=== PATIENT | male | born 1935 | race Caucasian/White ===

== ENCOUNTER → 2017-04-07 13:58 | Outpatient (CLI) | payer MEDICARE, SELFPAY ==
[2017-04-07 15:44] LABS: Hematocrit 39.3 % (40-54); Hemoglobin 12.2 g/dl (13.0-16.5); Mean Corpuscular Hgb 30.2 pg (27.0-32.0); Mean Corpuscular Volume 97.3 fL (80-94); Mean Platelet Vol. 8.9 fl (6.2-12.0); Platelet Count 163 K/mm3 (150-450); RBC Distribution Width CV 14.5 % (11.6-14.6); RBC Distribution Width SD 51.8 fl (35.1-43.9); Red Blood Count 4.04 M/mm3 (4.6-6.2); White Blood Count 6.4 K/mm3 (4.4-11.0)
[2017-04-07 15:47] LABS: Scan Indicated on CBC? Y/N NO
[2017-04-07 16:07] LABS: Albumin, Serum 3.1 g/dL (3.2-5.0); BUN 20 mg/dL (7-18); BUN/Creat Ratio 11.9 RATIO (10-20); Calcium,Total 8.5 mg/dL (8.5-10.1); Chloride 103 mmol/L (98-107); Creatinine, Serum 1.68 mg/dL (0.70-1.30); EST Glomerular Filtration Rate 42 mL/min (>60); Est Glom Filt Rate - Afr Amer 51 mL/min (>60); Glucose 76 mg/dL (70-110); Phosphorus 3.9 mg/dL (2.5-4.9); Potassium 4.7 mmol/L (3.5-5.1); Sodium Level 141 mmol/L (136-145); Thyroid Stim Hormone (TSH) 4.46 uIU/mL (0.358-3.74)
[2017-04-08 10:05] LABS: Vitamin D,25 Hydroxy 31.4 ng/mL (19.95-100.01)
== END ==
PROVIDERS: Family Provider Family Medicine Geriatric Medicine; PCP Family Medicine Geriatric Medicine; Visit Provider Internal Medicine Nephrology
DX: N17.9 Acute kidney failure, unspecified (principal); D64.9 Anemia, unspecified; E55.9 Vitamin D deficiency, unspecified
CPT/HCPCS: 36415; 80069; 82306; 84443; 85027

== ENCOUNTER → 2017-04-30 13:57 | Outpatient (CLI) | payer MEDICARE, SELFPAY ==
[2017-04-30 17:06] LABS: Absolute Neutrophil Count 3.8 X10^3/uL (2.0-7.7); Basophil# 0.02 X10^3/uL; Basophil% 0.3 % (0-1); Eosinophil# 0.34 X10^3/uL; Eosinophils% 5.2 % (0-5); Hematocrit 36.5 % (40-54); Hemoglobin 11.8 g/dl (13.0-16.5); Mean Corp Hgb Conc 32.3 g/gl (32-36); Mean Corpuscular Hgb 31.1 pg (27.0-32.0); Mean Corpuscular Volume 96.3 fL (80-94); Mean Platelet Vol. 8.8 fl (6.2-12.0); Monocyte# 0.68 X10^3/uL; Monocyte% 10.4 % (0-10); Neutrophil # 3.78 X10^3/uL (2.7-7.7); Neutrophil % 57.9 % (47-70); Platelet Count 153 K/mm3 (150-450); RBC Distribution Width CV 13.7 % (11.6-14.6); RBC Distribution Width SD 46.3 fl (35.1-43.9); Red Blood Count 3.79 M/mm3 (4.6-6.2); White Blood Count 6.5 K/mm3 (4.4-11.0)
[2017-04-30 17:10] LABS: POSITIVE COUNT NO; POSITIVE DIFFERENTIAL NO; POSITIVE MORPHOLOGY NO
[2017-04-30 17:16] LABS: ALB/GLOB Ratio 0.8 RATIO (0.9-2.4); AST(SGOT) 20 U/L (15-37); Alanine Aminotransfer ALT/SGPT 22 U/L (16-61); Albumin, Serum 3.1 g/dL (3.2-5.0); Alkaline Phosphatase 100 U/L (45-117); Anion Gap 7 (5-15); BUN 20 mg/dL (7-18); BUN/Creat Ratio 11.9 RATIO (10-20); Calcium,Total 8.2 mg/dL (8.5-10.1); Chloride 103 mmol/L (98-107); Creatinine, Serum 1.68 mg/dL (0.70-1.30); EST Glomerular Filtration Rate 42 mL/min (>60); Est Glom Filt Rate - Afr Amer 51 mL/min (>60); Glucose 67 mg/dL (74-106); Protein, Total 7.1 g/dL (6.4-8.2); Sodium Level 140 mmol/L (136-145); Thyroid Stim Hormone (TSH) 3.62 uIU/mL (0.358-3.74)
[2017-05-01 10:32] LABS: Vitamin D,25 Hydroxy 43.4 ng/mL (19.95-100.01)
== END ==
PROVIDERS: Family Provider Family Medicine Geriatric Medicine; PCP Family Medicine Geriatric Medicine; Visit Provider Family Medicine Geriatric Medicine
DX: E03.9 Hypothyroidism, unspecified (principal); N17.9 Acute kidney failure, unspecified; E55.9 Vitamin D deficiency, unspecified
CPT/HCPCS: 36415; 80053; 82306; 84443; 85025

== ENCOUNTER → 2017-05-11 13:04 | Outpatient (CLI) | payer MEDICARE, SELFPAY ==
[2017-05-11 15:05] LABS: Hematocrit 38.7 % (40-54); Hemoglobin 12.4 g/dl (13.0-16.5); Mean Corpuscular Hgb 30.7 pg (27.0-32.0); Mean Corpuscular Volume 95.8 fL (80-94); Mean Platelet Vol. 8.4 fl (6.2-12.0); Platelet Count 169 K/mm3 (150-450); RBC Distribution Width CV 13.7 % (11.6-14.6); RBC Distribution Width SD 46.5 fl (35.1-43.9); Red Blood Count 4.04 M/mm3 (4.6-6.2); White Blood Count 5.8 K/mm3 (4.4-11.0)
[2017-05-11 15:10] LABS: Scan Indicated on CBC? Y/N NO
[2017-05-11 15:37] LABS: Albumin, Serum 3.1 g/dL (3.2-5.0); BUN 17 mg/dL (7-18); BUN/Creat Ratio 10.6 RATIO (10-20); Calcium,Total 8.5 mg/dL (8.5-10.1); Chloride 103 mmol/L (98-107); EST Glomerular Filtration Rate 44 mL/min (>60); Est Glom Filt Rate - Afr Amer 53 mL/min (>60); Glucose 65 mg/dL (74-106); Phosphorus 3.6 mg/dL (2.5-4.9); Potassium 4.1 mmol/L (3.5-5.1); Sodium Level 141 mmol/L (136-145); Vitamin D,25 Hydroxy 35.4 ng/mL (29.95-100.01)
== END ==
PROVIDERS: Family Provider Family Medicine Geriatric Medicine; PCP Family Medicine Geriatric Medicine; Visit Provider Internal Medicine Nephrology
DX: N17.9 Acute kidney failure, unspecified (principal); E55.9 Vitamin D deficiency, unspecified; D64.9 Anemia, unspecified
CPT/HCPCS: 36415; 80069; 82306; 85027

== ENCOUNTER 2017-09-18 13:52 | Inpatient (IN) | payer MEDICARE, SELFPAY ==
[2017-09-18] VITALS (8 sets, daily range): BP systolic 108–152; BP diastolic 41–83; PULSE 52–68; RESP 16–20; TEMP 36.9–38.4; O2SAT 91–94; BMI 32.3; BMI 32.4; BMI 31.5
--- NOTE | 2017-09-18 14:06 | EKG12_ITS ---
Test Reason : WEAKNESS Blood Pressure : / mmHG Vent. Rate : 065 BPM Atrial Rate : 065 BPM P-R Int : 216 ms QRS Dur : 130 ms QT Int : 510 ms P-R-T Axes : -09 -84 -10 degrees QTc Int : 530 ms Sinus rhythm with 1st degree A-V block Left axis deviation Non-specific intra-ventricular conduction block T wave abnormality, consider lateral ischemia Abnormal ECG Confirmed by HAI GARICA, JOSE LUIS ([id number]), health editor BRUNO CARBAJAL ([id number]) on 09/22/2017 1:50:38 PM Referred By: VIRIDIANA Confirmed By:JOSE LUIS VALLES MD
--- NOTE | 2017-09-18 14:15 | ED.VISSUMM ---
- ER Visit Summary Date of Service: 09/18/17 Chief Complaint: Fever, chills and generalized weakness History of Present Illness: The patient is a 81 M lives alone. He is but his ex- is his primary caregiver. He is accompanied by his son in the ER. Patient does have dementia son is getting most of the history. States that his dad results on the front porch today. Said he felt chilled. And had trouble getting up because he was so weak. They deny any recent nausea, vomiting, diarrhea. No dysuria. No cough or new shortness of breath. No chest pain or headache. No recent falls. Physical Examination: Older male no acute distress. Vital signs are stable he does have a fever of 101.2 orally. Pulse ox is 91% on room air not hypoxic and borderline. No distress. H EENT exam unremarkable atraumatic. Moist mucous membranes. Neck nontender no meningismus. No lymphadenopathy. Lungs clear to auscultation bilaterally. Heart regular rhythm no murmur. Abdomen soft and nontender. Normal bowel sounds no peritoneal signs. Nondistended. Moving all 4 extremities. Neurovascularly intact. Calves nontender without cords. Back exam nontender. Neurologically is awake. He is alert. He answers questions. He follows commands. He is not an excellent informant due to his dementia. But he is moving all 4 extremities and following commands. Test Results: Chest x-ray shows chronic changes no acute process read both by myself and the radiologist. EKG sinus rhythm rate is 65 with an interventricular conduction delay but no acute signs of ischemia. White count 8 H&H of 10 and 33 previously his hemoglobin was 12. Platelet count of 80,000 his platelets most recently 160,000 but he has been in the 90,000 range before. No bands. Electrolytes are unremarkable he does have an elevated creatinine of 1.75 consistent with a history of renal insufficiency. Lactate is normal 1.4. UA is pending nurses tried Whittaker catheter is been unsuccessful he has blood cultures ?2 pending. Emergency Department Course and Treatment: Older male with generalized weakness and fever. Most likely will need to be admitted. Will undergo an infectious evaluation. Treatment Plan: Patient treated with a liter normal saline. P.o. Tylenol. We do not have a source at this time. I am going to start him on IV Zosyn for wide spectrum antibiotic coverage. Disposition: Admission Impression: Acute fever and chills of uncertain source Generalized weakness This note was generated with [employer] dictation software. It may contain incorrect words, spelling, and punctuation that were not noted in review of the chart prior to signing ED Disposition - Plan for ED Patient: Chief Complaint: Weakness Referrals: Laith Lai Chi, MD [Primary Care Provider] -
[2017-09-18 14:36] LABS: Absolute Lymphocyte Count 0.38 X10^3/ul (0.83-4.51); Basophil# 0.01 X10^3/uL; Basophil% 0.1 % (0-1); Differential Indicated SCAN CRITERIA MET; Eosinophil# 0.01 X10^3/uL; Eosinophils% 0.1 % (0-5); Hematocrit 33.3 % (40-54); Hemoglobin 10.3 g/dl (13.0-16.5); Lymphocyte # 0.38 X10^3/ul (4.0); Lymphocyte % 4.6 % (19-41); Mean Corp Hgb Conc 30.9 g/gl (32-36); Mean Corpuscular Volume 87.2 fL (80-94); Mean Platelet Vol. 8.3 fl (6.2-12.0); Monocyte# 0.85 X10^3/uL; Monocyte% 10.3 % (0-10); Neutrophil # 7.02 X10^3/uL (2.7-7.7); Neutrophil % 84.8 % (47-70); POSITIVE COUNT NO; POSITIVE DIFFERENTIAL YES; POSITIVE MORPHOLOGY NO; Platelet Count 80 K/mm3 (150-450); RBC Distribution Width CV 15.7 % (11.6-14.6); RBC Distribution Width SD 50.4 fl (35.1-43.9); Red Blood Count 3.82 M/mm3 (4.6-6.2); White Blood Count 8.3 K/mm3 (4.4-11.0)
[2017-09-18 14:43] LABS: Anion Gap 8 (5-15); BUN 18 mg/dL (7-18); BUN/Creat Ratio 10.3 RATIO (10-20); Calcium,Total 8.1 mg/dL (8.5-10.1); Chloride 104 mmol/L (98-107); Creatinine, Serum 1.75 mg/dL (0.70-1.30); EST Glomerular Filtration Rate 40 mL/min (>60); Est Glom Filt Rate - Afr Amer 48 mL/min (>60); Estimated Creatinine Clearance 31.49 ml/min; Glucose 77 mg/dL (74-106); Sodium Level 140 mmol/L (136-145)
[2017-09-18] MEDS: 0.9% Normal Saline 1,000 ML 1000 ML IV (14:47)
[2017-09-18] MEDS: Acetaminophen 500 MG Tablet 1000 MG PO (14:47)
[2017-09-18 14:52] LABS: Lactic Acid 1.4 mmol/L (0.4-2.0)
--- NOTE | 2017-09-18 15:00 | RAD_ITS ---
STUDY: X-RAY CHEST REASON FOR EXAM: Male, 81 years old. Weakness. TECHNIQUE: AP and lateral views of the chest. COMPARISON: Comparison is made with prior study dated May 08, 2016. FINDINGS: EKG electrodes are seen. There is blunting of the right costophrenic angle with increased markings at the right lung base suggestive of atelectasis and/or early infiltrate. There is no demonstrated pleural abnormality. Normal size heart. Normal mediastinum and lucero. Normal visualized pulmonary arteries. There is atherosclerotic tortuosity of the aortic arch and descending thoracic aorta. There are diffuse degenerative changes of the visualized thoracic spine. Normal visualized ribs, clavicles, and shoulders. There is no demonstrated abnormality of the visualized soft tissue structures of the upper abdomen. RAD/Chest PA and Lateral IMPRESSION: Small right pleural effusion with underlying infiltration and/or atelectasis. Electronically Signed: Marcos Lewis MD at 15:12 EDT Tel [phone], Service support ,
--- NOTE | 2017-09-18 16:41 | HP.PCM_ITS ---
Problem List (1) Fever and chills Status: Acute (2) Hypertension Status: Chronic (3) Paroxysmal atrial fibrillation Status: Chronic (4) Stage III chronic kidney disease Status: Chronic (5) Obesity (BMI 30-39.9) Status: Chronic (6) CKD (chronic kidney disease) Status: Acute (7) Thrombocytopenia Status: Acute (8) Cystitis Status: Acute History of Present Illness Date of Admission: 09/18/17 The patient is a 81 year old M with a significant history of Alzheimer disease, hypertension, A. fib, heart failure ,CKD who presented with fever, and chills ? 1 day. Associated with his symptoms is a weakness of about 3 days duration. History taking is limited because of a baseline dementia. Past Medical History Past Medical History (Chronic Problems): Chronic Problems (Last Reviewed 06/11/17 @ 14:28 by Janel Ratliff) Old myocardial infarction (Chronic) Right bundle branch block (Chronic) Hypertension (Chronic) Paroxysmal SVT (supraventricular tachycardia) (Chronic) Nonsustained ventricular tachycardia (Chronic) Paroxysmal atrial fibrillation (Chronic) Stage III chronic kidney disease (Chronic) Obesity (BMI 30-39.9) (Chronic) Medical History: Medical History (Last Reviewed 06/11/17 @ 14:28 by Janel Ratliff) Old myocardial infarction (Chronic) I25.2 Right bundle branch block (Chronic) I45.10 Hypertension (Chronic) I10 Paroxysmal SVT (supraventricular tachycardia) (Chronic) I47.1 Nonsustained ventricular tachycardia (Chronic) I47.2 Paroxysmal atrial fibrillation (Chronic) I48.0 Stage III chronic kidney disease (Chronic) Obesity (BMI 30-39.9) (Chronic) E66.9 Alzheimer disease G30.9, F02.80 COPD (chronic obstructive pulmonary disease) J44.9 GERD (gastroesophageal reflux disease) K21.9 Obstructive sleep apnea G47.33 Pancreatitis K85.90 Allergies morphine Adverse Reaction (Severe, Verified 09/18/17 14:33) hostility,disoriented hostility, disoriented Home Medications: Ambulatory Orders Medication Instructions Recorded RX: Donepezil HCl 10 mg PO QHS 03/07/15 RX: Ergocalciferol [Vitamin D] 50,000 unit PO QMONTH 03/07/15 Escitalopram Oxalate [Lexapro] 10 mg PO DAILY 12/24/15 furosemide 20 mg tablet 20 mg PO .QOD tab 06/11/17 levothyroxine 75 mcg capsule 75 mcg PO QDAY cap 06/11/17 Apixaban [Eliquis] 2.5 mg PO BID 09/18/17 Cyanocobalamin (Vitamin B-12) 500 mcg PO DAILY 09/18/17 [Vitamin B-12] RX: Amiodarone HCl [Cordarone] 200 mg PO DAILY 09/18/17 Surgical History: Surgical History (Last Reviewed 09/18/17 @ 17:29 by Azeem Villagomez MD) H/O bilateral hip replacements Z96.643 Hx of cholecystectomy Z90.49 excision of subglottic mass tricep surgery Surgical History: cholecystectomy, total hip arthroplasty - right 05/16/14 Dr Powell, Left 5 years ago, - - Right bicep repair 1994 Psychiatric History: No pertinent psych hx Lives: Alone, - - Patient lives alone but ex- stop by to take care of him. Smoking Status: Former smoker Tobacco Use: Non-smoker Alcohol: None Drugs: None - *Family History Maternal Family History: Family History (Last Reviewed 09/18/17 @ 17:30 by Azeem Villagomez MD) Sister CAD (coronary artery disease) History Items: No pertinent history Paternal Family History: Family History (Last Reviewed 09/18/17 @ 17:30 by Azeem Villagomez MD) Sister CAD (coronary artery disease) History Items: No pertinent history Offspring Family History: Family History (Last Reviewed 09/18/17 @ 17:30 by Azeem Villagomez MD) Sister CAD (coronary artery disease) History Items: No pertinent history Review of Systems Unable to obtain accurate/complete ROS d/t: Secondary to dementia VTE Information - Inpt Only VTE Present on Admission: No VTE Mechan Device Prophylaxis: SCD's VTE Pharm Prophylaxis ordered?: No Reason prophylaxis not ordered:: Medical Contraindication Patient Problems: Active and Suspected Problems (Last Reviewed 06/11/17 @ 14:28 by Janel Ratliff) CKD (chronic kidney disease) (Acute) Thrombocytopenia (Acute) Cystitis (Acute) - Physical Exam General: Alert, - - Oriented to place. Also he knows that he is at the hospital. He is not oriented to time. HEENT: Atraumatic, PERRLA, EOMI, Normocephalic Oral: Dry Mucosa Neck: Supple, No JVD, Negative Carotid Bruits Lungs: Clear to auscultation, Normal air movement Cardiovascular: Regular rate Abdomen: Bowel Sounds Present Extremities: No edema, Capillary Refill Less than 3 Seconds Skin: - - Dryness with desquamation Musculoskeletal: No Tenderness to Palpation of Joints or Extremities Lymphatic: No Cervical, Supraclavicular, or Inguinal Adenopathy Neurological: Neuro grossly intact Psych/Mental Status: Normal Affect, Appropriate Vital Signs Temp Pulse Resp BP Pulse Ox 101.2 F H 65 20 H 127/56 H 94 09/18/17 13:56 09/18/17 16:06 09/18/17 16:06 09/18/17 16:06 09/18/17 16:06 Oxygen Delivery Method Room Air Weight: 96.6 kg Body Mass Index (BMI) 32.3 Finger Stick Blood Glucose 85 Laboratory Tests Past 24 Hrs 09/18/17 09/18/17 09/18/17 14:15 14:15 14:15 WBC 8.3 RBC 3.82 L Hgb 10.3 L Hct 33.3 L MCV 87.2 MCH 27.0 MCHC 30.9 L RDW 15.7 H RDW Differential 50.4 H Plt Count 80 L MPV 8.3 Immature Gran % (Auto) 0.100 Neut % (Auto) 84.8 H Lymph % (Auto) 4.6 L Beltrami % (Auto) 10.3 H Eos % (Auto) 0.1 Baso % (Auto) 0.1 Absolute Neuts (auto) 7.0 Absolute Lymphs (auto) 0.38 L Total Counted Not Reportable Sodium 140 Potassium 4.0 Chloride 104 Carbon Dioxide 28.0 Anion Gap 8 BUN 18 Creatinine 1.75 H Estim Creat Clear Calc 31.49 Est GFR (MDRD) Af Amer 48 L Est GFR (MDRD) Non-Af 40 L BUN/Creatinine Ratio 10.3 Glucose 77 Lactic Acid 1.4 Calcium 8.1 L Assessment/Plan All Active Problems (Last Reviewed 06/11/17 @ 14:28 by Janel Ratliff) Fever and chills (Acute) CKD (chronic kidney disease) (Acute) Thrombocytopenia (Acute) Cystitis (Acute) Generalized weakness (Ruled-out) The patient is a 81 year old M with a significant history of Alzheimer disease, hypertension, A. fib, heart failure ,CKD who presented with fever, and chills at ?1 day. Associated with his symptoms is a weakness of about 3 days duration. Acute cystitis Patient presented with fever, chills and weakness. Urinalysis is abnormal. At the ED of patient temperature was 101.2 Chest x-ray unremarkable Urinalysis is pending. Blood cultures pending Weakness This could be secondary to infection (cystitis) or debility Workup pending as above PT and OT to work with patient. DARREL on CKD Gentle hydration. Patient looks very dry likely DARREL is pre-renal Avoid nephrotoxic's Thrombocytopenia With a previous history of thrombocytopenia and acute thrombocytopenia. Differential diagnosis includes ITP, TTP, infection, reactive thrombocytopenia and others PT /PTT ordered. We will hold home apixaban at this time. CMP in a.m. Chronic Afib Continue home amiodarone Apixaban on hold at this time. DVT prophylaxis Home apixaban held secondary to thrombocytopenia SCD. Code Visit Inpatient E&M: 13390 Init Hosp L2
[2017-09-18 17:01] LABS: Bacteria 0 SEEN /hpf (None Seen); Mucous, Urine 0 SEEN /hpf (<or=2+); Squamous Epithelial Cells - UA 0 SEEN /hpf (0-5)
[2017-09-18 17:16] LABS: Color, Urine Yellow (Yellow); Glucose, Dipstick Normal (Normal); Ketone-Dipstick Negative (Negative); Leukocyte Esterase-Dipstick 25 /ul (Negative); Nitrite-Dipstick Negative (Negative); Occult Blood-Urine 150 /ul (Negative); Protein-Dipstick 100 mg/dl (Negative); Specific Gravity, Urine 1.015 (1.002-1.030); Urine Bilirubin Dipstick Negative (Negative); Urine Clarity Clear (Clear); Urine Urobilinogen 1 mg/dl (Normal)
[2017-09-18 17:22] LABS: Red Blood Cells-Urine 10-25 SEEN /hpf (0-5); White Blood Cells 0-5 SEEN /hpf (0-5)
[2017-09-18 18:12] LABS: International Normalized Ratio 1.3; Prothrombin Time (Protime)PT. 16.1 SECONDS (11.7-14.9)
[2017-09-18 18:13] LABS: Partial Thromboplast Time 33.6 Seconds (24.1-36.2)
[2017-09-18] MEDS: 0.9% Normal Saline 1,000 ML 100 ML IV (18:19)
[2017-09-18] MEDS: Ceftriaxone 1 GM/50 ML BAG IV (20:00)
[2017-09-18] MEDS: Donepezil HCl 10 MG Tablet PO (22:13)
[2017-09-19] VITALS (11 sets, daily range): BP systolic 129–148; BP diastolic 63–75; PULSE 57–65; RESP 16–20; TEMP 37.3–37.8; O2SAT 90–97
[2017-09-19] MEDS: Levothyroxine 75 MCG Tablet PO (06:19)
[2017-09-19 07:17] LABS: ALB/GLOB Ratio 0.7 RATIO (0.9-2.4); AST(SGOT) 32 U/L (15-37); Alanine Aminotransfer ALT/SGPT 19 U/L (16-61); Albumin, Serum 2.5 g/dL (3.2-5.0); Alkaline Phosphatase 77 U/L (45-117); Anion Gap 8 (5-15); BUN 18 mg/dL (7-18); BUN/Creat Ratio 11.6 RATIO (10-20); Calcium,Total 7.8 mg/dL (8.5-10.1); Chloride 107 mmol/L (98-107); Creatinine, Serum 1.55 mg/dL (0.70-1.30); EST Glomerular Filtration Rate 46 mL/min (>60); Est Glom Filt Rate - Afr Amer 55 mL/min (>60); Estimated Creatinine Clearance 35.55 ml/min; Globulin 3.5 g/dL (2.2-4.2); Glucose 85 mg/dL (74-106); Potassium 4.1 mmol/L (3.5-5.1); Sodium Level 141 mmol/L (136-145)
--- NOTE | 2017-09-19 07:23 | RAD_ITS ---
STUDY: X-RAY CHEST REASON FOR EXAM: Male, 81 years old. Shortness of breath breath TECHNIQUE: PA and lateral views of the chest. COMPARISON: September 18, 2017 chest x-ray FINDINGS: Lungs are underexpanded, interstitial markings are mildly prominent the chest is relatively stable compared to prior study. There is a blunted appearance of the right costophrenic angle. There is mild cardiac enlargement. Normal mediastinum and lucero. Normal visualized pulmonary arteries. There is atherosclerotic tortuosity of the aortic arch and descending thoracic aorta. There are diffuse degenerative changes of the visualized thoracic spine. Normal visualized ribs, clavicles, and shoulders. There is no demonstrated abnormality of the visualized soft tissue structures of the upper abdomen. RAD/Chest PA and Lateral IMPRESSION: Stable chest no evidence of acute focal infiltrate. Blunted appearance of the right costophrenic angle which may represent a small focal infiltrate and/or effusion. Electronically Signed: Nilam Carr MD at 9:59 EDT Tel , Service support ,
[2017-09-19] MEDS: Cyanocobalamin 500 MCG Tablet PO (10:32)
[2017-09-19] MEDS: Escitalopram Oxalate 10 MG Tablet PO (10:32)
[2017-09-19] MEDS: Ceftriaxone 1 GM/50 ML BAG IV (10:35)
[2017-09-19] MEDS: Amiodarone 200 MG Tablet PO (12:32)
--- NOTE | 2017-09-19 12:38 | CASEMGMT ---
See assessment. SW spoke w/pt initially, he states he lives home and exwife helps him at home. Pt not fully alert and oriented, difficulty answering questions at times. Pt did say he wants to go home. Pt's son and exwife along w/grandson were in room later in the afternoon. SW spoke w/exwife Tabitha and son Debbie Young. They both agree pt needs SNF, though Tabitha helps pt he does live alone. TCU is first choice. Pt has been to [facility] and [facility] in the past. STEFANIE gave son list of SNF's that take [employer], asked him to review list and let SW on Thursday know other choices in the event TCU does not have a bed. Pt also does not like shared rooms as per Tabitha. STEFANIE gave son STEFANIE's number on Thursday to call with additional choices. STEFANIE called TCU, message left w/pt's name and asked Candace in TCU to call SW on PCU on Thursday regarding bed availability. SW to follow up on Thursday.
--- NOTE | 2017-09-19 12:39 | CASEMGMT ---
See assessment for details. SW spoke w/pt initially, he states he lives home and exwife helps him at home. Pt not fully alert and oriented, difficulty answering questions at times. Pt did say he wants to go home. Pt's son and exwife along w/grandson were in room later in the afternoon. SW spoke w/exwife Tabitha and son Debbie Young. They both agree pt needs SNF, though Tabitha helps pt he does live alone. TCU is first choice. Pt has been to [facility] and [facility] in the past. SW gave son list of SNF's that take [employer], asked him to review list and let SW on Thursday know other choices in the event TCU does not have a bed. Pt also does not like shared rooms as per Tabitha. STEFANIE gave son STEFANIE's number on Thursday to call with additional choices. STEFANIE called TCU, message left w/pt's name and asked Candace in TCU to call SW on PCU on Thursday regarding bed availability. SW to follow up on Thursday. REFUGIO Clarke, CULTURE MEDIA LABORATORY ASSISTANT
--- NOTE | 2017-09-19 13:51 | PCM.PROGNOTE ---
Patient Problems: Active and Suspected Problems (Last Reviewed 06/11/17 @ 14:28 by Janel Ratliff) CKD (chronic kidney disease) (Acute) Thrombocytopenia (Acute) Cystitis (Acute) Subjective: Patient seen and examined today, he does not appear to be in any distress, one blood culture returned gram-positive rods on the resolved today. Maximum temperature today is 99.7. Patient only complains of penile pain, this may be secondary to the fact he had a Whittaker catheter inserted for his urinalysis. Patient remains confused. Patient's repeat chest x-ray today was negative for acute pathology - Physical Exam General: Alert, Cooperative, No apparent distress, Well developed HEENT: Atraumatic, PERRLA, Normocephalic Oral: Moist Mucosa Neck: Supple, No Nuchal Rigidity, Trachea Midline, Thyroid Normal Size and Texture Lungs: Clear to auscultation, Normal air movement, No rhonchi, No wheeze, No rales Cardiovascular: Regular rate, Regular Rhythm, Normal S1, Normal S2, No murmurs, PMI Normal Abdomen: Bowel Sounds Present, Soft, Non Tender, Non-Distended, No hernias noted Extremities: No clubbing, No cyanosis, No edema Neurological: Cranial nerves II-XII grossly intact, Neuro grossly intact, Sensory exam intact to light touch and pain, Coordination normal Psych/Mental Status: Flat Affect, - - Patient is alert but confused, he is in no distress Vital Signs Temp Pulse Resp BP Pulse Ox 99.7 F H 57 L 20 H 129/66 H 93 09/19/17 10:21 09/19/17 10:21 09/19/17 10:21 09/19/17 10:21 09/19/17 10:21 Oxygen Delivery Method Room Air Weight: 94.1 kg Body Mass Index (BMI) 31.5 Intake and Output for Last 24 Hours 09/17/17 09/18/17 09/19/17 23:59 23:59 23:59 Intake Total 1705 / 1705 Output Total 450 / 450 Balance 1255 / 1255 Laboratory Tests Past 24 Hrs 09/19/17 05:40 Sodium 141 Potassium 4.1 Chloride 107 Carbon Dioxide 26.0 Anion Gap 8 BUN 18 Creatinine 1.55 H Estim Creat Clear Calc 35.55 Est GFR (MDRD) Af Amer 55 L Est GFR (MDRD) Non-Af 46 L BUN/Creatinine Ratio 11.6 Glucose 85 Calcium 7.8 L Total Bilirubin 1.20 H AST 32 ALT 19 Alkaline Phosphatase 77 Total Protein 6.0 L Albumin 2.5 L Globulin 3.5 Albumin/Globulin Ratio 0.7 L Medical Necessity - Tobacco Use Smoking Status: Former smoker Tobacco Use: Non-smoker Assessment/Plan All Active Problems (Last Reviewed 06/11/17 @ 14:28 by Janel Ratliff) Fever and chills (Acute) CKD (chronic kidney disease) (Acute) Thrombocytopenia (Acute) Cystitis (Acute) Generalized weakness (Ruled-out) #1 acute cystitis-await urine culture results, continue Rocephin IV #2 generalized debility-secondary to #1 and Alzheimer's dementia as well as advanced age-PT and OT will continue to see the patient, patient lives by himself and is assisted by his ex-, per my understanding, she does not live at his house however. Patient will have to be placed in a [facility] facility more than likely #3 Alzheimer's dementia #4 chronic kidney disease stage III #5 hypertension #6 paroxysmal atrial fibrillation-currently in sinus rhythm Code Visit Inpatient E&M: 63061 Subs Hosp L2
[2017-09-19] MEDS: Donepezil HCl 10 MG Tablet PO (22:01)
[2017-09-20] VITALS (12 sets, daily range): BP systolic 111–149; BP diastolic 53–70; PULSE 53–64; RESP 16–18; TEMP 36.7–37.8; O2SAT 94–95
[2017-09-20] MEDS: Acetaminophen 325 MG Tablet 650 MG PO (00:23)
[2017-09-20] MEDS: Levothyroxine 75 MCG Tablet PO (05:07)
[2017-09-20 09:07] LABS: Absolute Lymphocyte Count 0.92 X10^3/ul (0.83-4.51); Absolute Neutrophil Count 4.4 X10^3/uL (2.0-7.7); Basophil# 0.01 X10^3/uL; Basophil% 0.2 % (0-1); Eosinophil# 0.14 X10^3/uL; Eosinophils% 2.3 % (0-5); Hematocrit 34.2 % (40-54); Hemoglobin 10.7 g/dl (13.0-16.5); Lymphocyte # 0.92 X10^3/ul (4.0); Lymphocyte % 15.2 % (19-41); Mean Corp Hgb Conc 31.3 g/gl (32-36); Mean Corpuscular Hgb 27.5 pg (27.0-32.0); Mean Corpuscular Volume 87.9 fL (80-94); Mean Platelet Vol. 8.6 fl (6.2-12.0); Monocyte# 0.61 X10^3/uL; Monocyte% 10.1 % (0-10); Neutrophil # 4.37 X10^3/uL (2.7-7.7); Neutrophil % 72.2 % (47-70); Platelet Count 79 K/mm3 (150-450); RBC Distribution Width CV 16.3 % (11.6-14.6); RBC Distribution Width SD 52.2 fl (35.1-43.9); Red Blood Count 3.89 M/mm3 (4.6-6.2); White Blood Count 6.1 K/mm3 (4.4-11.0)
[2017-09-20 09:09] LABS: POSITIVE COUNT NO; POSITIVE DIFFERENTIAL NO; POSITIVE MORPHOLOGY NO
[2017-09-20] MEDS: Amiodarone 200 MG Tablet PO (09:35)
[2017-09-20] MEDS: Ceftriaxone 1 GM/50 ML BAG IV (09:35)
[2017-09-20] MEDS: Escitalopram Oxalate 10 MG Tablet PO (09:36)
[2017-09-20] MEDS: Cyanocobalamin 500 MCG Tablet PO (09:36)
--- NOTE | 2017-09-20 11:24 | PCM.PROGNOTE ---
Patient Problems: Active and Suspected Problems (Last Reviewed 06/11/17 @ 14:28 by Janel Ratliff) CKD (chronic kidney disease) (Acute) Thrombocytopenia (Acute) Cystitis (Acute) Subjective: Patient seen and examined today, he still remains confused, he does not appear in any distress, blood cultures are now read out as gram-negative jeannette, identification is pending. Patient has been afebrile, he remains on Rocephin for now - Physical Exam General: Alert, Oriented x3, Cooperative, No apparent distress, Well developed, Well nourished HEENT: Atraumatic, PERRLA, EOMI, Normocephalic Oral: Moist Mucosa Neck: Supple, No JVD, No Nuchal Rigidity, Trachea Midline, Thyroid Normal Size and Texture Lungs: Clear to auscultation, Normal air movement Cardiovascular: Regular rate, Regular Rhythm, Normal S1, Normal S2, No murmurs, No Ectopic Activity, PMI Normal, No rub noted, No Gallop Abdomen: Bowel Sounds Present, Soft, Non Tender, Non-Distended, No hernias noted Extremities: No clubbing, No cyanosis, No edema, Capillary Refill Less than 3 Seconds Skin: No rashes, No breakdown Musculoskeletal: No Tenderness to Palpation of Joints or Extremities Neurological: Cranial nerves II-XII grossly intact, Neuro grossly intact, Sensory exam intact to light touch and pain, Coordination normal Psych/Mental Status: Flat Affect, - - Patient is confused Vital Signs Temp Pulse Resp BP Pulse Ox 98.3 F 58 L 16 111/60 94 09/20/17 09:32 09/20/17 11:02 09/20/17 09:32 09/20/17 09:32 09/20/17 09:32 Oxygen Delivery Method Room Air Weight: 94.1 kg Body Mass Index (BMI) 31.5 Intake and Output for Last 24 Hours 09/18/17 09/19/17 09/20/17 23:59 23:59 23:59 Intake Total 1974 / 1974 50 / 50 Output Total 550 / 550 Balance 1425 / 1425 50 / 50 Laboratory Tests Past 24 Hrs 09/20/17 08:50 WBC 6.1 RBC 3.89 L Hgb 10.7 L Hct 34.2 L MCV 87.9 MCH 27.5 MCHC 31.3 L RDW 16.3 H RDW Differential 52.2 H Plt Count 79 L MPV 8.6 Immature Gran % (Auto) 0.000 Neut % (Auto) 72.2 H Lymph % (Auto) 15.2 L Vance % (Auto) 10.1 H Eos % (Auto) 2.3 Baso % (Auto) 0.2 Absolute Neuts (auto) 4.4 Absolute Lymphs (auto) 0.92 Total Counted Not Reportable Medical Necessity - Tobacco Use Smoking Status: Former smoker Tobacco Use: Non-smoker Assessment/Plan All Active Problems (Last Reviewed 06/11/17 @ 14:28 by Janel Ratliff) Fever and chills (Acute) CKD (chronic kidney disease) (Acute) Thrombocytopenia (Acute) Cystitis (Acute) Generalized weakness (Ruled-out) #1 [id number] 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 coli, day #3 IV Rocephin, await final identification #2 acute cystitis-most probably secondary to E. coli, continue Rocephin IV #3 generalized debility-secondary to #1 and Alzheimer's dementia as well as advanced age-PT and OT will continue to see the patient, patient lives by himself and is assisted by his ex-, per my understanding, she does not live at his house however. Patient will have to be placed in a residential facility more than likely #4 Alzheimer's dementia #5 chronic kidney disease stage III #6 hypertension #7 paroxysmal atrial fibrillation-currently in sinus rhythm #8 thrombocytopenia-etiology unclear at this time, it appears in reviewing the patient's medical record, he has had periods of thrombocytopenia in the past. Due to the patient's significant dementia, I am not going to work up the thrombocytopenia up at this time, his level of thrombocytopenia is not significant at this time Code Visit Inpatient E&M: 38890 Subs Hosp L2
--- NOTE | 2017-09-20 11:33 | PN_ITS ---
Patient Problems: Active and Suspected Problems (Last Reviewed 06/11/17 @ 14:28 by Janel Ratliff) CKD (chronic kidney disease) (Acute) Thrombocytopenia (Acute) Cystitis (Acute) Subjective: Patient seen and examined today, he still remains confused, he does not appear in any distress, blood cultures are now read out as gram-negative jeannette, identification is pending. Patient has been afebrile, he remains on Rocephin for now - Physical Exam General: Alert, Oriented x3, Cooperative, No apparent distress, Well developed, Well nourished HEENT: Atraumatic, PERRLA, EOMI, Normocephalic Oral: Moist Mucosa Neck: Supple, No JVD, No Nuchal Rigidity, Trachea Midline, Thyroid Normal Size and Texture Lungs: Clear to auscultation, Normal air movement Cardiovascular: Regular rate, Regular Rhythm, Normal S1, Normal S2, No murmurs, No Ectopic Activity, PMI Normal, No rub noted, No Gallop Abdomen: Bowel Sounds Present, Soft, Non Tender, Non-Distended, No hernias noted Extremities: No clubbing, No cyanosis, No edema, Capillary Refill Less than 3 Seconds Skin: No rashes, No breakdown Musculoskeletal: No Tenderness to Palpation of Joints or Extremities Neurological: Cranial nerves II-XII grossly intact, Neuro grossly intact, Sensory exam intact to light touch and pain, Coordination normal Psych/Mental Status: Flat Affect, - - Patient is confused Vital Signs Temp Pulse Resp BP Pulse Ox 98.3 F 58 L 16 111/60 94 09/20/17 09:32 09/20/17 11:02 09/20/17 09:32 09/20/17 09:32 09/20/17 09:32 Oxygen Delivery Method Room Air Weight: 94.1 kg Body Mass Index (BMI) 31.5 Intake and Output for Last 24 Hours 09/18/17 09/19/17 09/20/17 23:59 23:59 23:59 Intake Total 1974 / 1974 50 / 50 Output Total 550 / 550 Balance 1425 / 1425 50 / 50 Laboratory Tests Past 24 Hrs 09/20/17 08:50 WBC 6.1 RBC 3.89 L Hgb 10.7 L Hct 34.2 L MCV 87.9 MCH 27.5 MCHC 31.3 L RDW 16.3 H RDW Differential 52.2 H Plt Count 79 L MPV 8.6 Immature Gran % (Auto) 0.000 Neut % (Auto) 72.2 H Lymph % (Auto) 15.2 L Vance % (Auto) 10.1 H Eos % (Auto) 2.3 Baso % (Auto) 0.2 Absolute Neuts (auto) 4.4 Absolute Lymphs (auto) 0.92 Total Counted Not Reportable Medical Necessity - Tobacco Use Smoking Status: Former smoker Tobacco Use: Non-smoker Assessment/Plan All Active Problems (Last Reviewed 06/11/17 @ 14:28 by Janel Ratliff) Fever and chills (Acute) CKD (chronic kidney disease) (Acute) Thrombocytopenia (Acute) Cystitis (Acute) Generalized weakness (Ruled-out) #1 [id number] 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 coli, day #3 IV Rocephin, await final identification #2 acute cystitis-most probably secondary to E. coli, continue Rocephin IV #3 generalized debility-secondary to #1 and Alzheimer's dementia as well as advanced age-PT and OT will continue to see the patient, patient lives by himself and is assisted by his ex-, per my understanding, she does not live at his house however. Patient will have to be placed in a half-way facility more than likely #4 Alzheimer's dementia #5 chronic kidney disease stage III #6 hypertension #7 paroxysmal atrial fibrillation-currently in sinus rhythm #8 thrombocytopenia-etiology unclear at this time, it appears in reviewing the patient's medical record, he has had periods of thrombocytopenia in the past. Due to the patient's significant dementia, I am not going to work up the thrombocytopenia up at this time, his level of thrombocytopenia is not significant at this time Code Visit Inpatient E&M: 14878 Subs Hosp L2
[2017-09-20] MEDS: Donepezil HCl 10 MG Tablet PO (21:25)
--- NOTE | 2017-09-20 21:32 | NURSING ---
Patient stool sent down to lab, suspect for occult stool. Lab called back and stated there was in fact, visible blood.
[2017-09-21] VITALS (8 sets, daily range): BP systolic 131–150; BP diastolic 63–73; PULSE 46–55; RESP 16; TEMP 36.8–37; O2SAT 93–96
[2017-09-21] MEDS: Levothyroxine 75 MCG Tablet PO (05:06)
[2017-09-21] MEDS: Cyanocobalamin 500 MCG Tablet PO (08:54)
[2017-09-21] MEDS: Escitalopram Oxalate 10 MG Tablet PO (08:54)
[2017-09-21] MEDS: Ceftriaxone 1 GM/50 ML BAG IV (08:54)
[2017-09-21] MEDS: Amiodarone 200 MG Tablet PO (08:54)
--- NOTE | 2017-09-21 10:11 | CASEMGMT ---
SW called patient's son and left him a voice mail letting him know that [facility] will not have a bed and SW will need a second choice. Francesca KING MSW
--- NOTE | 2017-09-21 11:33 | CASEMGMT ---
Addendum entered by Raisa Salinas 09/21/17 14:10: SW let pt, exwife Tabitha and son Debbie Garcia know that [facility] does not have a bed, waiting to hear from [facility]. Tabitha and Debbie Young. may leave, asked to be called should we hear back from [facility]. SW did leave a message for [facility] inquiring if they have reviewed referral. SW will continue to follow. REFUGIO Clarke, GEOLOGICAL SAMPLE TESTER Original Note: Addendum entered by Raisa Salinas 09/21/17 12:45: SW spoke w/Steff from [facility], they have no beds. STEFANIE called [facility], message left, referral faxed. SW also faxed information to [facility] for precert. REFUGIO Clarke, GEOLOGICAL SAMPLE TESTER Original Note: Pt's son an exwife are here, they did get STEFANIE Ma's voicemail regarding choices. They would like [facility] or [facility] for pt, however pt would prefer a private room, this is most important. SW explained will start looking into it and will also go to [facility] for precert. STEFANIE called [facility], message left, faxed referral. SW will await a call back from [facility]. REFUGIO Clarke, GEOLOGICAL SAMPLE TESTER
[2017-09-21 11:40] LABS: Bedside Glucose 129 mg/dL (70-110)
[2017-09-21 12:06] LABS: Absolute Lymphocyte Count 0.89 X10^3/ul (0.83-4.51); Absolute Neutrophil Count 4.3 X10^3/uL (2.0-7.7); Basophil# 0.01 X10^3/uL; Basophil% 0.2 % (0-1); Eosinophils% 3.3 % (0-5); Hematocrit 34.5 % (40-54); Hemoglobin 11.1 g/dl (13.0-16.5); Lymphocyte # 0.89 X10^3/ul (4.0); Lymphocyte % 14.5 % (19-41); Mean Corp Hgb Conc 32.2 g/gl (32-36); Mean Corpuscular Hgb 28.7 pg (27.0-32.0); Mean Corpuscular Volume 89.1 fL (80-94); Mean Platelet Vol. 8.5 fl (6.2-12.0); Monocyte% 11.4 % (0-10); Neutrophil # 4.34 X10^3/uL (2.7-7.7); Neutrophil % 70.4 % (47-70); Platelet Count 99 K/mm3 (150-450); RBC Distribution Width CV 16.3 % (11.6-14.6); RBC Distribution Width SD 52.4 fl (35.1-43.9); Red Blood Count 3.87 M/mm3 (4.6-6.2); White Blood Count 6.2 K/mm3 (4.4-11.0)
[2017-09-21 12:14] LABS: POSITIVE COUNT NO; POSITIVE DIFFERENTIAL NO; POSITIVE MORPHOLOGY NO
[2017-09-21 12:23] LABS: Anion Gap 9 (5-15); BUN 21 mg/dL (7-18); BUN/Creat Ratio 13.2 RATIO (10-20); Calcium,Total 8.1 mg/dL (8.5-10.1); Chloride 105 mmol/L (98-107); Creatinine, Serum 1.59 mg/dL (0.70-1.30); EST Glomerular Filtration Rate 44 mL/min (>60); Est Glom Filt Rate - Afr Amer 54 mL/min (>60); Estimated Creatinine Clearance 34.65 ml/min; Glucose 114 mg/dL (74-106); Potassium 4.1 mmol/L (3.5-5.1); Sodium Level 141 mmol/L (136-145)
[2017-09-21 12:30] LABS: PTHIN 26.8 pg/mL (18.4-80.1)
[2017-09-21] MEDS: Cefdinir 300 MG Capsule PO (13:00)
[2017-09-21] MEDS: 0.9% NaCl Peripheral Flush Adult/Peds IV (13:19)
--- NOTE | 2017-09-21 14:21 | TREXTCAR_ITS ---
- Diet 09/18/17 17:14 Diet: Cardiac/Low Cholesterol , Low Sodium Food consistency:: Regular Liquid Consistency:: Regular/Thin Supplementation: Ensure Enlive TID with meals. - Routine Orders/Code Status Enema Type: Fleetz Enema Frequency: Daily PRN Suppository Type: Dulcolax 10mg Suppository Frequency: Daily PRN Keep PO Greater than or Equal to (%): 92 Routine Lab Work: - - CBC, BMP within 1 week. Code Status: Full Code - Suggestions for Active Care Change Position every (hours): 2 Hours to sit in a chair: 6 Times a day to sit in chair: 3 - Therapies Weight Bearing: Full weight bearing Physical Therapy: Eval and Treat Occupational Therapy: Eval and Treat - Problem/Diagnosis (1) Acute UTI Status: Acute Comment: UCx not obtained, UA not severe appearing, given bacteremia, Klebsiella Oxytoca and Morganella Morganii sp morgani (final pending , thus suspect to speciate to the same) suspected secondary to UTI, complicated Current Visit: Yes (2) Bacteremia Status: Acute Comment: Bld Cx w/ preliminary Klebsiella Oxytoca and Morganella Morganii sp morgani. Current Visit: Yes (3) Thrombocytopenia Status: Chronic Current Visit: Yes (4) Right bundle branch block Status: Chronic Current Visit: No (5) Hypertension Status: Chronic Current Visit: No (6) Paroxysmal SVT (supraventricular tachycardia) Status: Chronic Current Visit: No (7) Paroxysmal atrial fibrillation Status: Chronic Current Visit: No (8) Stage III chronic kidney disease Status: Chronic Current Visit: No (9) Obesity (BMI 30-39.9) Status: Chronic Current Visit: No - Allergies/Procedures Done in Hospital Allergies/Adverse Reactions: Allergies morphine Adverse Reaction (Severe, Verified 09/18/17 14:33) hostility,disoriented hostility, disoriented Procedures: EKG - Type of Care/Length of Stay Estimated LOS: Convalescent Care Less Than 30 days Type of Care Needed: Skilled Rehab Potential: Good Prognosis: Good - Additional Orders/Day of Discharge Additional Orders: (1) Fall precautions, HOB parameters. (2) OOB to chair with all meals TID and with PT/OT. (3) IS 10x/hr 7a-7p. (4) Continue omnicef for UTI w/ associated bacteremia 300 mg BID with completion date 09/28/17. H&P will serve as current which was dated: 09/18/17 Day of Discharge: 09/21/17 - Dietary and Speech Recommendations Dietitian Recommendations/Changes: Rec change diet to Cardiac/Low Cholesterol, Low Sodium. Rec Ensure Enlive TID with meals. - Follow Up Care Primary Care Physician: Laith Lai Chi, MD [Primary Care Provider] - Please follow up with your Primary Care Physician in: Follow-up 1-2 days prior to SNF discharge.
--- NOTE | 2017-09-21 14:28 | PCM.PN.HOSP ---
Patient Problems: Active and Suspected Problems (Last Reviewed 06/11/17 @ 14:28 by Janel Ratliff) CKD (chronic kidney disease) (Acute) Cystitis (Acute) Acute UTI (Acute) UCx not obtained, UA not severe appearing, given bacteremia, Klebsiella Oxytoca and Morganella Morganii sp morgani (final pending, thus suspect to speciate to the same) suspected secondary to UTI, complicated Bacteremia (Acute) Bld Cx w/ preliminary Klebsiella Oxytoca and Morganella Morganii sp morgani. Subjective: Patient with no acute events overnight per self and per nursing report. Patient is much more alert, baseline mental status currently per self and per family, feeling less weak. He is had no further fevers or chills. Discussed transition to oral antibiotic therapy today to which she is amenable. Physical and occupational therapy evaluations with recommendation at this time for [facility] facility to which the patient and family are amenable. Patient denies fevers, chills, nausea, emesis, abdominal pain, chest pain or dyspnea. Objective: Physical Examination: General: awake, alert, oriented x 3 and cooperative, seated upright in bedside chair, in no apparent distress. Skin: normal color, turgor, no icterus, cyanosis. HEENT: AT/NC, EOMI, PERRLA, MMM. Lungs: CTA bilaterally, moderate effort, mild decrease BL bases, no rales, ronchi or wheezing. Heart: Regular rate and rhythm; no gallop, rub audible. Abdomen: soft, NTTP, ND, normal BS. Extremities: no cyanosis, clubbing, or edema. Neurological: patient awake, alert, oriented x 3; cognitive function intact; pupils equally reactive to light and accomodation; cranial nerves II-XII grossly normal, moving all 4 extremities, no focal deficits, strength improving, remains moderately globally decreased. Psychiatric: affect appears normal, no acute evidence of depressive or anxiety feelings. Vitals/I&O's: Vital Signs Temp Pulse Resp BP Pulse Ox 98.5 F 50 L 16 150/70 H 96 09/21/17 09:14 09/21/17 10:54 09/21/17 09:14 09/21/17 09:14 09/21/17 09:14 Oxygen Delivery Method Room Air Weight: 207 lb 7.28 oz Body Mass Index (BMI) 31.5 Intake and Output for Last 24 Hours 09/19/17 09/20/17 09/21/17 23:59 23:59 23:59 Intake Total 1974 / 1974 1319 / 1319 120 / 120 Output Total 550 / 550 100 / 100 Balance 1425 / 1425 1219 / 1219 120 / 120 Laboratory Results 09/21/17 11:09: POC Glucose 129 H 09/21/17 11:50: PTH Intact 26.8 09/21/17 11:50: WBC 6.2, RBC 3.87 L, Hgb 11.1 L, Hct 34.5 L, MCV 89.1, MCH 28.7, MCHC 32.2, RDW 16.3 H, RDW Differential 52.4 H, Plt Count 99 L, MPV 8.5, Immature Gran % (Auto) 0.200, Neut % (Auto) 70.4 H, Lymph % (Auto) 14.5 L, [place] % (Auto) 11.4 H, Eos % (Auto) 3.3, Baso % (Auto) 0.2, Absolute Neuts (auto) 4.3, Absolute Lymphs (auto) 0.89, Total Counted Not Reportable 09/21/17 11:50: Sodium 141, Potassium 4.1, Chloride 105, Carbon Dioxide 27.0, Anion Gap 9, BUN 21 H, Creatinine 1.59 H, Estim Creat Clear Calc 34.65, Est GFR (MDRD) Af Amer 54 L, Est GFR (MDRD) Non-Af 44 L, BUN/Creatinine Ratio 13.2, Glucose 114 H, Calcium 8.1 L Current Medications Acetaminophen (Tylenol) 650 mg PO Q6H PRN PRN PRN Reason: FEVER Last Admin: 09/20/17 00:23 Dose: 650 mg Amiodarone HCl (Cordarone) 200 mg PO DAILY [facility] Last Admin: 09/21/17 08:54 Dose: 200 mg Cefdinir (Omnicef [Equiv]) 300 mg PO Q12 [facility] Stop: 09/28/17 12:01 Last Admin: 09/21/17 13:00 Dose: 300 mg Cyanocobalamin (Vitamin B12) 500 mcg PO DAILY [facility] Last Admin: 09/21/17 08:54 Dose: 500 mcg Donepezil HCl (Aricept) 10 mg PO QHS [facility] Last Admin: 09/20/17 21:25 Dose: 10 mg Ergocalciferol (Vitamin D) 50,000 unit PO QMONTH [facility] Last Admin: 09/20/17 09:35 Dose: 50,000 unit Escitalopram Oxalate (Lexapro) 10 mg PO DAILY [facility] Last Admin: 09/21/17 08:54 Dose: 10 mg Levothyroxine Sodium (Synthroid) 75 mcg PO DAILY@0600 [facility] Last Admin: 09/21/17 05:06 Dose: 75 mcg Magnesium Hydroxide (Milk Of Magnesia) 30 ml PO DAILY PRN PRN Reason: Constipation Multi-Ingredient Cream (Eucerin) 1 applic TOPICAL BID ABAD PRN Reason: Protocol Last Admin: 09/21/17 08:54 Dose: 1 applic Nutritional Formula (Lactose Free) (Ensure Enlive) 120 ml PO 4X/DAY [facility] Last Admin: 09/21/17 13:24 Dose: 120 ml Sodium Chloride () 5 - 30 ml IV UD PRN PRN Reason: SALINE FLUSH Last Admin: 09/21/17 13:19 Dose: 10 ml Medical Necessity - Tobacco Use Smoking Status: Former smoker Tobacco Use: Non-smoker Assessment/Plan All Active Problems (Last Reviewed 06/11/17 @ 14:28 by Janel Ratliff) Fever and chills (Acute) CKD (chronic kidney disease) (Acute) Cystitis (Acute) Acute UTI (Acute) Bacteremia (Acute) Generalized weakness (Ruled-out) The patient is an 81 y/o M w/ PMHx: CKD stage III (baseline Cr 1.4-1.7), HTN, HLD, PAF on Eliquis therapy, Hypothyrodism, History prior Thrombocytopenia, Alzheimer's Disease, ? Heart Failure Unclear Type who presents to the [facility] ED on 09/18/17 with history of fever, chills x 24 hours. (1) Acute Urinary Tract Infection (unclear Organism UA obtained, UCx not obtained) but suspected secondary to Klebsiella Oxytoca and Morganella Morganii sp morgani with resulting Klebsiella Oxytoca and Morganella Morganii sp morgani Bacteremia: Admit ED evaluation w/ evidence fever, no marked WBC elevation with shift, UA not marked appearing but felt source but no UCx was obtained prior to Abx regimen w/ Bld Cx x 2 w/ Klebsiella Oxytoca and Morganella Morganii sp morgani susceptible to rocephin-->omnicef transition with planned 10 day course. (2) Acute on Chronic Thrombocytopenia: Admission Plts 80, repeat 79-->99 Plts, Eliquis held secondary, past admissions w/ noted thrombocytopenia, but lowest upper 90s, will continue to hold eliquis, defer chemoprophylaxis. If continues upon repeat CBC outpatient will encourage consideration Hematology referral. (3) Chronic Kidney Disease Stage III: Admission BUN/Cr 18/1.75-->7/1618 BUN/Cr 21/1.59, baseline renal function 1.4-1.7, appears stable, repeat BMP in AM. (4) PAF: Holding as noted eliquis secondary to thrombocytopenia, continue amiodarone regimen. (5) Hypertension: Continue home regimen including lasix with hold parameters, PRN hydralazine. (6) Hypothyroidism: Continue home synthroid regimen. (7) Anxiety and Depression: Continue home Lexapro regimen. (8) Alzheimer's Dementia: Unclear onset timeline, appears baseline status now per family, orientation appropriate, continue home aricept. (9) ? Heart Failure, Unclear type: Noted in prior history, unclear type if actually present, holding eliquis given #2, maintain on lasix with hold parameters, not on BB (amiodarone with PAF), not on ACEI likely secondary to renal disease, not on statin. (10) DVT Prophylaxis: SCDs, defer chemoprophylaxis given thrombocytopenia. (11) CODE status: Discussed CODE status at length including difference between FULL code, DNR-CCA and DNR-CC status. Following discussions about the differences, confirmation of LW and HCPOA (Son and his ), will maintain FULL CODE status with his LW parameters to follow in the event of cardiac or respiratory failure if prolonged needs. Advanced Care Planning Face to Face Time: 20 minutes. Code Visit Inpatient E&M: 53786 Subs Hosp L2 Procedures: 61762 Advncd Care Plan 30 Min
--- NOTE | 2017-09-21 14:40 | PN_ITS ---
Patient Problems: Active and Suspected Problems (Last Reviewed 06/11/17 @ 14:28 by Janel Ratliff) CKD (chronic kidney disease) (Acute) Cystitis (Acute) Acute UTI (Acute) UCx not obtained, UA not severe appearing, given bacteremia, Klebsiella Oxytoca and Morganella Morganii sp morgani (final pending, thus suspect to speciate to the same) suspected secondary to UTI, complicated Bacteremia (Acute) Bld Cx w/ preliminary Klebsiella Oxytoca and Morganella Morganii sp morgani. Subjective: Patient with no acute events overnight per self and per nursing report. Patient is much more alert, baseline mental status currently per self and per family, feeling less weak. He is had no further fevers or chills. Discussed transition to oral antibiotic therapy today to which she is amenable. Physical and occupational therapy evaluations with recommendation at this time for care home facility to which the patient and family are amenable. Patient denies fevers, chills, nausea, emesis, abdominal pain, chest pain or dyspnea. Objective: Physical Examination: General: awake, alert, oriented x 3 and cooperative, seated upright in bedside chair, in no apparent distress. Skin: normal color, turgor, no icterus, cyanosis. HEENT: AT/NC, EOMI, PERRLA, MMM. Lungs: CTA bilaterally, moderate effort, mild decrease BL bases, no rales, ronchi or wheezing. Heart: Regular rate and rhythm; no gallop, rub audible. Abdomen: soft, NTTP, ND, normal BS. Extremities: no cyanosis, clubbing, or edema. Neurological: patient awake, alert, oriented x 3; cognitive function intact; pupils equally reactive to light and accomodation; cranial nerves II-XII grossly normal, moving all 4 extremities, no focal deficits, strength improving , remains moderately globally decreased. Psychiatric: affect appears normal, no acute evidence of depressive or anxiety feelings. Vitals/I&O's: Vital Signs Temp Pulse Resp BP Pulse Ox 98.5 F 50 L 16 150/70 H 96 09/21/17 09:14 09/21/17 10:54 09/21/17 09:14 09/21/17 09:14 09/21/17 09:14 Oxygen Delivery Method Room Air Weight: 207 lb 7.28 oz Body Mass Index (BMI) 31.5 Intake and Output for Last 24 Hours 09/19/17 09/20/17 09/21/17 23:59 23:59 23:59 Intake Total 1974 / 1974 1319 / 1319 120 / 120 Output Total 550 / 550 100 / 100 Balance 1425 / 1425 1219 / 1219 120 / 120 Laboratory Results 09/21/17 11:09: POC Glucose 129 H 09/21/17 11:50: PTH Intact 26.8 09/21/17 11:50: WBC 6.2, RBC 3.87 L, Hgb 11.1 L, Hct 34.5 L, MCV 89.1, MCH 28.7 , MCHC 32.2, RDW 16.3 H, RDW Differential 52.4 H, Plt Count 99 L, MPV 8.5, Immature Gran % (Auto) 0.200, Neut % (Auto) 70.4 H, Lymph % (Auto) 14.5 L, [place] % (Auto) 11.4 H, Eos % (Auto) 3.3, Baso % (Auto) 0.2, Absolute Neuts (auto) 4.3 , Absolute Lymphs (auto) 0.89, Total Counted Not Reportable 09/21/17 11:50: Sodium 141, Potassium 4.1, Chloride 105, Carbon Dioxide 27.0, Anion Gap 9, BUN 21 H, Creatinine 1.59 H, Estim Creat Clear Calc 34.65, Est GFR (MDRD) Af Amer 54 L, Est GFR (MDRD) Non-Af 44 L, BUN/Creatinine Ratio 13.2, Glucose 114 H, Calcium 8.1 L Current Medications Acetaminophen (Tylenol) 650 mg PO Q6H PRN PRN PRN Reason: FEVER Last Admin: 09/20/17 00:23 Dose: 650 mg Amiodarone HCl (Cordarone) 200 mg PO DAILY [facility] Last Admin: 09/21/17 08:54 Dose: 200 mg Cefdinir (Omnicef [Equiv]) 300 mg PO Q12 [facility] Stop: 09/28/17 12:01 Last Admin: 09/21/17 13:00 Dose: 300 mg Cyanocobalamin (Vitamin B12) 500 mcg PO DAILY [facility] Last Admin: 09/21/17 08:54 Dose: 500 mcg Donepezil HCl (Aricept) 10 mg PO QHS [facility] Last Admin: 09/20/17 21:25 Dose: 10 mg Ergocalciferol (Vitamin D) 50,000 unit PO QMONTH [facility] Last Admin: 09/20/17 09:35 Dose: 50,000 unit Escitalopram Oxalate (Lexapro) 10 mg PO DAILY [facility] Last Admin: 09/21/17 08:54 Dose: 10 mg Levothyroxine Sodium (Synthroid) 75 mcg PO DAILY@0600 [facility] Last Admin: 09/21/17 05:06 Dose: 75 mcg Magnesium Hydroxide (Milk Of Magnesia) 30 ml PO DAILY PRN PRN Reason: Constipation Multi-Ingredient Cream (Eucerin) 1 applic TOPICAL BID ABAD PRN Reason: Protocol Last Admin: 09/21/17 08:54 Dose: 1 applic Nutritional Formula (Lactose Free) (Ensure Enlive) 120 ml PO 4X/DAY [facility] Last Admin: 09/21/17 13:24 Dose: 120 ml Sodium Chloride () 5 - 30 ml IV UD PRN PRN Reason: SALINE FLUSH Last Admin: 09/21/17 13:19 Dose: 10 ml Medical Necessity - Tobacco Use Smoking Status: Former smoker Tobacco Use: Non-smoker Assessment/Plan All Active Problems (Last Reviewed 06/11/17 @ 14:28 by Janel Ratliff) Fever and chills (Acute) CKD (chronic kidney disease) (Acute) Cystitis (Acute) Acute UTI (Acute) Bacteremia (Acute) Generalized weakness (Ruled-out) The patient is an 81 y/o M w/ PMHx: CKD stage III (baseline Cr 1.4-1.7), HTN, HLD, PAF on Eliquis therapy, Hypothyrodism, History prior Thrombocytopenia, Alzheimer's Disease, ? Heart Failure Unclear Type who presents to the [facility] ED on 09/18/17 with history of fever, chills x 24 hours. (1) Acute Urinary Tract Infection (unclear Organism UA obtained, UCx not obtained) but suspected secondary to Klebsiella Oxytoca and Morganella Morganii sp morgani with resulting Klebsiella Oxytoca and Morganella Morganii sp morgani Bacteremia: Admit ED evaluation w/ evidence fever, no marked WBC elevation with shift, UA not marked appearing but felt source but no UCx was obtained prior to Abx regimen w/ Bld Cx x 2 w/ Klebsiella Oxytoca and Morganella Morganii sp morgani susceptible to rocephin-->omnicef transition with planned 10 day course. (2) Acute on Chronic Thrombocytopenia: Admission Plts 80, repeat 79-->99 Plts, Eliquis held secondary, past admissions w/ noted thrombocytopenia, but lowest upper 90s, will continue to hold eliquis, defer chemoprophylaxis. If continues upon repeat CBC outpatient will encourage consideration Hematology referral. (3) Chronic Kidney Disease Stage III: Admission BUN/Cr 18/1.75-->7/1618 BUN/Cr 21/1.59, baseline renal function 1.4-1.7, appears stable, repeat BMP in AM. (4) PAF: Holding as noted eliquis secondary to thrombocytopenia, continue amiodarone regimen. (5) Hypertension: Continue home regimen including lasix with hold parameters, PRN hydralazine. (6) Hypothyroidism: Continue home synthroid regimen. (7) Anxiety and Depression: Continue home Lexapro regimen. (8) Alzheimer's Dementia: Unclear onset timeline, appears baseline status now per family, orientation appropriate, continue home aricept. (9) ? Heart Failure, Unclear type: Noted in prior history, unclear type if actually present, holding eliquis given #2, maintain on lasix with hold parameters, not on BB (amiodarone with PAF), not on ACEI likely secondary to renal disease, not on statin. (10) DVT Prophylaxis: SCDs, defer chemoprophylaxis given thrombocytopenia. (11) CODE status: Discussed CODE status at length including difference between FULL code, DNR-CCA and DNR-CC status. Following discussions about the differences, confirmation of LW and HCPOA (Son and his ), will maintain FULL CODE status with his LW parameters to follow in the event of cardiac or respiratory failure if prolonged needs. Advanced Care Planning Face to Face Time : 20 minutes. Code Visit Inpatient E&M: 06967 Subs Hosp L2 Procedures: 49368 Advncd Care Plan 30 Min
--- NOTE | 2017-09-21 14:41 | PCM.DC.SUM ---
Discharge Date and Diagnosis - Problem List Patient Problems: Active and Suspected Problems (Last Reviewed 06/11/17 @ 14:28 by Janel Ratliff) CKD (chronic kidney disease) (Acute) Cystitis (Acute) Acute UTI (Acute) UCx not obtained, UA not severe appearing, given bacteremia, Klebsiella Oxytoca and Morganella Morganii sp morgani (final pending, thus suspect to speciate to the same) suspected secondary to UTI, complicated Bacteremia (Acute) Bld Cx w/ preliminary Klebsiella Oxytoca and Morganella Morganii sp morgani. Date of Admission: 09/18/17 Date of Discharge: 09/21/17 - Primary Discharge Diagnosis Active and Suspected Problems (Last Reviewed 06/11/17 @ 14:28 by Janel Ratliff) (1) Acute Urinary Tract Infection (unclear Organism UA obtained, UCx not obtained) but suspected secondary to Klebsiella Oxytoca and Morganella Morganii sp morgani with resulting Klebsiella Oxytoca and Morganella Morganii sp morgani Bacteremia (2) Acute on Chronic Thrombocytopenia, Unclear Etiology (3) Acute Encephalopathy secondary to #1 (4) Chronic Kidney Disease Stage III (Baseline renal function 1.4-1.7) (5) PAF (6) Hypertension (7) Hypothyroidism (8) Anxiety and Depression (9) Alzheimer's Dementia (10) ? Heart Failure, Unclear type - Secondary Discharge Diagnosis Chronic Problems (Last Reviewed 06/11/17 @ 14:28 by Janel Ratliff) Thrombocytopenia (Chronic) Old myocardial infarction (Chronic) Right bundle branch block (Chronic) Hypertension (Chronic) Paroxysmal SVT (supraventricular tachycardia) (Chronic) Nonsustained ventricular tachycardia (Chronic) Paroxysmal atrial fibrillation (Chronic) Stage III chronic kidney disease (Chronic) Obesity (BMI 30-39.9) (Chronic) Hospital Course and Treatment Operations: None Procedures: EKG Summary of Care Provided: The patient is an 81 y/o M w/ PMHx: CKD stage III (baseline Cr 1.4-1.7), HTN, HLD, PAF on Eliquis therapy, Hypothyrodism, History prior Thrombocytopenia, Alzheimer's Disease, ? Heart Failure Unclear Type who presented to the [facility] ED on 09/18/17 with history of fever, chills x 24 hours. Admit ED evaluation w/ evidence fever, no marked WBC elevation with shift, UA not marked appearing but felt source but no UCx was obtained prior to Abx regimen w/ Bld Cx x 2 w/ Klebsiella Oxytoca and Morganella Morganii sp morgani susceptible to rocephin-->omnicef transition with planned 10 day course. Admission Plts 80, repeat 79-->99 Plts, Eliquis held secondary, past admissions w/ noted thrombocytopenia, but lowest upper 90s, continued to hold eliquis, deferred chemoprophylaxis. Noted on SNF transition that if continues upon repeat CBC outpatient will encourage consideration Hematology referral. Admission BUN/Cr 18/1.75-->09/21/17 BUN/Cr 21/1.59, baseline renal function 1.4-1.7, appeared stable. In regard to PAF, held eliquis as noted, continued amiodarone. Maintained on home aricept. Patient clinically improved with evaluations per PT/OT with SNF recommendation thus discharged to SNF in improved, stable condition with recommended follow-up with PCP. DAY OF DISCHARGE PROGRESS NOTE: Subjective: Patient without acute event overnight per self and nursing report. Patient currently at baseline mental status per family, more interactive, mildly irritable which is more his baseline patient denies fever, chills, nausea, emesis, abdominal pain, chest pain or dyspnea. Patient agreeable to discharge to SNF for further therapy needs prior to home transition. Patient will be discharged with follow-up with primary care physician within 1-2 days of SNF discharge planning. Objective: T 98.5, heart rate 51, BP 150/70, respiratory rate 16, 96% on room air. Physical Examination: General: awake, alert, oriented x 3 and cooperative, seated upright in bedside chair, in no apparent distress. Skin: normal color, turgor, no icterus, cyanosis. HEENT: AT/NC, EOMI, PERRLA, MMM. Lungs: CTA bilaterally, moderate effort, mild decrease BL bases, no rales, ronchi or wheezing. Heart: Regular rate and rhythm; no gallop, rub audible. Abdomen: soft, NTTP, ND, normal BS. Extremities: no cyanosis, clubbing, or edema. Neurological: patient awake, alert, oriented x 3; cognitive function intact; pupils equally reactive to light and accomodation; cranial nerves II-XII grossly normal, moving all 4 extremities, no focal deficits, strength improving, remains moderately globally decreased. Psychiatric: affect appears normal, no acute evidence of depressive or anxiety feelings. Assessment and Plan: Please see hospital summary above. SEE HOSPITAL PROGRESS NOTE FULL NOTE CODE status: Discussed CODE status at length including difference between FULL code, DNR-CCA and DNR-CC status. Following discussions about the differences, confirmation of LW and HCPOA (Son and his ), will maintain FULL CODE status with his LW parameters to follow in the event of cardiac or respiratory failure if prolonged needs. Advanced Care Planning Face to Face Time: 20 minutes. Home Medications: Medications to take at Discharge Donepezil HCl 10 mg PO QHS 03/07/15 Ergocalciferol [Vitamin D] 50,000 unit PO QMONTH 03/07/15 Escitalopram Oxalate [Lexapro] 10 mg PO DAILY 12/24/15 levothyroxine 75 mcg capsule 75 mcg PO QDAY cap 06/11/17 Amiodarone HCl [Cordarone] 200 mg PO DAILY 09/18/17 Cyanocobalamin (Vitamin B-12) [Vitamin B-12] 500 mcg PO DAILY 09/18/17 Acetaminophen [Tylenol Tablet] 650 mg PO Q6H PRN PRN tablet 09/21/17 Cefdinir [Omnicef [equiv]] 300 mg PO Q12 capsule 09/21/17 Ensure Enlive 120 ml PO 4X/DAY liquid 09/21/17 Furosemide [Lasix] 20 mg PO .QOD #0 tab 09/21/17 Mineral Oil/Petrolatum,White [Eucerin] 1 applic TOPICAL BID jar 09/21/17 Primary Care Physician: Laith Lai Chi, MD [Primary Care Provider] - Please follow up with your Primary Care Physician in: Follow-up 1-2 days prior to SNF discharge. Disposition: [facility] facility Minutes spent on discharge:: 35 Patient Condition:: Fair Medical Necessity - Tobacco Use Smoking Status: Former smoker Tobacco Use: Non-smoker Meaningful Use Info Meaningful Use Diagnoses (Choose all that apply): None applicable Code Visit Inpatient E&M: 92868 Disch Hosp Procedures: 51366 Advncd Care Plan 30 Min
--- NOTE | 2017-09-21 14:46 | DS.PCM_ITS ---
Discharge Date and Diagnosis - Problem List Patient Problems: Active and Suspected Problems (Last Reviewed 06/11/17 @ 14:28 by Janel Ratliff) CKD (chronic kidney disease) (Acute) Cystitis (Acute) Acute UTI (Acute) UCx not obtained, UA not severe appearing, given bacteremia, Klebsiella Oxytoca and Morganella Morganii sp morgani (final pending, thus suspect to speciate to the same) suspected secondary to UTI, complicated Bacteremia (Acute) Bld Cx w/ preliminary Klebsiella Oxytoca and Morganella Morganii sp morgani. Date of Admission: 09/18/17 Date of Discharge: 09/21/17 - Primary Discharge Diagnosis Active and Suspected Problems (Last Reviewed 06/11/17 @ 14:28 by Janel Ratliff) (1) Acute Urinary Tract Infection (unclear Organism UA obtained, UCx not obtained) but suspected secondary to Klebsiella Oxytoca and Morganella Morganii sp morgani with resulting Klebsiella Oxytoca and Morganella Morganii sp morgani Bacteremia (2) Acute on Chronic Thrombocytopenia, Unclear Etiology (3) Acute Encephalopathy secondary to #1 (4) Chronic Kidney Disease Stage III (Baseline renal function 1.4-1.7) (5) PAF (6) Hypertension (7) Hypothyroidism (8) Anxiety and Depression (9) Alzheimer's Dementia (10) ? Heart Failure, Unclear type - Secondary Discharge Diagnosis Chronic Problems (Last Reviewed 06/11/17 @ 14:28 by Janel Ratliff) Thrombocytopenia (Chronic) Old myocardial infarction (Chronic) Right bundle branch block (Chronic) Hypertension (Chronic) Paroxysmal SVT (supraventricular tachycardia) (Chronic) Nonsustained ventricular tachycardia (Chronic) Paroxysmal atrial fibrillation (Chronic) Stage III chronic kidney disease (Chronic) Obesity (BMI 30-39.9) (Chronic) Hospital Course and Treatment Operations: None Procedures: EKG Summary of Care Provided: The patient is an 81 y/o M w/ PMHx: CKD stage III (baseline Cr 1.4-1.7), HTN, HLD, PAF on Eliquis therapy, Hypothyrodism, History prior Thrombocytopenia, Alzheimer's Disease, ? Heart Failure Unclear Type who presented to the [facility] ED on 09/18/17 with history of fever, chills x 24 hours. Admit ED evaluation w/ evidence fever, no marked WBC elevation with shift, UA not marked appearing but felt source but no UCx was obtained prior to Abx regimen w/ Bld Cx x 2 w/ Klebsiella Oxytoca and Morganella Morganii sp morgani susceptible to rocephin--> omnicef transition with planned 10 day course. Admission Plts 80, repeat 79--> 99 Plts, Eliquis held secondary, past admissions w/ noted thrombocytopenia, but lowest upper 90s, continued to hold eliquis, deferred chemoprophylaxis. Noted on SNF transition that if continues upon repeat CBC outpatient will encourage consideration Hematology referral. Admission BUN/Cr 18/1.75-->09/21/17 BUN/Cr 21/ 1.59, baseline renal function 1.4-1.7, appeared stable. In regard to PAF, held eliquis as noted, continued amiodarone. Maintained on home aricept. Patient clinically improved with evaluations per PT/OT with SNF recommendation thus discharged to SNF in improved, stable condition with recommended follow-up with PCP. DAY OF DISCHARGE PROGRESS NOTE: Subjective: Patient without acute event overnight per self and nursing report. Patient currently at baseline mental status per family, more interactive, mildly irritable which is more his baseline patient denies fever, chills, nausea , emesis, abdominal pain, chest pain or dyspnea. Patient agreeable to discharge to SNF for further therapy needs prior to home transition. Patient will be discharged with follow-up with primary care physician within 1-2 days of SNF discharge planning. Objective: T 98.5, heart rate 51, BP 150/70, respiratory rate 16, 96% on room air. Physical Examination: General: awake, alert, oriented x 3 and cooperative, seated upright in bedside chair, in no apparent distress. Skin: normal color, turgor, no icterus, cyanosis. HEENT: AT/NC, EOMI, PERRLA, MMM. Lungs: CTA bilaterally, moderate effort, mild decrease BL bases, no rales, ronchi or wheezing. Heart: Regular rate and rhythm; no gallop, rub audible. Abdomen: soft, NTTP, ND, normal BS. Extremities: no cyanosis, clubbing, or edema. Neurological: patient awake, alert, oriented x 3; cognitive function intact; pupils equally reactive to light and accomodation; cranial nerves II-XII grossly normal, moving all 4 extremities, no focal deficits, strength improving , remains moderately globally decreased. Psychiatric: affect appears normal, no acute evidence of depressive or anxiety feelings. Assessment and Plan: Please see hospital summary above. SEE HOSPITAL PROGRESS NOTE FULL NOTE CODE status: Discussed CODE status at length including difference between FULL code, DNR-CCA and DNR-CC status. Following discussions about the differences, confirmation of LW and HCPOA (Son and his ), will maintain FULL CODE status with his LW parameters to follow in the event of cardiac or respiratory failure if prolonged needs. Advanced Care Planning Face to Face Time: 20 minutes. Home Medications: Medications to take at Discharge Donepezil HCl 10 mg PO QHS 03/07/15 Ergocalciferol [Vitamin D] 50,000 unit PO QMONTH 03/07/15 Escitalopram Oxalate [Lexapro] 10 mg PO DAILY 12/24/15 levothyroxine 75 mcg capsule 75 mcg PO QDAY cap 06/11/17 Amiodarone HCl [Cordarone] 200 mg PO DAILY 09/18/17 Cyanocobalamin (Vitamin B-12) [Vitamin B-12] 500 mcg PO DAILY 09/18/17 Acetaminophen [Tylenol Tablet] 650 mg PO Q6H PRN PRN tablet 09/21/17 Cefdinir [Omnicef [equiv]] 300 mg PO Q12 capsule 09/21/17 Ensure Enlive 120 ml PO 4X/DAY liquid 09/21/17 Furosemide [Lasix] 20 mg PO .QOD #0 tab 09/21/17 Mineral Oil/Petrolatum,White [Eucerin] 1 applic TOPICAL BID jar 09/21/17 Primary Care Physician: Laith Lai Chi, MD [Primary Care Provider] - Please follow up with your Primary Care Physician in: Follow-up 1-2 days prior to SNF discharge. Disposition: Nursing Home facility Minutes spent on discharge:: 35 Patient Condition:: Fair Medical Necessity - Tobacco Use Smoking Status: Former smoker Tobacco Use: Non-smoker Meaningful Use Info Meaningful Use Diagnoses (Choose all that apply): None applicable Code Visit Inpatient E&M: 04544 Disch Hosp Procedures: 09984 Advncd Care Plan 30 Min
--- NOTE | 2017-09-21 15:29 | CASEMGMT ---
Patient is ready for d/c. Orders were faxed. Convalescent was completed on HENS. SW called [facility] and arranged for patient to get picked up at 5p via cot. STEFANIE notified RN, SWCC, patient, and his family. All in agreement with plan. Plan: [facility] level [facility]
--- NOTE | 2017-09-21 15:33 | CASEMGMT ---
Precert was attained from [employer] for pt to go to [facility] today. 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
--- NOTE | 2017-09-21 17:31 | NURSING ---
Nursing report called to Carole at [facility].
== END 2017-09-21 17:28 | disposition skilled nursing facility (03) | DRG 689 ==
LOC: ED 14:44 → PCU 17:33
PROVIDERS: Internal Medicine; Admitting Provider Hospitalist; Emergency Provider Emergency Medicine; Family Provider Family Medicine Geriatric Medicine; PCP Family Medicine Geriatric Medicine; Visit Provider Family Medicine
DX: N30.00 Acute cystitis without hematuria (principal); G93.40 Encephalopathy, unspecified; R78.81 Bacteremia; I13.0 Hypertensive heart and chronic kidney disease with heart failure and stage 1 through stage 4 chronic kidney disease, or unspecified chronic kidney disease; E03.9 Hypothyroidism, unspecified; G30.9 Alzheimer's disease, unspecified; F02.80 Dementia in other diseases classified elsewhere, unspecified severity, without behavioral disturbance, psychotic disturbance, mood disturbance, and anxiety; I25.2 Old myocardial infarction; N18.3 Chronic kidney disease, stage 3 (moderate); D69.6 Thrombocytopenia, unspecified; B96.1 Klebsiella pneumoniae [K. pneumoniae] as the cause of diseases classified elsewhere; B96.89 Other specified bacterial agents as the cause of diseases classified elsewhere; F41.9 Anxiety disorder, unspecified; F32.9 Major depressive disorder, single episode, unspecified; I50.9 Heart failure, unspecified; I45.10 Unspecified right bundle-branch block; I48.0 Paroxysmal atrial fibrillation
CPT/HCPCS: 36415; 71046; 80048; 80053; 81001; 82962; 83605; 83970; 85025; 85610; 85730; 87040; 87077; 87186; 93005; 97110; 97116; 97162; 97166; 97530; 97535; 97802; 99285; 99406; J7030; A4216

== ENCOUNTER → 2017-10-20 14:49 | Outpatient (CLI) | payer MEDICARE, SELFPAY ==
[2017-10-20 17:14] LABS: Absolute Lymphocyte Count 1.62 X10^3/ul (0.83-4.51); Absolute Neutrophil Count 4.6 X10^3/uL (2.0-7.7); Basophil# 0.03 X10^3/uL; Basophil% 0.4 % (0-1); Eosinophil# 0.27 X10^3/uL; Eosinophils% 3.7 % (0-5); Hematocrit 36.1 % (40-54); Hemoglobin 11.2 g/dl (13.0-16.5); Lymphocyte # 1.62 X10^3/ul (4.0); Lymphocyte % 22.2 % (19-41); Mean Corpuscular Hgb 27.9 pg (27.0-32.0); Mean Corpuscular Volume 89.8 fL (80-94); Monocyte# 0.75 X10^3/uL; Monocyte% 10.3 % (0-10); Neutrophil # 4.63 X10^3/uL (2.7-7.7); Neutrophil % 63.4 % (47-70); Platelet Count 154 K/mm3 (150-450); RBC Distribution Width CV 16.3 % (11.6-14.6); RBC Distribution Width SD 53.1 fl (35.1-43.9); Red Blood Count 4.02 M/mm3 (4.6-6.2); White Blood Count 7.3 K/mm3 (4.4-11.0)
[2017-10-20 17:16] LABS: POSITIVE COUNT NO; POSITIVE DIFFERENTIAL NO; POSITIVE MORPHOLOGY NO
== END ==
PROVIDERS: Family Provider Family Medicine Geriatric Medicine; PCP Family Medicine Geriatric Medicine; Visit Provider Family Medicine Geriatric Medicine
DX: D69.6 Thrombocytopenia, unspecified (principal)
CPT/HCPCS: 36415; 85025

== ENCOUNTER → 2017-11-06 09:31 | Outpatient (CLI) | payer MEDICARE, SELFPAY ==
[2017-11-06 12:30] LABS: Basophil# 0.03 X10^3/uL; Basophil% 0.6 % (0-1); Eosinophil# 0.19 X10^3/uL; Eosinophils% 3.9 % (0-5); Hemoglobin 11.7 g/dl (13.0-16.5); Lymphocyte % 22.5 % (19-41); Mean Corp Hgb Conc 31.6 g/gl (32-36); Mean Corpuscular Hgb 28.3 pg (27.0-32.0); Mean Corpuscular Volume 89.6 fL (80-94); Mean Platelet Vol. 8.5 fl (6.2-12.0); Monocyte# 0.53 X10^3/uL; Monocyte% 10.9 % (0-10); Neutrophil # 3.02 X10^3/uL (2.7-7.7); Neutrophil % 61.9 % (47-70); Platelet Count 142 K/mm3 (150-450); RBC Distribution Width CV 16.1 % (11.6-14.6); RBC Distribution Width SD 52.6 fl (35.1-43.9); Red Blood Count 4.13 M/mm3 (4.6-6.2); White Blood Count 4.9 K/mm3 (4.4-11.0)
[2017-11-06 12:33] LABS: POSITIVE COUNT NO; POSITIVE DIFFERENTIAL NO; POSITIVE MORPHOLOGY NO
[2017-11-06 13:27] LABS: ALB/GLOB Ratio 0.7 RATIO (0.9-2.4); AST(SGOT) 33 U/L (15-37); Alanine Aminotransfer ALT/SGPT 22 U/L (16-61); Alkaline Phosphatase 109 U/L (45-117); Anion Gap 10 (5-15); BUN 17 mg/dL (7-18); Calcium,Total 8.2 mg/dL (8.5-10.1); Chloride 105 mmol/L (98-107); Creatinine, Serum 1.88 mg/dL (0.70-1.30); EST Glomerular Filtration Rate 37 mL/min (>60); Est Glom Filt Rate - Afr Amer 44 mL/min (>60); Globulin 4.3 g/dL (2.2-4.2); Glucose 80 mg/dL (74-106); Potassium 4.1 mmol/L (3.5-5.1); Protein, Total 7.3 g/dL (6.4-8.2); Sodium Level 142 mmol/L (136-145); Thyroid Stim Hormone (TSH) 3.09 uIU/mL (0.358-3.74)
== END ==
PROVIDERS: Family Provider Family Medicine Geriatric Medicine; PCP Family Medicine Geriatric Medicine; Visit Provider Family Medicine Geriatric Medicine
DX: I10 Essential (primary) hypertension (principal); E55.9 Vitamin D deficiency, unspecified
CPT/HCPCS: 36415; 80053; 82306; 84443; 85025

== ENCOUNTER → 2018-03-16 12:57 | Outpatient (CLI) | payer MEDICARE, SELFPAY ==
[2017-10-22 14:10] VITALS: BMI 33.7
[2018-03-16 13:31] LABS: Hematocrit 35.8 % (40-54); Hemoglobin 11.2 g/dl (13.0-16.5); Mean Corp Hgb Conc 31.3 g/gl (32-36); Mean Corpuscular Hgb 28.8 pg (27.0-32.0); Mean Platelet Vol. 8.6 fl (6.2-12.0); Platelet Count 139 K/mm3 (150-450); RBC Distribution Width CV 15.8 % (11.6-14.6); RBC Distribution Width SD 51.9 fl (35.1-43.9); Red Blood Count 3.89 M/mm3 (4.6-6.2); White Blood Count 6.4 K/mm3 (4.4-11.0)
[2018-03-16 13:34] LABS: Scan Indicated on CBC? Y/N NO
[2018-03-16 14:03] LABS: Albumin, Serum 2.9 g/dL (3.2-5.0); BUN 18 mg/dL (7-18); Calcium,Total 8.4 mg/dL (8.5-10.1); Chloride 106 mmol/L (98-107); Creatinine, Serum 1.63 mg/dL (0.70-1.30); EST Glomerular Filtration Rate 43 mL/min (>60); Est Glom Filt Rate - Afr Amer 52 mL/min (>60); Glucose 72 mg/dL (74-106); Phosphorus 3.1 mg/dL (2.5-4.9); Potassium 4.3 mmol/L (3.5-5.1); Sodium Level 139 mmol/L (136-145)
[2018-03-16 14:11] LABS: PTHIN 45.2 pg/mL (18.4-80.1)
== END ==
PROVIDERS: Family Provider Family Medicine Geriatric Medicine; PCP Family Medicine Geriatric Medicine; Referring Provider Internal Medicine Nephrology; Visit Provider Internal Medicine Nephrology
DX: N18.3 Chronic kidney disease, stage 3 (moderate) (principal); D64.9 Anemia, unspecified
CPT/HCPCS: 36415; 80069; 83970; 85027

== ENCOUNTER → 2018-05-07 10:54 | Outpatient (CLI) | payer MEDICARE, SELFPAY ==
[2018-05-07 12:46] LABS: Absolute Lymphocyte Count 1.74 X10^3/ul (0.83-4.51); Absolute Neutrophil Count 2.3 X10^3/uL (2.0-7.7); Basophil# 0.03 X10^3/uL; Basophil% 0.6 % (0-1); Eosinophil# 0.29 X10^3/uL; Eosinophils% 5.9 % (0-5); Hematocrit 35.1 % (40-54); Hemoglobin 10.9 g/dl (13.0-16.5); Lymphocyte # 1.74 X10^3/ul (4.0); Lymphocyte % 35.3 % (19-41); Mean Corp Hgb Conc 31.1 g/gl (32-36); Mean Corpuscular Hgb 28.6 pg (27.0-32.0); Mean Corpuscular Volume 92.1 fL (80-94); Monocyte# 0.58 X10^3/uL; Monocyte% 11.8 % (0-10); Neutrophil # 2.29 X10^3/uL (2.7-7.7); Neutrophil % 46.4 % (47-70); Platelet Count 130 K/mm3 (150-450); RBC Distribution Width CV 15.3 % (11.6-14.6); RBC Distribution Width SD 50.2 fl (35.1-43.9); Red Blood Count 3.81 M/mm3 (4.6-6.2); White Blood Count 4.9 K/mm3 (4.4-11.0)
[2018-05-07 12:48] LABS: POSITIVE COUNT NO; POSITIVE DIFFERENTIAL NO; POSITIVE MORPHOLOGY NO
[2018-05-07 13:07] LABS: Vitamin D,25 Hydroxy 36.4 ng/mL (29.95-100.01)
[2018-05-07 13:17] LABS: ALB/GLOB Ratio 0.8 RATIO (0.9-2.4); AST(SGOT) 20 U/L (15-37); Alanine Aminotransfer ALT/SGPT 18 U/L (16-61); Albumin, Serum 3.1 g/dL (3.2-5.0); Alkaline Phosphatase 93 U/L (45-117); Anion Gap 7 (5-15); BUN 24 mg/dL (7-18); Calcium,Total 8.2 mg/dL (8.5-10.1); Chloride 107 mmol/L (98-107); Creatinine, Serum 1.84 mg/dL (0.70-1.30); EST Glomerular Filtration Rate 38 mL/min (>60); Est Glom Filt Rate - Afr Amer 45 mL/min (>60); Globulin 4.1 g/dL (2.2-4.2); Glucose 79 mg/dL (74-106); Potassium 4.2 mmol/L (3.5-5.1); Protein, Total 7.2 g/dL (6.4-8.2); Sodium Level 139 mmol/L (136-145); Thyroid Stim Hormone (TSH) 8.68 uIU/mL (0.358-3.74)
== END ==
PROVIDERS: Family Provider Family Medicine Geriatric Medicine; PCP Family Medicine Geriatric Medicine; Visit Provider Family Medicine Geriatric Medicine
DX: I10 Essential (primary) hypertension (principal); M10.9 Gout, unspecified; E55.9 Vitamin D deficiency, unspecified
CPT/HCPCS: 36415; 80053; 82306; 84443; 85025

== ENCOUNTER 2018-07-22 06:57 | Day surgery (SDC) | payer MEDICARE, SELFPAY ==
[2018-07-01 14:31] VITALS: BMI 34.3
--- NOTE | 2018-07-02 07:49 | HP_ITS ---
Intake Vital Signs 07/01/18 Body Mass Index (BMI) 34.3 07/01/18 Height 5 ft 6 in 07/01/18 Weight: 218 lb 07/01/18 Body Mass Index (BMI) 35.2 07/01/18 Blood Pressure 144/86 H 07/01/18 Blood Pressure Location Rt brachial 07/01/18 Blood Pressure Position Sitting 07/01/18 Respiratory Rate 20 H 07/01/18 Pulse Rate 54 L 07/01/18 Pulse Source Monitor 07/01/18 Temperature 98.4 F 07/01/18 Temperature Source Oral 07/01/18 Pulse Ox 95 07/01/18 Oxygen Delivery Method room air Intake Visit Reasons: anemia, EGD/cscope Chief Complaint: Anemia Whizzer Required: No Is patient in pain?: No Allergies morphine Adverse Reaction (Severe, Verified 07/01/18 14:30) hostility,disoriented Medications Donepezil HCl 10 mg PO QHS 03/07/15 [History Confirmed 07/01/18] Ergocalciferol [Vitamin D] 50,000 unit PO QMONTH 03/07/15 [History Confirmed 07/01/18] Cyanocobalamin (Vitamin B-12) [Vitamin B-12] 500 mcg PO DAILY 09/18/17 [History Confirmed 07/01/18] amiodarone 200 mg tablet 200 mg PO DAILY #90 tab 10/22/17 [Rx Confirmed 07/01/18] apixaban 2.5 mg tablet 2.5 mg PO BID #60 tab 01/20/18 [Rx Confirmed 07/01/18] citalopram 10 mg tablet 10 mg PO DAILY 04/02/18 [History Confirmed 07/01/18] furosemide 20 mg tablet 20 mg PO DAILY #0 tab 04/02/18 [Rx Confirmed 07/01/18] isosorbide mononitrate ER 30 mg tablet,extended release 24 hr 30 mg PO DAILY #30 tab 06/10/18 [Rx Confirmed 07/01/18] levothyroxine 88 mcg capsule 88 mcg PO DAILY 06/28/18 [History Confirmed 07/01/18] [facility] Medical History Fever and chills (Acute) CKD (chronic kidney disease) (Acute) Thrombocytopenia (Chronic) Cystitis (Acute) Acute UTI (Acute) Bacteremia (Acute) Old myocardial infarction (Chronic) Right bundle branch block (Chronic) Hypertension (Chronic) Paroxysmal SVT (supraventricular tachycardia) (Chronic) Nonsustained ventricular tachycardia (Chronic) Paroxysmal atrial fibrillation (Chronic) Stage III chronic kidney disease (Chronic) Obesity (BMI 30-39.9) (Chronic) Anemia (Acute) Alzheimer disease (Chronic) COPD (chronic obstructive pulmonary disease) (Chronic) GERD (gastroesophageal reflux disease) (Chronic) Obstructive sleep apnea (Chronic) Pancreatitis (Chronic) Surgical History H/O bilateral hip replacements (Chronic) Hx of cholecystectomy (Chronic) excision of subglottic mass (Chronic) tricep surgery (Chronic) Family History Sister CAD (coronary artery disease) Sister Cancer Brother Cancer leukemia Social History Smoking Status: Former smoker quit date: 03/09/00 pack-years: 80 alcohol intake: never caffeine: Yes Type: coffee Number of servings: 2 HPI HPI HPI: SUZI VANG, is a 82 M who presents to the office today for HPI HPI Surgical H&P: Yes HPI: SUZI VANG, is a 82 M who presents to the office today for evaluation for anemia. Patient had recent hemoglobin check which came back is 10.9. He is currently on Eliquis. Patient states that he has not noticed any black tarry stools has not been noticing losing any blood whatsoever. He has become slightly weak. His weight has been stable. He is not complaining of any abdominal pains. He is not complaining of any early satiety ROS General General: Yes fatigue; no weight change, appetite, colon cancer, breast cancer or weakness HEENT HEENT: No difficulty swallowing, eye injury, eye surgery, swollen glands or hoarseness Endo Endocrine: Yes thyroid disease; no diabetes mellitus, thyroid cancer, Hair loss, heat intolerance or cold intolerance Skin Skin: No rash or changing moles Breast Breast: No left breast lump, right breast lump, nipple discharge, breast pain, abnormal mammogram, abnormal US or breast enlargement Musc Musculoskeletal: Yes arthritis; no back problems, rheumatoid arthritis, gout or joint pain Cardio Cardiovascular: Yes heart disease, atrial fibrillation and high blood pressure; no murmur, pacemaker, heart attack, heart stent, palpitations, shortness of breat with exertion or chest pain Psych Psychiatric: Yes depression; no anxiety or hearing voices Resp Respiratory: No shortness of breath, Yes sleep apnea, No cough, Yes COPD, No asthma, No emphysema, No wheezing Gastro Gastrointestinal: No abdominal pain, No nausea or vomiting, No diarrhea, No constipation, No blood in stool, No acid reflux, Yes hemorrhoids, No ulcers, No gallbladder problem, No black,tarry stools Guerrero Hematologic: Yes blood thinners, No blood disorders, No bleeding, Yes anemia, No blood clots Neuro Neurologic: No system reviewed and no additional complaints, except as docu, No as per HPI, No abnormal walking, No abnormal hearing, No abnormal movements, No abnormal speech, No behavioral changes, No burning sensations, No confusion, No seizure-like activity, No unsteadiness, No dizziness, No localized weakness, No frequent falls, No headache(s), No lack of coordination, No loss of vision, No memory loss, No numbness, No other visual disturbances, No radiating pain, No restless legs, No sensory deficit, No fainting, No tingling, No tremor(s), No weakness, No other Exam Const General: no acute distress, well developed, well hydrated Orientation: oriented to person, oriented to place, oriented to time [facility] Head: normocephalic, atraumatic Ears: external ears normal Mouth: moist mucous membranes Eyes Sclera: sclerae normal Pupils: normal by confrontation Neck Neck: no lymphadenopathy noted Neck mass: No Thyroid: thyroid normal, symmetrical Chest Chest palpation & inspection: normal inspection of the chest Breast Palpation: No nipple discharge Resp Effort & Inspection: normal respiratory effort Auscultation: clear to auscultation bilaterally Percussion: percussion normal Cardio Rate: regular rate Rhythm: regular rhythm Heart Sounds: no murmurs GI Inspection: obesity Palpation: soft, no hepatosplenomegaly, no masses, nontender Rectal Exam: other Other: Rectal exam deferred. Extrem General: normal to inspection, no clubbing, cyanosis or edema Assessment & Plan Problems 1. Anemia, unspecified type D64.9 Plan I have discussed the above with the patient. I have offered the patient colonoscopy as well as an EGD for evaluation. I have explained the risks/benefits of the procedure and described the procedure. I have discussed the risks with the patient, including but not limited to: infection, bleeding, perforation of the GI tract requiring emergency surgery, inability to complete the procedure, injury to any internal organs, complications of anesthesia, etc. - the patient understands and agrees to proceed. I have answered all the patient's questions to the patient's satisfaction and the patient has no further questions. The patient has been given instructions for the colon cleansing preparation. Coding Level of Care Code Off vis,new,level 3 Diagnoses Anemia, unspecified type D64.9 ??Anemia type: unspecified type I have re-examined the patient. There are no clinical changes since date of exam.
[2018-07-22] VITALS (7 sets, daily range): BP systolic 103–127; BP diastolic 45–77; PULSE 68–101; RESP 16–18; TEMP 36.5–37.4; O2SAT 92–99; BMI 34.0
--- NOTE | 2018-07-22 08:00 | IMM_PTH ---
PATIENT: SUZI VANG Sr. LOC: EN U#:[id number] AGE/SX: 82/M ROOM: RE07/22/[address]: Dr. Chevy Gutiérrez MD : 1935 BED: DIS: 07/22/2018 SPEC #: [id number] RECD: 07/23/18 07:33 STATUS: CISCO REQ #: [id number] BRIANNA: 07/22/18 08:[address]: Chevy Gutiérrez DEPT: IMMUNOHISTOCHEMISTRY RECD BY: Deepali Mcmillan ENTERED: 07/23/18 07:34 SP TYPE: IMMUNO OTHR DR: Dr. Laith Lai MD Tissues: A - Stomach, NOS Procedures: H Pylori (initial) PHYSICIAN & INSTITUTION [place] [id number] SPECIMEN INFORMATION: Tissue Source: A - Gastric antrum biopsy Clinical Info: Anemia Specimen Number: [id number] CPT code: 80300 METHODOLOGY: Deparaffinized sections of prefer/formalin-fixed tissue or PAP/DQ stained slides are incubated with monoclonal/polyclonal antibodies/oligonucleotide probes. Localization is made via biotin free immunoperoxidase method. Appropriate controls are performed and reacted as expected. Results on target cell population are indicated in the following table: RESULTS: ANTIBODY / CLONE RESULT Block A H Pylori (polyclonal) negative These tests were developed and their performance characteristics determined by [facility]. They may not have been cleared or approved by the U.S. Food and Drug Administration. The FDA has determined that such clearance or approval is not necessary. INTERPRETATION: A. Gastric antrum, biopsy: Immunohistochemical stain with appropriate control is negative for Helicobacter organisms. CE:radha 07/23/18
--- NOTE | 2018-07-22 08:00 | EGD_PTH ---
PATIENT: SUZI VANG Sr. LOC: EN U#:[id number] AGE/SX: 82/M ROOM: RE07/22/[address]: Dr. Chevy Gutiérrez MD : 1935 BED: DIS: 07/22/2018 SPEC #: [id number] RECD: 07/22/18 10:16 STATUS: CISCO MOE #: [id number] BRIANNA: 07/22/18 08:[address]: Chevy Gutiérrez DEPT: SURGICAL PATHOLOGY RECD BY: Avinash Kim ENTERED: 07/22/18 10:54 SP TYPE: EGD BIOPSY OT DR: Dr. Laith Lai MD Tissues: A - Gastric mucous membrane B - Right colon Procedures: Surgery Specimen Level IV HEADER OPERATION: Colonoscopy, EGD ([facility]) PRE-OP DIAGNOSIS: Anemia TISSUE SUBMITTED: A - Biopsy gastric antrum, H. pylori and path, B - Biopsy right colon MICROSCOPIC DIAGNOSIS A. Gastric antrum, biopsy: Mild chronic gastritis. See comment. B. Right colon, biopsy: Colonic mucosa with increased chronic inflammation and mild plasmocytosis of the lamina propria. No active cryptitis, granuloma or dysplasia found. CE:radha 07/23/18 COMMENT A. The results of immunohistochemistry for Helicobacter pylori will be reported separately ([id number]). Microscopic sections show mild chronic gastritis with increased plasma cells. An area of crushed gastric mucosa is not further evaluable. Focal active inflammation cannot be entirely excluded. Case has been reviewed in consultation with Dr. Light who concurs with the above diagnosis. IDC:AM MICROSCOPIC DESCRIPTION Slides are reviewed. GROSS DESCRIPTION A - Received in fixative is one container labeled with the patient's name and designated gastric antrum biopsy. The specimen consists of one irregular fragment of light archer soft tissue that measures 0.5 x 0.3 x 0.1 cm. The specimen is totally submitted in one cassette. B - Received in fixative is one container labeled with the patient's name and designated right colon. The specimen consists of two irregular fragments of light archer soft tissue that in aggregate measure 0.6 x 0.2 x 0.1 cm. The specimen is totally submitted in one cassette. / AM:radha 07/22/18 TC:3 CPT: 37986 x2
--- NOTE | 2018-07-22 08:42 | OP.ENDO_ITS ---
07/22/2018 Laith Lai MD [address] [place] [address] Re : Upper GI endoscopy procedure for Debbie Hinojosa Dear Dr. Lai This procedure was performed on July. My impressions and recommendations are as follows: Impressions : - Normal esophagus. - Gastritis. Biopsied. - Normal examined duodenum. No specimens collected. Recommendations : - Discharge patient to home. - Resume previous diet. - Continue present medications. - Await pathology results. - Repeat upper endoscopy (date not yet determined). - Return to my office in 1 week. My findings are described in the full procedure note, which is enclosed. If I can be of further assistance, please feel free to contact me at Doctor phone number(s): , Fax: [phone], Work: . Sincerely, MD Chevy Cotto MD 07/22/2018 8:41:31 AM This report has been signed electronically.
--- NOTE | 2018-07-22 08:48 | OP.ENDO_ITS ---
07/22/2018 Laith Lai MD [address] [place] [address] Re : Colonoscopy procedure for Debbie Hinojosa Dear Dr. Lai This procedure was performed on July. My impressions and recommendations are as follows: Impressions : - Hemorrhagic and inflamed mucosa in the cecum. Biopsied. - Diverticulosis in the sigmoid colon. No specimens collected. - Non-bleeding internal hemorrhoids. - The examination was otherwise normal. Recommendations : - Discharge patient to home. - Resume previous diet. - Continue present medications. - Await pathology results. - Repeat colonoscopy (date not yet determined) for surveillance based on pathology results. - Return to my office in 1 week. My findings are described in the full procedure note, which is enclosed. If I can be of further assistance, please feel free to contact me at Doctor phone number(s): , Fax: [phone], Work: . Sincerely, MD Chevy Cotto MD 07/22/2018 8:48:29 AM This report has been signed electronically.
== END 2018-07-22 10:31 | disposition home or self-care (01) ==
LOC: EN 06:57 → AC 06:58
PROVIDERS: Family Provider Family Medicine Geriatric Medicine; PCP Family Medicine Geriatric Medicine; Referring Provider Family Medicine Geriatric Medicine; Visit Provider Surgery
PROC: 0DJD8ZZ Inspection of Lower Intestinal Tract, Via Natural or Artificial Opening Endoscopic (ICD-10-PCS; CPT 45378; principal; 2018-07-22 07:55)
DX: K29.50 Unspecified chronic gastritis without bleeding (principal); D72.822 Plasmacytosis; K52.9 Noninfective gastroenteritis and colitis, unspecified; K64.8 Other hemorrhoids; D50.0 Iron deficiency anemia secondary to blood loss (chronic); K57.30 Diverticulosis of large intestine without perforation or abscess without bleeding; I25.2 Old myocardial infarction; I12.9 Hypertensive chronic kidney disease with stage 1 through stage 4 chronic kidney disease, or unspecified chronic kidney disease; N18.3 Chronic kidney disease, stage 3 (moderate); J44.9 Chronic obstructive pulmonary disease, unspecified; K21.9 Gastro-esophageal reflux disease without esophagitis; G47.33 Obstructive sleep apnea (adult) (pediatric); I48.0 Paroxysmal atrial fibrillation; Z87.891 Personal history of nicotine dependence; Z79.01 Long term (current) use of anticoagulants
CPT/HCPCS: 43239; 45380; 88305; 88342; J7120; J1610; J2405

== ENCOUNTER → 2018-07-26 11:53 | Outpatient (CLI) | payer MEDICARE, SELFPAY ==
[2018-07-22 07:39] VITALS: BMI 34.0
[2018-07-26 12:54] LABS: Hematocrit 34.9 % (40-54); Hemoglobin 11.1 g/dl (13.0-16.5); Mean Corp Hgb Conc 31.8 g/gl (32-36); Mean Corpuscular Volume 88.1 fL (80-94); Mean Platelet Vol. 8.7 fl (6.2-12.0); Platelet Count 122 K/mm3 (150-450); RBC Distribution Width CV 15.9 % (11.6-14.6); RBC Distribution Width SD 49.7 fl (35.1-43.9); Red Blood Count 3.96 M/mm3 (4.6-6.2); White Blood Count 4.8 K/mm3 (4.4-11.0)
[2018-07-26 12:58] LABS: Scan Indicated on CBC? Y/N NO
[2018-07-26 13:18] LABS: Albumin, Serum 3.1 g/dL (3.2-5.0); BUN 22 mg/dL (7-18); BUN/Creat Ratio 11.2 RATIO (10-20); Calcium,Total 8.4 mg/dL (8.5-10.1); Chloride 108 mmol/L (98-107); Creatinine, Serum 1.97 mg/dL (0.70-1.30); EST Glomerular Filtration Rate 35 mL/min (>60); Est Glom Filt Rate - Afr Amer 42 mL/min (>60); Glucose 81 mg/dL (74-106); Phosphorus 3.1 mg/dL (2.5-4.9); Potassium 4.3 mmol/L (3.5-5.1); Sodium Level 142 mmol/L (136-145)
== END ==
PROVIDERS: Family Provider Family Medicine Geriatric Medicine; PCP Family Medicine Geriatric Medicine; Referring Provider Internal Medicine Nephrology; Visit Provider Internal Medicine Nephrology
DX: N18.3 Chronic kidney disease, stage 3 (moderate) (principal); D64.9 Anemia, unspecified
CPT/HCPCS: 36415; 80069; 85027

== ENCOUNTER → 2018-08-16 13:24 | Outpatient (CLI) | payer MEDICARE, SELFPAY ==
[2018-07-22 07:39] VITALS: BMI 34.0
[2018-08-16 14:36] LABS: Ferritin 17 ng/mL (26-388); Iron 84 ug/dL (65-175); Iron Binding Capacity,Total 380 ug/dL (250-450); Thyroid Stim Hormone (TSH) 4.34 uIU/mL (0.358-3.74)
== END ==
PROVIDERS: Family Provider Family Medicine Geriatric Medicine; PCP Family Medicine Geriatric Medicine; Visit Provider Family Medicine Geriatric Medicine
DX: D64.9 Anemia, unspecified (principal)
CPT/HCPCS: 36415; 82728; 83540; 83550; 84443

== ENCOUNTER → 2018-10-12 10:08 | Outpatient (CLI) | payer MEDICARE, SELFPAY ==
[2018-07-22 07:39] VITALS: BMI 34.0
[2018-10-12 13:09] LABS: AST(SGOT) 18 U/L (15-37); Alanine Aminotransfer ALT/SGPT 15 U/L (16-61); Albumin, Serum 2.9 g/dL (3.2-5.0); Alkaline Phosphatase 106 U/L (45-117); Bilirubin, Direct 0.18 mg/dL (0.00-0.30); Cholesterol 111 mg/dL (200); Globulin 4.1 g/dL (2.2-4.2); High Density Lipoprotein 33 mg/dL; Thyroid Stim Hormone (TSH) 8.36 uIU/mL (0.358-3.74); Triglycerides 65 mg/dL; Very Low Density Lipoprotein 13 mg/dL (5-40)
== END ==
PROVIDERS: Family Provider Family Medicine Geriatric Medicine; PCP Family Medicine Geriatric Medicine; Visit Provider Family Medicine Geriatric Medicine
DX: E03.9 Hypothyroidism, unspecified (principal); I10 Essential (primary) hypertension; E66.9 Obesity, unspecified
CPT/HCPCS: 36415; 80061; 80076; 84443

== ENCOUNTER → 2018-11-10 10:58 | Outpatient (CLI) | payer MEDICARE, SELFPAY ==
[2018-10-21 11:31] VITALS: BMI 34.7
[2018-11-10 12:36] LABS: Absolute Lymphocyte Count 1.31 X10^3/uL (0.83-4.51); Absolute Neutrophil Count 2.9 X10^3/uL (2.0-7.7); Basophil# 0.04 X10^3/uL; Basophil% 0.8 % (0-1); Eosinophil# 0.39 X10^3/uL; Eosinophils% 7.5 % (0-5); Hematocrit 38.4 % (40-54); Hemoglobin 12.2 g/dL (13.0-16.5); Lymphocyte # 1.31 X10^3/ul (4.0); Mean Corp Hgb Conc 31.8 g/dL (32-36); Mean Corpuscular Hgb 31.9 pg (27.0-32.0); Mean Corpuscular Volume 100.3 fL (80-94); Mean Platelet Vol. 8.7 fl (6.2-12.0); Monocyte# 0.56 X10^3/uL; Monocyte% 10.7 % (0-10); NRBC Flagged by Analyzer 0 % (0-5); Neutrophil # 2.92 X10^3/uL (2.7-7.7); Neutrophil % 55.8 % (47-70); Platelet Count 116 K/mm3 (150-450); RBC Distribution Width CV 17.1 % (11.6-14.6); Red Blood Count 3.83 M/mm3 (4.6-6.2); White Blood Count 5.2 K/mm3 (4.4-11.0)
[2018-11-10 12:58] LABS: Vitamin D,25 Hydroxy 36.9 ng/mL (29.95-100.01)
[2018-11-10 13:35] LABS: ALB/GLOB Ratio 0.6 RATIO (0.9-2.4); AST(SGOT) 19 U/L (15-37); Alanine Aminotransfer ALT/SGPT 15 U/L (16-61); Albumin, Serum 2.8 g/dL (3.2-5.0); Alkaline Phosphatase 107 U/L (45-117); Anion Gap 5 (5-15); BUN 25 mg/dL (7-18); BUN/Creat Ratio 12.6 RATIO (10-20); Calcium,Total 8.4 mg/dL (8.5-10.1); Chloride 107 mmol/L (98-107); Creatinine, Serum 1.98 mg/dL (0.70-1.30); EST Glomerular Filtration Rate 34 mL/min (>60); Est Glom Filt Rate - Afr Amer 42 mL/min (>60); Globulin 4.4 g/dL (2.2-4.2); Glucose 95 mg/dL (74-106); Potassium 4.3 mmol/L (3.5-5.1); Protein, Total 7.2 g/dL (6.4-8.2); Sodium Level 141 mmol/L (136-145); Thyroid Stim Hormone (TSH) 6.28 uIU/mL (0.358-3.74)
== END ==
PROVIDERS: Family Provider Family Medicine Geriatric Medicine; PCP Family Medicine Geriatric Medicine; Visit Provider Family Medicine Geriatric Medicine
DX: I10 Essential (primary) hypertension (principal); E55.9 Vitamin D deficiency, unspecified
CPT/HCPCS: 36415; 80053; 82306; 84443; 85025

== ENCOUNTER → 2018-11-23 11:06 | Outpatient (CLI) | payer MEDICARE, SELFPAY ==
[2018-07-01 14:31] VITALS: BMI 34.3
[2018-10-21 11:31] VITALS: BMI 34.7
[2018-11-23 12:31] LABS: Hematocrit 38.6 % (40-54); Hemoglobin 12.4 g/dL (13.0-16.5); Mean Corp Hgb Conc 32.1 g/dL (32-36); Mean Corpuscular Hgb 32.5 pg (27.0-32.0); Mean Platelet Vol. 8.9 fl (6.2-12.0); Platelet Count 109 K/mm3 (150-450); RBC Distribution Width CV 15.7 % (11.6-14.6); RBC Distribution Width SD 58.4 fl (35.1-43.9); Red Blood Count 3.82 M/mm3 (4.6-6.2); White Blood Count 4.5 K/mm3 (4.4-11.0)
[2018-11-23 12:44] LABS: Albumin, Serum 2.8 g/dL (3.2-5.0); BUN 25 mg/dL (7-18); BUN/Creat Ratio 12.9 RATIO (10-20); Calcium,Total 8.4 mg/dL (8.5-10.1); Chloride 107 mmol/L (98-107); Creatinine, Serum 1.94 mg/dL (0.70-1.30); EST Glomerular Filtration Rate 35 mL/min (>60); Est Glom Filt Rate - Afr Amer 43 mL/min (>60); Glucose 90 mg/dL (74-106); Phosphorus 3.5 mg/dL (2.5-4.9); Potassium 4.5 mmol/L (3.5-5.1); Sodium Level 142 mmol/L (136-145)
[2018-11-23 13:15] LABS: PTHIN 52.7 pg/mL (18.4-80.1)
== END ==
PROVIDERS: Family Provider Family Medicine Geriatric Medicine; PCP Family Medicine Geriatric Medicine; Visit Provider Internal Medicine Nephrology
DX: N17.9 Acute kidney failure, unspecified (principal); N18.3 Chronic kidney disease, stage 3 (moderate); D64.9 Anemia, unspecified
CPT/HCPCS: 36415; 80069; 83970; 85027

== ENCOUNTER 2018-11-24 17:50 | Observation (INO) | payer MEDICARE, SELFPAY ==
[2018-10-21 11:31] VITALS: BMI 34.7
[2018-11-24 17:50] VITALS: BP 166/84; PULSE 63; RESP 16; TEMP 36.1; O2SAT 96; BMI 34.7
--- NOTE | 2018-11-24 18:13 | CT_ITS ---
STUDY: CT CERVICAL SPINE WITHOUT CONTRAST REASON FOR EXAM: Male, 82 years old. Fall, left-sided pain. RADIATION DOSAGE (If Supplied By Facility): CTDIvol = ( 25.61 ) mGy, DLP = ( 522.93 ) mGycm TECHNIQUE: High resolution transaxial imaging was performed without contrast material. Sagittal and coronal images were reconstructed. Individualized dose optimization techniques were used for this CT. COMPARISON: None FINDINGS: Normal craniovertebral junction. There are degenerative changes of the anterior atlantoaxial articulation, including calcification of the cruciate ligament. Normal odontoid process. Normal cervical lordosis. No acute fracture of the cervical vertebral bodies and posterior osseous elements. Incidental note of moderate anterior wedging deformity of the T2 vertebra, including a focal, well corticated invagination of its inferior endplate, as well as focal depression of the superior T1 vertebral endplate. Not fully included in the [id number] is some amorphous ossific density extending inferiorly from the tip of the T1 spinous process, suggesting that these fractures are chronic. C2-3: Anterior C2 endplate spurring. Degenerative narrowing of the left uncovertebral joint extends to left posterior lateral osteophyte formation. Normal disc height and morphology. Severe narrowing of the left facet joint with moderately hypertrophic posterior particular spurring and mild anterior periarticular spurring. Mild osseous encroachment on the left lateral recess of the central canal and moderate osseous narrowing of the left intervertebral neuroforamen. C3-4: Near circumferential endplate spurring/osteophytes. Moderate disc height narrowing with anterior and posterior marginal calcifications and 3.5 mm central posterior disc protrusion. There is disc and spur impingement on the central canal and intervertebral neuroforamina, greater on the left C4-5: Posterior endplate spurring. There is narrowing of the uncovertebral joints. Mild disc height narrowing with calcification along the margins of wide based anterior and posterior disc bulges. Hypertrophic degenerative arthrosis of the bilateral facet joints with moderately severe joint space narrowing. Periarticular spurring is more prominent posteriorly. Mild impingement on the anterior central canal. Mild to moderate osseous narrowing of the intervertebral neuroforamina. C5-6: Posterior endplate spurring and left anterolateral endplate osteophyte. There is narrowing of the uncovertebral joints. Mild disc height narrowing with calcification along the anterior and posterior disc margins. There is a right posterior disc protrusion. Hypertrophic degenerative arthrosis of the bilateral facet joints with moderately severe joint space narrowing. Mild impingement on the right anterior central canal. Mild to moderate osseous narrowing of the intervertebral neuroforamina, greater on the right. C6-7: Mild anterior endplate spurring. Normal disc height with faint anterior and posterior marginal disc calcifications. Moderate narrowing and early periarticular spurring of the right facet articulation. There is some posterior narrowing and early spurring of the left facet joint is well minor disc encroachment on the central canal and intervertebral neuroforamina. C7-T1: Early degenerative anterior and posterior endplate lipping. Normal disc height and morphology. Moderate narrowing and early periarticular spurring of the bilateral facet joints. Normal central canal and intervertebral neuroforamina. Normal visualized prevertebral soft tissue structures. There are mild atherosclerotic calcifications of the bilateral carotid arteries. CT/Spine Cervical without Contras IMPRESSION: 1. No acute fracture of the cervical spine. There are chronic appearing fracture deformities of the T1 and T2 vertebrae, as noted. 2. Multilevel degenerative changes, as described above. Electronically Signed: Elijah Hatch MD at 19:33 EDT , Service support ,
--- NOTE | 2018-11-24 18:13 | CT_ITS ---
STUDY: CT BRAIN WITHOUT CONTRAST REASON FOR EXAM: Male, 82 years old. Fall. History of hypertension, Alzheimer's, atrial fibrillation. RADIATION DOSAGE (If Supplied By Facility): CTDIvol = ( 44.99 ) mGy, DLP = ( 812.98 ) mGycm TECHNIQUE: Transaxial CT imaging of the brain was performed without administration of intravenous contrast material. Individualized dose optimization techniques were used for this CT. COMPARISON: Noncontrast CT brain August 12, 2014. FINDINGS: Normal soft tissue structures. Normal calvarium. There are atherosclerotic calcifications of the cavernous segments of the bilateral internal carotid arteries. There is mild cerebral atrophy with widening of the extra-axial spaces and ventricular dilatation. Normal white matter tracts of the cerebral hemispheres. Normal basal ganglia and thalami. Normal brainstem. There is borderline cerebellar atrophy. There is no intracranial hemorrhage. There are no findings of an acute ischemic infarction. There is minimal mucoperiosteal thickening in the inferior frontal sinuses. There are accumulations of cerumen in the deep bilateral external auditory canals. CT/Brain/Head without Contrast IMPRESSION: Chronic involutional changes of the brain. No acute intracranial pathology. Electronically Signed: Elijah Hatch MD at 19:38 EDT , Service support ,
--- NOTE | 2018-11-24 18:14 | CT_ITS ---
STUDY: CT CHEST WITHOUT CONTRAST REASON FOR EXAM: Male, 82 years old. Pain RADIATION DOSAGE (If Supplied By Facility): DLP = ( 748.26 ) mGycm TECHNIQUE: Transaxial imaging was performed without the administration of intravenous contrast material. Coronal and sagittal reformatted images were created. Individualized dose optimization techniques were used for this CT. COMPARISON: None FINDINGS: Bibasilar atelectasis is present. There is no consolidation. There are no pulmonary nodules or masses. There is no pneumothorax. The heart and pericardium are within normal limits. Coronary artery calcifications are present. There is no thoracic lymphadenopathy. There is no evidence of thoracic aortic aneurysm. Images through the upper abdomen demonstrate no significant abnormality. There is a nondisplaced fracture of the left anterolateral seventh rib and nondisplaced fracture of the left anterolateral sixth rib. CT/Chest without Contrast IMPRESSION: Nondisplaced fracture of the left anterolateral seventh rib and nondisplaced fracture of the left anterolateral sixth rib. Bibasilar atelectasis. No consolidation. Coronary artery calcifications. Electronically Signed: Kannan Marcus, at 19:27 EDT Tel , Service support ,
[2018-11-24] MEDS: Ondansetron 4 MG/2 ML Vial IV (18:46)
[2018-11-24] MEDS: fentaNYL 100 MCG/2 ML Ampul 50 MCG IV (18:46)
[2018-11-24 18:48] LABS: Absolute Lymphocyte Count 1.08 X10^3/uL (0.83-4.51); Absolute Neutrophil Count 4.1 X10^3/uL (2.0-7.7); Basophil# 0.04 X10^3/uL; Basophil% 0.6 % (0-1); Eosinophils% 6.4 % (0-5); Hematocrit 38.5 % (40-54); Hemoglobin 12.4 g/dL (13.0-16.5); Lymphocyte # 1.08 X10^3/ul (4.0); Lymphocyte % 17.3 % (19-41); Mean Corp Hgb Conc 32.2 g/dL (32-36); Mean Corpuscular Hgb 32.5 pg (27.0-32.0); Mean Platelet Vol. 8.3 fl (6.2-12.0); Monocyte# 0.54 X10^3/uL; Monocyte% 8.7 % (0-10); NRBC Flagged by Analyzer 0 % (0-5); Neutrophil # 4.12 X10^3/uL (2.7-7.7); Neutrophil % 66.2 % (47-70); Platelet Count 99 K/mm3 (150-450); RBC Distribution Width CV 15.7 % (11.6-14.6); RBC Distribution Width SD 58.9 fl (35.1-43.9); Red Blood Count 3.81 M/mm3 (4.6-6.2); White Blood Count 6.2 K/mm3 (4.4-11.0)
[2018-11-24 19:01] LABS: Anion Gap 3 (5-15); BUN 24 mg/dL (7-18); BUN/Creat Ratio 12.3 RATIO (10-20); Calcium,Total 8.4 mg/dL (8.5-10.1); Chloride 104 mmol/L (98-107); Creatinine, Serum 1.95 mg/dL (0.70-1.30); EST Glomerular Filtration Rate 35 mL/min (>60); Est Glom Filt Rate - Afr Amer 42 mL/min (>60); Glucose 91 mg/dL (74-106); Potassium 4.5 mmol/L (3.5-5.1); Sodium Level 137 mmol/L (136-145)
[2018-11-24 19:57] VITALS: BMI 34.7
[2018-11-24] MEDS: HYDROCODONE/APAP 7.5-325/15ML 15 ML UDC 10 ML PO (20:28)
--- NOTE | 2018-11-24 21:36 | ED.RN ---
PT REFUSED TO AMBULATE STATES THE PAIN IS TO GREAT, PT CRIES OUT WHEN HE MOVES HIS LEFT ARM, OR IS MOVED TO USE THE URINAL. DR. MCCLAIN MADE AWARE, NO FURTHER ORDERS AT THIS TIME.
[2018-11-24 21:50] VITALS: BP 158/76; PULSE 65; RESP 19; O2SAT 92
--- NOTE | 2018-11-24 21:54 | HP.PCM_ITS ---
Problem List (1) Multiple rib fractures Status: Acute (2) Fall Status: Acute History of Present Illness Date of Admission: 11/24/18 Chief Complaint: fall The patient is a 82 year old M with a significant history of Alzheimer's disease; and atrial fibrillation who presented to the emergency department with a fall. Patient has a poor balance and uses a walker. He lost his balance and fell landing on his left side. He sustained an injury to his left elbow and he has excruciating pain on his left flank. His pain increases with movements. His pain is sharp. Chest CT at the emergency department showed multiple rib fractures. 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) tricep surgery (Chronic) CKD (chronic kidney disease) (Chronic) Thrombocytopenia (Chronic) Old myocardial infarction (Chronic) Right bundle branch block (Chronic) Hypertension (Chronic) Paroxysmal SVT (supraventricular tachycardia) (Chronic) Nonsustained ventricular tachycardia (Chronic) Paroxysmal atrial fibrillation (Chronic) Stage III chronic kidney disease (Chronic) Obesity (BMI 30-39.9) (Chronic) Medical History: Medical History (Last Reviewed 11/24/18 @ 22:31 by Azeem Villagomez MD) Anemia (Acute) D64.9 COPD (chronic obstructive pulmonary disease) (Chronic) J44.9 GERD (gastroesophageal reflux disease) (Chronic) K21.9 Obstructive sleep apnea (Chronic) G47.33 Pancreatitis (Chronic) K85.90 Alzheimer disease (Chronic) G30.9, F02.80 CKD (chronic kidney disease) (Chronic) N18.9 Thrombocytopenia (Chronic) D69.6 Cystitis (Resolved) N30.90 Bacteremia (Resolved) R78.81 Bld Cx w/ preliminary Klebsiella Oxytoca and Morganella Morganii sp morgani. Old myocardial infarction (Chronic) I25.2 Right bundle branch block (Chronic) I45.10 Hypertension (Chronic) I10 Paroxysmal SVT (supraventricular tachycardia) (Chronic) I47.1 Nonsustained ventricular tachycardia (Chronic) I47.2 Paroxysmal atrial fibrillation (Chronic) I48.0 Stage III chronic kidney disease (Chronic) Obesity (BMI 30-39.9) (Chronic) E66.9 Acute UTI (Resolved) N39.0 UCx not obtained, UA not severe appearing, given bacteremia, Klebsiella Oxytoca and Morganella Morganii sp morgani (final pending, thus suspect to speciate to the same) suspected secondary to UTI, complicated Fever and chills (Resolved) R50.9 Allergies morphine Adverse Reaction (Severe, Verified 10/21/18 11:31) hostility,disoriented hostility, disoriented Home Medications: Ambulatory Orders Medication Instructions Recorded Donepezil HCl 10 mg PO QHS 03/07/15 Ergocalciferol [Vitamin D] 50,000 unit PO QMONTH 03/07/15 apixaban 2.5 mg tablet 2.5 mg PO BID #60 tab 01/20/18 furosemide 20 mg tablet 20 mg PO DAILY #0 tab 04/02/18 isosorbide mononitrate ER 30 mg 30 mg PO DAILY #30 tab 06/10/18 tablet,extended release 24 hr Amiodarone HCl 200 mg PO QODAY 11/24/18 Cyanocobalamin (Vitamin B-12) 1,000 mcg PO DAILY 11/24/18 [Vitamin B-12] Escitalopram Oxalate 10 mg PO DAILY 11/24/18 Iron Polysaccharide Complex 150 mg PO DAILY 11/24/18 [Ferrex 150] Levothyroxine [Synthroid] 112 mcg PO DAILY 11/24/18 Surgical History: Surgical History (Last Reviewed 11/24/18 @ 22:30 by Azeem Villagomez MD) History of esophagogastroduodenoscopy (EGD) (Resolved) Z98.890 07/22/18 Hx of colonoscopy (Resolved) Z98.890 07/22/18 Hx of cholecystectomy (Chronic) Z90.49 H/O bilateral hip replacements (Chronic) Z96.643 excision of subglottic mass (Chronic) tricep surgery (Chronic) Surgical History: cholecystectomy, total hip arthroplasty - right 05/16/14 Dr Powell, Left 5 years ago, - - Right bicep repair 1994 Psychiatric History: No pertinent psych hx Lives: Alone Smoking Status: Former smoker Tobacco Use: Cigarettes, Cigars, Chew - *Family History Maternal Family History: Family History (Last Reviewed 11/24/18 @ 22:31 by Azeem Villagomez MD) Sister CAD (coronary artery disease) Sister Cancer Brother Cancer History Items: No pertinent history Paternal Family History: Family History (Last Reviewed 11/24/18 @ 22:31 by Azeem Villagomez MD) Sister CAD (coronary artery disease) Sister Cancer Brother Cancer History Items: No pertinent history Offspring Family History: Family History (Last Reviewed 11/24/18 @ 22:31 by Azeem Villagomez MD) Sister CAD (coronary artery disease) Sister Cancer Brother Cancer History Items: No pertinent history Review of Systems Constitutional: Denies: Chills, Fever, Weight Change HEENT: Denies: Head Aches, Sinus Congestion, Sinus Drainage Cardiovascular: Denies: Chest Pain, Palpitations Respiratory: Denies: Cough, Shortness of breath at rest, Sputum production Gastrointestinal: Denies: Abdominal Pain, Nausea, Vomiting Genitourinary: Denies: Dysuria Musculoskeletal: Reports: Back Pain - Left side. Denies: Joint Pain, Joint Tenderness Skin: Denies: Rash, Wounds Neurological: Denies: Numbness, Tingling, Focal weakness Psychiatric: Denies: Anxiety, Depression, Homicidal Ideations, Suicidal Ideations Hematologic/ Lymphatic: Denies: Easy Bruising, Easy Bleeding VTE Information - Inpt Only VTE Present on Admission: No VTE Mechan Device Prophylaxis: SCD's VTE Pharm Prophylaxis ordered?: No Patient Problems: Active and Suspected Problems (Last Reviewed 11/24/18 @ 22:30 by Azeem Villagomez MD) Multiple rib fractures (Acute) Fall (Acute) - Physical Exam General: Alert, Oriented x3, Cooperative HEENT: Atraumatic, PERRLA, EOMI, Normocephalic Neck: Supple, No JVD, Negative Carotid Bruits Lungs: Clear to auscultation, Normal air movement, No rhonchi, No wheeze, No rales Cardiovascular: No murmurs, Irregular Rate Abdomen: Bowel Sounds Present, Soft, Non Tender Extremities: No edema, Capillary Refill Less than 3 Seconds Skin: Skin Tear - Left elbow, - - To bilateral legs with scaly rash Musculoskeletal: No Muscle Wasting, Tenderness - Left back Neurological: Cranial nerves II-XII grossly intact Psych/Mental Status: Normal Affect, Appropriate Vital Signs Temp Pulse Resp BP Pulse Ox 97 F L 63 16 166/84 H 96 11/24/18 17:50 11/24/18 17:50 11/24/18 17:50 11/24/18 17:50 11/24/18 17:50 Oxygen Delivery Method Room Air Weight: 97.522 kg Body Mass Index (BMI) 34.7 Finger Stick Blood Glucose 85 Laboratory Tests Past 24 Hrs 11/24/18 11/24/18 18:40 18:40 WBC 6.2 RBC 3.81 L Hgb 12.4 L Hct 38.5 L MCV 101.0 H MCH 32.5 H MCHC 32.2 RDW Std Deviation 58.9 H RDW Coeff of Germaine 15.7 H Plt Count 99 L MPV 8.3 Immature Gran % (Auto) 0.800 Neut % (Auto) 66.2 Lymph % (Auto) 17.3 L [place] % (Auto) 8.7 Eos % (Auto) 6.4 H Baso % (Auto) 0.6 Absolute Neuts (auto) 4.1 Absolute Lymphs (auto) 1.08 Nucleated RBC % 0 Sodium 137 Potassium 4.5 Chloride 104 Carbon Dioxide 30.0 Anion Gap 3 L BUN 24 H Creatinine 1.95 H Estim Creat Clear Calc 25.90 Est GFR (MDRD) Af Amer 42 L Est GFR (MDRD) Non-Af 35 L BUN/Creatinine Ratio 12.3 Glucose 91 Calcium 8.4 L Assessment/Plan All Active Problems (Last Reviewed 11/24/18 @ 22:30 by Azeem Villagomez MD) Multiple rib fractures (Acute) Fall (Acute) History of esophagogastroduodenoscopy (EGD) (Resolved) Hx of colonoscopy (Resolved) Anemia (Acute) Cystitis (Resolved) Bacteremia (Resolved) Acute UTI (Resolved) Fever and chills (Resolved) Generalized weakness (Ruled-out) The patient is a 82 year old M with a significant history of Alzheimer's disease; and atrial fibrillation who presented to the emergency department with a fall sustaining laceration of left elbow and with radiographic evidence of multiple rib fractures. Fall with multiple rib fracture and laceration of left elbow Cervical CT at the emergency department did not show any acute pathology Chest CT showed nondisplaced fracture of the left anterior seventh rib and nondisplaced fracture of the left anterior sixth rib. Supportive treatment with pain medication and incentive spirometer. At the emergency department patient received fentanyl IV and [place]. Reported patient get delirious with morphine. Will put patient on scheduled Tylenol; oxycodone for moderate pain and IV fentanyl for severe pain. PRN antiemetics and PRN bowel protocol ordered PT and OT to work with patient. Continue Steri-Strips and gauze wrapping to left elbow. Hold Eliquis. Check H&H in a.m. Atrial fibrillation Patient in controlled A. fib on presentation Amiodarone continued Eliquis held secondary to fall with fracture and laceration DVT prophylaxis SCD ordered. Code Visit OBSV E&M: [id number] Initial observation care L2
--- NOTE | 2018-11-24 22:10 | ED.VISSUMM ---
- ER Visit Summary Date of Service: 11/24/18 Chief Complaint: Fall and left-sided chest pain History of Present Illness: The patient is a [address] Lai and Dr. Pinto. He is on Eliquis for atrial fibrillation. Reports that today approximately 4 PM he was using his walker and lost his balance and fell. He did hit his head. No loss of consciousness. He denies a headache. He reports that he has severe pain on the left side of his back in the ribs. Reports is 10 out of 10 severity. Is increased with breathing. He does complain of being short of breath. Patient denies any neck, shoulder, wrist, hip, or back pain. Tetanus is up-to-date. Physical Examination: Vitals: Stable. Afebrile. Neck: Mild diffuse tenderness palpation of the entire C-spine. No point tenderness. Full ROM without difficulty. General: A&O x 2. NAD. Cardiovascular exam: Irregularly irregular rhythm with a 2 out of 6 systolic murmur, no rub or gallop. Respiratory exam: Severe tenderness palpation over the lower ribs on the left. No crepitus. Clear to auscultation bilaterally. No wheezes or stridor. Abdominal exam: Soft, nontender, nondistended, normal bowel sounds. No pain in RUQ or LUQ specifically. No peritoneal signs. Extremity: Atraumatic. No pain with range of motion. 3+ pitting edema of his lower extremities bilaterally. Is a 2 cm skin tear over the back of his left elbow. No active bleeding. Test Results: CBC shows an H&H 12.4 and 38.5, platelets of 99, lymphocytes of 17, eosinophils of 6. Chem-7 shows a BUN of 29, creatinine 1.95, calcium of 8.4. Baseline creatinine is 1.63-1.98 in 2019. Clinical Impression(s) from Imaging Studies Brain CT 11/24/18 18:13 IMPRESSION: Chronic involutional changes of the brain. No acute intracranial pathology. Electronically Signed: Elijah Hatch MD at 19:38 EDT , Service support , Cervical Spine CT 11/24/18 18:13 IMPRESSION: 1. No acute fracture of the cervical spine. There are chronic appearing fracture deformities of the T1 and T2 vertebrae, as noted. 2. Multilevel degenerative changes, as described above. Electronically Signed: Elijah Hatch MD at 19:33 EDT , Service support , Chest CT 11/24/18 18:14 IMPRESSION: Nondisplaced fracture of the left anterolateral seventh rib and nondisplaced fracture of the left anterolateral sixth rib. Bibasilar atelectasis. No consolidation. Coronary artery calcifications. Electronically Signed: Kannan Marcus, at 19:27 EDT Tel , Service support , Emergency Department Course and Treatment: Patient was initially given a dose of fentanyl IV. He continued to experience pain. He is given Lortab p.o. He was unable to even stand up out of the bed to attempt to walk. He does live by himself. However, the woman that is in the room with him reports that she is 6 miles away and checks on him every day. Treatment Plan: Patient is unable to get up and walk. He lives by himself and has dementia. He is also on Eliquis. I do not think that he is capable of going home. He was discussed with Dr. Villagomez. He will be admitted to the hospital for further evaluation and treatment. Disposition: Admitted in improved condition. Impression: 1. Fall. 2. Left sixth and seventh rib fractures. 3. Coagulopathy on Eliquis. 4. Chronic renal insufficiency. 5. Inability to ambulate. This note was generated with [employer] software. It may contain incorrect words, spelling, and punctuation that were not noted in review of the chart prior to signing ED Disposition - Plan for ED Patient: Referrals: Laith Lai Chi, MD [Primary Care Provider] -
[2018-11-24 22:48] VITALS: BP 166/84; PULSE 87; RESP 15; O2SAT 93
[2018-11-24 22:51] VITALS: BMI 30.4
[2018-11-24 22:52] VITALS: BP 153/71; PULSE 62; RESP 18; TEMP 36.9; O2SAT 95
[2018-11-24] MEDS: Donepezil HCl 10 MG Tablet PO (23:30)
[2018-11-24] MEDS: MELATONIN 3 MG TABLET PO (23:30)
[2018-11-24] MEDS: oxyCODONE 5 MG Tablet PO (23:30)
[2018-11-25] VITALS (9 sets, daily range): BP systolic 107–121; BP diastolic 51–58; PULSE 48–97; RESP 18; TEMP 36.8–37.4; O2SAT 89–99
[2018-11-25] MEDS: fentaNYL 100 MCG/2 ML Ampul 50 MCG IV (01:23)
[2018-11-25] MEDS: 0.9% NaCl Peripheral Flush Adult/Peds IV (01:23)
[2018-11-25] MEDS: Levothyroxine 112 MCG Tablet PO (05:20)
[2018-11-25] MEDS: Acetaminophen 325 MG Tablet 650 MG PO ×3 (05:20→20:48)
[2018-11-25 06:35] LABS: Hematocrit 34.8 % (40-54); Hemoglobin 11.2 g/dL (13.0-16.5)
--- NOTE | 2018-11-25 08:02 | PCM.PN.HOSP ---
Patient Problems: Active and Suspected Problems (Last Reviewed 11/24/18 @ 22:31 by Azeem Villagomez MD) Multiple rib fractures (Acute) Fall (Acute) Subjective: States that he slipped which is why he fell but states that he had other falls recently as well is fault. Does have pain in his chest when he breathes but otherwise feels well. States that the pain medication is alleviating his pain. Vitals/I&O's: Vital Signs Temp Pulse Resp BP Pulse Ox 36.8 C 97 18 109/58 L 96 11/25/18 05:18 11/25/18 07:36 11/25/18 05:18 11/25/18 05:18 11/25/18 05:18 Oxygen Flow Rate (L/min) 2 Oxygen Delivery Method Nasal Cannula Weight: 96.2 kg Body Mass Index (BMI) 30.4 Finger Stick Blood Glucose 85 Intake and Output for Last 24 Hours 11/23/18 11/24/18 11/25/18 23:59 23:59 23:59 Intake Total 200 / 200 450 / 450 Output Total 100 / 100 Balance 200 / 200 350 / 350 General: Alert, No apparent distress HEENT: Atraumatic, Normocephalic Oral: Moist Mucosa, No Gingival or Mucosal Lesions/ Ulcerations Neck: No Nodes, Thyroid Normal Size and Texture Lungs: Clear to auscultation, Normal air movement, No rhonchi, No wheeze Cardiovascular: Regular rate, Regular Rhythm, Normal S1, Normal S2 Abdomen: Bowel Sounds Present, Soft, Non Tender, Non-Distended, No Hepato-splenomegaly Extremities: No edema, No Calf Tenderness Skin: - - Skin tear over left elbow Musculoskeletal: - - Slight tenderness to palpation over the left elbow but no effusion. Psych/Mental Status: Normal Affect, Appropriate Laboratory Results 11/24/18 18:40: WBC 6.2, RBC 3.81 L, Hgb 12.4 L, Hct 38.5 L, MCV 101.0 H, MCH 32.5 H, MCHC 32.2, RDW Std Deviation 58.9 H, RDW Coeff of Germaine 15.7 H, Plt Count 99 L, MPV 8.3, Immature Gran % (Auto) 0.800, Neut % (Auto) 66.2, Lymph % (Auto) 17.3 L, Bent % (Auto) 8.7, Eos % (Auto) 6.4 H, Baso % (Auto) 0.6, Absolute Neuts (auto) 4.1, Absolute Lymphs (auto) 1.08, Nucleated RBC % 0 11/24/18 18:40: Sodium 137, Potassium 4.5, Chloride 104, Carbon Dioxide 30.0, Anion Gap 3 L, BUN 24 H, Creatinine 1.95 H, Estim Creat Clear Calc 25.90, Est GFR (MDRD) Af Amer 42 L, Est GFR (MDRD) Non-Af 35 L, BUN/Creatinine Ratio 12.3, Glucose 91, Calcium 8.4 L 11/25/18 06:15: Hgb 11.2 L, Hct 34.8 L Current Medications Acetaminophen (Tylenol) 650 mg PO Q8 [facility] Last Admin: 11/25/18 05:20 Dose: 650 mg Documented by: Amiodarone HCl (Cordarone) 200 mg PO QODAY [facility] Cyanocobalamin (Vitamin B12) 1,000 mcg PO DAILY [facility] Dextrose (D50w Syringe) 0 gm IV X1 PRN; Protocol PRN Reason: Hypoglycemia Donepezil HCl (Aricept) 10 mg PO QHS [facility] Last Admin: 11/24/18 23:30 Dose: 10 mg Documented by: Escitalopram Oxalate (Lexapro) 10 mg PO DAILY [facility] Fentanyl Citrate (Sublimaze (100mcg Ampule)) 50 mcg IV Q2H PRN PRN PRN Reason: SEVERE PAIN (6-10/10) Last Admin: 11/25/18 01:23 Dose: 50 mcg Documented by: Furosemide (Lasix) 20 mg PO DAILY [facility] Glucagon () 1 mg IM .X1 PRN PRN Reason: Hypoglycemia Sodium Chloride () 250 mls @ 15 mls/hr IV .[id number] PRN PRN Reason: SALINE FLUSH Isosorbide Mononitrate (Imdur) 30 mg PO DAILY [facility] Levothyroxine Sodium (Synthroid) 112 mcg PO DAILY@0600 [facility] Last Admin: 11/25/18 05:20 Dose: 112 mcg Documented by: Melatonin (Melatonin) 3 mg PO QHS PRN PRN PRN Reason: INSOMNIA Last Admin: 11/24/18 23:30 Dose: 3 mg Documented by: Ondansetron HCl (Zofran) 4 mg IV Q8H PRN PRN PRN Reason: NAUSEA/VOMITING Oxycodone HCl (Oxyir) 5 mg PO Q4H PRN PRN PRN Reason: MODERATE PAIN (4-5/10) Last Admin: 11/24/18 23:30 Dose: 5 mg Documented by: Polysaccharide Iron Complex (Ferrex 150) 150 mg PO DAILY [facility] Senna/Docusate Sodium (Senokot-S, Ruth-Colace) 2 tablet PO BID PRN PRN PRN Reason: Constipation Sodium Chloride () 10 - 40 ml IV UD PRN PRN Reason: SALINE FLUSH Last Admin: 11/25/18 01:23 Dose: 10 ml Documented by: Medical Necessity - Tobacco Use Smoking Status: Former smoker Tobacco Use: Cigarettes, Cigars, Chew Assessment/Plan All Active Problems (Last Reviewed 11/24/18 @ 22:31 by Azeem Villagomez MD) Multiple rib fractures (Acute) Fall (Acute) History of esophagogastroduodenoscopy (EGD) (Resolved) Hx of colonoscopy (Resolved) Anemia (Acute) Cystitis (Resolved) Bacteremia (Resolved) Acute UTI (Resolved) Fever and chills (Resolved) Generalized weakness (Ruled-out) 1. Fall Patient states that this is more of a mechanical mechanism as he stated that he slipped on a slick floor, but, he has had other falls recently. We will have physical and occupational therapy evaluate the patient and determine if the patient may benefit from skilled services upon discharge 2. Left sixth and seventh rib fractures Acute Status post mechanical fall Supportive management 3. Left elbow skin tear Supportive management 4. Atrial fibrillation, chronic Rate controlled Continue with amiodarone Given his falls, patient is high risk for further anticoagulation at this time, therefore, apixaban has been held and patient will be initiated on aspirin. The risks of anticoagulation outweigh the benefits at this time 5. VTE prophylaxis: SCDs Code Visit OBSV E&M: 50801 Subsequent observation care L2
[2018-11-25] MEDS: oxyCODONE 5 MG Tablet PO ×2 (09:11→19:39)
[2018-11-25] MEDS: Furosemide 20 MG Tablet PO (09:13)
[2018-11-25] MEDS: Cyanocobalamin 500 MCG Tablet 1000 MCG PO (09:13)
[2018-11-25] MEDS: Isosorbide Mononitrate 30 MG Tablet PO (09:13)
[2018-11-25] MEDS: Escitalopram Oxalate 10 MG Tablet PO (09:13)
[2018-11-25] MEDS: Iron Polysaccharide Complex 150 MG CAPSULE PO (09:13)
--- NOTE | 2018-11-25 12:35 | CASEMGMT ---
LW/POA in summary tab of brynn, pt's POA is Aly Hinojosa Jr and alternate is daughter Naheed Silva. REFUGIO Clarke
--- NOTE | 2018-11-25 12:37 | CASEMGMT ---
Addendum entered by Raisa Salinas 11/25/18 14:19: Deon is concerned about pt going over tomorrow, as she will be out of town as will be their son. She asked for staff to see if daughter can be here when pt is being transported. SW can follow up w/daughter tomorrow, also asked exwife to reach out to daughter. SW will continue to follow. REFUGIO Clarke Addendum entered by Raisa Salinas 11/25/18 13:40: SW received messages from both [facility] and [facility], both have rooms. [facility] does have rooms available with a pond view. SW spoke w/pt and exwife, they are agreeable to referral to [facility] for a room with a pond view. Kamilla at [facility] had said their parts administrator will not be able to review the referral until tomorrow. PT/OT is still pending and a precert is needed, SW will follow up tomorrow w/[facility] and [employer] insurance. SW did fax initial referral to [facility]. SW did also call son as he is POA, message left. REFUGIO Clarke Original Note: SW spoke w/pt and pt's deon Lu in room in regard to prior level of care and discharge plan. PCP: Dr. Lai Pharmacy: [facility] Insurance/Prescription Benefit: [employer] [facility]POA: [facility], son Debbie Young is POA and daughter Naheed is alternate Living arrangements: Pt lives alone Transportation: Family takes pt to appts DME/SNF: Pt has a walker, walk in tub, grab bars. Pt has been to [facility], [facility], [facility]. ADL's: Tabitha explains that she helps set up meds every day, gets pt his supper, helps with laundry, cleaning, personal ADL's. Pt gets his own breakfast, and she calls pt every morning to make sure he is up and okay. She states she helps him with anything that needs her assist. Plan: Plan is for [facility] for rehab. STEFANIE gave them a list of nursing homes that take pt's insurance. They wanted TCU, TCU has no beds. They are agreeable to either [facility] or [facility]. STEFANIE explained will call and see who has beds, and let her know. STEFANIE called both SW and W to see about bed availability, messages left at both facilities. STEFANIE will continue to follow. REFUGIO Clarke
--- NOTE | 2018-11-25 15:13 | CHAPLAIN ---
Type of Pastoral Visit _x__ Initial Visit ___ Follow-up Visit ___ On-call Visit ___ General Patient Visit ___ Spiritual Assessment ___ Family Conference ___ Bereavement ___ Rapid Response ___ Code Blue ___ Other (describe below) Pastoral Care Referral From _x__ Patient ___ Family ___ Nurse ___ Physician ___ Supervisor [employer] ___ Business Performance Advisor ___ Other (describe below) Sacrament/Intervention ___ Active listening ___ Anointing ___ Alevism ___ Bereavement ___ Communion ___ Esperanza exploration ___ ___ Life review _x__ Prayer ___ Reconciliation ___ Sacrament of Sick _x__ Supportive presence ___ Wedding ___ Other (describe below) Pastoral Comments
[2018-11-25] MEDS: Donepezil HCl 10 MG Tablet PO (20:48)
--- NOTE | 2018-11-25 21:00 | NURSING ---
Patient requesting to sleep in chair tonight. Refusing any type of repositioning at this time.
[2018-11-26 02:00] VITALS: O2SAT 90
[2018-11-26 02:10] VITALS: BP 102/41; PULSE 50; RESP 18; TEMP 36.9; O2SAT 96
[2018-11-26] MEDS: Levothyroxine 112 MCG Tablet PO (05:13)
[2018-11-26] MEDS: 0.9% NaCl Peripheral Flush Adult/Peds IV (05:13)
[2018-11-26] MEDS: Acetaminophen 325 MG Tablet 650 MG PO (05:13)
[2018-11-26 08:44] VITALS: BP 110/83; PULSE 56; RESP 18; TEMP 36.6; O2SAT 98
[2018-11-26] MEDS: Isosorbide Mononitrate 30 MG Tablet PO (08:50)
[2018-11-26] MEDS: Iron Polysaccharide Complex 150 MG CAPSULE PO (08:50)
[2018-11-26] MEDS: Aspirin 81 MG TAB.CHEW PO (08:50)
[2018-11-26] MEDS: Amiodarone 200 MG Tablet PO (08:50)
[2018-11-26] MEDS: Escitalopram Oxalate 10 MG Tablet PO (08:50)
[2018-11-26] MEDS: Furosemide 20 MG Tablet PO (08:50)
[2018-11-26] MEDS: Cyanocobalamin 500 MCG Tablet 1000 MCG PO (08:50)
--- NOTE | 2018-11-26 09:39 | PCM.TXEXTCAR ---
- Diet 11/24/18 22:50 Diet: Regular Diet Food consistency:: Regular Liquid Consistency:: Regular/Thin Is pt able to select menu?: No - Routine Orders/Code Status Code Status: Full Code - Wound(s) Left elbow Wound Type: Skin Tear Dressing Change: Dry Sterile Dressing - Therapies Weight Bearing: Full weight bearing Physical Therapy: Eval and Treat Occupational Therapy: Eval and Treat - Allergies/Procedures Done in Hospital Allergies/Adverse Reactions: Allergies morphine Adverse Reaction (Severe, Verified 10/21/18 11:31) hostility,disoriented hostility, disoriented Procedures: None - Type of Care/Length of Stay Estimated LOS: Convalescent Care Less Than 30 days Type of Care Needed: Skilled Rehab Potential: Fair Prognosis: Good - Additional Orders/Day of Discharge Day of Discharge: 11/26/18 - Follow Up Care Primary Care Physician: Laith Lai Chi, MD [Primary Care Provider] - Within 2 Weeks Please Follow Up With: Chevy Pinto MD When: 02/18/19
--- NOTE | 2018-11-26 09:41 | DS.PCM_ITS ---
Discharge Date and Diagnosis - Problem List Patient Problems: Active and Suspected Problems (Last Reviewed 11/24/18 @ 22:31 by Azeem Villagomez MD) Multiple rib fractures (Acute) Fall (Acute) Date of Admission: 11/24/18 Date of Discharge: 11/26/18 - Primary Discharge Diagnosis Active and Suspected Problems (Last Reviewed 11/24/18 @ 22:31 by Azeem Villagomez MD) Multiple rib fractures (Acute) Fall (Acute) 1. Fall * Patient states that this is more of a mechanical mechanism as he stated that he slipped on a slick floor, but, he has had other falls recently. * We will have physical and occupational therapy evaluate the patient and determine if the patient may benefit from skilled services upon discharge 2. Left sixth and seventh rib fractures * Acute * Status post mechanical fall * Supportive management 3. Left elbow skin tear * Supportive management 4. Atrial fibrillation, chronic * Rate controlled * Continue with amiodarone * Given his falls, patient is high risk for further anticoagulation at this time, therefore, apixaban has been held and patient will be initiated on aspirin. 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 No acute intracranial pathology. Electronically Signed: Elijah Hatch MD at 19:38 EDT , Service support , Cervical Spine CT 11/24/18 18:13 IMPRESSION: 1. No acute fracture of the cervical spine. There are chronic appearing fracture deformities of the T1 and T2 vertebrae, as noted. 2. Multilevel degenerative changes, as described above. Electronically Signed: Elijah Hatch MD at 19:33 EDT , Service support , Chest CT 11/24/18 18:14 IMPRESSION: Nondisplaced fracture of the left anterolateral seventh rib and nondisplaced fracture of the left anterolateral sixth rib. Bibasilar atelectasis. No consolidation. Coronary artery calcifications. Electronically Signed: Kannan Marcus, at 19:27 EDT Tel , Service support , Operations: None Procedures: None Summary of Care Provided: The patient is a 82 year old M presents with a fall. Patient was found to have rib fractures as well as a skin tear in his left elbow. Patient was brought in observation status and evaluated. Patient states that he slipped but also states that he has had numerous falls as of late. Patient was eval by physical therapy and deemed a candidate for shelter facility. Discussed with case management plan is for the patient to be discharged to to [facility] in stable condition today. [] Patient Problems: Active and Suspected Problems (Last Reviewed 11/24/18 @ 22:31 by Azeem Villagomez MD) Multiple rib fractures (Acute) Fall (Acute) - Physical Exam General: Alert, No apparent distress HEENT: Atraumatic, Normocephalic Oral: Moist Mucosa, No Gingival or Mucosal Lesions/ Ulcerations Neck: No Nodes, Thyroid Normal Size and Texture Lungs: Clear to auscultation, Normal air movement, No rhonchi, No wheeze, No rales Cardiovascular: Regular rate, Regular Rhythm, Normal S1, Normal S2, No murmurs Abdomen: Bowel Sounds Present, Soft, Non Tender, Non-Distended, No Hepato- splenomegaly Extremities: No edema, No Calf Tenderness Vital Signs Temp Pulse Resp BP Pulse Ox 36.6 C 56 L 18 110/83 H 98 11/26/18 08:44 11/26/18 08:44 11/26/18 08:44 11/26/18 08:44 11/26/18 08:44 Oxygen Flow Rate (L/min) 2 Oxygen Delivery Method Room Air Weight: 96.2 kg Body Mass Index (BMI) 30.4 Finger Stick Blood Glucose 85 Intake and Output for Last 24 Hours 11/24/18 11/25/18 11/26/18 23:59 23:59 23:59 Intake Total 200 / 200 1610 / 1610 50 / 50 Output Total 925 / 925 650 / 650 Balance 200 / 200 685 / 685 -600 / -600 Discharge Diet: Low fat/ Low Cholesterol Home Medications: Medications to take at Discharge Donepezil HCl 10 mg PO QHS 03/07/15 Ergocalciferol [Vitamin D] 50,000 unit PO QMONTH 03/07/15 furosemide 20 mg tablet 20 mg PO DAILY #0 tab 04/02/18 isosorbide mononitrate ER 30 mg tablet,extended release 24 hr 30 mg PO DAILY #30 tab 06/10/18 Amiodarone HCl 200 mg PO QODAY 11/24/18 Cyanocobalamin (Vitamin B-12) [Vitamin B-12] 1,000 mcg PO DAILY 11/24/18 Escitalopram Oxalate 10 mg PO DAILY 11/24/18 Iron Polysaccharide Complex [Ferrex 150] 150 mg PO DAILY 11/24/18 Levothyroxine [Synthroid] 112 mcg PO DAILY 11/24/18 Acetaminophen [Tylenol Tablet] 650 mg PO Q8 tablet 11/26/18 Aspirin [Aspirin, Baby] 81 mg PO DAILY@0800 tab.chew 11/26/18 Melatonin 3 mg PO QHS PRN PRN tablet 11/26/18 Oxycodone [Oxyir] 5 mg PO Q6H PRN 3 Days #12 tab 11/26/18 Following Prescrptions Were Given to Patient: Oxycodone [Oxyir] 5 mg PO Q6H PRN 3 Days #12 tab PRN Reason: Moderate Pain (4-5/10) Prescription Printed Primary Care Physician: Laith Lai Chi, MD [Primary Care Provider] - Within 2 Weeks Please Follow Up With: Chevy Pinto MD When: 02/18/19 Disposition: Alf facility Minutes spent on discharge:: 28 Patient Condition:: Good Medical Necessity - Tobacco Use Smoking Status: Former smoker Tobacco Use: Cigarettes, Cigars, Chew Meaningful Use Info Meaningful Use Diagnoses (Choose all that apply): None applicable Code Visit OBSV E&M: 74581 Observation care discharge
--- NOTE | 2018-11-26 10:15 | CASEMGMT ---
STEFANIE faxed PT/OT evaluations to [facility], Kamilla called and they can take pt. STEFANIE faxed clinical information to [employer], called and spoke w/Paula. Pt is authorized to go to [facility]. SW completed PAS/RR, faxed this along w/results and all discharge instructions to [facility]. Pt's granddaughter Nadeen had left her number to call as she wants to be here when pt is discharged. SW called Nadeen([phone]), she does want to be here, is available any time. She explained pt's son (who is pt's POA and Nadeen's Dad) is out of town w/pt's ex-, and SW is to call pt's daughter Naheed Silva(who is alternate POA) to confirm everything. STEFANIE called Naheed, let her know pt is approved to go to [facility] today, [facility] can take pt and insurance approved. SW let her know that Nadeen had also called in and wanted to be here when pt is transported. Naheed in agreement with all of this, no preference for transport company or time. SW explained will call [facility] and set up 1pm transport. Naheed in agreement, will be here in about an hour. SW called [facility], set up 1pm ambulance. SW let RN here know, Kamilla at [facility] know, and called granddaughter Nadeen know as well time of pickup. SW also let pt know time of pickup and that his granddaughter and daughter are both coming here. Pt states understanding. No futher needs anticipated. REFUGIO Clrake
--- NOTE | 2018-11-26 10:40 | NURSING ---
call placed to cc and report given to rn carlyom will be taking over care for this patient
== END 2018-11-26 12:57 | disposition skilled nursing facility (03) ==
LOC: ED 18:19 → MS2 22:26
PROVIDERS: Admitting Provider Hospitalist; Emergency Provider Emergency Medicine; Family Provider Family Medicine Geriatric Medicine; PCP Family Medicine Geriatric Medicine; Referring Provider Hospitalist
DX: S22.42XA Multiple fractures of ribs, left side, initial encounter for closed fracture (principal); S51.012A Laceration without foreign body of left elbow, initial encounter; G30.9 Alzheimer's disease, unspecified; F02.80 Dementia in other diseases classified elsewhere, unspecified severity, without behavioral disturbance, psychotic disturbance, mood disturbance, and anxiety; I25.10 Atherosclerotic heart disease of native coronary artery without angina pectoris; I12.9 Hypertensive chronic kidney disease with stage 1 through stage 4 chronic kidney disease, or unspecified chronic kidney disease; D68.9 Coagulation defect, unspecified; J44.9 Chronic obstructive pulmonary disease, unspecified; K21.9 Gastro-esophageal reflux disease without esophagitis; G47.33 Obstructive sleep apnea (adult) (pediatric); N18.3 Chronic kidney disease, stage 3 (moderate); I25.2 Old myocardial infarction; I48.0 Paroxysmal atrial fibrillation; E66.9 Obesity, unspecified; W01.0XXA Fall on same level from slipping, tripping and stumbling without subsequent striking against object, initial encounter; Z91.81 History of falling; Y93.9 Activity, unspecified; Y92.9 Unspecified place or not applicable; Z79.899 Other long term (current) drug therapy; Z79.01 Long term (current) use of anticoagulants; Z68.30 Body mass index [BMI] 30.0-30.9, adult; Z71.3 Dietary counseling and surveillance; Z87.891 Personal history of nicotine dependence
CPT/HCPCS: 36415; 70450; 71250; 72125; 80048; 85014; 85018; 85025; 96374; 96375; 96376; 97162; 97166; 99218; 99285; 99406; J7030; A4216; G0378; J2405

== ENCOUNTER → 2018-12-02 14:54 | Outpatient (CLI) | payer MEDICARE, SELFPAY ==
[2018-07-22 07:39] VITALS: BMI 34.0
[2018-11-24 22:51] VITALS: BMI 30.4
[2018-12-02 16:20] LABS: Albumin, Serum 2.7 g/dL (3.2-5.0); BUN 35 mg/dL (7-18); BUN/Creat Ratio 16.4 RATIO (10-20); Calcium,Total 8.5 mg/dL (8.5-10.1); Chloride 107 mmol/L (98-107); Creatinine, Serum 2.13 mg/dL (0.70-1.30); EST Glomerular Filtration Rate 32 mL/min (>60); Est Glom Filt Rate - Afr Amer 38 mL/min (>60); Glucose 79 mg/dL (74-106); Phosphorus 3.1 mg/dL (2.5-4.9); Sodium Level 140 mmol/L (136-145); Thyroid Stim Hormone (TSH) 5.53 uIU/mL (0.358-3.74)
== END ==
PROVIDERS: Family Provider Family Medicine Geriatric Medicine; PCP Family Medicine Geriatric Medicine; Visit Provider Internal Medicine Nephrology
DX: E03.9 Hypothyroidism, unspecified (principal); N17.9 Acute kidney failure, unspecified
CPT/HCPCS: 36415; 80069; 84443

== ENCOUNTER → 2019-01-06 12:00 | Outpatient (CLI) | payer MEDICARE, SELFPAY ==
[2019-01-06 11:35] VITALS: BMI 30.4
[2019-01-06 12:53] LABS: Albumin, Serum 2.8 g/dL (3.2-5.0); BUN 26 mg/dL (7-18); BUN/Creat Ratio 14.3 RATIO (10-20); Calcium,Total 8.5 mg/dL (8.5-10.1); Chloride 105 mmol/L (98-107); Creatinine, Serum 1.82 mg/dL (0.70-1.30); EST Glomerular Filtration Rate 38 mL/min (>60); Est Glom Filt Rate - Afr Amer 46 mL/min (>60); Glucose 81 mg/dL (74-106); Phosphorus 3.6 mg/dL (2.5-4.9); Potassium 4.3 mmol/L (3.5-5.1); Sodium Level 137 mmol/L (136-145)
== END ==
PROVIDERS: Family Provider Family Medicine Geriatric Medicine; PCP Family Medicine Geriatric Medicine; Visit Provider Internal Medicine Nephrology
DX: N17.9 Acute kidney failure, unspecified (principal)
CPT/HCPCS: 36415; 80069

== ENCOUNTER → 2019-02-02 12:15 | Outpatient (CLI) | payer MEDICARE, SELFPAY ==
[2019-01-06 11:35] VITALS: BMI 30.4
[2019-02-02 13:32] LABS: Albumin, Serum 2.7 g/dL (3.2-5.0); BUN 28 mg/dL (7-18); BUN/Creat Ratio 14.6 RATIO (10-20); Calcium,Total 8.3 mg/dL (8.5-10.1); Chloride 105 mmol/L (98-107); Creatinine, Serum 1.92 mg/dL (0.70-1.30); EST Glomerular Filtration Rate 36 mL/min (>60); Est Glom Filt Rate - Afr Amer 43 mL/min (>60); Glucose 81 mg/dL (74-106); Phosphorus 3.1 mg/dL (2.5-4.9); Potassium 4.5 mmol/L (3.5-5.1); Sodium Level 140 mmol/L (136-145)
== END ==
PROVIDERS: Family Provider Family Medicine Geriatric Medicine; PCP Family Medicine Geriatric Medicine; Referring Provider Internal Medicine Nephrology; Visit Provider Internal Medicine Nephrology
DX: N17.9 Acute kidney failure, unspecified (principal)
CPT/HCPCS: 36415; 80069

== ENCOUNTER → 2019-03-17 08:56 | Outpatient (CLI) | payer MEDICARE, SELFPAY ==
[2019-02-18 11:38] VITALS: BMI 34.2
--- NOTE | 2019-03-17 08:58 | ECHOCS_ITS ---
Reason For Study: AFIB Procedure This was a 2D Doppler, Color Flow transthoracic echocardiogram. The exam was of poor technical quality due to suboptimal acoustic windows. Contrast injection was performed. Exam performed in department. Left Ventricle Normal size and thickness. The estimated ejection fraction is 65 %. Stage 2 diastolic dysfunction. Septal motion consistent with IVCD. No regional wall motion abnormalities noted. Right Ventricle Moderately dilated right ventricle. Normal systolic function. Atria Normal left atrium. Normal right atrium. Normal atrial septum. Mitral Valve The mitral valve is structurally normal. No prolapse or stenosis seen. Mild (1+) mitral valve insufficiency. Tricuspid Valve Normal tricuspid valve. Trivial tricuspid valve insufficiency. Right ventricular systolic pressure estimated to be 32 mmHg. Aortic Valve Trisinus/trileaflet aortic valve. Moderate diffuse aortic valve calcification. Moderate restriction of the aortic valve. Mild to moderate aortic stenosis. Peak aortic valve gradient 17 mmHg. Mean aortic valve gradient 10 mmHg. Calculated aortic valve area (continuity equation) is 1.1 cm2. Trivial aortic valve insufficiency. Pulmonic Valve Normal pulmonic valve. Great Vessels Normal aortic root. Normal arch. Normal inferior vena cava. Medication 22 gauge I.V. with prn adaptor inserted into right arm. Diluted definity 3.0ml given slow IV push to enhance endocardial definition. MMode/2D Measurements & Calculations LVIDd: 5.0 cm IVSd: 1.00 cm LVOT diam: 2.2 cm LVIDs: 3.6 cm LVPWd: 1.0 cm LVOT area: 3.8 cm2 RVDd: 3.9 cm FS: 28.3 % Ao root diam: 3.3 cm LAV(MOD-bp): 64.6 ml LVAd ap4: 45.3 cm2 LAV(MOD-bp) Indexed: 34.4 ml/m2 EDV(MOD-sp4): 173.8 ml LAV(MOD-sp2): 91.1 ml EDV(sp4-el): 180.4 ml LAV(MOD-sp4): 44.3 ml LVAs ap4: 29.6 cm2 ESV(MOD-sp4): 91.4 ml ESV(sp4-el): 93.6 ml EF(MOD-sp4): 47.4 % EF(sp4-el): 48.1 % SV(MOD-sp4): 82.4 ml SV(sp4-el): 86.8 ml LA A4 area: 19.6 cm2 LA dimension(2D): 3.8 cm RA A4 area: 18.9 cm2 Time Measurements MV dec time: 0.33 sec Doppler Measurements & Calculations Lat A' edmundo: 43.4 cm/sec Med Peak E' Edmundo: 30.2 cm/sec Ao V2 max: 206.8 cm/sec Lat Peak E' Edmundo: 7.2 cm/sec Ao max P.1 mmHg Ao V2 mean: 148.3 cm/sec Ao mean P.6 mmHg Ao V2 VTI: 50.6 cm JIM(V,D): 1.1 cm2 LV V1 max: 58.6 cm/sec PA V2 max: 70.1 cm/sec TR max edmundo: 256.0 cm/sec LV V1 max P.4 mmHg TR max P.2 mmHg Interpretation Summary The estimated ejection fraction is 65 %. Stage 2 diastolic dysfunction. Moderately dilated right ventricle. Mild (1+) mitral valve insufficiency. Trivial tricuspid valve insufficiency. Right ventricular systolic pressure estimated to be 32 mmHg. Mild to moderate aortic stenosis. Trivial aortic valve insufficiency. Compared to echo report dated 09/05/2016 his LV function is remained about the same, RVSP went from 27 to 32 mmHg, patient appears to have at least mild aortic stenosis by today's exam. The study was technically difficult. Contrast injection was performed. Ordering Physician: Chevy Pinto Referring Physician: LILLIAM RAMIREZ CHI Performed By: Linh Howard, JESSICA, RVT
== END ==
PROVIDERS: Family Provider Family Medicine Geriatric Medicine; PCP Family Medicine Geriatric Medicine; Referring Provider Internal Medicine Cardiovascular Disease; Visit Provider Internal Medicine Cardiovascular Disease
DX: Z98.890 Other specified postprocedural states (principal)
CPT/HCPCS: 93306; Q9957; A4216; C8929

== ENCOUNTER 2019-04-13 15:51 | Observation (INO) | payer MEDICARE, SELFPAY ==
[2019-02-18 11:38] VITALS: BMI 34.2
[2019-04-13 15:53] VITALS: BP 177/78; BP 177/80; PULSE 54; RESP 14; RESP 16; TEMP 36.1; TEMP 36.6; O2SAT 95; BMI 32.6
--- NOTE | 2019-04-13 16:03 | RAD_ITS ---
STUDY: X-RAY - LUMBAR SPINE REASON FOR EXAM: Male, 83 years old. FALL, PAIN TECHNIQUE: 3 view(s) of the lumbar spine were obtained. COMPARISON: None FINDINGS: Normal lumbar lordosis. There is no substantial scoliosis. There is a normal alignment of the vertebrae. No evidence for acute fracture or subluxation.. There is mild multilevel chronic wedge deformities. Disc space heights are well-maintained although there is multilevel endplate spurring. RAD/Lumbar Spine 2 or 3 Views IMPRESSION: Degenerative changes. No evidence for acute fracture or subluxation Electronically Signed: Kannan Estrada MD at 17:31 EST , Service support ,
--- NOTE | 2019-04-13 16:03 | RAD_ITS ---
STUDY: X-RAY - PELVIS AND RIGHT HIP REASON FOR EXAM: Male, 83 years old. FALL, PAIN TECHNIQUE: 3 views of the pelvis and hip. COMPARISON: None. FINDINGS: There is a non-specific bowel gas pattern. Normal visualized soft tissue structures. Normal bilateral iliac wings, sacroiliac joints and visualized sacrum. Normal bilateral superior and inferior pubic rami. Normal pubic symphysis. Normal bilateral ischial tuberosities. Bilateral hip prostheses are noted in anatomic alignment and position. No acute fracture or dislocation of the hips or pelvis RAD/HIP, UNI W/ Pelvis 2-3 Views IMPRESSION: No acute hip or pelvic fractures. Electronically Signed: Kannan Estrada MD at 17:30 EST , Service support ,
--- NOTE | 2019-04-13 16:09 | ED.DCSUM_ITS ---
- ER Visit Summary Date of Service: 04/13/19 Chief Complaint: [Fall] History of Present Illness: The patient is a 83 M [emergency department after sustaining a fall 5 days ago. Patient lives alone at home and his ex- checks on him daily. Patient apparently lost his balance and fell 5 days ago sustaining a small laceration to the dorsum of his left hand. Patient was helped up by the neighbor and then was able to continue walking. Over the last several days has been complaining more of pain in his right leg and low back. Patient having a hard time caring for himself at this time and walking. There have been no new falls. Patient denies any illness. He does have history of coronary artery disease, COPD, hypertension, GERD, Alzheimer's dementia, A. fib, chronic kidney disease, and history of pancreatitis. Patient has had prior cholecystectomy. Patient denies any head or neck pain. He denies chest pain or abdominal pain.] Physical Examination: HEENT-PERRLA, EOMI. Cranial nerves II through XII grossly intact. TMs clear. Mucous membranes moist. No adenopathy. No external evidence of trauma to his head. He has no C-spine tenderness on palpation. He has normal range of motion is painless. Cardiovascular-regular rate and rhythm without murmur or ectopy Lungs-clear to auscultation, chest wall stable without crepitus or subcu emphysema Abdomen-normoactive bowel sounds, soft, nontender, no rebound or rigidity, no peritoneal signs. Back exam-patient has diffuse tenderness over the lumbar spine. Patient does have superficial skin abrasion noted just to the right of midline over the lumbar paraspinal musculature. No rib tenderness on palpation. Patient has negative straight leg raises. Deep tendon reflexes are plus 2 out of 4 bilaterally at the patella and Achilles. Extremities-intact ?4, normal range of motion, normal pulses, atraumatic. Right hip-patient does have tenderness palpation over the right hip. No shortening or rotational deformity noted. He is neurovascular intact distally.] Test Results: [CBC with differential obtained was unremarkable. Chemistries unremarkable. Urinalysis was normal. X-rays of the lumbar spine and right hip and pelvis show degenerative changes but no fractures. Patient had bilateral total hip replacements.] Emergency Department Course and Treatment: [Patient had an IV line established and was started on normal saline.] Treatment Plan: [Admit] Disposition: [Admit] Impression: [Mechanical fall with inability to ambulate Contusion back Contusion right hip] This note was generated with [employer] dictation software. It may contain incorrect words, spelling, and punctuation that were not noted in review of the chart prior to signing ED Disposition - Plan for ED Patient: Referrals: Laith Lai Chi, MD [Primary Care Provider] -
[2019-04-13] MEDS: 0.9% Normal Saline 1,000 ML 150 ML IV ×2 (16:33→22:14)
[2019-04-13 16:52] LABS: Hematocrit 38.7 % (40-54); Hemoglobin 12.5 g/dL (13.0-16.5); Mean Corp Hgb Conc 32.3 g/dL (32-36); Mean Corpuscular Hgb 33.7 pg (27.0-32.0); Mean Corpuscular Volume 104.3 fL (80-94); Mean Platelet Vol. 8.3 fl (6.2-12.0); Platelet Count 106 K/mm3 (150-450); RBC Distribution Width CV 13.6 % (11.6-14.6); RBC Distribution Width SD 52.5 fl (35.1-43.9); Red Blood Count 3.71 M/mm3 (4.6-6.2); White Blood Count 5.5 K/mm3 (4.4-11.0)
[2019-04-13 17:05] LABS: Anion Gap 3 (5-15); BUN 29 mg/dL (7-18); BUN/Creat Ratio 17.2 RATIO (10-20); Calcium,Total 8.8 mg/dL (8.5-10.1); Chloride 107 mmol/L (98-107); Creatinine, Serum 1.69 mg/dL (0.70-1.30); EST Glomerular Filtration Rate 41 mL/min (>60); Est Glom Filt Rate - Afr Amer 50 mL/min (>60); Estimated Creatinine Clearance 31.48 ml/min; Glucose 84 mg/dL (74-106); Potassium 4.4 mmol/L (3.5-5.1); Sodium Level 140 mmol/L (136-145)
[2019-04-13 17:39] LABS: Bacteria 0 SEEN /hpf (None Seen); Mucous, Urine 0 SEEN /hpf (<or=2+); Red Blood Cells-Urine 0 SEEN /hpf (0-5)
[2019-04-13 17:41] LABS: Color, Urine Yellow (Yellow); Glucose, Dipstick Normal (Normal); Ketone-Dipstick Negative (Negative); Leukocyte Esterase-Dipstick 25 /ul (Negative); Nitrite-Dipstick Negative (Negative); Occult Blood-Urine Negative /ul (Negative); Protein-Dipstick 30 mg/dl (Negative); Urine Bilirubin Dipstick Negative (Negative); Urine Clarity Clear (Clear); Urine Urobilinogen 8 mg/dl (Normal)
[2019-04-13 17:55] VITALS: BP 161/72; PULSE 62; RESP 14; O2SAT 97
--- NOTE | 2019-04-13 18:04 | NURSING ---
MED SURG FALLS, DEBILITY PAINTSIL
--- NOTE | 2019-04-13 18:07 | HP.PCM_ITS ---
Problem List (1) Fall Status: Acute Qualifiers: Encounter type: initial encounter Qualified Code(s): W19.XXXA - Unspecified fall, initial encounter (2) COPD (chronic obstructive pulmonary disease) Status: Chronic Qualifiers: COPD type: unspecified COPD Qualified Code(s): J44.9 - Chronic obstructive pulmonary disease, unspecified (3) GERD (gastroesophageal reflux disease) Status: Chronic Qualifiers: Esophagitis presence: esophagitis presence not specified Qualified Code(s): K21.9 - Gastro-esophageal reflux disease without esophagitis (4) Obstructive sleep apnea Status: Chronic (5) Alzheimer disease Status: Chronic Qualifiers: Alzheimer's disease onset: late-onset Dementia behavioral disturbance: without behavioral disturbance Qualified Code(s): G30.1 - Alzheimer's disease with late onset; F02.80 - Dementia in other diseases classified elsewhere without behavioral disturbance (6) CKD (chronic kidney disease) Status: Chronic (7) Hypertension Status: Chronic Qualifiers: (8) Paroxysmal SVT (supraventricular tachycardia) Status: Chronic (9) Obesity (BMI 30-39.9) Status: Chronic History of Present Illness Date of Admission: 04/13/19 Chief Complaint: Fall - 5 days ago, inability to walk - 1 day The patient is a 83 year old M with past medical history of Alzheimer's dementia, paroxysmal atrial fibrillation/SVT, hypertension who lives alone but has his ex- checking on him daily comes in after a fall 5 days ago. Patient was trying to turn and he turned too sharply and fell down. He denies hitting his head. His was present. She has been giving him Tylenol for pain. His pain was very severe today and he was brought to the emergency department. He rates his pain more than 8 out of 10. Denied any dizziness or chest pain or palpitation or feeling ill prior to his fall. In the ED showed temperature of 90 7.8F, heart rate 54, blood pressure 177/78, SPO2 was 95% on room air. BC count is 5.5, hemoglobin is 12.5, platelet count is 106. His sodium was 140, potassium 4.4, chloride 107, bicarbonate 30, BUN 29, creatinine 1.69, which is his baseline, UA was unremarkable. X-ray of the hip and pelvis shows no acute fractures. 3 of the lumbar spine show degenerative changes. No acute fracture seen. 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) tricep surgery (Chronic) CKD (chronic kidney disease) (Chronic) Thrombocytopenia (Chronic) Old myocardial infarction (Chronic) Right bundle branch block (Chronic) Hypertension (Chronic) Paroxysmal SVT (supraventricular tachycardia) (Chronic) Nonsustained ventricular tachycardia (Chronic) Paroxysmal atrial fibrillation (Chronic) Stage III chronic kidney disease (Chronic) Obesity (BMI 30-39.9) (Chronic) Medical History: Medical History (Last Reviewed 02/18/19 @ 11:38 by Nelia Perez) Anemia (Acute) D64.9 COPD (chronic obstructive pulmonary disease) (Chronic) J44.9 GERD (gastroesophageal reflux disease) (Chronic) K21.9 Obstructive sleep apnea (Chronic) G47.33 Pancreatitis (Chronic) K85.90 Alzheimer disease (Chronic) G30.9, F02.80 CKD (chronic kidney disease) (Chronic) N18.9 Thrombocytopenia (Chronic) D69.6 Cystitis (Resolved) N30.90 Bacteremia (Resolved) R78.81 Bld Cx w/ preliminary Klebsiella Oxytoca and Morganella Morganii sp morgani. Old myocardial infarction (Chronic) I25.2 Right bundle branch block (Chronic) I45.10 Hypertension (Chronic) I10 Paroxysmal SVT (supraventricular tachycardia) (Chronic) I47.1 Nonsustained ventricular tachycardia (Chronic) I47.2 Paroxysmal atrial fibrillation (Chronic) I48.0 Stage III chronic kidney disease (Chronic) Obesity (BMI 30-39.9) (Chronic) E66.9 Acute UTI (Resolved) N39.0 UCx not obtained, UA not severe appearing, given bacteremia, Klebsiella Oxytoca and Morganella Morganii sp morgani (final pending, thus suspect to speciate to the same) suspected secondary to UTI, complicated Fever and chills (Resolved) R50.9 Allergies morphine Adverse Reaction (Severe, Verified 02/18/19 11:50) hostility,disoriented hostility, disoriented Home Medications: Ambulatory Orders Medication Instructions Recorded Donepezil HCl 10 mg PO QHS 03/07/15 Escitalopram Oxalate 10 mg PO DAILY 11/24/18 Iron Polysaccharide Complex 150 mg PO DAILY 11/24/18 [Ferrex 150] Levothyroxine [Synthroid] 112 mcg PO DAILY 11/24/18 amiodarone 200 mg tablet 200 mg PO QODAY #90 tab 02/18/19 furosemide 20 mg tablet 20 mg PO QODAY tab 02/18/19 Acetaminophen [Tylenol Tablet] 650 mg PO Q8H PRN PRN 04/13/19 Aspirin [Aspirin, Baby] 81 mg PO DAILY@0800 04/13/19 Isosorbide Mononitrate [Isosorbide 30 mg PO DAILY 04/13/19 Mononitrate ER] Melatonin 5 mg PO QHS 04/13/19 Surgical History: Surgical History (Last Reviewed 02/18/19 @ 11:38 by Nelia Perez) History of esophagogastroduodenoscopy (EGD) (Resolved) Z98.890 07/22/18 Hx of colonoscopy (Resolved) Z98.890 07/22/18 Hx of cholecystectomy (Chronic) Z90.49 H/O bilateral hip replacements (Chronic) Z96.643 excision of subglottic mass (Chronic) tricep surgery (Chronic) Surgical History: cholecystectomy, total hip arthroplasty - right 05/16/14 Dr Powell, Left 5 years ago, - - Right bicep repair 1994 Psychiatric History: No pertinent psych hx Lives: Alone Smoking Status: Former smoker Tobacco Use: Chew Alcohol: None Drugs: None - *Family History Maternal Family History: Family History (Last Reviewed 02/18/19 @ 11:38 by Nelia Perez) Sister CAD (coronary artery disease) Sister Cancer Brother Cancer History Items: No pertinent history Paternal Family History: Family History (Last Reviewed 02/18/19 @ 11:38 by Nelia Perez) Sister CAD (coronary artery disease) Sister Cancer Brother Cancer History Items: No pertinent history Offspring Family History: Family History (Last Reviewed 02/18/19 @ 11:38 by Nelia Perez) Sister CAD (coronary artery disease) Sister Cancer Brother Cancer History Items: No pertinent history Sibling Family History: Family History (Last Reviewed 02/18/19 @ 11:38 by Nelia Perez) Sister CAD (coronary artery disease) Sister Cancer Brother Cancer History Items: Cancer, Heart Disease Review of Systems Constitutional: Reports: Weakness, Fatigue. Denies: Anorexia, Chills, Fever, Malaise, Weight Change Eyes: Denies: Blurred vision, Cataracts, Conjunctivae Inflammation, Double vision HEENT: Denies: Difficulty Hearing, Difficulty Swallowing, Head Aches, Hearing Changes, Sinus Congestion, Sinus Drainage, Sore Throat Cardiovascular: Denies: Chest Pain, Claudication, Light Headedness, Palpitations Respiratory: Denies: Cough, Hemoptysis, Shortness of breath at rest, Shortness of breath upon exertion, Sputum production Gastrointestinal: Denies: Abdominal Pain, Nausea, Vomiting Genitourinary: Denies: Dysuria, Frequency, Incontinence Musculoskeletal: Reports: Joint Pain, Joint Tenderness - right hip. Denies: Joint stiffness, Joint swelling Skin: Denies: Pruritis, Rash, Wounds Neurological: Denies: Difficulty swallowing, Focal weakness, Numbness, Tingling Psychiatric: Denies: Anxiety, Depression, Homicidal Ideations, Suicidal Ideations Hematologic/ Lymphatic: Denies: Easy Bruising, Easy Bleeding VTE Information - Inpt Only VTE Present on Admission: No VTE Pharm Prophylaxis ordered?: Yes - Physical Exam Vitals/I&O's: Vital Signs Temp Pulse Resp BP Pulse Ox 97.8 F 62 14 161/72 H 97 04/13/19 15:53 04/13/19 17:55 04/13/19 17:55 04/13/19 17:55 04/13/19 17:55 Oxygen Delivery Method Room Air Weight: 97.4 kg Body Mass Index (BMI) 32.6 Finger Stick Blood Glucose 85 Intake and Output for Last 24 Hours 04/11/19 04/12/19 04/13/19 23:59 23:59 23:59 Intake Total 95 / 95 Balance 95 / 95 General: Alert, Oriented x3, Cooperative, No apparent distress, - - appears unkempt HEENT: Atraumatic, PERRLA, EOMI, Normocephalic Oral: Moist Mucosa Neck: Supple Lungs: Clear to auscultation, Normal air movement Cardiovascular: Regular rate, Regular Rhythm, Normal S1, Normal S2, No murmurs Abdomen: Bowel Sounds Present, Soft, Non Tender, Non-Distended, No Hepato- splenomegaly, - - Scar in RUQ Extremities: Edema - Bilateral pedal edema +3 Skin: Rash Present - from exczema with areas of excoriations and petechiae Musculoskeletal: No Tenderness to Palpation of Joints or Extremities Lymphatic: No Cervical, Supraclavicular, or Inguinal Adenopathy Neurological: Cranial nerves II-XII grossly intact, Neuro grossly intact Psych/Mental Status: Normal Affect, Appropriate Laboratory Results 04/13/19 16:40: WBC 5.5, RBC 3.71 L, Hgb 12.5 L, Hct 38.7 L, MCV 104.3 H, MCH 33.7 H, MCHC 32.3, RDW Std Deviation 52.5 H, RDW Coeff of Germaine 13.6, Plt Count 106 L, MPV 8.3 04/13/19 16:40: Sodium 140, Potassium 4.4, Chloride 107, Carbon Dioxide 30.0, Anion Gap 3 L, BUN 29 H, Creatinine 1.69 H, Estim Creat Clear Calc 31.48, Est GFR (MDRD) Af Amer 50 L, Est GFR (MDRD) Non-Af 41 L, BUN/Creatinine Ratio 17.2, Glucose 84, Calcium 8.8 04/13/19 17:25: Urine Color Yellow, Urine Clarity Clear, Urine pH 7.0, Ur Specific [place] 1.010, Urine Protein 30 H, Urine Glucose (UA) Normal, Urine Ketones Negative, Urine Occult Blood Negative, Urine Nitrite Negative, Urine Bilirubin Negative, Urine Urobilinogen 8 H, Ur Leukocyte Esterase 25 H, Urine RBC Pending, Urine WBC Pending, Ur Squamous Epith Cells Pending, Urine Bacteria Pending, Urine Mucus Pending Current Medications Sodium Chloride () 1,000 mls @ 150 mls/hr IV .Q6H40M [facility] Last Infusion: 04/13/19 17:11 Dose: 150 mls/hr Documented by: Assessment/Plan All Active Problems (Last Reviewed 02/18/19 @ 11:38 by Nelia Perez) Multiple rib fractures (Acute) Fall (Acute) History of esophagogastroduodenoscopy (EGD) (Resolved) Hx of colonoscopy (Resolved) Anemia (Acute) Cystitis (Resolved) Bacteremia (Resolved) Acute UTI (Resolved) Fever and chills (Resolved) Generalized weakness (Ruled-out) 83 year old M with past medical history of Alzheimer's dementia, paroxysmal atrial fibrillation/SVT, hypertension who lives alone but has his ex- checking on him daily comes in after a fall 5 days ago. 1. Acute hip pain, traumatic, x-rays of the hip and pelvis showed no acute fractures Will admit for pain control, PT and OT to evaluate and treat, Repeat CT scan of the right hip to evaluate for occult fracture 2. Paroxysmal atrial fibrillation/SVT, rate controlled, continue on amiodarone, aspirin 3. Hypothyroidism, on levothyroxine 4. Dementia/depression, continue on Aricept, escitalopram 5. DVT PPx- Heparin SC 6. Code status - DNR-CCA Discussed in detail with the patient explaining the various types of CODE STATUS-full code, DNR CCA, DNR CC. I also asked him to consider appointing a healthcare power of deputy attorney general. Patient says he does not wish to be kept on artificial support; he chose DNR CCA. His ex- and son were present. Time spent discussing CODE STATUS 18 minutes Code Visit OBSV E&M: 76843 Initial observation care L3
[2019-04-13 18:11] LABS: Squamous Epithelial Cells - UA 0-5 SEEN /hpf (0-5); White Blood Cells 0-5 SEEN /hpf (0-5)
[2019-04-13 18:52] VITALS: BP 165/75; PULSE 61; RESP 14; O2SAT 97
[2019-04-13 19:32] VITALS: BMI 34.0; BMI 34.1
--- NOTE | 2019-04-13 19:44 | CT_ITS ---
CT of the right hip INDICATION: Posttraumatic pain Comparison right hip x-ray April 13, 2019 TECHNIQUE: CT of the right hip was performed in the axial projection followed by sagittal and coronal reconstructions. Radiographic technique was optimized to limit patient radiation dose. DLP was 796.11 FINDINGS: Right hip prosthesis is demonstrated which appears to be in anatomic alignment and position. There is less than optimal visualization of the proximal bony structures due to artifact however there is no definitive evidence for acute fracture. The joint spaces maintained. There is no definitive evidence for acute pelvic fracture CT/Extremity Lower without Contra IMPRESSION: Unremarkable right hip status post prosthesis placement If there is persistent pain MRI would be helpful for further evaluation Electronically Signed: Kannan Estrada MD at 21:23 EST , Service support ,
[2019-04-13 19:45] VITALS: BP 176/75; PULSE 62; RESP 20; TEMP 36.4; O2SAT 95
[2019-04-13] MEDS: Acetaminophen 500 MG Tablet 1000 MG PO (21:01)
[2019-04-13] MEDS: MELATONIN 10 MG TABLET 5 MG PO (21:02)
[2019-04-13] MEDS: Donepezil HCl 10 MG Tablet PO (21:02)
[2019-04-13] MEDS: Heparin Injection (Vial) 5,000 UNIT/ML VIAL 5000 UNIT SC (21:02)
[2019-04-13 21:33] VITALS: BP 173/79; PULSE 62; RESP 20; TEMP 36.8; O2SAT 93
[2019-04-14 03:35] VITALS: BP 167/73; PULSE 63; RESP 20; TEMP 36.4; O2SAT 93
[2019-04-14] MEDS: 0.9% Normal Saline 1,000 ML 150 ML IV (03:53)
[2019-04-14] MEDS: Acetaminophen 500 MG Tablet 1000 MG PO ×3 (05:59→21:38)
[2019-04-14] MEDS: Levothyroxine 112 MCG Tablet PO (05:59)
[2019-04-14] MEDS: Heparin Injection (Vial) 5,000 UNIT/ML VIAL 5000 UNIT SC ×3 (06:00→21:37)
[2019-04-14 06:19] LABS: Absolute Lymphocyte Count 1.18 X10^3/uL (0.83-4.51); Absolute Neutrophil Count 2.5 X10^3/uL (2.0-7.7); Basophil# 0.04 X10^3/uL; Basophil% 0.8 % (0-1); Eosinophils% 15.6 % (0-5); Hematocrit 38.2 % (40-54); Hemoglobin 12.4 g/dL (13.0-16.5); Lymphocyte # 1.18 X10^3/ul (4.0); Mean Corp Hgb Conc 32.5 g/dL (32-36); Mean Corpuscular Hgb 33.8 pg (27.0-32.0); Mean Corpuscular Volume 104.1 fL (80-94); Mean Platelet Vol. 8.6 fl (6.2-12.0); Monocyte# 0.58 X10^3/uL; Monocyte% 11.3 % (0-10); NRBC Flagged by Analyzer 0 % (0-5); Neutrophil # 2.51 X10^3/uL (2.7-7.7); Neutrophil % 48.9 % (47-70); Platelet Count 108 K/mm3 (150-450); RBC Distribution Width CV 13.6 % (11.6-14.6); RBC Distribution Width SD 52.3 fl (35.1-43.9); Red Blood Count 3.67 M/mm3 (4.6-6.2); White Blood Count 5.1 K/mm3 (4.4-11.0)
[2019-04-14 06:47] LABS: ALB/GLOB Ratio 0.6 RATIO (0.9-2.4); AST(SGOT) 18 U/L (15-37); Alanine Aminotransfer ALT/SGPT 16 U/L (16-61); Albumin, Serum 2.6 g/dL (3.2-5.0); Alkaline Phosphatase 109 U/L (45-117); Anion Gap 4 (5-15); BUN 27 mg/dL (7-18); BUN/Creat Ratio 18.6 RATIO (10-20); Calcium,Total 8.2 mg/dL (8.5-10.1); Chloride 110 mmol/L (98-107); Creatinine, Serum 1.45 mg/dL (0.70-1.30); EST Glomerular Filtration Rate 49 mL/min (>60); Est Glom Filt Rate - Afr Amer 60 mL/min (>60); Estimated Creatinine Clearance 34.22 ml/min; Globulin 4.2 g/dL (2.2-4.2); Glucose 85 mg/dL (74-106); Potassium 4.6 mmol/L (3.5-5.1); Protein, Total 6.8 g/dL (6.4-8.2); Sodium Level 141 mmol/L (136-145)
[2019-04-14 08:35] VITALS: BP 140/57; PULSE 53; RESP 18; TEMP 36.9; O2SAT 98
[2019-04-14] MEDS: Furosemide 20 MG Tablet PO (08:44)
[2019-04-14] MEDS: Iron Polysaccharide Complex 150 MG CAPSULE PO (08:44)
[2019-04-14] MEDS: Aspirin 81 MG TAB.CHEW PO (08:44)
[2019-04-14] MEDS: Isosorbide Mononitrate 30 MG Tablet PO (08:45)
[2019-04-14] MEDS: Escitalopram Oxalate 10 MG Tablet PO (08:45)
--- NOTE | 2019-04-14 08:48 | PN_ITS ---
Reason for Visit: Follow-up on falls, generalized weakness Subjective: Patient was seen and examined. He feels much better. CT scan of the hip was negative for acute fractures. His pain is controlled on scheduled Tylenol. ROS is negative Objective: Physical exam: General: Alert, Oriented x3, Cooperative, No apparent distress, - - appears unkempt HEENT: Atraumatic, PERRLA, EOMI, Normocephalic Oral: Moist Mucosa Neck: Supple Lungs: Clear to auscultation, Normal air movement Cardiovascular: Regular rate, Regular Rhythm, Normal S1, Normal S2, No murmurs Abdomen: Bowel Sounds Present, Soft, Non Tender, Non-Distended, No Hepato- splenomegaly, - - Scar in RUQ Extremities: Edema - Bilateral pedal edema +3 Skin: Rash Present - from exczema with areas of excoriations and petechiae Musculoskeletal: No Tenderness to Palpation of Joints or Extremities Lymphatic: No Cervical, Supraclavicular, or Inguinal Adenopathy Neurological: Cranial nerves II-XII grossly intact, Neuro grossly intact Psych/Mental Status: Normal Affect, Appropriate Vitals/I&O's: Vital Signs Temp Pulse Resp BP Pulse Ox 98.5 F 53 L 18 140/57 H 98 04/14/19 08:35 04/14/19 08:35 04/14/19 08:35 04/14/19 08:35 04/14/19 08:35 Oxygen Delivery Method Room Air Weight: 95.8 kg Body Mass Index (BMI) 34.0 Finger Stick Blood Glucose 85 Intake and Output for Last 24 Hours 04/12/19 04/13/19 04/14/19 23:59 23:59 23:59 Intake Total 565 / 765 1897.5 / 1897.5 Output Total 1125 / 1125 Balance 565 / 290 772.5 / 772.5 Laboratory Results 04/13/19 16:40: WBC 5.5, RBC 3.71 L, Hgb 12.5 L, Hct 38.7 L, MCV 104.3 H, MCH 33.7 H, MCHC 32.3, RDW Std Deviation 52.5 H, RDW Coeff of Germaine 13.6, Plt Count 106 L, MPV 8.3 04/13/19 16:40: Sodium 140, Potassium 4.4, Chloride 107, Carbon Dioxide 30.0, Anion Gap 3 L, BUN 29 H, Creatinine 1.69 H, Estim Creat Clear Calc 31.48, Est GFR (MDRD) Af Amer 50 L, Est GFR (MDRD) Non-Af 41 L, BUN/Creatinine Ratio 17.2, Glucose 84, Calcium 8.8 04/13/19 17:25: Urine Color Yellow, Urine Clarity Clear, Urine pH 7.0, Ur Specific [place] 1.010, Urine Protein 30 H, Urine Glucose (UA) Normal, Urine Ketones Negative, Urine Occult Blood Negative, Urine Nitrite Negative, Urine Bilirubin Negative, Urine Urobilinogen 8 H, Ur Leukocyte Esterase 25 H, Urine RBC 0 SEEN, Urine WBC 0-5 SEEN, Ur Squamous Epith Cells 0-5 SEEN, Urine Bacteria 0 SEEN, Urine Mucus 0 SEEN 04/14/19 05:48: WBC 5.1, RBC 3.67 L, Hgb 12.4 L, Hct 38.2 L, MCV 104.1 H, MCH 33.8 H, MCHC 32.5, RDW Std Deviation 52.3 H, RDW Coeff of Germaine 13.6, Plt Count 108 L, MPV 8.6, Immature Gran % (Auto) 0.400, Neut % (Auto) 48.9, Lymph % (Auto) 23.0, [place] % (Auto) 11.3 H, Eos % (Auto) 15.6 H, Baso % (Auto) 0.8, Absolute Neuts (auto) 2.5, Absolute Lymphs (auto) 1.18, Nucleated RBC % 0 04/14/19 05:48: Sodium 141, Potassium 4.6, Chloride 110 H, Carbon Dioxide 27.0, Anion Gap 4 L, BUN 27 H, Creatinine 1.45 H, Estim Creat Clear Calc 34.22, Est GFR (MDRD) Af Amer 60, Est GFR (MDRD) Non-Af 49 L, BUN/Creatinine Ratio 18.6, Glucose 85, Calcium 8.2 L, Total Bilirubin 1.00, AST 18, ALT 16, Alkaline Phosphatase 109, Total Protein 6.8, Albumin 2.6 L, Globulin 4.2, Albumin/Globulin Ratio 0.6 L Current Medications Acetaminophen (Tylenol) 1,000 mg PO TID ABAD Last Admin: 04/14/19 05:59 Dose: 1,000 mg Documented by: Amiodarone HCl (Cordarone) 200 mg PO QODAY [facility] Aspirin (Aspirin, Baby) 81 mg PO DAILY@0800 [facility] Last Admin: 04/14/19 08:44 Dose: 81 mg Documented by: Donepezil HCl (Aricept) 10 mg PO QHS [facility] Last Admin: 04/13/19 21:02 Dose: 10 mg Documented by: Escitalopram Oxalate (Lexapro) 10 mg PO DAILY [facility] Last Admin: 04/14/19 08:45 Dose: 10 mg Documented by: Furosemide (Lasix) 20 mg PO QODAY [facility] Last Admin: 04/14/19 08:44 Dose: 20 mg Documented by: Heparin Sodium (Porcine) (Heparin Na) 5,000 unit SC Q8 [facility] Last Admin: 04/14/19 06:00 Dose: 5,000 unit Documented by: Isosorbide Mononitrate (Imdur) 30 mg PO DAILY [facility] Last Admin: 04/14/19 08:45 Dose: 30 mg Documented by: Lactic Acid (Lac-Hydrin, Amlactin) 1 applic TOPICAL TID [facility]; Protocol Levothyroxine Sodium (Synthroid) 112 mcg PO DAILY@0600 [facility] Last Admin: 04/14/19 05:59 Dose: 112 mcg Documented by: Melatonin (Melatonin) 5 mg PO QHS [facility] Last Admin: 04/13/19 21:02 Dose: 5 mg Documented by: Ondansetron HCl (Zofran) 4 mg IV Q8H PRN PRN PRN Reason: NAUSEA/VOMITING Oxycodone HCl (Oxyir) 5 mg PO Q4H PRN PRN PRN Reason: Pain Score 4-10/10 Polysaccharide Iron Complex (Ferrex 150) 150 mg PO DAILY [facility] Last Admin: 04/14/19 08:44 Dose: 150 mg Documented by: STROKE Vital Signs/Narrative: Vital Signs Temp Pulse Resp BP Pulse Ox 04/14/19 08:35 98.5 F 53 L 18 140/57 H 98 Medical Necessity - Tobacco Use Smoking Status: Current every day smoker Tobacco Use: Chew Assessment/Plan All Active Problems (Last Reviewed 02/18/19 @ 11:38 by Nelia Perez) Multiple rib fractures (Acute) Fall (Acute) History of esophagogastroduodenoscopy (EGD) (Resolved) Hx of colonoscopy (Resolved) Anemia (Acute) Cystitis (Resolved) Bacteremia (Resolved) Acute UTI (Resolved) Fever and chills (Resolved) Generalized weakness (Ruled-out) 83 year old M with past medical history of Alzheimer's dementia, paroxysmal atrial fibrillation/SVT, hypertension who lives alone but has his ex- checking on him daily comes in after a fall 5 days ago. 1. Acute hip pain, traumatic, x-rays of the hip and pelvis and CT scan of right hip showed no acute fractures Continue on scheduled Tylenol, PRN oxycodone, Will await PT and OT evaluation for discharge planning 2. Paroxysmal atrial fibrillation/SVT, rate controlled, continue on amiodarone, aspirin 3. Hypothyroidism, on levothyroxine 4. Dementia/depression, continue on Aricept, escitalopram 5. DVT PPx- Heparin SC 6. Code status - DNR-CCA 7. Disposition: Depending on PT/OT evaluations Code Visit Inpatient E&M: 80191 Subs Hosp L2
--- NOTE | 2019-04-14 12:04 | CASEMGMT ---
LW/POA forms in [facility], SW printed and placed on paper chart to be scanned into summary tab. Son Debbie Hinojosa Jr is listed as medical POA. REFUGIO Clarke
--- NOTE | 2019-04-14 12:38 | CASEMGMT ---
RN CM Assessment Note Presentation: Debility, Fall with acute hip pain, no fractures. Intro role of CM and purpose of RN CM assessment to patient and his son. Pt is awake, alert, able to participate. Son is DPOA. Demographics, PCP and Pharmacy verified. Pt states he still has significant pain on standing and ambulation. Discussed returning home, and pt and son both feel pt would benefit from skilled rehab prior to returning home. Son states they would prefer to stay @ [facility] PCP: Dr. Lai Preferred Pharmacy: [facility] Insurance: [employer] Pres[employer] Benefit: yes LNOK: Son Debbie Hinojosa Jr. Living Arrangements: private one story home. Pt was ambulatory prior to fall, now having difficulty. Ex and granddaughter assist and pt has private pay cleaning person. Transportation: family drives DME: wheeled walker, comfort height commode, toilet side rails, grab bars tub/shower HHC: in past, son/pt not sure which agency. SNF: [facility], [facility], [facility] SW Referral: probable SNF on dc. STEFANIE Patel updated. Patient DC goals: SNF DC PLAN: referral for SNF. Antony DALEY RN ACM
--- NOTE | 2019-04-14 13:06 | CASEMGMT ---
Addendum entered by Shira Johns 04/14/19 13:23: Pt's ex- Tabitha requesting to speak to this worker. SW in to speak with Tabitha. SW introduced self and role at [facility]. Tabitha confirms that she would like pt to go to TCU at discharge. STEFANIE asked Tabitha for second choice in the event TCU doesn't have any beds and she states [facility] would be the second choice. STEFANIE updated Tabitha that this worker had called TCU and is waiting for call back regarding beds. STEFANIE updated Tabitha that pt will also need pre-cert and that likely won't be until tomorrow. Tabitha states understanding. Original Note: Social Work Note SW received referral for SNF placement and preference for TCU. SW placed a call to referral line and provided referral. SW waiting for call back. Plan: SNF pending acceptance and pre-cert Shira Johns STABILIZER OPERATOR, PROPOSAL DEVELOPMENT MANAGER
--- NOTE | 2019-04-14 13:15 | CASEMGMT ---
RN CM Note: son and exwife would like to speak with SW re: ANALISA. Jorge updated that family was in room and would like to speak with her. Antony MEDLEYN RN ACM
--- NOTE | 2019-04-14 13:16 | CASEMGMT ---
Intro role of CM to patient and son. NGUYEN form explained re: Observation status for treatment of debility, fall. Explained hospitalization will be paid per insurance policy for Outpatient billing and condition will continue to be evaluated for Inpt necessity. Also let pt know that [facility] sends paper in the billing packet with their phone number if questions arise. Discussed Pharmacy section of NGUYEN form and self administered medication guideline. Pt verbalizes understanding and does not have further questions. Form signed and placed in chart, copy to pt. MARIMAR JARRETT BSN CM
[2019-04-14] MEDS: oxyCODONE 5 MG Tablet PO ×2 (14:59→21:36)
[2019-04-14] MEDS: Ammonium Lactate 225 gm Bottle 1 APPLIC TOPICAL ×2 (15:00→21:37)
[2019-04-14 15:12] VITALS: BP 150/73; PULSE 55; RESP 18; TEMP 36.8; O2SAT 98
--- NOTE | 2019-04-14 16:24 | CASEMGMT ---
Social Work Note SW received call from Candace in TCU stating she will have a bed for pt tomorrow in TCU. SW placed a call to Sara at [facility] and left message regarding referral. STEFANIE faxed referral to [facility]. SW received call from Sara at [facility] stating pt is approved for SNF and can discharge to TCU tomorrow. STEFANIE placed a call to Candace in TCU and left her a message updating her that pt has been approved for SNF. Plan: TCU tomorrow Shira Johns MEETING FACILITATOR, BOBTAILER
[2019-04-14] MEDS: MELATONIN 10 MG TABLET 5 MG PO (21:38)
[2019-04-14] MEDS: Donepezil HCl 10 MG Tablet PO (21:39)
[2019-04-14 21:56] VITALS: BP 176/81; PULSE 59; RESP 18; TEMP 36.7; O2SAT 97
[2019-04-14 23:36] VITALS: BP 177/76
[2019-04-15 00:48] VITALS: PULSE 62
[2019-04-15] MEDS: hydrALAZINE 20 MG/ML Vial 5 MG IV (00:48)
[2019-04-15] MEDS: Lidocaine 5% Patch 1 PATCH TOPICAL (00:49)
[2019-04-15] MEDS: Heparin Injection (Vial) 5,000 UNIT/ML VIAL 5000 UNIT SC ×2 (06:39→13:33)
[2019-04-15] MEDS: Levothyroxine 112 MCG Tablet PO (06:40)
[2019-04-15] MEDS: Acetaminophen 500 MG Tablet 1000 MG PO ×2 (06:40→13:34)
[2019-04-15] MEDS: Ammonium Lactate 225 gm Bottle 1 APPLIC TOPICAL ×2 (06:40→13:34)
[2019-04-15 06:43] VITALS: BP 148/71; PULSE 54; RESP 18; TEMP 36.4; O2SAT 94
[2019-04-15] MEDS: Isosorbide Mononitrate 30 MG Tablet PO (08:32)
[2019-04-15] MEDS: Aspirin 81 MG TAB.CHEW PO (08:32)
[2019-04-15] MEDS: Escitalopram Oxalate 10 MG Tablet PO (08:32)
[2019-04-15] MEDS: Amiodarone 200 MG Tablet PO (08:32)
[2019-04-15] MEDS: Iron Polysaccharide Complex 150 MG CAPSULE PO (08:33)
[2019-04-15 08:44] VITALS: PULSE 60
[2019-04-15 09:25] LABS: ALB/GLOB Ratio 0.6 RATIO (0.9-2.4); AST(SGOT) 24 U/L (15-37); Alanine Aminotransfer ALT/SGPT 18 U/L (16-61); Albumin, Serum 2.9 g/dL (3.2-5.0); Alkaline Phosphatase 127 U/L (45-117); Anion Gap 4 (5-15); BUN 26 mg/dL (7-18); BUN/Creat Ratio 16.4 RATIO (10-20); Calcium,Total 8.5 mg/dL (8.5-10.1); Chloride 110 mmol/L (98-107); Creatinine, Serum 1.59 mg/dL (0.70-1.30); EST Glomerular Filtration Rate 44 mL/min (>60); Est Glom Filt Rate - Afr Amer 54 mL/min (>60); Estimated Creatinine Clearance 31.21 ml/min; Globulin 4.6 g/dL (2.2-4.2); Glucose 95 mg/dL (74-106); Protein, Total 7.5 g/dL (6.4-8.2); Sodium Level 140 mmol/L (136-145)
--- NOTE | 2019-04-15 10:23 | CASEMGMT ---
Social Work Note Physician states pt is medically ready for discharge today. STEFANIE placed a call to Candace in TCU and updated her. Candace confirms she is able to accept pt today. STEFANIE placed a call to pt's son Debbie who is HCPOA and updated him on approval for TCU and discharge today. Debbie states understanding. Plan: TCU today Shira Johns PLASTIC EYE TECHNICIAN, SHEET METAL WORKER APPRENTICE
--- NOTE | 2019-04-15 12:21 | PCM.TXEXTCAR ---
- Diet 04/13/19 19:45 Diet: Low salt, low fat Diet Food consistency:: Regular Liquid Consistency:: Regular/Thin - Routine Orders/Code Status Keep PO Greater than or Equal to (%): 94 Routine Lab Work: CBC - within 3 days, BMP - within 3 days - Wound(s) L forearm Wound Type: Abrasion lt lateral hand Wound Type: Abrasion - Therapies Weight Bearing: Weight bearing as tolerated Physical Therapy: Eval and Treat Occupational Therapy: Eval and Treat - Problem/Diagnosis (1) Fall Status: Acute Current Visit: No (2) COPD (chronic obstructive pulmonary disease) Status: Chronic Current Visit: No (3) GERD (gastroesophageal reflux disease) Status: Chronic Current Visit: No (4) Obstructive sleep apnea Status: Chronic Current Visit: No (5) Alzheimer disease Status: Chronic Current Visit: No (6) CKD (chronic kidney disease) Status: Chronic Current Visit: No (7) Hypertension Status: Chronic Current Visit: No (8) Paroxysmal SVT (supraventricular tachycardia) Status: Chronic Current Visit: No (9) Obesity (BMI 30-39.9) Status: Chronic Current Visit: No - Allergies/Procedures Done in Hospital Allergies/Adverse Reactions: Allergies morphine Adverse Reaction (Severe, Verified 02/18/19 11:50) hostility,disoriented hostility, disoriented Procedures: None - Type of Care/Length of Stay Estimated LOS: Convalescent Care Less Than 30 days Type of Care Needed: Skilled Rehab Potential: Good Prognosis: Good - Additional Orders/Day of Discharge Day of Discharge: 04/15/19 - Dietary and Speech Recommendations Dietitian Recommendations/Changes: May benefit from Cardiac/low chol diet d/t PMH. Continue regular diet at this time. - Follow Up Care Primary Care Physician: Laith Lai Chi, MD [Primary Care Provider] -
--- NOTE | 2019-04-15 12:24 | PCM.DC.SUM ---
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 Electronically Signed: Kannan Estrada MD at 17:30 EST , Service support , Lumbar Spine X-Ray 04/13/19 16:03 IMPRESSION: Degenerative changes. No evidence for acute fracture or subluxation Electronically Signed: Kannan Estrada MD at 17:31 EST , Service support , Lower Extremity CT 04/13/19 19:44 IMPRESSION: Unremarkable right hip status post prosthesis placement If there is persistent pain MRI would be helpful for further evaluation Electronically Signed: Kannan Estrada MD at 21:23 EST , Service support , None Operations: None Procedures: None Summary of Care Provided: 83 year old M with past medical history of Alzheimer's dementia, paroxysmal atrial fibrillation/SVT, hypertension who lives alone but has his ex- checking on him daily comes in after a fall 5 days ago. His management was as follows: 1. Acute hip pain, traumatic, x-rays of the hip and pelvis and CT scan of right hip showed no acute fractures Continue on scheduled Tylenol, PRN oxycodone. Patient was seen by PT and OT and skilled for discharge to subacute rehab. 2. Paroxysmal atrial fibrillation/SVT, rate controlled, on amiodarone, aspirin 3. Hypothyroidism, on levothyroxine 4. Dementia/depression, on Aricept, escitalopram Patient Problems: Active and Suspected Problems (Last Reviewed 02/18/19 @ 11:38 by Nelia Perez) Debility (Acute) Subjective: On the day of discharge, patient was seen and examined. He felt well. Denied any pain. Objective: Physical exam: General: Alert, Oriented x3, Cooperative, No apparent distress, - - appears unkempt HEENT: Atraumatic, PERRLA, EOMI, Normocephalic Oral: Moist Mucosa Neck: Supple Lungs: Clear to auscultation, Normal air movement Cardiovascular: Regular rate, Regular Rhythm, Normal S1, Normal S2, No murmurs Abdomen: Bowel Sounds Present, Soft, Non Tender, Non-Distended, No Hepato-splenomegaly, - - Scar in RUQ Extremities: Edema - Bilateral pedal edema +3 Skin: Rash Present - from exczema with areas of excoriations and petechiae Musculoskeletal: No Tenderness to Palpation of Joints or Extremities Lymphatic: No Cervical, Supraclavicular, or Inguinal Adenopathy Neurological: Cranial nerves II-XII grossly intact, Neuro grossly intact Psych/Mental Status: Normal Affect, Appropriate - Physical Exam Vitals/I&O's: Vital Signs Temp Pulse Resp BP Pulse Ox 97.6 F L 60 18 148/71 H 94 04/15/19 06:43 04/15/19 08:44 04/15/19 06:43 04/15/19 06:43 04/15/19 06:43 Oxygen Delivery Method Room Air Weight: 95.8 kg Body Mass Index (BMI) 34.0 Finger Stick Blood Glucose 85 Intake and Output for Last 24 Hours 04/13/19 04/14/19 04/15/19 23:59 23:59 23:59 Intake Total 565 / 765 3797.5 / 3797.5 Output Total 1325 / 1325 850 / 850 Balance 565 / 290 2472.5 / 2472.5 -850 / -850 Laboratory Results 04/15/19 08:22: Sodium 140, Potassium 4.0, Chloride 110 H, Carbon Dioxide 26.0, Anion Gap 4 L, BUN 26 H, Creatinine 1.59 H, Estim Creat Clear Calc 31.21, Est GFR (MDRD) Af Amer 54 L, Est GFR (MDRD) Non-Af 44 L, BUN/Creatinine Ratio 16.4, Glucose 95, Calcium 8.5, Total Bilirubin 0.80, AST 24, ALT 18, Alkaline Phosphatase 127 H, Total Protein 7.5, Albumin 2.9 L, Globulin 4.6 H, Albumin/Globulin Ratio 0.6 L Current Medications Acetaminophen (Tylenol) 1,000 mg PO TID [facility] Last Admin: 04/15/19 06:40 Dose: 1,000 mg Documented by: Amiodarone HCl (Cordarone) 200 mg PO QODAY [facility] Last Admin: 04/15/19 08:32 Dose: 200 mg Documented by: Aspirin (Aspirin, Baby) 81 mg PO DAILY@0800 [facility] Last Admin: 04/15/19 08:32 Dose: 81 mg Documented by: Donepezil HCl (Aricept) 10 mg PO QHS [facility] Last Admin: 04/14/19 21:39 Dose: 10 mg Documented by: Escitalopram Oxalate (Lexapro) 10 mg PO DAILY [facility] Last Admin: 04/15/19 08:32 Dose: 10 mg Documented by: Furosemide (Lasix) 20 mg PO QODAY [facility] Last Admin: 04/14/19 08:44 Dose: 20 mg Documented by: Heparin Sodium (Porcine) (Heparin Na) 5,000 unit SC Q8 [facility] Last Admin: 04/15/19 06:39 Dose: 5,000 unit Documented by: Hydralazine HCl (Apresoline Iv) 5 mg IV Q4H PRN PRN PRN Reason: SBP > 160 Last Admin: 04/15/19 00:48 Dose: 5 mg Documented by: Sodium Chloride () 250 mls @ 15 mls/hr IV .[id number] PRN PRN Reason: Saline Flush Isosorbide Mononitrate (Imdur) 30 mg PO DAILY [facility] Last Admin: 04/15/19 08:32 Dose: 30 mg Documented by: Lactic Acid (Lac-Hydrin, Amlactin) 1 applic TOPICAL TID [facility]; Protocol Last Admin: 04/15/19 06:40 Dose: 1 applic Documented by: Levothyroxine Sodium (Synthroid) 112 mcg PO DAILY@0600 [facility] Last Admin: 04/15/19 06:40 Dose: 112 mcg Documented by: Lidocaine (Lidoderm Patch) 1 patch TOPICAL DAILY@2199 [facility]; Protocol Last Admin: 04/15/19 00:49 Dose: 1 patch Documented by: Melatonin (Melatonin) 5 mg PO QHS [facility] Last Admin: 04/14/19 21:38 Dose: 5 mg Documented by: Ondansetron HCl (Zofran) 4 mg IV Q8H PRN PRN PRN Reason: NAUSEA/VOMITING Oxycodone HCl (Oxyir) 5 mg PO Q4H PRN PRN PRN Reason: Pain Score 4-10/10 Last Admin: 04/14/19 21:36 Dose: 5 mg Documented by: Polysaccharide Iron Complex (Ferrex 150) 150 mg PO DAILY [facility] Last Admin: 04/15/19 08:33 Dose: 150 mg Documented by: Sodium Chloride () 10 - 40 ml IV UD PRN PRN Reason: SALINE FLUSH Discharge Diet: Low fat/ Low Cholesterol, 2000 mg Sodium Diet Discharge Activity: Return to Normal Activity Home Medications: Medications to take at Discharge Donepezil HCl 10 mg PO QHS 03/07/15 Escitalopram Oxalate 10 mg PO DAILY 11/24/18 Iron Polysaccharide Complex [Ferrex 150] 150 mg PO DAILY 11/24/18 Levothyroxine [Synthroid] 112 mcg PO DAILY 11/24/18 amiodarone 200 mg tablet 200 mg PO QODAY #90 tab 02/18/19 furosemide 20 mg tablet 20 mg PO QODAY tab 02/18/19 Aspirin [Aspirin, Baby] 81 mg PO DAILY@0800 04/13/19 Isosorbide Mononitrate [Isosorbide Mononitrate ER] 30 mg PO DAILY 04/13/19 Melatonin 5 mg PO QHS 04/13/19 Acetaminophen [Tylenol] 1,000 mg PO TID PRN tab 04/15/19 Lidocaine [Lidoderm Patch] 1 patch TOPICAL DAILY@219904/15/19 Oxycodone [Oxyir] 5 mg PO Q4H PRN PRN #20 tab 04/15/19 Primary Care Physician: Laith Lai Chi, MD [Primary Care Provider] - Disposition: Half-Way facility Minutes spent on discharge:: 35 Patient Condition:: Stable Medical Necessity - Tobacco Use Smoking Status: Current every day smoker Tobacco Use: Chew Meaningful Use Info Meaningful Use Diagnoses (Choose all that apply): None applicable Code Visit OBSV E&M: 20196 Observation care discharge
[2019-04-15 13:31] VITALS: BP 139/72; PULSE 57; RESP 18; TEMP 36.4; O2SAT 95
--- NOTE | 2019-04-15 14:02 | NURSING ---
Report called to Alpa JARRETT in TCU.
== END 2019-04-15 14:00 | disposition skilled nursing facility (03) ==
LOC: ED 16:08 → MS3 18:24
PROVIDERS: Admitting Provider Internal Medicine; Emergency Provider Emergency Medicine; PCP Family Medicine Geriatric Medicine; Visit Provider Internal Medicine
DX: M25.551 Pain in right hip (principal); G30.9 Alzheimer's disease, unspecified; F02.80 Dementia in other diseases classified elsewhere, unspecified severity, without behavioral disturbance, psychotic disturbance, mood disturbance, and anxiety; I25.10 Atherosclerotic heart disease of native coronary artery without angina pectoris; J44.9 Chronic obstructive pulmonary disease, unspecified; K21.9 Gastro-esophageal reflux disease without esophagitis; I12.9 Hypertensive chronic kidney disease with stage 1 through stage 4 chronic kidney disease, or unspecified chronic kidney disease; I48.0 Paroxysmal atrial fibrillation; G47.33 Obstructive sleep apnea (adult) (pediatric); E66.9 Obesity, unspecified; I48.20 Chronic atrial fibrillation, unspecified; I25.2 Old myocardial infarction; N18.3 Chronic kidney disease, stage 3 (moderate); Z68.34 Body mass index [BMI] 34.0-34.9, adult; Z71.3 Dietary counseling and surveillance; Z87.891 Personal history of nicotine dependence; F32.9 Major depressive disorder, single episode, unspecified; E03.9 Hypothyroidism, unspecified; I47.1 Supraventricular tachycardia; M54.9 Dorsalgia, unspecified; Z91.81 History of falling
CPT/HCPCS: 36415; 72100; 73502; 73700; 80048; 80053; 81001; 85025; 85027; 97162; 97167; 97530; 97802; 99251; 99285; J7030; G0463

== ENCOUNTER 2019-04-15 14:29 | Inpatient (IN) | payer MEDICARE, SELFPAY ==
[2019-04-13 19:32] VITALS: BMI 34.0
[2019-04-15 14:52] VITALS: BP 110/65; PULSE 56; RESP 16; TEMP 36.7; O2SAT 98; BMI 30.4
--- NOTE | 2019-04-15 14:56 | HP.PCM_ITS ---
Problem List (1) Debility Status: Acute (2) Hypothyroidism Status: Chronic (3) Insomnia Status: Chronic (4) Coronary artery disease Status: Chronic (5) Atrial fibrillation Status: Chronic (6) Depression Status: Chronic (7) Iron deficiency anemia Status: Chronic (8) Fall Status: Acute Qualifiers: (9) COPD (chronic obstructive pulmonary disease) Status: Chronic Qualifiers: (10) GERD (gastroesophageal reflux disease) Status: Chronic Qualifiers: (11) Obstructive sleep apnea Status: Chronic (12) Alzheimer disease Status: Chronic Qualifiers: (13) CKD (chronic kidney disease) Status: Chronic (14) Hypertension Status: Chronic Qualifiers: History of Present Illness Date of Admission: 04/15/19 Chief Complaint: Here for rehabilitation, strengthening, prior to discharge home alone. The patient is a 83 year old Male with below past medical history presented to [facility] Emergency Department 04/13/2019 with fall. 03/17/2019 Echo EF 65%, stage 2 diastolic dysfunction, right ventricular systolic pressure 32mm HG. 04/13/2019 X-ray pelvis, right hip negative. 04/13/2019 X-ray lumbar spine, mild multilevel chronic wedge deformities. Fell 5 days prior, Lives alone, ex- checks on him daily. Dorsal left hand laceration. Increasing low back pain, Increasing right leg pain. CBC with differential okay, BMP okay, UA negative. IV normal saline given. 04/13/2019 Admit to Hospital. PT/OT. 04/13/2019 CT right hip, right hip prosthesis okay. 04/14/2019 Tylenol, PRN oxycodone for pain control. 04/15/2019 Admit to TCU with debility, here for rehabilitation, strengthening, prior to discharge home alone. 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) tricep surgery (Chronic) CKD (chronic kidney disease) (Chronic) Thrombocytopenia (Chronic) Old myocardial infarction (Chronic) Right bundle branch block (Chronic) Hypertension (Chronic) Paroxysmal SVT (supraventricular tachycardia) (Chronic) Nonsustained ventricular tachycardia (Chronic) Paroxysmal atrial fibrillation (Chronic) Stage III chronic kidney disease (Chronic) Obesity (BMI 30-39.9) (Chronic) Medical History: Medical History (Last Reviewed 02/18/19 @ 11:38 by Nelia Perez) Anemia (Acute) D64.9 COPD (chronic obstructive pulmonary disease) (Chronic) J44.9 GERD (gastroesophageal reflux disease) (Chronic) K21.9 Obstructive sleep apnea (Chronic) G47.33 Pancreatitis (Chronic) K85.90 Alzheimer disease (Chronic) G30.9, F02.80 CKD (chronic kidney disease) (Chronic) N18.9 Thrombocytopenia (Chronic) D69.6 Cystitis (Resolved) N30.90 Bacteremia (Resolved) R78.81 Bld Cx w/ preliminary Klebsiella Oxytoca and Morganella Morganii sp morgani. Old myocardial infarction (Chronic) I25.2 Right bundle branch block (Chronic) I45.10 Hypertension (Chronic) I10 Paroxysmal SVT (supraventricular tachycardia) (Chronic) I47.1 Nonsustained ventricular tachycardia (Chronic) I47.2 Paroxysmal atrial fibrillation (Chronic) I48.0 Stage III chronic kidney disease (Chronic) Obesity (BMI 30-39.9) (Chronic) E66.9 Acute UTI (Resolved) N39.0 UCx not obtained, UA not severe appearing, given bacteremia, Klebsiella Oxytoca and Morganella Morganii sp morgani (final pending, thus suspect to speciate to the same) suspected secondary to UTI, complicated Fever and chills (Resolved) R50.9 Allergies morphine Adverse Reaction (Severe, Verified 02/18/19 11:50) hostility,disoriented hostility, disoriented Home Medications: Ambulatory Orders Medication Instructions Recorded Donepezil HCl 10 mg PO QHS 03/07/15 Escitalopram Oxalate 10 mg PO DAILY 11/24/18 Iron Polysaccharide Complex 150 mg PO DAILY 11/24/18 [Ferrex 150] Levothyroxine [Synthroid] 112 mcg PO DAILY 11/24/18 amiodarone 200 mg tablet 200 mg PO QODAY #90 tab 02/18/19 furosemide 20 mg tablet 20 mg PO QODAY tab 02/18/19 Aspirin [Aspirin, Baby] 81 mg PO DAILY@0800 04/13/19 Isosorbide Mononitrate [Isosorbide 30 mg PO DAILY 04/13/19 Mononitrate ER] Melatonin 5 mg PO QHS 04/13/19 Acetaminophen [Tylenol] 1,000 mg PO TID PRN tab 04/15/19 Lidocaine [Lidoderm Patch] 1 patch TOPICAL DAILY@2200 04/15/19 Oxycodone [Oxyir] 5 mg PO Q4H PRN PRN #20 tab 04/15/19 Surgical History: Surgical History (Last Reviewed 02/18/19 @ 11:38 by Nelia Perez) History of esophagogastroduodenoscopy (EGD) (Resolved) Z98.890 07/22/18 Hx of colonoscopy (Resolved) Z98.890 07/22/18 Hx of cholecystectomy (Chronic) Z90.49 H/O bilateral hip replacements (Chronic) Z96.643 excision of subglottic mass (Chronic) tricep surgery (Chronic) Surgical History: cholecystectomy, total hip arthroplasty - right 05/16/14 Dr Powell, Left 5 years ago, - - Right bicep repair 1994, excision subglottic mass. Psychiatric History: Depression Lives: Alone - Ex- checks on him daily. Smoking Status: Current every day smoker Tobacco Use: Chew Alcohol: None Drugs: None - *Family History Sibling Family History: Family History (Last Reviewed 02/18/19 @ 11:38 by Nelia Perez) Sister CAD (coronary artery disease) Sister Cancer Brother Cancer History Items: Cancer, Heart Disease Maternal Family History: Family History (Last Reviewed 02/18/19 @ 11:38 by Nelia Preez) Sister CAD (coronary artery disease) Sister Cancer Brother Cancer History Items: No pertinent history Paternal Family History: Family History (Last Reviewed 02/18/19 @ 11:38 by Nelia Perez) Sister CAD (coronary artery disease) Sister Cancer Brother Cancer History Items: No pertinent history Offspring Family History: Family History (Last Reviewed 02/18/19 @ 11:38 by Nelia Perez) Sister CAD (coronary artery disease) Sister Cancer Brother Cancer History Items: No pertinent history Review of Systems Constitutional: Denies: Chills, Fever, Weight Change HEENT: Denies: Head Aches, Sinus Congestion, Sinus Drainage Cardiovascular: Denies: Chest Pain, Palpitations Respiratory: Denies: Cough, Shortness of breath at rest, Sputum production Gastrointestinal: Denies: Abdominal Pain, Nausea, Vomiting Genitourinary: Denies: Dysuria Musculoskeletal: Denies: Joint Pain, Joint Tenderness Skin: Denies: Rash, Wounds Neurological: Denies: Numbness, Tingling, Focal weakness Psychiatric: Denies: Anxiety, Depression, Homicidal Ideations, Suicidal Ideations Hematologic/ Lymphatic: Denies: Easy Bruising, Easy Bleeding VTE Information - Inpt Only VTE Present on Admission: No VTE Mechan Device Prophylaxis: Knee High YASEMIN Hose VTE Pharm Prophylaxis ordered?: Yes Patient Problems: Active and Suspected Problems (Last Reviewed 02/18/19 @ 11:38 by Nelia Perez) Debility (Acute) - Physical Exam Vitals/I&O's: Body Mass Index (BMI) 34.0 Finger Stick Blood Glucose 85 General: Alert, Oriented x3, Cooperative HEENT: Atraumatic, PERRLA, EOMI, Normocephalic Neck: Supple, No JVD, Negative Carotid Bruits Lungs: Clear to auscultation, Normal air movement Cardiovascular: Regular rate, No murmurs Abdomen: Bowel Sounds Present, Soft, Non Tender Extremities: No edema, Capillary Refill Less than 3 Seconds Skin: No rashes, No breakdown Musculoskeletal: No Tenderness to Palpation of Joints or Extremities Neurological: Cranial nerves II-XII grossly intact Psych/Mental Status: Normal Affect, Appropriate Assessment/Plan All Active Problems (Last Reviewed 02/18/19 @ 11:38 by Nelia Perez) Multiple rib fractures (Acute) Fall (Acute) Debility (Acute) History of esophagogastroduodenoscopy (EGD) (Resolved) Hx of colonoscopy (Resolved) Anemia (Acute) Cystitis (Resolved) Bacteremia (Resolved) Acute UTI (Resolved) Fever and chills (Resolved) Generalized weakness (Ruled-out) 83 year old male with below past medical history hospitalized after debilitating fall, right hip pain, fracture ruled out, admitted to TCU with debility, here for rehabilitation, strengthening, prior to discharge home alone. * Debility - PT/OT. * Pain - Tylenol 1000MG TID scheduled, Oxycodone 5MG Q4H PRN pain (4-10) * Bowel - Miralax 17GM daily, Senna/colace 2 tablets BID, Dulcolax 10MG daily PRN. * Adult immunization - Administer Prevnar 13, Pneumovax 23, Fluzone as appropriate. * DVT prophylaxis - Lovenox 40MG SC daily. * Atrial Fibrillation - Amiodarone 200MG every other day, Aspirin 81MG daily. * Alzheimer Disease - Donepezil 10MG daily. * Edema - Lasix 20MG every other day. * Iron deficiency anemia - Ferrex 150MG daily. * Coronary Artery Disease - Isosorbide MN 30MG daily, Aspirin 81MG daily. * Hypothyroidism - Levothyroxine 112MCG daily. * Back pain - Lidoderm patch 1 patch TD daily. * Insomnia - Melatonin 5MG QHS.
[2019-04-15] MEDS: Senna/Docusate Sodium 1 Tablet 2 TABLET PO (17:23)
[2019-04-15] MEDS: Nystatin Powder 15gm Bottle 1 APPLIC TOPICAL (20:52)
[2019-04-15] MEDS: Menthol/Lanolin/Calamine/Znox 113 GM Tube 1 APPLIC TOPICAL (20:52)
[2019-04-15] MEDS: MELATONIN 10 MG TABLET 5 MG PO (20:53)
[2019-04-15] MEDS: Donepezil HCl 10 MG Tablet PO (20:53)
[2019-04-15] MEDS: Acetaminophen 500 MG Tablet 1000 MG PO (20:53)
[2019-04-15] MEDS: Lidocaine 5% Patch 1 PATCH TOPICAL (20:55)
[2019-04-16] MEDS: Menthol/Lanolin/Calamine/Znox 113 GM Tube 1 APPLIC TOPICAL ×2 (05:03→20:52)
[2019-04-16] MEDS: Acetaminophen 500 MG Tablet 1000 MG PO ×3 (05:04→20:49)
[2019-04-16] MEDS: Enoxaparin 40 MG/0.4 ML Syringe SC (05:04)
[2019-04-16] MEDS: Nystatin Powder 15gm Bottle 1 APPLIC TOPICAL ×2 (05:04→20:53)
[2019-04-16] MEDS: Levothyroxine 112 MCG Tablet PO (05:05)
[2019-04-16] MEDS: Senna/Docusate Sodium 1 Tablet 2 TABLET PO (05:05)
[2019-04-16] MEDS: Polyethylene Glycol 3350 17 GM PACKET PO (05:05)
[2019-04-16] MEDS: Iron Polysaccharide Complex 150 MG CAPSULE PO (05:05)
[2019-04-16] MEDS: Isosorbide Mononitrate 30 MG Tablet PO (05:05)
[2019-04-16] MEDS: Escitalopram Oxalate 10 MG Tablet PO (05:05)
[2019-04-16] MEDS: Furosemide 20 MG Tablet PO (05:05)
[2019-04-16 07:11] LABS: Absolute Lymphocyte Count 1.42 X10^3/uL (0.83-4.51); Absolute Neutrophil Count 2.7 X10^3/uL (2.0-7.7); Basophil# 0.04 X10^3/uL; Basophil% 0.7 % (0-1); Eosinophil# 1.02 X10^3/uL; Eosinophils% 17.4 % (0-5); Hemoglobin 12.1 g/dL (13.0-16.5); Lymphocyte # 1.42 X10^3/ul (4.0); Lymphocyte % 24.3 % (19-41); Mean Corp Hgb Conc 32.7 g/dL (32-36); Mean Corpuscular Hgb 33.7 pg (27.0-32.0); Mean Corpuscular Volume 103.1 fL (80-94); Mean Platelet Vol. 8.3 fl (6.2-12.0); Monocyte# 0.63 X10^3/uL; Monocyte% 10.8 % (0-10); NRBC Flagged by Analyzer 0 % (0-5); Neutrophil # 2.72 X10^3/uL (2.7-7.7); Neutrophil % 46.5 % (47-70); Platelet Count 121 K/mm3 (150-450); RBC Distribution Width SD 53.4 fl (35.1-43.9); Red Blood Count 3.59 M/mm3 (4.6-6.2); White Blood Count 5.9 K/mm3 (4.4-11.0)
[2019-04-16 08:02] LABS: Anion Gap 5 (5-15); BUN 30 mg/dL (7-18); BUN/Creat Ratio 19.9 RATIO (10-20); Calcium,Total 8.4 mg/dL (8.5-10.1); Chloride 109 mmol/L (98-107); Creatinine, Serum 1.51 mg/dL (0.70-1.30); EST Glomerular Filtration Rate 47 mL/min (>60); Est Glom Filt Rate - Afr Amer 57 mL/min (>60); Glucose 82 mg/dL (74-106); Potassium 4.2 mmol/L (3.5-5.1); Sodium Level 141 mmol/L (136-145)
[2019-04-16] MEDS: Aspirin 81 MG TAB.CHEW PO (08:51)
[2019-04-16] MEDS: Tuberculin,Purif.prot.deriv. 50 TU/ML Vial 5 ML ID (10:49)
[2019-04-16] MEDS: oxyCODONE 5 MG Tablet PO (10:49)
[2019-04-16 14:35] VITALS: BP 132/64; PULSE 51; RESP 18; TEMP 36.4; O2SAT 94
[2019-04-16] MEDS: MELATONIN 10 MG TABLET 5 MG PO (20:49)
[2019-04-16] MEDS: Donepezil HCl 10 MG Tablet PO (20:50)
[2019-04-16] MEDS: Lidocaine 5% Patch 1 PATCH TOPICAL (20:50)
[2019-04-17] MEDS: Iron Polysaccharide Complex 150 MG CAPSULE PO (05:41)
[2019-04-17] MEDS: Levothyroxine 112 MCG Tablet PO (05:41)
[2019-04-17] MEDS: Acetaminophen 500 MG Tablet 1000 MG PO ×3 (05:42→21:15)
[2019-04-17] MEDS: Escitalopram Oxalate 10 MG Tablet PO (05:42)
[2019-04-17] MEDS: Isosorbide Mononitrate 30 MG Tablet PO (05:42)
[2019-04-17] MEDS: Nystatin Powder 15gm Bottle 1 APPLIC TOPICAL ×2 (05:43→21:21)
[2019-04-17] MEDS: Enoxaparin 40 MG/0.4 ML Syringe SC (05:44)
[2019-04-17] MEDS: Menthol/Lanolin/Calamine/Znox 113 GM Tube 1 APPLIC TOPICAL ×2 (05:45→21:21)
[2019-04-17] MEDS: Aspirin 81 MG TAB.CHEW PO (08:45)
[2019-04-17] MEDS: Amiodarone 200 MG Tablet PO (08:49)
[2019-04-17] MEDS: oxyCODONE 5 MG Tablet PO (11:30)
[2019-04-17 14:36] VITALS: BP 159/71; PULSE 53; RESP 16; TEMP 36.2; O2SAT 96
[2019-04-17] MEDS: Senna/Docusate Sodium 1 Tablet 2 TABLET PO (16:29)
[2019-04-17] MEDS: Donepezil HCl 10 MG Tablet PO (21:15)
[2019-04-17] MEDS: MELATONIN 10 MG TABLET 5 MG PO (21:16)
[2019-04-17] MEDS: Lidocaine 5% Patch 1 PATCH TOPICAL (21:17)
[2019-04-18] MEDS: Menthol/Lanolin/Calamine/Znox 113 GM Tube 1 APPLIC TOPICAL ×2 (05:51→22:33)
[2019-04-18] MEDS: Isosorbide Mononitrate 30 MG Tablet PO (05:52)
[2019-04-18] MEDS: Enoxaparin 40 MG/0.4 ML Syringe SC (05:52)
[2019-04-18] MEDS: Levothyroxine 112 MCG Tablet PO (05:52)
[2019-04-18] MEDS: Acetaminophen 500 MG Tablet 1000 MG PO ×3 (05:52→22:37)
[2019-04-18] MEDS: Escitalopram Oxalate 10 MG Tablet PO (05:53)
[2019-04-18] MEDS: Iron Polysaccharide Complex 150 MG CAPSULE PO (05:56)
[2019-04-18] MEDS: Nystatin Powder 15gm Bottle 1 APPLIC TOPICAL ×2 (05:57→22:33)
[2019-04-18] MEDS: Aspirin 81 MG TAB.CHEW PO (08:43)
--- NOTE | 2019-04-18 09:39 | PHA.CONS_ITS ---
<Kajal Freedman M - Last Filed: 04/18/19 09:39> Progress Note - Pharmacy Subjective: TCU ADMISSION Objective: Allergies morphine Adverse Reaction (Severe, Verified 02/18/19 11:50) hostility,disoriented hostility, disoriented Current Medications Generic Name Dose Route Start Last Admin Trade Name Freq PRN Reason Stop Dose Admin Acetaminophen 1,000 mg 04/15/19 22:00 04/18/19 05:52 Tylenol PO 1,000 mg TID ABAD Administration Amiodarone HCl 200 mg 04/17/19 08:00 04/17/19 08:49 Cordarone PO 200 mg QODAY@0800 ABAD Administration Aspirin 81 mg 04/16/19 08:00 04/18/19 08:43 Aspirin, Baby PO 81 mg DAILY@0800 ABAD Administration Bisacodyl 10 mg 04/15/19 15:21 Dulcolax PO DAILY PRN Constipation Calamine/Phenol 1 applic 04/15/19 22:00 04/18/19 05:51 Calmoseptine Ointment TOPICAL 1 applicatio 599,2199 ABAD Administration Protocol Donepezil HCl 10 mg 04/15/19 22:00 04/17/19 21:15 Aricept PO 10 mg QHS ABAD Administration Emollient Ointment 1 applic 04/15/19 16:07 04/17/19 11:36 Eucerin Intensive Repair TOPICAL 1 applicatio 00,0 PRN Administration dry skin Protocol Enoxaparin Sodium 40 mg 04/16/19 06:00 04/18/19 05:52 Lovenox SC 40 mg DAILY@0600 ABAD Administration Escitalopram Oxalate 10 mg 04/16/19 06:00 04/18/19 05:53 Lexapro PO 10 mg DAILY ABAD Administration Isosorbide Mononitrate 30 mg 04/16/19 06:00 04/18/19 05:52 Imdur PO 30 mg DAILY ABAD Administration Levothyroxine Sodium 112 mcg 04/16/19 06:00 04/18/19 05:52 Synthroid PO 112 mcg DAILY ABAD Administration Lidocaine 1 patch 04/15/19 22:00 04/17/19 21:17 Lidoderm Patch TOPICAL 1 patch DAILY@0 ABAD Administration Protocol Melatonin 5 mg 04/15/19 22:00 04/17/19 21:16 Melatonin PO 5 mg QHS ABAD Administration Nystatin 1 applic 04/15/19 22:00 04/18/19 05:57 Mycostatin Powder TOPICAL 1 applicatio 0600,2200 [facility] Administration Protocol Oxycodone HCl 5 mg 04/15/19 14:55 04/17/19 11:30 Oxyir PO 5 mg Q4H PRN PRN Administration Pain Score 4-10/10 Polyethylene Glycol 17 gm 04/16/19 06:00 04/18/19 05:52 Miralax PO Not Given DAILY [facility] Polysaccharide Iron Complex 150 mg 04/16/19 06:00 04/18/19 05:56 Ferrex 150 PO 150 mg DAILY [facility] Administration Senna/Docusate Sodium 2 tablet 04/15/19 18:00 04/18/19 05:52 Senokot-S, Ruth-Colace PO Not Given BID [facility] Tuberculin PPD 5 tu 04/23/19 10:00 Tubersol, Aplisol, Ppd ID 04/23/19 10:01 X1 ONE Problem List (Last Reviewed 02/18/19 @ 11:38 by Nelia Perez) Debility (Acute) Hypothyroidism (Chronic) Insomnia (Chronic) Coronary artery disease (Chronic) Atrial fibrillation (Chronic) Depression (Chronic) Iron deficiency anemia (Chronic) Vital Signs Temp Pulse Resp BP Pulse Ox 97.1 F L 53 L 16 159/71 H 96 04/17/19 14:36 04/17/19 14:36 04/17/19 14:36 04/17/19 14:36 04/17/19 14:36 Oxygen Delivery Method Room Air Weight: 96.218 kg Body Mass Index (BMI) 30.4 Finger Stick Blood Glucose 85 Sodium 141 mmol/L (136-145) 04/16/19 06:49 Potassium 4.2 mmol/L (3.5-5.1) 04/16/19 06:49 Chloride 109 mmol/L (98-107) H 04/16/19 06:49 Carbon Dioxide 27.0 mmol/L (21.0-32.0) 04/16/19 06:49 Anion Gap 5 (5-15) 04/16/19 06:49 BUN 30 mg/dL (7-18) H 04/16/19 06:49 Creatinine 1.51 mg/dL (0.70-1.30) H 04/16/19 06:49 Est GFR (MDRD) Af Amer 57 mL/min (>60) L 04/16/19 06:49 Est GFR (MDRD) Non-Af 47 mL/min (>60) L 04/16/19 06:49 BUN/Creatinine Ratio 19.9 RATIO (10-20) 04/16/19 06:49 Glucose 82 mg/dL (74-106) 04/16/19 06:49 Assessment/Plan: 1. Pain: Tylenol 1000mg PO TID, Lidocaine patch daily (back pain), Oxycodone 5mg PO Q4h PRN Pain -12/16. Please continue to monitor for increased/decreased pain, local topical reactions with lidocaine patch, PRN medication usage. *2. Atrial fibrillation: Amiodarone 200mg PO QODAY. This is a Beer's list medication. Please evaluate use and determine if switching to another antiarrhythmic agent is clinically appropriate for this patient. 3. Coronary Artery Disease: Imdur 30mg PO daily, Aspirin 81mg PO daily. Please continue to monitor blood pressure, signs/symptoms of bleeding/bruising. 4. Hypothyroid: Synthroid 112mcg PO daily. Please continue to monitor for S/S hyper/hypothyroidism. Please consider obtaining a thyroid panel at least annually or sooner if clinically indicated. 5. Alzheimer Disease: Aricept 10mg PO QHS. Please continue to monitor for GI symptoms, or reports of abnormal dreams. Can consider switching medication to give during the day with a meal if this occurs. 6. GI Prophylaxis: Lovenox 40mg SC daily. Please continue to monitor renal function, S/S bleeding/bruising 7. Insomnia: Melatonin 5mg PO QHS. Please continue to monitor for medication effectiveness, oversedation. 8. Iron Deficiency: Ferrex 150mg PO Daily. Please continue to monitor iron studies as clinically appropriate to determine medication effectiveness. Psychotropic Medications: Lexapro (see below). Unnecessary Medications: *Lexapro 10mg PO Daily. No documented indication for medication. Please consider reviewing medication. If medication is clinically warranted, consider a GDR by 10/2019 if indicated. Bowel Regimen: *Miralax 17g PO daily, Senna/Docusate 2tab PO BID, Bisacodyl 10mg PO Daily PRN. Please monitor for increased/decreased bowel movements, PRN medication usage. Of note, the patient has refused some scheduled medications. Should the patient continue to refuse scheduled medications, please consider changing scheduled medications to PRN. Date of Note:: 04/18/19 - Provider Comments Provider responsibility: Provider responsible to enter orders to implement recommendations <Laith Lai Chi - Last Filed: 04/18/19 17:08> Progress Note - Pharmacy Subjective: [] Objective: Allergies morphine Adverse Reaction (Severe, Verified 02/18/19 11:50) hostility,disoriented hostility, disoriented Current Medications Generic Name Dose Route Start Last Admin Trade Name Freq PRN Reason Stop Dose Admin Acetaminophen 1,000 mg 04/15/19 22:00 04/18/19 13:27 Tylenol PO 1,000 mg TID ABAD Administration Amiodarone HCl 200 mg 04/17/19 08:00 04/17/19 08:49 Cordarone PO 200 mg QODAY@0800 ABAD Administration Aspirin 81 mg 04/16/19 08:00 04/18/19 08:43 Aspirin, Baby PO 81 mg DAILY@0800 ABAD Administration Bisacodyl 10 mg 04/15/19 15:21 Dulcolax PO DAILY PRN Constipation Calamine/Phenol 1 applic 04/15/19 22:00 04/18/19 05:51 Calmoseptine Ointment TOPICAL 1 applicatio 599,2199 ABAD Administration Protocol Donepezil HCl 10 mg 04/15/19 22:00 04/17/19 21:15 Aricept PO 10 mg QHS ABAD Administration Emollient Ointment 1 applic 04/15/19 16:07 04/17/19 11:36 Eucerin Intensive Repair TOPICAL 1 applicatio 599,2199 PRN Administration dry skin Protocol Enoxaparin Sodium 40 mg 04/16/19 06:00 04/18/19 05:52 Lovenox SC 40 mg DAILY@0600 ABAD Administration Escitalopram Oxalate 10 mg 04/16/19 06:00 04/18/19 05:53 Lexapro PO 10 mg DAILY ABAD Administration Isosorbide Mononitrate 30 mg 04/16/19 06:00 04/18/19 05:52 Imdur PO 30 mg DAILY ABAD Administration Levothyroxine Sodium 112 mcg 04/16/19 06:00 04/18/19 05:52 Synthroid PO 112 mcg DAILY ABAD Administration Lidocaine 1 patch 04/15/19 22:00 04/17/19 21:17 Lidoderm Patch TOPICAL 1 patch DAILY@2199 ABAD Administration Protocol Melatonin 5 mg 04/15/19 22:00 04/17/19 21:16 Melatonin PO 5 mg QHS ABAD Administration Nystatin 1 applic 04/15/19 22:00 04/18/19 05:57 Mycostatin Powder TOPICAL 1 applicatio 06,2199 ABAD Administration Protocol Oxycodone HCl 5 mg 04/15/19 14:55 04/18/19 09:56 Oxyir PO 5 mg Q4H PRN PRN Administration Pain Score 4-12/16 Polyethylene Glycol 17 gm 04/16/19 06:00 04/18/19 05:52 Miralax PO Not Given DAILY [facility] Polysaccharide Iron Complex 150 mg 04/16/19 06:00 04/18/19 05:56 Ferrex 150 PO 150 mg DAILY ABAD Administration Senna/Docusate Sodium 2 tablet 04/15/19 18:00 04/18/19 05:52 Senokot-S, Ruth-Colace PO Not Given BID [facility] Tuberculin PPD 5 tu 04/23/19 10:00 Tubersol, Aplisol, Ppd ID 04/23/19 10:01 X1 ONE Problem List (Last Reviewed 02/18/19 @ 11:38 by Nelia Perez) Debility (Acute) Hypothyroidism (Chronic) Insomnia (Chronic) Coronary artery disease (Chronic) Atrial fibrillation (Chronic) Depression (Chronic) Iron deficiency anemia (Chronic) Vital Signs Temp Pulse Resp BP Pulse Ox 97.8 F 56 L 16 154/75 H 93 04/18/19 15:15 04/18/19 15:15 04/18/19 15:15 04/18/19 15:15 04/18/19 15:15 Oxygen Delivery Method Room Air Weight: 96.218 kg Body Mass Index (BMI) 30.4 Finger Stick Blood Glucose 85 Sodium 141 mmol/L (136-145) 04/16/19 06:49 Potassium 4.2 mmol/L (3.5-5.1) 04/16/19 06:49 Chloride 109 mmol/L (98-107) H 04/16/19 06:49 Carbon Dioxide 27.0 mmol/L (21.0-32.0) 04/16/19 06:49 Anion Gap 5 (5-15) 04/16/19 06:49 BUN 30 mg/dL (7-18) H 04/16/19 06:49 Creatinine 1.51 mg/dL (0.70-1.30) H 04/16/19 06:49 Est GFR (MDRD) Af Amer 57 mL/min (>60) L 04/16/19 06:49 Est GFR (MDRD) Non-Af 47 mL/min (>60) L 04/16/19 06:49 BUN/Creatinine Ratio 19.9 RATIO (10-20) 04/16/19 06:49 Glucose 82 mg/dL (74-106) 04/16/19 06:49 Assessment/Plan: Psychotropic Medications: Unnecessary Medications: Bowel Regimen: - Provider Comments Provider responsibility: Provider responsible to enter orders to implement recommendations Provider Comments to Recommendations by Pharmacy: Agree
[2019-04-18] MEDS: oxyCODONE 5 MG Tablet PO (09:56)
[2019-04-18 10:05] VITALS: PULSE 58; RESP 18; O2SAT 95
[2019-04-18 15:15] VITALS: BP 154/75; PULSE 56; RESP 16; TEMP 36.6; O2SAT 93
--- NOTE | 2019-04-18 16:48 | CASEMGMT ---
Social Work Reviewed and agreed with SW recruitment internship documentation on this date. Gabriela Land, COMMUNICATIONS PROJECT LEAD BOILER SETTER
[2019-04-18] MEDS: Senna/Docusate Sodium 1 Tablet 2 TABLET PO (17:11)
--- NOTE | 2019-04-18 18:03 | NURSING ---
pt noted to have irritated, sm amt of bleeding from hemorrhoids. new order for anusol.
[2019-04-18] MEDS: Lidocaine 5% Patch 1 PATCH TOPICAL (22:34)
[2019-04-18] MEDS: Donepezil HCl 10 MG Tablet PO (22:38)
[2019-04-18] MEDS: MELATONIN 10 MG TABLET 5 MG PO (22:38)
[2019-04-18] MEDS: Memantine Hydrochloride 10 MG Tablet PO (22:48)
[2019-04-19] MEDS: Menthol/Lanolin/Calamine/Znox 113 GM Tube 1 APPLIC TOPICAL ×2 (05:59→21:02)
[2019-04-19] MEDS: Levothyroxine 112 MCG Tablet PO ×2 (06:00)
[2019-04-19] MEDS: Senna/Docusate Sodium 1 Tablet 2 TABLET PO (06:00)
[2019-04-19] MEDS: Iron Polysaccharide Complex 150 MG CAPSULE PO (06:00)
[2019-04-19] MEDS: Isosorbide Mononitrate 30 MG Tablet PO (06:01)
[2019-04-19] MEDS: Escitalopram Oxalate 10 MG Tablet PO (06:01)
[2019-04-19] MEDS: Acetaminophen 500 MG Tablet 1000 MG PO ×3 (06:01→21:00)
[2019-04-19] MEDS: Enoxaparin 40 MG/0.4 ML Syringe SC (06:02)
[2019-04-19] MEDS: Nystatin Powder 15gm Bottle 1 APPLIC TOPICAL ×2 (06:09→21:01)
[2019-04-19] MEDS: oxyCODONE 5 MG Tablet PO (06:12)
[2019-04-19] MEDS: Aspirin 81 MG TAB.CHEW PO (08:01)
[2019-04-19] MEDS: Amiodarone 200 MG Tablet PO (08:01)
[2019-04-19 08:06] VITALS: BP 132/62; PULSE 58
[2019-04-19] MEDS: Furosemide 20 MG Tablet PO (08:59)
[2019-04-19 14:47] VITALS: BP 147/65; PULSE 57; RESP 14; TEMP 36.6; O2SAT 96
[2019-04-19] MEDS: Lidocaine 5% Patch 1 PATCH TOPICAL (20:59)
[2019-04-19] MEDS: Memantine Hydrochloride 10 MG Tablet PO (21:00)
[2019-04-19] MEDS: Donepezil HCl 10 MG Tablet PO (21:00)
[2019-04-19] MEDS: MELATONIN 10 MG TABLET 5 MG PO (21:00)
[2019-04-20] MEDS: Nystatin Powder 15gm Bottle 1 APPLIC TOPICAL ×2 (06:12→23:21)
[2019-04-20] MEDS: Iron Polysaccharide Complex 150 MG CAPSULE PO (06:13)
[2019-04-20] MEDS: Isosorbide Mononitrate 30 MG Tablet PO (06:13)
[2019-04-20] MEDS: Menthol/Lanolin/Calamine/Znox 113 GM Tube 1 APPLIC TOPICAL ×2 (06:13→23:19)
[2019-04-20] MEDS: Escitalopram Oxalate 10 MG Tablet PO (06:13)
[2019-04-20] MEDS: Furosemide 20 MG Tablet PO (06:13)
[2019-04-20] MEDS: Acetaminophen 500 MG Tablet 1000 MG PO ×3 (06:13→23:02)
[2019-04-20] MEDS: Enoxaparin 40 MG/0.4 ML Syringe SC (06:14)
[2019-04-20] MEDS: Aspirin 81 MG TAB.CHEW PO (09:28)
[2019-04-20 14:38] VITALS: BP 138/66; PULSE 58; RESP 16; TEMP 36.4; O2SAT 96
--- NOTE | 2019-04-20 16:02 | CASEMGMT ---
Social Work IDT met with patient, son and ex- for care plan meeting. Discussed patient's progress in therapy. Pt is set up/sup for UE ADLS, max assist for LE ADLS, mod assist for toilet transfers, min to mod for sitting to standing, walking up to 90 ft with FWW at min assist with w/c follow. Pt has 3 steps to enter and sleeps in his recliner lift chair at home. The goal is for pt to return home. Will assess for safety. St is working on orientation, problem solving, safety awareness and voice strategies. Explained insurance approved through 04/29 with NRD 04/26 and continued stay is not guaranteed. Will continue to follow. Gabriela Land, CIERRA JUARESW
[2019-04-20] MEDS: Senna/Docusate Sodium 1 Tablet 2 TABLET PO (18:02)
[2019-04-20] MEDS: Memantine Hydrochloride 10 MG Tablet PO (22:59)
[2019-04-20] MEDS: Donepezil HCl 10 MG Tablet PO (23:00)
[2019-04-20] MEDS: MELATONIN 10 MG TABLET 5 MG PO (23:01)
[2019-04-20] MEDS: Lidocaine 5% Patch 1 PATCH TOPICAL (23:11)
[2019-04-21] MEDS: oxyCODONE 5 MG Tablet PO (01:22)
[2019-04-21] MEDS: Menthol/Lanolin/Calamine/Znox 113 GM Tube 1 APPLIC TOPICAL ×2 (06:30→21:39)
[2019-04-21] MEDS: Iron Polysaccharide Complex 150 MG CAPSULE PO (06:31)
[2019-04-21] MEDS: Furosemide 20 MG Tablet PO (06:32)
[2019-04-21] MEDS: Escitalopram Oxalate 10 MG Tablet PO (06:32)
[2019-04-21] MEDS: Enoxaparin 40 MG/0.4 ML Syringe SC (06:32)
[2019-04-21] MEDS: Levothyroxine 112 MCG Tablet PO (06:33)
[2019-04-21] MEDS: Nystatin Powder 15gm Bottle 1 APPLIC TOPICAL ×2 (06:33→21:39)
[2019-04-21] MEDS: Acetaminophen 500 MG Tablet 1000 MG PO ×3 (06:33→21:43)
[2019-04-21] MEDS: Isosorbide Mononitrate 30 MG Tablet PO (06:34)
[2019-04-21] MEDS: Amiodarone 200 MG Tablet PO (08:03)
[2019-04-21] MEDS: Aspirin 81 MG TAB.CHEW PO (08:03)
[2019-04-21 08:06] VITALS: BP 136/65; PULSE 62
--- NOTE | 2019-04-21 10:05 | MDS.RN ---
Pain interview for kyler 04/22/19 completed.
--- NOTE | 2019-04-21 10:27 | NURSING ---
lab called and pt +rhinovirus, pt placed in droplet isolation.
--- NOTE | 2019-04-21 10:36 | NURSING ---
ALL CARE GIVEN IN ROOM DUE TO PT IN PRECAUTIONS FOR RHINO VIRUS.
[2019-04-21 11:15] VITALS: PULSE 59; RESP 18; O2SAT 93
--- NOTE | 2019-04-21 11:25 | NURSING ---
PATCH WAS NOT FOUND ON BODY/FURNITURE, ANDRADE JARRETT AWARE
[2019-04-21 14:12] VITALS: BP 144/67; PULSE 63; RESP 18; TEMP 36.3; O2SAT 93
[2019-04-21] MEDS: Lidocaine 5% Patch 1 PATCH TOPICAL (21:42)
[2019-04-21] MEDS: Memantine Hydrochloride 10 MG Tablet PO (21:42)
[2019-04-21] MEDS: MELATONIN 10 MG TABLET 5 MG PO (21:43)
[2019-04-21] MEDS: Donepezil HCl 10 MG Tablet PO (21:43)
[2019-04-22] MEDS: oxyCODONE 5 MG Tablet PO (05:41)
[2019-04-22] MEDS: Nystatin Powder 15gm Bottle 1 APPLIC TOPICAL ×2 (05:45→20:12)
[2019-04-22] MEDS: Escitalopram Oxalate 10 MG Tablet PO (05:46)
[2019-04-22] MEDS: Enoxaparin 40 MG/0.4 ML Syringe SC (05:46)
[2019-04-22] MEDS: Isosorbide Mononitrate 30 MG Tablet PO (05:46)
[2019-04-22] MEDS: Iron Polysaccharide Complex 150 MG CAPSULE PO (05:46)
[2019-04-22] MEDS: Furosemide 20 MG Tablet PO (05:46)
[2019-04-22] MEDS: Levothyroxine 112 MCG Tablet PO (05:46)
[2019-04-22] MEDS: Acetaminophen 500 MG Tablet 1000 MG PO ×3 (06:27→20:10)
[2019-04-22] MEDS: Menthol/Lanolin/Calamine/Znox 113 GM Tube 1 APPLIC TOPICAL ×2 (06:29→20:12)
--- NOTE | 2019-04-22 06:43 | NURSING ---
all care provided in room d/t pt remains in droplet precaution
--- NOTE | 2019-04-22 08:04 | RAD_ITS ---
STUDY: X-RAY - PELVIS AND RIGHT HIP REASON FOR EXAM: Male, 83 years old. PAIN TECHNIQUE: 3 views of the pelvis and hip. COMPARISON: None. FINDINGS: There is a non-specific bowel gas pattern. Normal visualized soft tissue structures. There is narrowing with cortical sclerosis and osteophyte formation of the sacroiliac joint consistent with degenerative osteoarthritic changes. Normal bilateral superior and inferior pubic rami. Normal pubic symphysis. Normal bilateral ischial tuberosities. The patient is status post bilateral hip replacements. Degenerative changes in the lower lumbar spine. RAD/HIP, UNI W/ Pelvis 2-3 Views IMPRESSION: Evidence of bilateral hip replacements. Degenerative changes of the lower lumbar spine. Electronically Signed: Marcos Lewis, at 10:43 EST , Service support ,
[2019-04-22] MEDS: Aspirin 81 MG TAB.CHEW PO (08:41)
[2019-04-22 14:01] VITALS: BP 140/65; PULSE 57; RESP 17; TEMP 36.6; O2SAT 93
--- NOTE | 2019-04-22 15:38 | NURSING ---
All care provided in room due to resident being in droplet precautions.
--- NOTE | 2019-04-22 15:38 | NURSING ---
Appears to be more confused and difficulty with speech. Dr Lai aware and UA ordered.
--- NOTE | 2019-04-22 15:50 | CASEMGMT ---
Social Work Reviewed and agreed with social work event marketing intern documentation on this date. Gabriela Land, CARPET INSTALLATION SPECIALIST HEAD TELLER
[2019-04-22] MEDS: Senna/Docusate Sodium 1 Tablet 2 TABLET PO (16:52)
[2019-04-22 16:54] LABS: Bacteria 0 SEEN /hpf (None Seen); Mucous, Urine 0 SEEN /hpf (<or=2+); Squamous Epithelial Cells - UA 0 SEEN /hpf (0-5)
[2019-04-22 17:00] LABS: Color, Urine Yellow (Yellow); Glucose, Dipstick Normal (Normal); Ketone-Dipstick Negative (Negative); Leukocyte Esterase-Dipstick 25 /ul (Negative); Nitrite-Dipstick Negative (Negative); Occult Blood-Urine 10 /ul (Negative); Protein-Dipstick 30 mg/dl (Negative); Specific Gravity, Urine 1.015 (1.002-1.030); Urine Bilirubin Dipstick Negative (Negative); Urine Clarity Clear (Clear); Urine Urobilinogen 1 mg/dl (Normal)
[2019-04-22 18:01] LABS: Red Blood Cells-Urine 0-5 SEEN /hpf (0-5); White Blood Cells 0-5 SEEN /hpf (0-5)
[2019-04-22] MEDS: MELATONIN 10 MG TABLET 5 MG PO ×2 (20:06→20:10)
[2019-04-22] MEDS: Lidocaine 5% Patch 1 PATCH TOPICAL (20:07)
[2019-04-22] MEDS: Donepezil HCl 10 MG Tablet PO (20:10)
[2019-04-22] MEDS: Memantine Hydrochloride 10 MG Tablet PO (20:10)
--- NOTE | 2019-04-23 00:14 | NURSING ---
All care provided to patient in room due to patient in droplet precautions.
--- NOTE | 2019-04-23 00:23 | PCA ---
pt refused for us to do pm care for him and refused to go to the bed.
[2019-04-23] MEDS: Furosemide 20 MG Tablet PO (05:12)
[2019-04-23] MEDS: Isosorbide Mononitrate 30 MG Tablet PO (05:12)
[2019-04-23] MEDS: Acetaminophen 500 MG Tablet 1000 MG PO ×3 (05:12→19:43)
[2019-04-23] MEDS: Escitalopram Oxalate 10 MG Tablet PO (05:13)
[2019-04-23] MEDS: Levothyroxine 112 MCG Tablet PO (05:13)
[2019-04-23] MEDS: Iron Polysaccharide Complex 150 MG CAPSULE PO (05:13)
[2019-04-23] MEDS: Enoxaparin 40 MG/0.4 ML Syringe SC (05:13)
[2019-04-23] MEDS: Menthol/Lanolin/Calamine/Znox 113 GM Tube 1 APPLIC TOPICAL ×2 (05:25→19:48)
[2019-04-23] MEDS: Nystatin Powder 15gm Bottle 1 APPLIC TOPICAL ×2 (05:26→19:48)
[2019-04-23 05:27] VITALS: BP 162/65; PULSE 60
[2019-04-23 08:02] LABS: Absolute Lymphocyte Count 1.12 X10^3/uL (0.83-4.51); Absolute Neutrophil Count 4.6 X10^3/uL (2.0-7.7); Basophil# 0.04 X10^3/uL; Basophil% 0.5 % (0-1); Eosinophil# 0.85 X10^3/uL; Eosinophils% 11.5 % (0-5); Hematocrit 37.2 % (40-54); Hemoglobin 12.1 g/dL (13.0-16.5); Lymphocyte # 1.12 X10^3/ul (4.0); Lymphocyte % 15.1 % (19-41); Mean Corp Hgb Conc 32.5 g/dL (32-36); Mean Corpuscular Hgb 33.9 pg (27.0-32.0); Mean Corpuscular Volume 104.2 fL (80-94); Mean Platelet Vol. 8.5 fl (6.2-12.0); Monocyte# 0.73 X10^3/uL; Monocyte% 9.9 % (0-10); NRBC Flagged by Analyzer 0 % (0-5); Neutrophil # 4.64 X10^3/uL (2.7-7.7); Neutrophil % 62.6 % (47-70); Platelet Count 110 K/mm3 (150-450); RBC Distribution Width CV 14.6 % (11.6-14.6); Red Blood Count 3.57 M/mm3 (4.6-6.2); White Blood Count 7.4 K/mm3 (4.4-11.0)
[2019-04-23 08:25] LABS: Anion Gap 5 (5-15); BUN 33 mg/dL (7-18); BUN/Creat Ratio 19.4 RATIO (10-20); Calcium,Total 8.6 mg/dL (8.5-10.1); Chloride 109 mmol/L (98-107); EST Glomerular Filtration Rate 41 mL/min (>60); Est Glom Filt Rate - Afr Amer 50 mL/min (>60); Glucose 90 mg/dL (74-106); Potassium 4.2 mmol/L (3.5-5.1); Sodium Level 140 mmol/L (136-145)
[2019-04-23] MEDS: Amiodarone 200 MG Tablet PO (08:28)
[2019-04-23] MEDS: Aspirin 81 MG TAB.CHEW PO (08:28)
--- NOTE | 2019-04-23 09:30 | NURSING ---
Addendum entered by Gilda Mcbride 04/23/19 18:01: Pt has multiple open areas on buttocks. pt refuses to be in any other position besides sitting directly on open areas. Consult sent to wound nurse. Original Note: Pt
[2019-04-23 10:00] VITALS: RESP 18
[2019-04-23] MEDS: Tuberculin,Purif.prot.deriv. 50 TU/ML Vial 5 ML ID (11:15)
[2019-04-23 13:57] VITALS: BP 150/68; PULSE 57; RESP 17; TEMP 36.4; O2SAT 93
--- NOTE | 2019-04-23 18:14 | PCA ---
Patient refused for us to put him in bed to get off his buttocks. He has a sore on his backside. Asked him 3 seperate times.
[2019-04-23] MEDS: Donepezil HCl 10 MG Tablet PO (19:42)
[2019-04-23] MEDS: Memantine Hydrochloride 10 MG Tablet PO (19:43)
[2019-04-23] MEDS: Lidocaine 5% Patch 1 PATCH TOPICAL (19:49)
--- NOTE | 2019-04-24 00:07 | NURSING ---
PT c/o coccyx hurting and wanting pulled up in recliner every 5-10 minutes. This nurse went in to the room to educate pt on the importance of pulling him up in the recliner the safety of the staff and his coccyx area. We have tried to get pt to sleep in the bed to help off load the pressure to the coccyx area, but continues to refuse to off load the pressure to the coccyx area. Rn aware.
--- NOTE | 2019-04-24 00:24 | PCA ---
Patient was complaining of pain in his bottom, and both DISTANCE LEARNING ADMINISTRATOR's offered multiple times for patient to get in bed rather than sleep in recliner to relieve pressure. patient got upset and told us he is not able to sleep in the bed, but still complained of pain. refused DISTANCE LEARNING ADMINISTRATOR suggestions for ways to help relieve his pain. PUBLIC HEALTH SERVICE OFFICER is aware of refusal.
[2019-04-24] MEDS: Nystatin Powder 15gm Bottle 1 APPLIC TOPICAL ×2 (06:39→21:02)
[2019-04-24] MEDS: Iron Polysaccharide Complex 150 MG CAPSULE PO (06:40)
[2019-04-24] MEDS: Levothyroxine 112 MCG Tablet PO (06:41)
[2019-04-24] MEDS: Enoxaparin 40 MG/0.4 ML Syringe SC (06:41)
[2019-04-24] MEDS: Isosorbide Mononitrate 30 MG Tablet PO (06:41)
[2019-04-24] MEDS: Escitalopram Oxalate 10 MG Tablet PO (06:41)
[2019-04-24] MEDS: Senna/Docusate Sodium 1 Tablet 2 TABLET PO (06:41)
[2019-04-24] MEDS: Acetaminophen 500 MG Tablet 1000 MG PO ×3 (06:42→20:59)
[2019-04-24] MEDS: Menthol/Lanolin/Calamine/Znox 113 GM Tube 1 APPLIC TOPICAL ×2 (06:47→21:02)
--- NOTE | 2019-04-24 08:19 | NURSING ---
Answered patient's call light, pt stating he needed to use the bathroom. This nurse and a INTERNATIONAL OPERATIONS MANAGER went to room to assist pt to toilet. pt refused to cooperate with staff. We attempted to offer options so that he may use the bathroom, pt refused and began to use profanity. Attempted to explain the importance of the staff assisting him so that he would not need to be incontinent in his brief to protect his skin. pt became angry and stated he would just I will just poop myself. pt refusing to cooperate. Will continue to monitor.
[2019-04-24] MEDS: Aspirin 81 MG TAB.CHEW PO (08:29)
--- NOTE | 2019-04-24 09:20 | NURSING ---
Pt put in bed at this time. Pt turned to right side. Pt states he has not slept in a bed for over 6 years and wasn't going to start now. This nurse explained to the pt it is imperative for him to spend time in the bed so that he could turn from side to side and not sit and sleep in his chair all day and all night.
--- NOTE | 2019-04-24 11:10 | NURSING ---
Entered Pt room to find him sleeping. This nurse woke the PT up and explained to him I was going to turn him at this time. Pt agreeable and stated he was not in pain. Pt turned to left side at this time.
[2019-04-24 14:02] VITALS: BP 140/67; PULSE 72; RESP 18; TEMP 36.6; O2SAT 93
--- NOTE | 2019-04-24 14:49 | NURSING ---
Entered pt room for medication pass. Son in pt room. Son states his father has been sleeping the whole time he has been here and was pleased. Son said pt has slept in a recliner for 5-6 years and that he has tried to have him sleep in a bed. Son said he has not seen his dad so calm. Pt awakened and was very pleasant. Will continue to monitor.
[2019-04-24 19:51] VITALS: PULSE 63; O2SAT 92
[2019-04-24] MEDS: Memantine Hydrochloride 10 MG Tablet PO (20:59)
[2019-04-24] MEDS: Lidocaine 5% Patch 1 PATCH TOPICAL (20:59)
[2019-04-24] MEDS: MELATONIN 10 MG TABLET 5 MG PO (20:59)
[2019-04-24] MEDS: Donepezil HCl 10 MG Tablet PO (20:59)
[2019-04-25] MEDS: Enoxaparin 40 MG/0.4 ML Syringe SC (05:14)
[2019-04-25] MEDS: Isosorbide Mononitrate 30 MG Tablet PO (05:14)
[2019-04-25] MEDS: Levothyroxine 112 MCG Tablet PO (05:14)
[2019-04-25] MEDS: Acetaminophen 500 MG Tablet 1000 MG PO ×3 (05:14→22:53)
[2019-04-25] MEDS: Iron Polysaccharide Complex 150 MG CAPSULE PO (05:14)
[2019-04-25] MEDS: Escitalopram Oxalate 10 MG Tablet PO (05:15)
[2019-04-25] MEDS: Menthol/Lanolin/Calamine/Znox 113 GM Tube 1 APPLIC TOPICAL ×2 (05:19→22:53)
[2019-04-25] MEDS: Nystatin Powder 15gm Bottle 1 APPLIC TOPICAL ×2 (05:20→22:53)
[2019-04-25 06:04] LABS: Anion Gap 6 (5-15); BUN 27 mg/dL (7-18); Calcium,Total 8.3 mg/dL (8.5-10.1); Chloride 108 mmol/L (98-107); Creatinine, Serum 1.42 mg/dL (0.70-1.30); EST Glomerular Filtration Rate 50 mL/min (>60); Est Glom Filt Rate - Afr Amer 61 mL/min (>60); Estimated Creatinine Clearance 39.98 ml/min; Glucose 86 mg/dL (74-106); Potassium 4.1 mmol/L (3.5-5.1); Sodium Level 141 mmol/L (136-145)
[2019-04-25 08:09] VITALS: BP 140/61; PULSE 58
[2019-04-25] MEDS: oxyCODONE 5 MG Tablet PO (08:12)
[2019-04-25] MEDS: Aspirin 81 MG TAB.CHEW PO (08:12)
[2019-04-25] MEDS: Amiodarone 200 MG Tablet PO (08:12)
--- NOTE | 2019-04-25 08:38 | NURSING ---
ALL CARE DONE IN PT ROOM DUE TO ISOLATION PRECAUTIONS.
[2019-04-25 10:00] VITALS: PULSE 65; RESP 18; O2SAT 92
--- NOTE | 2019-04-25 13:23 | NURSING ---
PT STILL REFUSING TO GET IN SHOWER. THIS NURSE TALKED TO PT SON AND ASKED SON IF HE COULD TALK HIS DAD INTO GETTING IN SHOWER. SON STATED HE WOULD BUT STATED PT SOME TIMES DONT LISTEN TO HIM AND WILL ALSO LET X KNOW TO SEE IF SHE CAN GET HIM IN SHOWER. PT SON ALSO STATED THAT HE IS HAPPY DUE TO HIS DAD GETTING INTO THE BED AND HAD A GOOD NIGHT SLEEP YESTERDAY.
[2019-04-25 13:45] VITALS: BP 142/65; PULSE 70; RESP 18; TEMP 36.4; O2SAT 95
--- NOTE | 2019-04-25 14:22 | CASEMGMT ---
Social Work Met with pt and pt son about palliative care referral-requested more information through brochure, but agreeable to referral. Made referral and faxed over information. Will continue to follow. Monique Pope, social work product managent intern Gabriela Land, TRICK RODEO RIDER BUILDING EQUIPMENT OPERATOR
--- NOTE | 2019-04-25 16:01 | CASEMGMT ---
Social Work Reviewed and agreed with social work bakery pastry internship documentation on this date. Gabriela Land, FOREST LOGISTICS MANAGER FLANGER
[2019-04-25] MEDS: Donepezil HCl 10 MG Tablet PO (22:52)
[2019-04-25] MEDS: Memantine Hydrochloride 10 MG Tablet PO (22:52)
[2019-04-25] MEDS: Lidocaine 5% Patch 1 PATCH TOPICAL (22:54)
[2019-04-25] MEDS: MELATONIN 10 MG TABLET 5 MG PO (22:55)
[2019-04-26] MEDS: Escitalopram Oxalate 10 MG Tablet PO (05:40)
[2019-04-26] MEDS: Levothyroxine 112 MCG Tablet PO (05:40)
[2019-04-26] MEDS: Iron Polysaccharide Complex 150 MG CAPSULE PO (05:40)
[2019-04-26] MEDS: Acetaminophen 500 MG Tablet 1000 MG PO ×3 (05:40→22:25)
[2019-04-26] MEDS: Enoxaparin 40 MG/0.4 ML Syringe SC (05:40)
[2019-04-26] MEDS: Isosorbide Mononitrate 30 MG Tablet PO (05:40)
[2019-04-26] MEDS: Senna/Docusate Sodium 1 Tablet 2 TABLET PO (05:41)
[2019-04-26] MEDS: Nystatin Powder 15gm Bottle 1 APPLIC TOPICAL ×2 (05:42→22:27)
[2019-04-26] MEDS: Menthol/Lanolin/Calamine/Znox 113 GM Tube 1 APPLIC TOPICAL ×2 (05:43→22:27)
[2019-04-26] MEDS: Aspirin 81 MG TAB.CHEW PO (08:22)
[2019-04-26] MEDS: oxyCODONE 5 MG Tablet PO (08:22)
--- NOTE | 2019-04-26 10:37 | NURSING ---
this nurse in pt room to apply stacey wraps and found water filled blister on right foot by pinky toe, size of a quarter. pt washed up at sink with therapy. Therapy stated they will try getting pt in shower when he is stronger. this nurse also applied lotion to pt body. reported to chandrika samuels
--- NOTE | 2019-04-26 11:47 | PCA ---
Spoke with Shira at [facility] regarding Pre cert for CT SCAN. No Pre cert needed if done at [facility]. RN aware
[2019-04-26 14:19] VITALS: BP 149/84; PULSE 63; RESP 18; TEMP 36.6; O2SAT 92
--- NOTE | 2019-04-26 15:33 | NURSING ---
wound photo: bilateral buttocks
--- NOTE | 2019-04-26 16:00 | CASEMGMT ---
Social Work Reviewed and agreed with social work post graduate internship documentation on this date. Gabriela Land, VISOR INSTALLER JEWELSMITH
--- NOTE | 2019-04-26 16:43 | CASEMGMT ---
Social Work Talked with pt son about insurance update, 05/09. Educated on insurance wanting DC plans in place for NRD 05/09- pt son hopeful for pt to go home as pt is receiving injection for pain as the family wants to give him his best chance but son is realistic to discussing alt. plans with social human services assistants. Pt son contacted by palliative care, son to discuss palliative care with pt ex- and pt daughter. Will continue to follow. Monique Pope, social work phd intern Gabriela Land, SEAT SCOOPER MACHINE LABORER AMMUNITION ASSEMBLY
[2019-04-26] MEDS: Memantine Hydrochloride 10 MG Tablet PO (17:24)
--- NOTE | 2019-04-26 18:20 | NURSING ---
dr Lai reviewed CT scan of Rt hip, no new orders
[2019-04-26 22:00] VITALS: PULSE 60; O2SAT 93
[2019-04-26] MEDS: MELATONIN 10 MG TABLET 5 MG PO (22:24)
[2019-04-26] MEDS: Donepezil HCl 10 MG Tablet PO (22:25)
[2019-04-26] MEDS: Lidocaine 5% Patch 1 PATCH TOPICAL (22:25)
[2019-04-27] MEDS: Levothyroxine 112 MCG Tablet PO (05:38)
[2019-04-27] MEDS: Enoxaparin 40 MG/0.4 ML Syringe SC (05:38)
[2019-04-27] MEDS: Isosorbide Mononitrate 30 MG Tablet PO (05:38)
[2019-04-27] MEDS: Memantine Hydrochloride 10 MG Tablet PO ×2 (05:38→17:32)
[2019-04-27] MEDS: Iron Polysaccharide Complex 150 MG CAPSULE PO (05:38)
[2019-04-27] MEDS: Escitalopram Oxalate 10 MG Tablet PO (05:38)
[2019-04-27] MEDS: Acetaminophen 500 MG Tablet 1000 MG PO ×3 (05:40→21:01)
[2019-04-27] MEDS: Nystatin Powder 15gm Bottle 1 APPLIC TOPICAL ×2 (05:41→21:05)
[2019-04-27] MEDS: Menthol/Lanolin/Calamine/Znox 113 GM Tube 1 APPLIC TOPICAL ×2 (05:42→21:06)
[2019-04-27] MEDS: Aspirin 81 MG TAB.CHEW PO (08:49)
[2019-04-27] MEDS: Amiodarone 200 MG Tablet PO (08:49)
[2019-04-27 10:34] VITALS: PULSE 70
[2019-04-27 14:24] VITALS: BP 152/73; PULSE 54; RESP 18; TEMP 36.9; O2SAT 95
--- NOTE | 2019-04-27 15:06 | CASEMGMT ---
Social Work Reviewed and agreed with social work director internal control documentation on this date. Gabriela Land, NET MAKING SUPERVISOR UTILITY HAND
[2019-04-27] MEDS: oxyCODONE 5 MG Tablet PO (17:30)
[2019-04-27] MEDS: Lidocaine 5% Patch 1 PATCH TOPICAL (21:00)
[2019-04-27] MEDS: MELATONIN 10 MG TABLET 5 MG PO (21:01)
[2019-04-27] MEDS: Donepezil HCl 10 MG Tablet PO (21:02)
[2019-04-28] MEDS: Enoxaparin 40 MG/0.4 ML Syringe SC (06:15)
[2019-04-28] MEDS: Isosorbide Mononitrate 30 MG Tablet PO (06:15)
[2019-04-28] MEDS: Escitalopram Oxalate 10 MG Tablet PO (06:15)
[2019-04-28] MEDS: Acetaminophen 500 MG Tablet 1000 MG PO ×3 (06:15→22:07)
[2019-04-28] MEDS: Levothyroxine 112 MCG Tablet PO (06:16)
[2019-04-28] MEDS: Memantine Hydrochloride 10 MG Tablet PO ×2 (06:16→16:40)
[2019-04-28] MEDS: Iron Polysaccharide Complex 150 MG CAPSULE PO (06:16)
[2019-04-28] MEDS: Nystatin Powder 15gm Bottle 1 APPLIC TOPICAL ×2 (06:21→22:14)
[2019-04-28] MEDS: Menthol/Lanolin/Calamine/Znox 113 GM Tube 1 APPLIC TOPICAL ×2 (06:22→22:15)
--- NOTE | 2019-04-28 06:39 | MDS.RN ---
Information for the mds was obtained from review of the clinical record, interview of resident, staff, and direct observation of resident's care.
[2019-04-28] MEDS: Aspirin 81 MG TAB.CHEW PO (08:05)
[2019-04-28] MEDS: oxyCODONE 5 MG Tablet PO ×2 (08:27→22:10)
--- NOTE | 2019-04-28 11:38 | NURSING ---
R' REMAINS IN DROPLET PRECAUTIONS THIS SHIFT. ALL CARE PROVIDED IN ROOM.
[2019-04-28 14:46] VITALS: BP 144/69; PULSE 62; RESP 18; TEMP 36.3; O2SAT 96
[2019-04-28] MEDS: Donepezil HCl 10 MG Tablet PO (22:07)
[2019-04-28] MEDS: MELATONIN 10 MG TABLET 5 MG PO (22:08)
[2019-04-28] MEDS: Lidocaine 5% Patch 1 PATCH TOPICAL (22:10)
[2019-04-29] MEDS: Iron Polysaccharide Complex 150 MG CAPSULE PO (06:01)
[2019-04-29] MEDS: Levothyroxine 112 MCG Tablet PO (06:01)
[2019-04-29] MEDS: Memantine Hydrochloride 10 MG Tablet PO ×2 (06:01→16:19)
[2019-04-29] MEDS: Acetaminophen 500 MG Tablet 1000 MG PO ×3 (06:01→21:51)
[2019-04-29] MEDS: Enoxaparin 40 MG/0.4 ML Syringe SC (06:01)
[2019-04-29] MEDS: Escitalopram Oxalate 10 MG Tablet PO (06:02)
[2019-04-29] MEDS: Isosorbide Mononitrate 30 MG Tablet PO (06:02)
[2019-04-29] MEDS: Nystatin Powder 15gm Bottle 1 APPLIC TOPICAL ×2 (06:06→21:58)
[2019-04-29] MEDS: Menthol/Lanolin/Calamine/Znox 113 GM Tube 1 APPLIC TOPICAL ×2 (06:07→21:58)
[2019-04-29] MEDS: Aspirin 81 MG TAB.CHEW PO (08:34)
[2019-04-29] MEDS: Amiodarone 200 MG Tablet PO (08:35)
--- NOTE | 2019-04-29 09:07 | NURSING ---
R' REMAINS IN DROPLET PRECAUTIONS THIS SHIFT. ALL CARE PROVIDED IN ROOM.
[2019-04-29 16:00] VITALS: BP 160/69; PULSE 58; RESP 18; TEMP 36.4; O2SAT 95
--- NOTE | 2019-04-29 18:49 | NURSING ---
c/o coughing N.O. Flunisolide, Tessalon pearls, Robitussin, Loratadine & CXRay
--- NOTE | 2019-04-29 19:05 | RAD_ITS ---
HISTORY: COUGH, RECENT HIP REPLACEMENT EXAMINATION/TECHNIQUE: XR Chest 2 Views: COMPARISON: 09/19/2017 FINDINGS: No significant change. The heart is upper normal in size. The upper lung zones show hyperinflation with increased retrosternal airspace compatible with COPD. Chronic blunting of the costophrenic angles related to pleural scarring and/or small effusions. No acute infiltrate or vascular congestion. No pneumothorax. Thoracic aorta is atherosclerotic. Hypertrophic degenerative changes of the dorsal spine. RAD/Chest PA and Lateral IMPRESSION: 1. No acute disease or significant change. 2. COPD. 3. Chronic blunting of the costophrenic angles related to pleural scarring and/or small effusions. at 0522 Reported and signed by: Juan Jose Ann MD Electronically Signed: Juan Jose Ann, at 5:21 EST Tel , Service support ,
[2019-04-29] MEDS: Donepezil HCl 10 MG Tablet PO (21:49)
[2019-04-29] MEDS: MELATONIN 10 MG TABLET 5 MG PO (21:50)
[2019-04-29 21:52] VITALS: PULSE 62; RESP 16; O2SAT 94
[2019-04-29] MEDS: Benzonatate 100 MG Capsule PO (21:52)
[2019-04-29] MEDS: Lidocaine 5% Patch 1 PATCH TOPICAL (21:56)
[2019-04-30] MEDS: Isosorbide Mononitrate 30 MG Tablet PO (06:24)
[2019-04-30] MEDS: Senna/Docusate Sodium 1 Tablet 2 TABLET PO (06:24)
[2019-04-30] MEDS: Memantine Hydrochloride 10 MG Tablet PO ×2 (06:24→17:11)
[2019-04-30] MEDS: Acetaminophen 500 MG Tablet 1000 MG PO ×3 (06:24→23:09)
[2019-04-30] MEDS: Escitalopram Oxalate 10 MG Tablet PO (06:24)
[2019-04-30] MEDS: Enoxaparin 40 MG/0.4 ML Syringe SC (06:24)
[2019-04-30] MEDS: Loratadine 10 MG Tablet PO (06:25)
[2019-04-30] MEDS: Levothyroxine 112 MCG Tablet PO (06:25)
[2019-04-30] MEDS: Benzonatate 100 MG Capsule PO ×3 (06:25→23:09)
[2019-04-30] MEDS: Iron Polysaccharide Complex 150 MG CAPSULE PO (06:25)
[2019-04-30] MEDS: Menthol/Lanolin/Calamine/Znox 113 GM Tube 1 APPLIC TOPICAL ×2 (06:30→23:15)
[2019-04-30] MEDS: Nystatin Powder 15gm Bottle 1 APPLIC TOPICAL ×2 (06:30→23:14)
[2019-04-30 07:37] LABS: Absolute Lymphocyte Count 1.52 X10^3/uL (0.83-4.51); Absolute Neutrophil Count 2.4 X10^3/uL (2.0-7.7); Basophil# 0.05 X10^3/uL; Eosinophil# 0.73 X10^3/uL; Eosinophils% 13.9 % (0-5); Hematocrit 36.4 % (40-54); Hemoglobin 11.8 g/dL (13.0-16.5); Lymphocyte # 1.52 X10^3/ul (4.0); Mean Corp Hgb Conc 32.4 g/dL (32-36); Mean Corpuscular Hgb 33.6 pg (27.0-32.0); Mean Corpuscular Volume 103.7 fL (80-94); Mean Platelet Vol. 8.4 fl (6.2-12.0); Monocyte% 9.5 % (0-10); NRBC Flagged by Analyzer 0 % (0-5); Neutrophil # 2.43 X10^3/uL (2.7-7.7); Neutrophil % 46.4 % (47-70); Platelet Count 123 K/mm3 (150-450); RBC Distribution Width CV 14.2 % (11.6-14.6); RBC Distribution Width SD 53.7 fl (35.1-43.9); Red Blood Count 3.51 M/mm3 (4.6-6.2); White Blood Count 5.2 K/mm3 (4.4-11.0)
[2019-04-30 07:47] LABS: Anion Gap 3 (5-15); BUN 43 mg/dL (7-18); BUN/Creat Ratio 28.1 RATIO (10-20); Calcium,Total 8.4 mg/dL (8.5-10.1); Chloride 109 mmol/L (98-107); Creatinine, Serum 1.53 mg/dL (0.70-1.30); EST Glomerular Filtration Rate 46 mL/min (>60); Est Glom Filt Rate - Afr Amer 56 mL/min (>60); Estimated Creatinine Clearance 37.11 ml/min; Glucose 85 mg/dL (74-106); Potassium 4.3 mmol/L (3.5-5.1); Sodium Level 140 mmol/L (136-145)
[2019-04-30] MEDS: Aspirin 81 MG TAB.CHEW PO (09:02)
[2019-04-30 09:15] VITALS: PULSE 64; RESP 20; O2SAT 90
[2019-04-30] MEDS: oxyCODONE 5 MG Tablet PO (13:01)
[2019-04-30 14:40] VITALS: BP 114/56; PULSE 61; RESP 18; TEMP 36.7; O2SAT 92
[2019-04-30] MEDS: Donepezil HCl 10 MG Tablet PO (23:06)
[2019-04-30] MEDS: MELATONIN 10 MG TABLET 5 MG PO (23:07)
[2019-04-30] MEDS: Lidocaine 5% Patch 1 PATCH TOPICAL (23:08)
[2019-05-01] MEDS: Levothyroxine 112 MCG Tablet PO (05:27)
[2019-05-01] MEDS: Escitalopram Oxalate 10 MG Tablet PO (05:27)
[2019-05-01] MEDS: Benzonatate 100 MG Capsule PO ×3 (05:28→20:38)
[2019-05-01] MEDS: Memantine Hydrochloride 10 MG Tablet PO ×2 (05:28→17:04)
[2019-05-01] MEDS: Iron Polysaccharide Complex 150 MG CAPSULE PO (05:28)
[2019-05-01] MEDS: Isosorbide Mononitrate 30 MG Tablet PO (05:28)
[2019-05-01] MEDS: Loratadine 10 MG Tablet PO (05:28)
[2019-05-01] MEDS: Acetaminophen 500 MG Tablet 1000 MG PO ×3 (05:29→20:38)
[2019-05-01] MEDS: Enoxaparin 40 MG/0.4 ML Syringe SC (05:29)
[2019-05-01] MEDS: Menthol/Lanolin/Calamine/Znox 113 GM Tube 1 APPLIC TOPICAL ×2 (05:31→20:39)
[2019-05-01] MEDS: Nystatin Powder 15gm Bottle 1 APPLIC TOPICAL ×2 (05:31→20:40)
--- NOTE | 2019-05-01 08:18 | NURSING ---
ALL CARE GIVEN IN ROOM DUE TO PT IN PRECAUTIONS FOR RHINO VIRUS.
[2019-05-01] MEDS: Amiodarone 200 MG Tablet PO (08:26)
[2019-05-01] MEDS: Aspirin 81 MG TAB.CHEW PO (08:26)
[2019-05-01] MEDS: oxyCODONE 5 MG Tablet PO ×2 (08:32→20:39)
[2019-05-01 08:41] VITALS: BP 131/88; PULSE 61
[2019-05-01 14:57] VITALS: BP 137/63; PULSE 61; RESP 18; TEMP 36.4; O2SAT 90
[2019-05-01] MEDS: Senna/Docusate Sodium 1 Tablet 2 TABLET PO (17:08)
[2019-05-01] MEDS: MELATONIN 10 MG TABLET 5 MG PO (20:38)
[2019-05-01] MEDS: Donepezil HCl 10 MG Tablet PO (20:38)
[2019-05-01] MEDS: guaiFENesin Dm 10 ML UDC PO (20:39)
[2019-05-01] MEDS: Lidocaine 5% Patch 1 PATCH TOPICAL (20:40)
[2019-05-02] MEDS: Enoxaparin 40 MG/0.4 ML Syringe SC (06:13)
[2019-05-02] MEDS: Menthol/Lanolin/Calamine/Znox 113 GM Tube 1 APPLIC TOPICAL ×2 (06:14→20:22)
[2019-05-02] MEDS: Nystatin Powder 15gm Bottle 1 APPLIC TOPICAL ×2 (06:14→20:23)
[2019-05-02] MEDS: guaiFENesin Dm 10 ML UDC PO (06:14)
--- NOTE | 2019-05-02 06:41 | NURSING ---
Addendum entered by Beverly Devi 05/02/19 06:42: 0630- Pt had large yellow emesis just after taking AM medications, pills intact noted in emesis and discarded. Pt also had an XL loose dark brown BM. Bed bath given. Pt denies need for alejandra gregg/further intervention at this time. Note left for Dr. Lai re: new onset vomiting and diarrhea. Further medications held at this time. Original Note: 0400- Pt had moderate size yellow emesis after coughing up thick/yellow mucus into emesis bag. Denies feeling nauseated.
--- NOTE | 2019-05-02 08:55 | RAD_ITS ---
STUDY: X-RAY - ABDOMEN/PELVIS REASON FOR EXAM: Male, 83 years old. DIARRHEA TECHNIQUE: Single AP view of the abdomen / pelvis. COMPARISON: None. FINDINGS: Normal visualized lung bases. There is an unremarkable bowel gas pattern. There is no demonstrated free abdominal air. The visualized liver, spleen and kidneys are grossly normal in size and morphology. Normal soft tissue structures. Status post bilateral hip arthroplasty. RAD/Abdomen Single View IMPRESSION: Normal x-ray examination of the abdomen and pelvis. Electronically Signed: Josh Mckeon MD at 13:05 EST Tel , Service support ,
--- NOTE | 2019-05-02 09:01 | NURSING ---
Pt having multiple yellow-brown colored emesis and loose, watery stools. Charge nurse notified. New orders entered by DR. Lai.
[2019-05-02 09:39] LABS: Absolute Lymphocyte Count 0.36 X10^3/uL (0.83-4.51); Absolute Neutrophil Count 6.1 X10^3/uL (2.0-7.7); Basophil# 0.02 X10^3/uL; Basophil% 0.3 % (0-1); Eosinophil# 0.25 X10^3/uL; Eosinophils% 3.6 % (0-5); Hematocrit 43.7 % (40-54); Hemoglobin 14.2 g/dL (13.0-16.5); Lymphocyte # 0.36 X10^3/ul (4.0); Lymphocyte % 5.1 % (19-41); Mean Corp Hgb Conc 32.5 g/dL (32-36); Mean Corpuscular Hgb 34.2 pg (27.0-32.0); Mean Corpuscular Volume 105.3 fL (80-94); Mean Platelet Vol. 8.1 fl (6.2-12.0); Monocyte# 0.32 X10^3/uL; Monocyte% 4.5 % (0-10); NRBC Flagged by Analyzer 0 % (0-5); Neutrophil # 6.08 X10^3/uL (2.7-7.7); Neutrophil % 86.4 % (47-70); POSITIVE DIFFERENTIAL YES; Platelet Count 110 K/mm3 (150-450); RBC Distribution Width CV 14.1 % (11.6-14.6); RBC Distribution Width SD 55.8 fl (35.1-43.9); Red Blood Count 4.15 M/mm3 (4.6-6.2)
[2019-05-02 09:46] LABS: Differential Indicated SCAN CRITERIA MET
[2019-05-02 09:53] LABS: Anion Gap 7 (5-15); BUN 46 mg/dL (7-18); BUN/Creat Ratio 27.5 RATIO (10-20); Calcium,Total 8.4 mg/dL (8.5-10.1); Chloride 108 mmol/L (98-107); Creatinine, Serum 1.67 mg/dL (0.70-1.30); EST Glomerular Filtration Rate 42 mL/min (>60); Est Glom Filt Rate - Afr Amer 51 mL/min (>60); Glucose 98 mg/dL (74-106); Potassium 4.7 mmol/L (3.5-5.1); Sodium Level 141 mmol/L (136-145)
[2019-05-02 10:00] VITALS: PULSE 60; RESP 18; O2SAT 93
[2019-05-02] MEDS: 0.9% Normal Saline 1,000 ML 999 ML IV (10:21)
[2019-05-02] MEDS: 0.9% Normal Saline 1,000 ML 60 ML IV (11:33)
--- NOTE | 2019-05-02 11:45 | NURSING ---
patient's diet changed to clear liquids per Dr. Lai's order.
[2019-05-02 15:09] VITALS: BP 137/63; PULSE 65; RESP 18; TEMP 37.3
[2019-05-02 15:18] LABS: Bacteria 0 SEEN /hpf (None Seen); Mucous, Urine 0 SEEN /hpf (<or=2+); Red Blood Cells-Urine 0 SEEN /hpf (0-5); Squamous Epithelial Cells - UA 0 SEEN /hpf (0-5)
[2019-05-02 15:21] LABS: Color, Urine Yellow (Yellow); Glucose, Dipstick Normal (Normal); Ketone-Dipstick Negative (Negative); Leukocyte Esterase-Dipstick 25 /ul (Negative); Nitrite-Dipstick Negative (Negative); Occult Blood-Urine 10 /ul (Negative); Protein-Dipstick 15 mg/dl (Negative); Urine Bilirubin Dipstick Negative (Negative); Urine Clarity Clear (Clear); Urine Urobilinogen Normal (Normal)
[2019-05-02 15:28] LABS: White Blood Cells 0-5 SEEN /hpf (0-5)
--- NOTE | 2019-05-02 19:30 | NURSING ---
Patient tested + for Norovirus. Dr. Lai notified. Patient to be put in contact isolation.
--- NOTE | 2019-05-02 20:06 | NURSING ---
Found patient with IV out of right wrist. Moderate amount of blood all over bed and patient. Site secured. New IV established in left hand. Patient tolerated well.
[2019-05-02] MEDS: Lidocaine 5% Patch 1 PATCH TOPICAL (20:12)
[2019-05-02] MEDS: Benzonatate 100 MG Capsule PO (20:13)
[2019-05-02] MEDS: Acetaminophen 500 MG Tablet 1000 MG PO (20:13)
[2019-05-02] MEDS: Donepezil HCl 10 MG Tablet PO (20:14)
[2019-05-02] MEDS: MELATONIN 10 MG TABLET 5 MG PO (20:14)
[2019-05-02] MEDS: oxyCODONE 5 MG Tablet PO (20:17)
[2019-05-03] MEDS: Acetaminophen 500 MG Tablet 1000 MG PO ×3 (04:22→20:27)
[2019-05-03] MEDS: Benzonatate 100 MG Capsule PO ×3 (04:22→20:27)
[2019-05-03] MEDS: Levothyroxine 112 MCG Tablet PO (04:22)
[2019-05-03] MEDS: Loratadine 10 MG Tablet PO (04:23)
[2019-05-03] MEDS: Isosorbide Mononitrate 30 MG Tablet PO (04:23)
[2019-05-03] MEDS: Enoxaparin 40 MG/0.4 ML Syringe SC (04:23)
[2019-05-03] MEDS: Escitalopram Oxalate 10 MG Tablet PO (04:24)
[2019-05-03] MEDS: Iron Polysaccharide Complex 150 MG CAPSULE PO (04:24)
[2019-05-03] MEDS: 0.9% Normal Saline 1,000 ML 60 ML IV ×2 (04:26→20:25)
[2019-05-03] MEDS: Nystatin Powder 15gm Bottle 1 APPLIC TOPICAL ×2 (04:31→20:29)
[2019-05-03] MEDS: Menthol/Lanolin/Calamine/Znox 113 GM Tube 1 APPLIC TOPICAL ×2 (04:32→20:29)
--- NOTE | 2019-05-03 09:05 | NURSING ---
ALL CARE IN PT ROOM DUE TO PT IN PRECAUTIONS.
[2019-05-03] MEDS: Aspirin 81 MG TAB.CHEW PO (09:09)
[2019-05-03] MEDS: Amiodarone 200 MG Tablet PO (09:16)
[2019-05-03 09:21] VITALS: BP 140/65; PULSE 58
[2019-05-03 14:31] VITALS: BP 138/56; PULSE 65; RESP 18; TEMP 36.6; O2SAT 91
[2019-05-03] MEDS: oxyCODONE 5 MG Tablet PO (20:26)
[2019-05-03] MEDS: Lidocaine 5% Patch 1 PATCH TOPICAL (20:26)
[2019-05-03] MEDS: MELATONIN 10 MG TABLET 5 MG PO (20:27)
[2019-05-03] MEDS: Donepezil HCl 10 MG Tablet PO (20:27)
--- NOTE | 2019-05-04 01:26 | NURSING ---
All care was provided to patient in room, patient is currently in isolation.
[2019-05-04] MEDS: Menthol/Lanolin/Calamine/Znox 113 GM Tube 1 APPLIC TOPICAL ×2 (04:31→22:05)
[2019-05-04] MEDS: Nystatin Powder 15gm Bottle 1 APPLIC TOPICAL ×2 (04:31→22:07)
[2019-05-04] MEDS: Isosorbide Mononitrate 30 MG Tablet PO (04:32)
[2019-05-04] MEDS: Loratadine 10 MG Tablet PO (04:32)
[2019-05-04] MEDS: Enoxaparin 40 MG/0.4 ML Syringe SC (04:32)
[2019-05-04] MEDS: Acetaminophen 500 MG Tablet 1000 MG PO ×3 (04:32→22:05)
[2019-05-04] MEDS: Levothyroxine 112 MCG Tablet PO (04:32)
[2019-05-04] MEDS: Iron Polysaccharide Complex 150 MG CAPSULE PO (04:33)
[2019-05-04] MEDS: Benzonatate 100 MG Capsule PO ×3 (04:33→22:05)
[2019-05-04] MEDS: Escitalopram Oxalate 10 MG Tablet PO (04:33)
[2019-05-04] MEDS: Aspirin 81 MG TAB.CHEW PO (09:07)
[2019-05-04] MEDS: oxyCODONE 5 MG Tablet PO (09:08)
[2019-05-04 10:00] VITALS: PULSE 53; RESP 20; O2SAT 93
[2019-05-04] MEDS: 0.9% Normal Saline 1,000 ML 60 ML IV (13:30)
[2019-05-04 14:18] VITALS: BP 140/53; PULSE 64; RESP 18; TEMP 36.8; O2SAT 95
[2019-05-04] MEDS: 0.9 % NaCl (Sterile) Posiflush 10 mL IV (15:18)
[2019-05-04] MEDS: Senna/Docusate Sodium 1 Tablet 2 TABLET PO (17:42)
[2019-05-04] MEDS: Donepezil HCl 10 MG Tablet PO (22:06)
[2019-05-04] MEDS: MELATONIN 10 MG TABLET 5 MG PO (22:06)
[2019-05-04] MEDS: Lidocaine 5% Patch 1 PATCH TOPICAL (22:07)
[2019-05-04] MEDS: guaiFENesin Dm 10 ML UDC PO (22:50)
[2019-05-05] MEDS: Isosorbide Mononitrate 30 MG Tablet PO (06:43)
[2019-05-05] MEDS: Escitalopram Oxalate 10 MG Tablet PO (06:43)
[2019-05-05] MEDS: Loratadine 10 MG Tablet PO (06:43)
[2019-05-05] MEDS: Enoxaparin 40 MG/0.4 ML Syringe SC (06:43)
[2019-05-05] MEDS: Iron Polysaccharide Complex 150 MG CAPSULE PO (06:43)
[2019-05-05] MEDS: Benzonatate 100 MG Capsule PO ×3 (06:43→20:54)
[2019-05-05] MEDS: Levothyroxine 112 MCG Tablet PO (06:43)
[2019-05-05] MEDS: Acetaminophen 500 MG Tablet 1000 MG PO ×3 (06:44→20:54)
[2019-05-05] MEDS: Nystatin Powder 15gm Bottle 1 APPLIC TOPICAL ×2 (06:44→21:03)
[2019-05-05] MEDS: Menthol/Lanolin/Calamine/Znox 113 GM Tube 1 APPLIC TOPICAL ×2 (06:45→21:04)
--- NOTE | 2019-05-05 07:58 | RAD_ITS ---
EXAM DESCRIPTION: AP and lateral chest CLINICAL HISTORY: 83 years Male, COUGH COUGH COMPARISON: Previous chest from 04/29/2011 FINDINGS: The thorax is intact. The heart and mediastinum appear to be within normal limits. The lungs appear to be well areated without evidence of pneumonic consolidation or pleural effusion. RAD/Chest PA and Lateral IMPRESSION: Normal AP and lateral chest Electronically Signed: Brendon Aguilar, at 11:26 EST Tel , Service support ,
--- NOTE | 2019-05-05 08:33 | NURSING ---
Addendum entered by Alpa Munson 05/05/19 17:53: CXR negative. Original Note: slot shift supervisor reported pt with coarse crackles, exp wheezes, strong moist cough. new order for aerosal tx's, chest xray, and DC IVF.
[2019-05-05] MEDS: Aspirin 81 MG TAB.CHEW PO (08:55)
[2019-05-05] MEDS: Amiodarone 200 MG Tablet PO (08:55)
[2019-05-05 09:19] VITALS: BP 129/59; PULSE 58; O2SAT 92
--- NOTE | 2019-05-05 10:43 | NURSING ---
ALL CARE GIVEN IN ROOM DO TO PT IN PRECAUTIONS.
--- NOTE | 2019-05-05 12:12 | PCA ---
was picking up pts lunch tray and a guest was visiting without wearing PPE in room, i asked patient to put a mask and gown on for protection, she stated i will wear a mask, not a gown i already had the crub' gave her a mask to wear.
[2019-05-05 13:40] VITALS: PULSE 89; RESP 20
[2019-05-05] MEDS: Ipratropium/Albuterol Sulfate 3 ML AMPUL.NEB INHALATION ×2 (13:40→19:15)
[2019-05-05 15:24] VITALS: BP 130/71; PULSE 66; RESP 20; TEMP 36.8; O2SAT 94
--- NOTE | 2019-05-05 16:27 | PCA ---
Went into patient room when asked for assistance because his bottom was hurting. Patient repositioned in the chair by himself to the right side. Offered patient to go lay in bed patient refused and said the bed is uncomfortable and he wont lay in it.. asked him if he wanted to sit in a wheelchair for a little while also refused and said no that he wants to talk to his doctor. Told nurse and she left a message for the doctor to come see him.
[2019-05-05 19:15] VITALS: PULSE 78; RESP 16
--- NOTE | 2019-05-05 20:04 | PCA ---
Addendum entered by Shakeel Olivares 05/05/19 22:05: EXPLOSIVE OPERATOR BOMB approached patient later on in the shift, and patient allowed EXPLOSIVE OPERATOR BOMB to get him washed up for bed with no issues. Patient is in bed with pillow under left side turned towards the window. Original Note: This EXPLOSIVE OPERATOR BOMB went into get patient ready for bed. EXPLOSIVE OPERATOR BOMB handed patient a wash rag to have him wash their face, when patient said Don't interrupt me im the patient you're the DR. and then threw the wash rag at EXPLOSIVE OPERATOR BOMB. Patient was not talking prior to EXPLOSIVE OPERATOR BOMB handing him the rag. RN aware.
[2019-05-05] MEDS: Lidocaine 5% Patch 1 PATCH TOPICAL (20:55)
[2019-05-05] MEDS: MELATONIN 10 MG TABLET 5 MG PO (20:55)
[2019-05-05] MEDS: Donepezil HCl 10 MG Tablet PO (20:55)
[2019-05-05] MEDS: guaiFENesin Dm 10 ML UDC PO (22:44)
[2019-05-06] MEDS: Benzonatate 100 MG Capsule PO ×3 (05:25→21:14)
[2019-05-06] MEDS: Acetaminophen 500 MG Tablet 1000 MG PO ×3 (05:25→21:14)
[2019-05-06] MEDS: Iron Polysaccharide Complex 150 MG CAPSULE PO (05:25)
[2019-05-06] MEDS: Enoxaparin 40 MG/0.4 ML Syringe SC (05:26)
[2019-05-06] MEDS: Levothyroxine 112 MCG Tablet PO (05:26)
[2019-05-06] MEDS: Escitalopram Oxalate 10 MG Tablet PO (05:26)
[2019-05-06] MEDS: Isosorbide Mononitrate 30 MG Tablet PO (05:26)
[2019-05-06] MEDS: Loratadine 10 MG Tablet PO (05:26)
[2019-05-06] MEDS: Nystatin Powder 15gm Bottle 1 APPLIC TOPICAL ×2 (05:31→21:14)
[2019-05-06] MEDS: Menthol/Lanolin/Calamine/Znox 113 GM Tube 1 APPLIC TOPICAL ×2 (05:32→21:14)
[2019-05-06 07:04] VITALS: PULSE 63; RESP 18; O2SAT 92
[2019-05-06] MEDS: Ipratropium/Albuterol Sulfate 3 ML AMPUL.NEB INHALATION ×2 (07:04→19:38)
--- NOTE | 2019-05-06 08:58 | PCA ---
Went to pickup pt's breakfast tray, pt explained to me that he was being released today and his family was coming to get him, i told pt i would check with social staff worker on discharge information, called social staff worker she explained to me that he was not being released today. pt called out again an stated that he was being shipped out today i explained to pt that i spoke to the social staff worker an we have no knowledge of him being discharged today. pt said well someone came into my room and told me i was.
[2019-05-06] MEDS: Aspirin 81 MG TAB.CHEW PO (09:25)
[2019-05-06] MEDS: 0.9% Saline Lock 10 ML Syringe IV (13:35)
[2019-05-06] MEDS: oxyCODONE 5 MG Tablet PO (13:37)
--- NOTE | 2019-05-06 14:11 | NURSING ---
Addendum entered by Alpa Munson 05/06/19 14:48: Dr Nolan's office notified, he will see pt on Thursday. Original Note: pt continues with rt groin and hip pain. new order to consult Dr Nolan.
[2019-05-06 15:42] VITALS: BP 135/69; PULSE 54; RESP 18; TEMP 36.3; O2SAT 95
[2019-05-06 19:38] VITALS: PULSE 71; RESP 20
[2019-05-06] MEDS: Donepezil HCl 10 MG Tablet PO (21:14)
[2019-05-06] MEDS: MELATONIN 10 MG TABLET 5 MG PO (21:14)
[2019-05-06] MEDS: Lidocaine 5% Patch 1 PATCH TOPICAL (21:14)
[2019-05-07] MEDS: Levothyroxine 112 MCG Tablet PO (05:14)
[2019-05-07] MEDS: Enoxaparin 40 MG/0.4 ML Syringe SC (05:14)
[2019-05-07] MEDS: Acetaminophen 500 MG Tablet 1000 MG PO ×3 (05:14→22:14)
[2019-05-07] MEDS: Loratadine 10 MG Tablet PO (05:15)
[2019-05-07] MEDS: Iron Polysaccharide Complex 150 MG CAPSULE PO (05:15)
[2019-05-07] MEDS: Escitalopram Oxalate 10 MG Tablet PO (05:15)
[2019-05-07] MEDS: Isosorbide Mononitrate 30 MG Tablet PO (05:15)
[2019-05-07] MEDS: Nystatin Powder 15gm Bottle 1 APPLIC TOPICAL ×2 (05:16→22:15)
[2019-05-07] MEDS: Menthol/Lanolin/Calamine/Znox 113 GM Tube 1 APPLIC TOPICAL ×2 (05:16→22:15)
[2019-05-07 06:36] VITALS: PULSE 69; RESP 19; O2SAT 93
[2019-05-07] MEDS: Ipratropium/Albuterol Sulfate 3 ML AMPUL.NEB INHALATION ×3 (06:36→19:13)
[2019-05-07 07:11] LABS: Absolute Lymphocyte Count 1.62 X10^3/uL (0.83-4.51); Absolute Neutrophil Count 2.6 X10^3/uL (2.0-7.7); Basophil# 0.04 X10^3/uL; Basophil% 0.8 % (0-1); Eosinophil# 0.49 X10^3/uL; Eosinophils% 9.4 % (0-5); Hematocrit 37.3 % (40-54); Hemoglobin 12.2 g/dL (13.0-16.5); Lymphocyte # 1.62 X10^3/ul (4.0); Lymphocyte % 31.1 % (19-41); Mean Corp Hgb Conc 32.7 g/dL (32-36); Mean Corpuscular Hgb 33.7 pg (27.0-32.0); Mean Platelet Vol. 8.6 fl (6.2-12.0); Monocyte# 0.44 X10^3/uL; Monocyte% 8.4 % (0-10); NRBC Flagged by Analyzer 0 % (0-5); Neutrophil # 2.61 X10^3/uL (2.7-7.7); Neutrophil % 50.1 % (47-70); Platelet Count 103 K/mm3 (150-450); RBC Distribution Width CV 13.9 % (11.6-14.6); RBC Distribution Width SD 53.3 fl (35.1-43.9); Red Blood Count 3.62 M/mm3 (4.6-6.2); White Blood Count 5.2 K/mm3 (4.4-11.0)
[2019-05-07 07:53] LABS: Anion Gap 7 (5-15); BUN 41 mg/dL (7-18); BUN/Creat Ratio 26.5 RATIO (10-20); Calcium,Total 7.9 mg/dL (8.5-10.1); Chloride 111 mmol/L (98-107); Creatinine, Serum 1.55 mg/dL (0.70-1.30); EST Glomerular Filtration Rate 46 mL/min (>60); Est Glom Filt Rate - Afr Amer 55 mL/min (>60); Estimated Creatinine Clearance 36.63 ml/min; Glucose 89 mg/dL (74-106); Potassium 3.6 mmol/L (3.5-5.1); Sodium Level 142 mmol/L (136-145)
[2019-05-07] MEDS: Aspirin 81 MG TAB.CHEW PO (10:42)
[2019-05-07] MEDS: Amiodarone 200 MG Tablet PO (10:42)
[2019-05-07 13:27] VITALS: PULSE 70; RESP 18
[2019-05-07 14:12] VITALS: BP 121/62; PULSE 56; RESP 17; TEMP 36.9; O2SAT 95
[2019-05-07] MEDS: oxyCODONE 5 MG Tablet PO (14:35)
[2019-05-07 19:13] VITALS: PULSE 65; RESP 18
[2019-05-07] MEDS: MELATONIN 10 MG TABLET 5 MG PO (22:15)
[2019-05-07] MEDS: Donepezil HCl 10 MG Tablet PO (22:15)
[2019-05-07] MEDS: Lidocaine 5% Patch 1 PATCH TOPICAL (22:16)
[2019-05-08] MEDS: Acetaminophen 500 MG Tablet 1000 MG PO ×3 (06:16→21:32)
[2019-05-08] MEDS: Nystatin Powder 15gm Bottle 1 APPLIC TOPICAL ×2 (06:16→21:47)
[2019-05-08] MEDS: Levothyroxine 112 MCG Tablet PO (06:16)
[2019-05-08] MEDS: Menthol/Lanolin/Calamine/Znox 113 GM Tube 1 APPLIC TOPICAL ×2 (06:17→21:46)
[2019-05-08] MEDS: Isosorbide Mononitrate 30 MG Tablet PO (06:17)
[2019-05-08] MEDS: Iron Polysaccharide Complex 150 MG CAPSULE PO (06:17)
[2019-05-08] MEDS: Escitalopram Oxalate 10 MG Tablet PO (06:17)
[2019-05-08] MEDS: Enoxaparin 40 MG/0.4 ML Syringe SC (06:18)
--- NOTE | 2019-05-08 06:48 | NURSING ---
All care was provided to patient in room, patient is currently in isolation.
[2019-05-08 07:13] VITALS: PULSE 69; RESP 19; O2SAT 94
[2019-05-08] MEDS: Ipratropium/Albuterol Sulfate 3 ML AMPUL.NEB INHALATION ×3 (07:13→19:31)
[2019-05-08] MEDS: Aspirin 81 MG TAB.CHEW PO (09:46)
[2019-05-08 13:25] VITALS: PULSE 79; RESP 19
[2019-05-08 14:12] VITALS: BP 151/92; PULSE 63; RESP 16; TEMP 36.6; O2SAT 96
--- NOTE | 2019-05-08 19:01 | NURSING ---
Pt remained in special contact isolation for norovirus and droplet for rhinovirus during shift. all care provided in room.
[2019-05-08 19:31] VITALS: PULSE 72; RESP 18
[2019-05-08] MEDS: Lidocaine 5% Patch 1 PATCH TOPICAL (21:31)
[2019-05-08] MEDS: MELATONIN 10 MG TABLET 5 MG PO (21:32)
[2019-05-08] MEDS: Donepezil HCl 10 MG Tablet PO (21:33)
--- NOTE | 2019-05-09 03:07 | NURSING ---
All care was provided to patient in room, patient is currently in isolation.
[2019-05-09] MEDS: Menthol/Lanolin/Calamine/Znox 113 GM Tube 1 APPLIC TOPICAL ×2 (05:54→21:23)
[2019-05-09] MEDS: Iron Polysaccharide Complex 150 MG CAPSULE PO (05:55)
[2019-05-09] MEDS: Escitalopram Oxalate 10 MG Tablet PO (05:55)
[2019-05-09] MEDS: Acetaminophen 500 MG Tablet 1000 MG PO ×3 (05:55→21:18)
[2019-05-09] MEDS: Nystatin Powder 15gm Bottle 1 APPLIC TOPICAL ×2 (05:55→21:24)
[2019-05-09] MEDS: Isosorbide Mononitrate 30 MG Tablet PO (05:55)
[2019-05-09] MEDS: Levothyroxine 112 MCG Tablet PO (05:55)
[2019-05-09] MEDS: Enoxaparin 40 MG/0.4 ML Syringe SC (05:57)
[2019-05-09 07:30] VITALS: PULSE 68; RESP 16; O2SAT 94
[2019-05-09] MEDS: Ipratropium/Albuterol Sulfate 3 ML AMPUL.NEB INHALATION ×2 (07:30→12:53)
[2019-05-09] MEDS: Amiodarone 200 MG Tablet PO (09:13)
[2019-05-09] MEDS: Aspirin 81 MG TAB.CHEW PO (09:13)
[2019-05-09 09:26] VITALS: PULSE 68; RESP 20; O2SAT 95
[2019-05-09] MEDS: oxyCODONE 5 MG Tablet PO ×2 (11:37→19:42)
[2019-05-09 13:55] VITALS: PULSE 73; RESP 16
--- NOTE | 2019-05-09 14:25 | NURSING ---
all care and treatments provided in room d/t special contact isolation
[2019-05-09 14:26] VITALS: BP 126/62; PULSE 69; RESP 18; TEMP 36.8; O2SAT 18
[2019-05-09] MEDS: Senna/Docusate Sodium 1 Tablet 2 TABLET PO (16:35)
--- NOTE | 2019-05-09 19:39 | PN_ITS ---
Subjective: Resident seen in room, he is sitting in recliner. He has no complaints, of note, resident had Rhinovirus 04/20/2019, Norovirus 05/02/2019, both treated supportively with good results. Vitals/I&O's: Vital Signs Temp Pulse Resp BP Pulse Ox 98.2 F 69 18 126/62 H 18 05/09/19 14:26 05/09/19 14:26 05/09/19 14:26 05/09/19 14:26 05/09/19 14:26 Oxygen Delivery Method Room Air Weight: 90.917 kg Body Mass Index (BMI) 30.4 Finger Stick Blood Glucose 85 Intake and Output for Last 24 Hours 05/07/19 05/08/19 05/09/19 23:59 23:59 23:59 Intake Total 720 / 720 960 / 960 360 / 360 Balance 720 / 720 960 / 960 360 / 360 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) tricep surgery (Chronic) CKD (chronic kidney disease) (Chronic) Thrombocytopenia (Chronic) Old myocardial infarction (Chronic) Right bundle branch block (Chronic) Hypertension (Chronic) Paroxysmal SVT (supraventricular tachycardia) (Chronic) Nonsustained ventricular tachycardia (Chronic) Paroxysmal atrial fibrillation (Chronic) Stage III chronic kidney disease (Chronic) Obesity (BMI 30-39.9) (Chronic) Medical History: Medical History (Last Reviewed 02/18/19 @ 11:38 by Nelia Perez) Anemia (Acute) D64.9 COPD (chronic obstructive pulmonary disease) (Chronic) J44.9 GERD (gastroesophageal reflux disease) (Chronic) K21.9 Obstructive sleep apnea (Chronic) G47.33 Pancreatitis (Chronic) K85.90 Alzheimer disease (Chronic) G30.9, F02.80 CKD (chronic kidney disease) (Chronic) N18.9 Thrombocytopenia (Chronic) D69.6 Cystitis (Resolved) N30.90 Bacteremia (Resolved) R78.81 Bld Cx w/ preliminary Klebsiella Oxytoca and Morganella Morganii sp morgani. Old myocardial infarction (Chronic) I25.2 Right bundle branch block (Chronic) I45.10 Hypertension (Chronic) I10 Paroxysmal SVT (supraventricular tachycardia) (Chronic) I47.1 Nonsustained ventricular tachycardia (Chronic) I47.2 Paroxysmal atrial fibrillation (Chronic) I48.0 Stage III chronic kidney disease (Chronic) Obesity (BMI 30-39.9) (Chronic) E66.9 Acute UTI (Resolved) N39.0 UCx not obtained, UA not severe appearing, given bacteremia, Klebsiella Oxytoca and Morganella Morganii sp morgani (final pending, thus suspect to speciate to the same) suspected secondary to UTI, complicated Fever and chills (Resolved) R50.9 Allergies morphine Adverse Reaction (Severe, Verified 02/18/19 11:50) hostility,disoriented hostility, disoriented Home Medications: Ambulatory Orders Medication Instructions Recorded Donepezil HCl 10 mg PO QHS 03/07/15 Escitalopram Oxalate 10 mg PO DAILY 11/24/18 Iron Polysaccharide Complex 150 mg PO DAILY 11/24/18 [Ferrex 150] Levothyroxine [Synthroid] 112 mcg PO DAILY 11/24/18 amiodarone 200 mg tablet 200 mg PO QODAY #90 tab 02/18/19 furosemide 20 mg tablet 20 mg PO QODAY tab 02/18/19 Aspirin [Aspirin, Baby] 81 mg PO DAILY@0800 04/13/19 Isosorbide Mononitrate [Isosorbide 30 mg PO DAILY 04/13/19 Mononitrate ER] Melatonin 5 mg PO QHS 04/13/19 Acetaminophen [Tylenol] 1,000 mg PO TID PRN tab 04/15/19 Lidocaine [Lidoderm Patch] 1 patch TOPICAL DAILY@219904/15/19 Oxycodone [Oxyir] 5 mg PO Q4H PRN PRN #20 tab 04/15/19 Surgical History: Surgical History (Last Reviewed 02/18/19 @ 11:38 by Nelia Perez) History of esophagogastroduodenoscopy (EGD) (Resolved) Z98.890 07/22/18 Hx of colonoscopy (Resolved) Z98.890 07/22/18 Hx of cholecystectomy (Chronic) Z90.49 H/O bilateral hip replacements (Chronic) Z96.643 excision of subglottic mass (Chronic) tricep surgery (Chronic) Surgical History: cholecystectomy, total hip arthroplasty - right 05/16/14 Dr Powell, Left 5 years ago, - - Right bicep repair 1994, excision subglottic mass. Psychiatric History: Depression Lives: Alone - Ex- checks on him daily. Smoking Status: Current every day smoker Tobacco Use: Chew Alcohol: None Drugs: None - *Family History Sibling Family History: Family History (Last Reviewed 02/18/19 @ 11:38 by Nelia Perez) Sister CAD (coronary artery disease) Sister Cancer Brother Cancer History Items: Cancer, Heart Disease Maternal Family History: Family History (Last Reviewed 02/18/19 @ 11:38 by Nelia Perez) Sister CAD (coronary artery disease) Sister Cancer Brother Cancer History Items: No pertinent history Paternal Family History: Family History (Last Reviewed 02/18/19 @ 11:38 by Nelia Perez) Sister CAD (coronary artery disease) Sister Cancer Brother Cancer History Items: No pertinent history Offspring Family History: Family History (Last Reviewed 02/18/19 @ 11:38 by Nelia Perez) Sister CAD (coronary artery disease) Sister Cancer Brother Cancer History Items: No pertinent history Capacity - Capacity Assessment Tool Can the patient make a choice & communicate that choice?: Yes Can the patient understand benefits, risks and alternatives?: Yes Can the patient make a logical, rational choice?: Yes Is the choice the patient makes consistent w/ their values?: Yes Is there an impending, emergent risk to the patient?: No Does the patient have an Advance Directive?: No Is there a Surrogate Available?: Yes i.e. HCPOA: Yes i.e. close relative (spouse, child, parent, sibling)?: Yes Review of Systems Constitutional: Denies: Chills, Fever, Weight Change HEENT: Denies: Head Aches, Sinus Congestion, Sinus Drainage Cardiovascular: Denies: Chest Pain, Palpitations Respiratory: Denies: Cough, Shortness of breath at rest, Sputum production Gastrointestinal: Denies: Abdominal Pain, Nausea, Vomiting Genitourinary: Denies: Dysuria Musculoskeletal: Denies: Joint Pain, Joint Tenderness Skin: Denies: Rash, Wounds Neurological: Denies: Numbness, Tingling, Focal weakness Psychiatric: Denies: Anxiety, Depression, Homicidal Ideations, Suicidal Ideations Hematologic/ Lymphatic: Denies: Easy Bruising, Easy Bleeding Patient Problems: Active and Suspected Problems (Last Reviewed 02/18/19 @ 11:38 by Nelia Perez) Debility (Acute) - Physical Exam Vitals/I&O's: Vital Signs Temp Pulse Resp BP Pulse Ox 98.2 F 69 18 126/62 H 18 05/09/19 14:26 05/09/19 14:26 05/09/19 14:26 05/09/19 14:26 05/09/19 14:26 Oxygen Delivery Method Room Air Weight: 90.917 kg Body Mass Index (BMI) 30.4 Finger Stick Blood Glucose 85 Intake and Output for Last 24 Hours 05/07/19 05/08/19 05/09/19 23:59 23:59 23:59 Intake Total 720 / 720 960 / 960 360 / 360 Balance 720 / 720 960 / 960 360 / 360 General: Alert, Oriented x3, Cooperative HEENT: Atraumatic, PERRLA, EOMI, Normocephalic Neck: Supple, No JVD, Negative Carotid Bruits Lungs: Clear to auscultation, Normal air movement Cardiovascular: Regular rate, No murmurs Abdomen: Bowel Sounds Present, Soft, Non Tender Extremities: No edema, Capillary Refill Less than 3 Seconds Skin: No rashes, No breakdown Musculoskeletal: No Tenderness to Palpation of Joints or Extremities Neurological: Cranial nerves II-XII grossly intact Psych/Mental Status: Normal Affect, Appropriate Current Medications Acetaminophen (Tylenol) 1,000 mg PO TID [facility] Last Admin: 05/09/19 14:01 Dose: 1,000 mg Documented by: Albuterol/Ipratropium (Duoneb) 3 ml INHALATION [id number].RT [facility] Last Admin: 05/09/19 12:53 Dose: 3 ml Documented by: Amiodarone HCl (Cordarone) 200 mg PO QODAY@0800 [facility] Last Admin: 05/09/19 09:13 Dose: 200 mg Documented by: Aspirin (Aspirin, Baby) 81 mg PO DAILY@0800 [facility] Last Admin: 05/09/19 09:13 Dose: 81 mg Documented by: Bisacodyl (Dulcolax) 10 mg PO DAILY PRN PRN Reason: Constipation Calamine/Phenol (Calmoseptine Ointment) 1 applic TOPICAL 599,2199 [facility]; Protocol Last Admin: 05/09/19 05:54 Dose: 1 applicatio Documented by: Donepezil HCl (Aricept) 10 mg PO QHS [facility] Last Admin: 05/08/19 21:33 Dose: 10 mg Documented by: Enoxaparin Sodium (Lovenox) 40 mg SC DAILY@06 [facility] Last Admin: 05/09/19 05:57 Dose: 40 mg Documented by: Escitalopram Oxalate (Lexapro) 10 mg PO DAILY [facility] Last Admin: 05/09/19 05:55 Dose: 10 mg Documented by: Hydrocortisone Acetate (Anusol Hc) 25 mg RECTAL TID PRN PRN PRN Reason: Hemorrhoids Isosorbide Mononitrate (Imdur) 30 mg PO DAILY [facility] Last Admin: 05/09/19 05:55 Dose: 30 mg Documented by: Levothyroxine Sodium (Synthroid) 112 mcg PO DAILY [facility] Last Admin: 05/09/19 05:55 Dose: 112 mcg Documented by: Lidocaine (Lidoderm Patch) 1 patch TOPICAL DAILY@2199 [facility]; Protocol Last Admin: 05/08/19 21:31 Dose: 1 patch Documented by: Melatonin (Melatonin) 5 mg PO QHS [facility] Last Admin: 05/08/19 21:32 Dose: 5 mg Documented by: Multi-Ingredient Cream (Eucerin) 1 applic TOPICAL 599,2199 [facility]; Protocol Last Admin: 05/09/19 05:56 Dose: 1 applicatio Documented by: Nutritional Formula (Elroy - [place] Flavor) 1 packet PO BIDCM [facility] Last Admin: 05/09/19 16:35 Dose: 1 packet Documented by: Nystatin (Mycostatin Powder) 1 applic TOPICAL 599,2199 [facility]; Protocol Last Admin: 05/09/19 05:55 Dose: 1 applicatio Documented by: Oxycodone HCl (Oxyir) 5 mg PO Q4H PRN PRN PRN Reason: Pain Score 4-10/10 Last Admin: 05/09/19 11:37 Dose: 5 mg Documented by: Polyethylene Glycol (Miralax) 17 gm PO DAILY [facility] Last Admin: 05/09/19 05:55 Dose: Not Given Documented by: Polysaccharide Iron Complex (Ferrex 150) 150 mg PO DAILY [facility] Last Admin: 05/09/19 05:55 Dose: 150 mg Documented by: Senna/Docusate Sodium (Senokot-S, Ruth-Colace) 2 tablet PO BID [facility] Last Admin: 05/09/19 16:35 Dose: 2 tablet Documented by: Sodium Chloride () 10 - 40 ml IV UD PRN PRN Reason: SALINE FLUSH Last Admin: 05/06/19 13:35 Dose: 10 ml Documented by: Assessment/Plan All Active Problems (Last Reviewed 02/18/19 @ 11:38 by Nelia Perez) Multiple rib fractures (Acute) Fall (Acute) Debility (Acute) History of esophagogastroduodenoscopy (EGD) (Resolved) Hx of colonoscopy (Resolved) Anemia (Acute) Cystitis (Resolved) Bacteremia (Resolved) Acute UTI (Resolved) Fever and chills (Resolved) Generalized weakness (Ruled-out) 83 year old male with below past medical history hospitalized after debilitating fall, right hip pain, fracture ruled out, admitted to TCU with debility, here for rehabilitation, strengthening, prior to discharge home alone. * Debility - PT/OT. * Pain - Tylenol 1000MG TID scheduled, Oxycodone 5MG Q4H PRN pain (4-10) * Bowel - Miralax 17GM daily, Senna/colace 2 tablets BID, Dulcolax 10MG daily PRN. * DVT prophylaxis - Lovenox 40MG SC daily. * Atrial Fibrillation - Amiodarone 200MG every other day, Aspirin 81MG daily. * Alzheimer Disease - Donepezil 10MG daily. * Iron deficiency anemia - Ferrex 150MG daily. * Coronary Artery Disease - Isosorbide MN 30MG daily, Aspirin 81MG daily. * Hypothyroidism - Levothyroxine 112MCG daily. * Back pain - Lidoderm patch 1 patch TD daily. * Insomnia - Melatonin 5MG QHS. * Depression - Lexapro 10MG daily. * Hemorrhoids - Anusol HC 2.5% NJ TID PRN. * Shortness of breath - Duoneb 3ML [id number]. * Skin irritation - Calmoseptine BID, Eucerin BID. * Nutrition - Elroy 1 packet twice daily. * Tinea Corporis - Nystatin powder BID. * Rhinovirus - Resolved with supportive treatment. * Norovirus - Resolving with supportive treatment.
[2019-05-09] MEDS: Lidocaine 5% Patch 1 PATCH TOPICAL (21:18)
[2019-05-09] MEDS: MELATONIN 10 MG TABLET 5 MG PO (21:18)
[2019-05-09] MEDS: Donepezil HCl 10 MG Tablet PO (21:18)
[2019-05-10] MEDS: oxyCODONE 5 MG Tablet PO ×2 (04:02→10:46)
[2019-05-10] MEDS: Polyethylene Glycol 3350 17 GM PACKET PO (04:03)
[2019-05-10] MEDS: Senna/Docusate Sodium 1 Tablet 2 TABLET PO ×2 (05:39→17:15)
[2019-05-10] MEDS: Enoxaparin 40 MG/0.4 ML Syringe SC (05:39)
[2019-05-10] MEDS: Escitalopram Oxalate 10 MG Tablet PO (05:40)
[2019-05-10] MEDS: Isosorbide Mononitrate 30 MG Tablet PO (05:40)
[2019-05-10] MEDS: Levothyroxine 112 MCG Tablet PO (05:40)
[2019-05-10] MEDS: Acetaminophen 500 MG Tablet 1000 MG PO ×3 (05:40→20:57)
[2019-05-10] MEDS: Iron Polysaccharide Complex 150 MG CAPSULE PO (05:40)
[2019-05-10] MEDS: Nystatin Powder 15gm Bottle 1 APPLIC TOPICAL ×2 (05:50→20:58)
[2019-05-10] MEDS: Menthol/Lanolin/Calamine/Znox 113 GM Tube 1 APPLIC TOPICAL ×2 (05:51→20:58)
[2019-05-10 07:08] VITALS: PULSE 58; RESP 18; O2SAT 96
[2019-05-10] MEDS: Ipratropium/Albuterol Sulfate 3 ML AMPUL.NEB INHALATION ×2 (07:08→19:05)
[2019-05-10] MEDS: Aspirin 81 MG TAB.CHEW PO (08:37)
[2019-05-10 13:58] VITALS: BP 121/51; PULSE 76; RESP 18; TEMP 36.7; O2SAT 94
[2019-05-10 19:05] VITALS: PULSE 75; RESP 16; O2SAT 95
[2019-05-10] MEDS: Lidocaine 5% Patch 1 PATCH TOPICAL (20:56)
[2019-05-10] MEDS: Donepezil HCl 10 MG Tablet PO (20:57)
[2019-05-10] MEDS: MELATONIN 10 MG TABLET 5 MG PO (20:57)
[2019-05-11] MEDS: Polyethylene Glycol 3350 17 GM PACKET PO (05:27)
--- NOTE | 2019-05-11 05:37 | NURSING ---
Pt very upset about how many pills he is taking this am. P tSaid i only take the brown pill. Pt refuse to give pill back to nurse. I want the doctor to come in here now. Explained md is at home . Pt said bullshit. Pt will not allow lovenox shot to be given. Pt will not allow creams to be appilied. When attempted to get pills back. pt brought his arm back like to hit this nurse. This nurse called for help. Elly came in and i was able to get pills back.
[2019-05-11 07:20] VITALS: PULSE 80; RESP 18; O2SAT 96
[2019-05-11] MEDS: Ipratropium/Albuterol Sulfate 3 ML AMPUL.NEB INHALATION ×3 (07:46→19:17)
[2019-05-11] MEDS: Aspirin 81 MG TAB.CHEW PO (08:12)
[2019-05-11] MEDS: Amiodarone 200 MG Tablet PO (08:12)
[2019-05-11] MEDS: oxyCODONE 5 MG Tablet PO (10:31)
[2019-05-11 14:06] VITALS: BP 116/72; PULSE 66; RESP 18; TEMP 36.4; O2SAT 94
[2019-05-11] MEDS: Acetaminophen 500 MG Tablet 1000 MG PO ×2 (14:17→19:50)
[2019-05-11 14:20] VITALS: PULSE 83; RESP 16
[2019-05-11] MEDS: Benzonatate 100 MG Capsule PO ×2 (16:07→21:19)
[2019-05-11] MEDS: Senna/Docusate Sodium 1 Tablet 2 TABLET PO (16:07)
--- NOTE | 2019-05-11 18:28 | NURSING ---
Dr Nolan to unit and requested Marcain, kenalog, betadine and 10cc syringe for tomorrow. He stated he will be back to the unit around 6pm tomorrow for an injection for the patients hip.
[2019-05-11 19:18] VITALS: PULSE 81; RESP 18
[2019-05-11] MEDS: MELATONIN 10 MG TABLET 5 MG PO (19:50)
[2019-05-11] MEDS: Donepezil HCl 10 MG Tablet PO (19:50)
[2019-05-11] MEDS: Lidocaine 5% Patch 1 PATCH TOPICAL (19:50)
[2019-05-11] MEDS: Menthol/Lanolin/Calamine/Znox 113 GM Tube 1 APPLIC TOPICAL (19:51)
[2019-05-11] MEDS: Nystatin Powder 15gm Bottle 1 APPLIC TOPICAL (19:52)
[2019-05-12] MEDS: Acetaminophen 500 MG Tablet 1000 MG PO ×3 (06:30→21:00)
[2019-05-12] MEDS: Polyethylene Glycol 3350 17 GM PACKET PO (06:30)
[2019-05-12] MEDS: Enoxaparin 40 MG/0.4 ML Syringe SC (06:30)
[2019-05-12] MEDS: Benzonatate 100 MG Capsule PO ×2 (06:30→19:50)
[2019-05-12] MEDS: Senna/Docusate Sodium 1 Tablet 2 TABLET PO (06:30)
[2019-05-12] MEDS: Iron Polysaccharide Complex 150 MG CAPSULE PO (06:30)
[2019-05-12] MEDS: Isosorbide Mononitrate 30 MG Tablet PO (06:30)
[2019-05-12] MEDS: Levothyroxine 112 MCG Tablet PO (06:30)
[2019-05-12] MEDS: Escitalopram Oxalate 10 MG Tablet PO (06:30)
[2019-05-12] MEDS: Menthol/Lanolin/Calamine/Znox 113 GM Tube 1 APPLIC TOPICAL ×2 (06:31→20:59)
[2019-05-12] MEDS: Nystatin Powder 15gm Bottle 1 APPLIC TOPICAL ×2 (06:31→21:01)
[2019-05-12 06:54] VITALS: PULSE 50; RESP 20; O2SAT 99
[2019-05-12] MEDS: Ipratropium/Albuterol Sulfate 3 ML AMPUL.NEB INHALATION ×3 (06:54→18:55)
[2019-05-12] MEDS: Aspirin 81 MG TAB.CHEW PO (08:12)
[2019-05-12 09:27] VITALS: PULSE 62; RESP 18; O2SAT 95
[2019-05-12 13:15] VITALS: PULSE 62; RESP 16
[2019-05-12 13:39] VITALS: BP 125/59; PULSE 64; RESP 18; TEMP 36; O2SAT 92
[2019-05-12] MEDS: Bupivacaine 0.25% 30 ML Vial IM (18:43)
[2019-05-12] MEDS: Triamcinolone Acetonide 40 MG/ML Vial IM (18:44)
--- NOTE | 2019-05-12 18:52 | NURSING ---
GAVE INJECTION IN PT RIGHT HIP. PT TOLERATED WELL. RN AWARE
[2019-05-12 18:55] VITALS: PULSE 69; RESP 18
[2019-05-12] MEDS: Donepezil HCl 10 MG Tablet PO (20:55)
[2019-05-12] MEDS: MELATONIN 10 MG TABLET 5 MG PO (20:57)
[2019-05-12] MEDS: Lidocaine 5% Patch 1 PATCH TOPICAL (21:02)
[2019-05-13] MEDS: Menthol/Lanolin/Calamine/Znox 113 GM Tube 1 APPLIC TOPICAL ×2 (05:57→21:01)
[2019-05-13] MEDS: Iron Polysaccharide Complex 150 MG CAPSULE PO (05:58)
[2019-05-13] MEDS: Isosorbide Mononitrate 30 MG Tablet PO (05:59)
[2019-05-13] MEDS: Escitalopram Oxalate 10 MG Tablet PO (05:59)
[2019-05-13] MEDS: Enoxaparin 40 MG/0.4 ML Syringe SC (05:59)
[2019-05-13] MEDS: Polyethylene Glycol 3350 17 GM PACKET PO (06:00)
[2019-05-13] MEDS: Nystatin Powder 15gm Bottle 1 APPLIC TOPICAL ×2 (06:01→21:01)
[2019-05-13] MEDS: Levothyroxine 112 MCG Tablet PO (06:01)
[2019-05-13] MEDS: Acetaminophen 500 MG Tablet 1000 MG PO ×3 (06:01→20:57)
[2019-05-13] MEDS: Senna/Docusate Sodium 1 Tablet 2 TABLET PO (06:01)
[2019-05-13] MEDS: Amiodarone 200 MG Tablet PO (08:46)
[2019-05-13] MEDS: Aspirin 81 MG TAB.CHEW PO (08:52)
[2019-05-13 08:54] VITALS: BP 144/69; PULSE 68
[2019-05-13] MEDS: Ipratropium/Albuterol Sulfate 3 ML AMPUL.NEB INHALATION ×2 (14:03→20:00)
[2019-05-13 14:04] VITALS: PULSE 67; RESP 18
[2019-05-13 14:21] VITALS: BP 139/70; PULSE 68; RESP 16; TEMP 36.7; O2SAT 94
[2019-05-13 20:00] VITALS: PULSE 69; RESP 18
[2019-05-13] MEDS: MELATONIN 10 MG TABLET 5 MG PO (20:57)
[2019-05-13] MEDS: Lidocaine 5% Patch 1 PATCH TOPICAL (20:57)
[2019-05-13] MEDS: Donepezil HCl 10 MG Tablet PO (20:57)
[2019-05-14] MEDS: Enoxaparin 40 MG/0.4 ML Syringe SC (05:03)
[2019-05-14] MEDS: Acetaminophen 500 MG Tablet 1000 MG PO ×3 (05:04→22:04)
[2019-05-14] MEDS: Iron Polysaccharide Complex 150 MG CAPSULE PO (05:04)
[2019-05-14] MEDS: Escitalopram Oxalate 10 MG Tablet PO (05:04)
[2019-05-14] MEDS: Isosorbide Mononitrate 30 MG Tablet PO (05:04)
[2019-05-14] MEDS: Levothyroxine 112 MCG Tablet PO (05:04)
[2019-05-14] MEDS: Nystatin Powder 15gm Bottle 1 APPLIC TOPICAL ×2 (05:09→22:07)
[2019-05-14] MEDS: Menthol/Lanolin/Calamine/Znox 113 GM Tube 1 APPLIC TOPICAL ×2 (05:09→22:05)
[2019-05-14 07:42] LABS: Absolute Lymphocyte Count 0.95 X10^3/uL (0.83-4.51); Absolute Neutrophil Count 4.7 X10^3/uL (2.0-7.7); Basophil# 0.01 X10^3/uL; Basophil% 0.2 % (0-1); Eosinophil# 0.02 X10^3/uL; Eosinophils% 0.3 % (0-5); Hematocrit 37.2 % (40-54); Hemoglobin 12.3 g/dL (13.0-16.5); Lymphocyte # 0.95 X10^3/ul (4.0); Lymphocyte % 15.5 % (19-41); Mean Corp Hgb Conc 33.1 g/dL (32-36); Mean Corpuscular Hgb 33.8 pg (27.0-32.0); Mean Corpuscular Volume 102.2 fL (80-94); Mean Platelet Vol. 8.8 fl (6.2-12.0); Monocyte# 0.38 X10^3/uL; Monocyte% 6.2 % (0-10); NRBC Flagged by Analyzer 0 % (0-5); Neutrophil # 4.73 X10^3/uL (2.7-7.7); Neutrophil % 77.5 % (47-70); Platelet Count 108 K/mm3 (150-450); RBC Distribution Width CV 13.8 % (11.6-14.6); RBC Distribution Width SD 52.4 fl (35.1-43.9); Red Blood Count 3.64 M/mm3 (4.6-6.2); White Blood Count 6.1 K/mm3 (4.4-11.0)
[2019-05-14 07:55] VITALS: PULSE 57; RESP 16; O2SAT 96
[2019-05-14] MEDS: Ipratropium/Albuterol Sulfate 3 ML AMPUL.NEB INHALATION ×2 (07:55→19:45)
[2019-05-14 07:59] LABS: Anion Gap 6 (5-15); BUN 53 mg/dL (7-18); BUN/Creat Ratio 37.1 RATIO (10-20); Calcium,Total 8.1 mg/dL (8.5-10.1); Chloride 108 mmol/L (98-107); Creatinine, Serum 1.43 mg/dL (0.70-1.30); EST Glomerular Filtration Rate 50 mL/min (>60); Est Glom Filt Rate - Afr Amer 61 mL/min (>60); Glucose 109 mg/dL (74-106); Potassium 4.8 mmol/L (3.5-5.1); Sodium Level 139 mmol/L (136-145)
[2019-05-14] MEDS: Aspirin 81 MG TAB.CHEW PO (08:31)
[2019-05-14 13:40] VITALS: PULSE 80; RESP 16; O2SAT 96
[2019-05-14 13:44] VITALS: BP 136/88; PULSE 67; RESP 16; TEMP 36.4; O2SAT 96
[2019-05-14] MEDS: Benzonatate 100 MG Capsule PO (13:46)
[2019-05-14] MEDS: Senna/Docusate Sodium 1 Tablet 2 TABLET PO (17:08)
[2019-05-14 19:45] VITALS: PULSE 75; RESP 16; O2SAT 95
[2019-05-14 22:00] VITALS: PULSE 77; RESP 18; O2SAT 97
[2019-05-14] MEDS: Donepezil HCl 10 MG Tablet PO (22:04)
[2019-05-14] MEDS: MELATONIN 10 MG TABLET 5 MG PO (22:06)
[2019-05-14] MEDS: Lidocaine 5% Patch 1 PATCH TOPICAL (22:08)
[2019-05-15] MEDS: Isosorbide Mononitrate 30 MG Tablet PO (06:29)
[2019-05-15] MEDS: Senna/Docusate Sodium 1 Tablet 2 TABLET PO (06:30)
[2019-05-15] MEDS: Levothyroxine 112 MCG Tablet PO (06:30)
[2019-05-15] MEDS: Acetaminophen 500 MG Tablet 1000 MG PO ×3 (06:30→20:15)
[2019-05-15] MEDS: Iron Polysaccharide Complex 150 MG CAPSULE PO (06:30)
[2019-05-15] MEDS: Escitalopram Oxalate 10 MG Tablet PO (06:30)
[2019-05-15] MEDS: Enoxaparin 40 MG/0.4 ML Syringe SC (06:31)
[2019-05-15] MEDS: Menthol/Lanolin/Calamine/Znox 113 GM Tube 1 APPLIC TOPICAL ×2 (06:32→20:11)
[2019-05-15] MEDS: Nystatin Powder 15gm Bottle 1 APPLIC TOPICAL ×2 (06:33→20:18)
[2019-05-15 07:08] VITALS: PULSE 58; RESP 16
[2019-05-15] MEDS: Ipratropium/Albuterol Sulfate 3 ML AMPUL.NEB INHALATION ×3 (07:08→19:45)
[2019-05-15] MEDS: Aspirin 81 MG TAB.CHEW PO (08:02)
[2019-05-15] MEDS: Amiodarone 200 MG Tablet PO (08:04)
[2019-05-15 10:00] VITALS: PULSE 76; RESP 18; O2SAT 97
[2019-05-15 13:32] VITALS: PULSE 76; RESP 16; O2SAT 96
[2019-05-15 13:38] VITALS: BP 122/74; PULSE 72; RESP 18; TEMP 36.1; O2SAT 96
[2019-05-15 19:40] VITALS: PULSE 80; RESP 16; O2SAT 96
[2019-05-15] MEDS: Donepezil HCl 10 MG Tablet PO (20:15)
[2019-05-15] MEDS: MELATONIN 10 MG TABLET 5 MG PO (20:16)
[2019-05-15] MEDS: Lidocaine 5% Patch 1 PATCH TOPICAL (20:17)
[2019-05-16] MEDS: Isosorbide Mononitrate 30 MG Tablet PO (05:53)
[2019-05-16] MEDS: Levothyroxine 112 MCG Tablet PO (05:53)
[2019-05-16] MEDS: Escitalopram Oxalate 10 MG Tablet PO (05:53)
[2019-05-16] MEDS: Enoxaparin 40 MG/0.4 ML Syringe SC (05:54)
[2019-05-16] MEDS: Acetaminophen 500 MG Tablet 1000 MG PO ×3 (05:54→21:45)
[2019-05-16] MEDS: Iron Polysaccharide Complex 150 MG CAPSULE PO (05:54)
[2019-05-16] MEDS: Nystatin Powder 15gm Bottle 1 APPLIC TOPICAL ×2 (05:57→21:45)
[2019-05-16] MEDS: Menthol/Lanolin/Calamine/Znox 113 GM Tube 1 APPLIC TOPICAL ×2 (05:57→21:45)
[2019-05-16 07:06] VITALS: PULSE 70; RESP 18
[2019-05-16] MEDS: Ipratropium/Albuterol Sulfate 3 ML AMPUL.NEB INHALATION ×2 (07:06→12:27)
[2019-05-16] MEDS: Aspirin 81 MG TAB.CHEW PO (08:07)
[2019-05-16 12:27] VITALS: PULSE 58; RESP 18
[2019-05-16 15:20] VITALS: BP 133/57; PULSE 51; RESP 18; TEMP 37.1; O2SAT 96
[2019-05-16] MEDS: Donepezil HCl 10 MG Tablet PO (21:45)
[2019-05-16] MEDS: MELATONIN 10 MG TABLET 5 MG PO (21:45)
[2019-05-16 22:00] VITALS: BP 120/56; PULSE 71; RESP 18; TEMP 36.9; O2SAT 94
[2019-05-17] MEDS: Menthol/Lanolin/Calamine/Znox 113 GM Tube 1 APPLIC TOPICAL ×2 (06:25→21:25)
[2019-05-17] MEDS: Levothyroxine 112 MCG Tablet PO (06:27)
[2019-05-17] MEDS: Enoxaparin 40 MG/0.4 ML Syringe SC (06:27)
[2019-05-17] MEDS: Escitalopram Oxalate 10 MG Tablet PO (06:28)
[2019-05-17] MEDS: Isosorbide Mononitrate 30 MG Tablet PO (06:28)
[2019-05-17] MEDS: Nystatin Powder 15gm Bottle 1 APPLIC TOPICAL ×2 (06:28→21:26)
[2019-05-17] MEDS: Iron Polysaccharide Complex 150 MG CAPSULE PO (06:28)
[2019-05-17] MEDS: Acetaminophen 500 MG Tablet 1000 MG PO ×3 (06:29→21:21)
[2019-05-17] MEDS: Ipratropium/Albuterol Sulfate 3 ML AMPUL.NEB INHALATION ×2 (07:05→13:36)
[2019-05-17 07:06] VITALS: PULSE 66; O2SAT 95
--- NOTE | 2019-05-17 07:15 | EKG12_ITS ---
Test Reason : JUWAN Blood Pressure : / mmHG Vent. Rate : 066 BPM Atrial Rate : 041 BPM P-R Int : 166 ms QRS Dur : 128 ms QT Int : 444 ms P-R-T Axes : 000 -72 068 degrees QTc Int : 465 ms Marked sinus bradycardia with marked sinus arrhythmia with occasional Premature ventricular complexes and Premature atrial complexes Non-specific intra-ventricular conduction block Abnormal ECG When compared with ECG of 18-SEP-2017 14:15, Premature ventricular complexes are now Present Premature atrial complexes are now Present IA interval has decreased T wave inversion no longer evident in Inferior leads T wave inversion less evident in Anterolateral leads QT has shortened Confirmed by MECHELLE TORRES ([id number]), video tape editor PRASHANTH HER ([id number]) on 05/19/2019 7:40:59 AM Referred By: Laith Lai Confirmed By:MECHELLE TORRES
--- NOTE | 2019-05-17 07:27 | CPS ---
While this RT was giving patient breathing treatment, the patient's HR on the pulse ox dropped to 26. Palpated pulse was 26 as well. Nurses notified. EKG obtained. On EKG patient HR was in the 60's. Frequent PVCs amd PACs noted. Anushka MAC
--- NOTE | 2019-05-17 07:30 | NURSING ---
Resp therapist in to check pt pulse ox and noted HR in 20's. EKG done. dr Lai updated, new order to make appt with cardiology [facility]. pt asymptomatic.
[2019-05-17] MEDS: Aspirin 81 MG TAB.CHEW PO (08:08)
[2019-05-17] MEDS: Amiodarone 200 MG Tablet PO (08:08)
[2019-05-17 08:26] VITALS: BP 131/60; PULSE 58; O2SAT 93
[2019-05-17 08:50] VITALS: PULSE 76; RESP 18; O2SAT 76
--- NOTE | 2019-05-17 11:55 | CASEMGMT ---
Social Work Spoke with patient's son about DC plans. Pt requesting to DC home. Son agreeable to DC 3/ and [facility]. No DME needs. Son stated his ex/ and himself check on pt daily and aides come in the afternoon for 4 hours to assist pt as well. Plan: DC home alone with support 05/18 with [facility] PT/OT. No DME needs. CIERRA AcevedoW
[2019-05-17 13:38] VITALS: PULSE 64; RESP 18
[2019-05-17 14:01] VITALS: BP 118/55; PULSE 65; RESP 22; TEMP 36.6; O2SAT 94
--- NOTE | 2019-05-17 17:27 | DCINST_ITS ---
- Discharge Diagnoses Current Active Problems: Current Active and Chronic Problems (Last Reviewed 02/18/19 @ 11:38 by Nelia Perez) Debility (Acute) Hypothyroidism (Chronic) Insomnia (Chronic) Coronary artery disease (Chronic) Atrial fibrillation (Chronic) Depression (Chronic) Iron deficiency anemia (Chronic) You will use the following diet at home:: No restrictions, Regular Your food should be the consistency of: Regular Your liquids should be the consistency of: Regular/Thin Discharge Activity: Return to Normal Activity, May Shower, Use Walker Weight Bearing Status: Weight bearing as tolerated Call your doctor if you observe: Fever of 101 or Higher, Inability to urinate, Inability to have a bowel movement, Chest pain, Uncontrolled pain Allergies/Adverse Reactions: Allergies morphine Adverse Reaction (Severe, Verified 02/18/19 11:50) hostility,disoriented hostility, disoriented Medications to take at Discharge Donepezil HCl 10 mg PO QHS 03/07/15 Escitalopram Oxalate 10 mg PO DAILY 11/24/18 Iron Polysaccharide Complex [Ferrex 150] 150 mg PO DAILY 11/24/18 Levothyroxine [Synthroid] 112 mcg PO DAILY 11/24/18 amiodarone 200 mg tablet 200 mg PO QODAY #90 tab 02/18/19 Aspirin [Aspirin, Baby] 81 mg PO DAILY@0800 04/13/19 Isosorbide Mononitrate [Isosorbide Mononitrate ER] 30 mg PO DAILY 04/13/19 Melatonin 5 mg PO QHS 04/13/19 Acetaminophen [Tylenol] 1,000 mg PO TID PRN tab 04/15/19 Menthol/Lanolin/Calamine/Znox [Calmoseptine Ointment] 1 applic TOPICAL 0600,2200 tube 05/17/19 Mineral Oil/Petrolatum,White [Eucerin] 1 applic TOPICAL 0600,2200 jar 05/17/19 Nutritional Supplement [Elroy - ORANGE FLAVOR] 1 packet PO BIDCM #60 packet 05/17/19 Nystatin Powder [Mycostatin Powder] 1 applic TOPICAL 0600,2200 bottle 05/17/19 The following prescriptions were given: Nutritional Supplement [Elroy - ORANGE FLAVOR] 1 packet PO BIDCM #60 packet Transmission Status: Pending to [id number] Primary Care Physician: Laith Lai Chi, MD [Primary Care Provider] - Please follow up with your Primary Care Physician in: 1 week. Test Results: Test results from this visit will be discussed in further detail at your follow- up appointment, if applicable. Proposed Discharge Date: 05/19/19
--- NOTE | 2019-05-17 17:28 | DS.PCM_ITS ---
Discharge Date and Diagnosis - Problem List Patient Problems: Active and Suspected Problems (Last Reviewed 02/18/19 @ 11:38 by Nelia Perez) Debility (Acute) Date of Admission: 04/15/19 Date of Discharge: 05/19/19 - Primary Discharge Diagnosis Active and Suspected Problems (Last Reviewed 02/18/19 @ 11:38 by Nelia Perez) Debility (Acute) - Secondary Discharge Diagnosis Chronic Problems (Last Reviewed 02/18/19 @ 11:38 by Nelia Perez) Hypothyroidism (Chronic) Insomnia (Chronic) Coronary artery disease (Chronic) Atrial fibrillation (Chronic) Depression (Chronic) Iron deficiency anemia (Chronic) COPD (chronic obstructive pulmonary disease) (Chronic) GERD (gastroesophageal reflux disease) (Chronic) Obstructive sleep apnea (Chronic) Pancreatitis (Chronic) Alzheimer disease (Chronic) Hx of cholecystectomy (Chronic) 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) tricep surgery (Chronic) CKD (chronic kidney disease) (Chronic) Thrombocytopenia (Chronic) Old myocardial infarction (Chronic) Right bundle branch block (Chronic) Hypertension (Chronic) Paroxysmal SVT (supraventricular tachycardia) (Chronic) Nonsustained ventricular tachycardia (Chronic) Paroxysmal atrial fibrillation (Chronic) Stage III chronic kidney disease (Chronic) Obesity (BMI 30-39.9) (Chronic) Hospital Course and Treatment Imaging Results: 05/06/19 07:18 Diet: Regular Diet Food consistency:: Regular Liquid Consistency:: Regular/Thin Is pt able to select menu?: Yes Diet Comments: low salt, low fat Clinical Impression(s) from Imaging Studies Hip/Pelvis X-Ray 04/22/19 08:04 IMPRESSION: Evidence of bilateral hip replacements. Degenerative changes of the lower lumbar spine. Electronically Signed: Marcos Lewis, at 10:43 EST , Service support , KUB X-Ray 05/02/19 08:55 IMPRESSION: Normal x-ray examination of the abdomen and pelvis. 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 Resident had Norovirus, which resolved with supportive care. Discharge home alone with support, [facility] PT/OT. Patient Problems: Active and Suspected Problems (Last Reviewed 02/18/19 @ 11:38 by Nelia Perez) Debility (Acute) - Physical Exam Vitals/I&O's: Vital Signs Temp Pulse Resp BP Pulse Ox 97.8 F 65 22 H 118/55 L 94 05/17/19 14:01 05/17/19 14:01 05/17/19 14:01 05/17/19 14:01 05/17/19 14:01 Oxygen Delivery Method Room Air Weight: 91.739 kg Body Mass Index (BMI) 30.4 Finger Stick Blood Glucose 85 Intake and Output for Last 24 Hours 05/15/19 05/16/19 05/17/19 23:59 23:59 23:59 Intake Total 920 / 920 680 / 680 Output Total Balance 920 / 920 680 / 680 Current Medications Acetaminophen (Tylenol) 1,000 mg PO TID [facility] Last Admin: 05/17/19 13:30 Dose: 1,000 mg Documented by: Albuterol/Ipratropium (Duoneb) 3 ml INHALATION Q6HWA.RT [facility] Last Admin: 05/17/19 13:36 Dose: 3 ml Documented by: Amiodarone HCl (Cordarone) 200 mg PO QODAY@0800 [facility] Last Admin: 05/17/19 08:08 Dose: 200 mg Documented by: Aspirin (Aspirin, Baby) 81 mg PO DAILY@0800 [facility] Last Admin: 05/17/19 08:08 Dose: 81 mg Documented by: Benzonatate (Tessalon Perle) 100 mg PO TID PRN PRN PRN Reason: COUGH Last Admin: 05/14/19 13:46 Dose: 100 mg Documented by: Bisacodyl (Dulcolax) 10 mg PO DAILY PRN PRN Reason: Constipation Calamine/Phenol (Calmoseptine Ointment) 1 applic TOPICAL 0600,2200 [facility]; Protocol Last Admin: 05/17/19 06:25 Dose: 1 applicatio Documented by: Donepezil HCl (Aricept) 10 mg PO QHS [facility] Last Admin: 05/16/19 21:45 Dose: 10 mg Documented by: Enoxaparin Sodium (Lovenox) 40 mg SC DAILY@0600 [facility] Last Admin: 05/17/19 06:27 Dose: 40 mg Documented by: Escitalopram Oxalate (Lexapro) 10 mg PO DAILY [facility] Last Admin: 05/17/19 06:28 Dose: 10 mg Documented by: Hydrocortisone Acetate (Anusol Hc) 25 mg RECTAL TID PRN PRN PRN Reason: Hemorrhoids Isosorbide Mononitrate (Imdur) 30 mg PO DAILY [facility] Last Admin: 05/17/19 06:28 Dose: 30 mg Documented by: Levothyroxine Sodium (Synthroid) 112 mcg PO DAILY [facility] Last Admin: 05/17/19 06:27 Dose: 112 mcg Documented by: Lidocaine (Lidoderm Patch) 1 patch TOPICAL DAILY@2199 [facility]; Protocol Last Admin: 05/16/19 21:46 Dose: Not Given Documented by: Melatonin (Melatonin) 5 mg PO QHS [facility] Last Admin: 05/16/19 21:45 Dose: 5 mg Documented by: Multi-Ingredient Cream (Eucerin) 1 applic TOPICAL 0600,2200 [facility]; Protocol Last Admin: 05/17/19 06:27 Dose: 1 applicatio Documented by: Nutritional Formula (Elroy - [place] Flavor) 1 packet PO BIDCM [facility] Last Admin: 05/17/19 17:13 Dose: 1 packet Documented by: Nystatin (Mycostatin Powder) 1 applic TOPICAL 0600,2200 [facility]; Protocol Last Admin: 05/17/19 06:28 Dose: 1 applicatio Documented by: Oxycodone HCl (Oxyir) 5 mg PO Q4H PRN PRN PRN Reason: Pain Score 4-10/10 Last Admin: 05/11/19 10:31 Dose: 5 mg Documented by: Polyethylene Glycol (Miralax) 17 gm PO DAILY [facility] Last Admin: 05/17/19 06:27 Dose: Not Given Documented by: Polysaccharide Iron Complex (Ferrex 150) 150 mg PO DAILY [facility] Last Admin: 05/17/19 06:28 Dose: 150 mg Documented by: Senna/Docusate Sodium (Senokot-S, Ruth-Colace) 2 tablet PO BID [facility] Last Admin: 05/17/19 17:13 Dose: Not Given Documented by: Sodium Chloride () 10 - 40 ml IV UD PRN PRN Reason: SALINE FLUSH Last Admin: 05/06/19 13:35 Dose: 10 ml Documented by: Discharge Diet: No Restrictions Discharge Activity: Return to Normal Activity, May Shower, Use Walker Weight Bearing Status: Weight bearing as tolerated Call your doctor if you observe: Fever of 101 or Higher, Inability to urinate, Inability to have a bowel movement, Chest pain, Uncontrolled pain Home Medications: Medications to take at Discharge Donepezil HCl 10 mg PO QHS 03/07/15 Escitalopram Oxalate 10 mg PO DAILY 11/24/18 Iron Polysaccharide Complex [Ferrex 150] 150 mg PO DAILY 11/24/18 Levothyroxine [Synthroid] 112 mcg PO DAILY 11/24/18 amiodarone 200 mg tablet 200 mg PO QODAY #90 tab 02/18/19 Aspirin [Aspirin, Baby] 81 mg PO DAILY@0800 04/13/19 Isosorbide Mononitrate [Isosorbide Mononitrate ER] 30 mg PO DAILY 04/13/19 Melatonin 5 mg PO QHS 04/13/19 Acetaminophen [Tylenol] 1,000 mg PO TID PRN tab 04/15/19 Menthol/Lanolin/Calamine/Znox [Calmoseptine Ointment] 1 applic TOPICAL 0600,2200 tube 05/17/19 Mineral Oil/Petrolatum,White [Eucerin] 1 applic TOPICAL 0600,2200 jar 05/17/19 Nutritional Supplement [Elroy - ORANGE FLAVOR] 1 packet PO BIDCM #60 packet 05/17/19 Nystatin Powder [Mycostatin Powder] 1 applic TOPICAL 0600,2200 bottle 05/17/19 Following Prescrptions Were Given to Patient: Nutritional Supplement [Elroy - ORANGE FLAVOR] 1 packet PO BIDCM #60 packet Transmission Status: Pending to [id number] Primary Care Physician: Laith Lai Chi, MD [Primary Care Provider] - Please follow up with your Primary Care Physician in: 1 week. Disposition: Home Minutes spent on discharge:: 30 Patient Condition:: Stable Medical Necessity - Tobacco Use Smoking Status: Current every day smoker Tobacco Use: Chew Meaningful Use Info Meaningful Use Diagnoses (Choose all that apply): None applicable
[2019-05-17] MEDS: Lidocaine 5% Patch 1 PATCH TOPICAL (21:21)
[2019-05-17] MEDS: MELATONIN 10 MG TABLET 5 MG PO (21:21)
[2019-05-17] MEDS: Donepezil HCl 10 MG Tablet PO (21:22)
[2019-05-18] MEDS: Enoxaparin 40 MG/0.4 ML Syringe SC (06:25)
[2019-05-18] MEDS: Isosorbide Mononitrate 30 MG Tablet PO (06:25)
[2019-05-18] MEDS: Acetaminophen 500 MG Tablet 1000 MG PO ×3 (06:25→20:26)
[2019-05-18] MEDS: Escitalopram Oxalate 10 MG Tablet PO (06:25)
[2019-05-18] MEDS: Iron Polysaccharide Complex 150 MG CAPSULE PO (06:25)
[2019-05-18] MEDS: Levothyroxine 112 MCG Tablet PO (06:26)
[2019-05-18] MEDS: Nystatin Powder 15gm Bottle 1 APPLIC TOPICAL ×2 (06:31→20:28)
[2019-05-18] MEDS: Menthol/Lanolin/Calamine/Znox 113 GM Tube 1 APPLIC TOPICAL ×2 (06:32→20:28)
[2019-05-18 07:33] VITALS: PULSE 48; RESP 18
[2019-05-18] MEDS: Ipratropium/Albuterol Sulfate 3 ML AMPUL.NEB INHALATION ×3 (07:33→19:12)
[2019-05-18] MEDS: Aspirin 81 MG TAB.CHEW PO (07:54)
--- NOTE | 2019-05-18 11:19 | MDS.RN ---
Resident's son, Debbie Young. notified of current visitor precautions regarding COVID-19
[2019-05-18 13:00] VITALS: PULSE 62; RESP 18
[2019-05-18 13:59] VITALS: BP 137/61; PULSE 79; RESP 16; TEMP 36.3; O2SAT 95
[2019-05-18 19:10] VITALS: PULSE 68; RESP 18
[2019-05-18] MEDS: Lidocaine 5% Patch 1 PATCH TOPICAL (20:24)
[2019-05-18] MEDS: MELATONIN 10 MG TABLET 5 MG PO (20:26)
[2019-05-18] MEDS: Donepezil HCl 10 MG Tablet PO (20:27)
[2019-05-19 05:48] VITALS: BP 149/57; PULSE 52; TEMP 36.6; O2SAT 95
[2019-05-19] MEDS: Nystatin Powder 15gm Bottle 1 APPLIC TOPICAL (05:52)
[2019-05-19] MEDS: Menthol/Lanolin/Calamine/Znox 113 GM Tube 1 APPLIC TOPICAL (05:52)
[2019-05-19] MEDS: Iron Polysaccharide Complex 150 MG CAPSULE PO (05:53)
[2019-05-19] MEDS: Acetaminophen 500 MG Tablet 1000 MG PO (05:53)
[2019-05-19] MEDS: Isosorbide Mononitrate 30 MG Tablet PO (05:54)
[2019-05-19] MEDS: Escitalopram Oxalate 10 MG Tablet PO (05:54)
[2019-05-19] MEDS: Enoxaparin 40 MG/0.4 ML Syringe SC (05:54)
[2019-05-19] MEDS: Levothyroxine 112 MCG Tablet PO (05:54)
[2019-05-19 06:55] VITALS: PULSE 80; RESP 16; O2SAT 95
[2019-05-19] MEDS: Ipratropium/Albuterol Sulfate 3 ML AMPUL.NEB INHALATION (06:55)
[2019-05-19] MEDS: Aspirin 81 MG TAB.CHEW PO (08:08)
[2019-05-19] MEDS: Amiodarone 200 MG Tablet PO (08:08)
[2019-05-19 10:00] VITALS: O2SAT 97
== END 2019-05-19 12:57 | disposition home or self-care (01) | DRG 552 ==
PROVIDERS: Admitting Provider Family Medicine Geriatric Medicine; PCP Family Medicine Geriatric Medicine; Referring Provider Family Medicine Geriatric Medicine; Visit Provider Family Medicine Geriatric Medicine
DX: M54.5 Low back pain (principal); I48.20 Chronic atrial fibrillation, unspecified; I47.1 Supraventricular tachycardia; A08.11 Acute gastroenteropathy due to Norwalk agent; S61.412D Laceration without foreign body of left hand, subsequent encounter; F02.80 Dementia in other diseases classified elsewhere, unspecified severity, without behavioral disturbance, psychotic disturbance, mood disturbance, and anxiety; G30.9 Alzheimer's disease, unspecified; E03.9 Hypothyroidism, unspecified; D50.9 Iron deficiency anemia, unspecified; I25.10 Atherosclerotic heart disease of native coronary artery without angina pectoris; F17.220 Nicotine dependence, chewing tobacco, uncomplicated; F32.9 Major depressive disorder, single episode, unspecified; N18.3 Chronic kidney disease, stage 3 (moderate); I12.9 Hypertensive chronic kidney disease with stage 1 through stage 4 chronic kidney disease, or unspecified chronic kidney disease; J44.9 Chronic obstructive pulmonary disease, unspecified; G47.33 Obstructive sleep apnea (adult) (pediatric); I25.2 Old myocardial infarction; I48.0 Paroxysmal atrial fibrillation; M25.551 Pain in right hip; K64.9 Unspecified hemorrhoids; B34.8 Other viral infections of unspecified site; E66.9 Obesity, unspecified; K21.9 Gastro-esophageal reflux disease without esophagitis; W19.XXXD Unspecified fall, subsequent encounter; Z68.30 Body mass index [BMI] 30.0-30.9, adult
CPT/HCPCS: 36415; 71046; 72100; 73502; 73700; 74018; 80048; 80053; 81001; 83630; 85025; 85027; 87086; 87088; 87493; 87506; 87633; 87804; 92507; 92523; 93005; 94640; 96361; 96372; 96374; 97110; 97116; 97162; 97163; 97167; 97530; 97535; 97802; 99218; 99251; 99285; J7030; A4216; G0378; G0379; G0463

== ENCOUNTER → 2019-04-26 12:39 | Outpatient (CLI) | payer MEDICARE, SELFPAY ==
[2019-04-15 14:52] VITALS: BMI 30.4
--- NOTE | 2019-04-26 12:42 | CT_ITS ---
STUDY: CT RIGHT FEMUR WITHOUT CONTRAST REASON FOR EXAM: Male, 83 years old. WORSENING RIGHT HIP PAIN RADIATION DOSAGE (If Supplied By Facility): CTDIvol = ( 25.41 ) mGy, DLP = ( 1025.75 ) mGycm TECHNIQUE: Transaxial CT imaging of the femur was performed. Sagittal and coronal images were reconstructed. Individualized dose optimization techniques were used for this CT. COMPARISON: Comparison is made with prior examination dated April 13, 2019. FINDINGS: The patient is status post right total hip replacement. There is good alignment. There is no evidence of a dislocation or fracture. Residual soft tissue swelling. CT/Extremity Lower without Contra IMPRESSION: Status post right total hip replacement. There is good alignment. No acute abnormality is seen. Electronically Signed: Marcos Lewis, at 14:02 EST , Service support ,
== END ==
PROVIDERS: PCP Family Medicine Geriatric Medicine; Referring Provider Family Medicine Geriatric Medicine; Visit Provider Family Medicine Geriatric Medicine
DX: M25.551 Pain in right hip (principal)
CPT/HCPCS: 73700

== ENCOUNTER → 2019-05-23 11:20 | Outpatient (CLI) | payer MEDICARE, SELFPAY ==
[2019-04-15 14:52] VITALS: BMI 30.4
[2019-05-23 12:47] LABS: Absolute Lymphocyte Count 1.41 X10^3/uL (0.83-4.51); Absolute Neutrophil Count 6.1 X10^3/uL (2.0-7.7); Basophil# 0.02 X10^3/uL; Basophil% 0.2 % (0-1); Eosinophil# 0.26 X10^3/uL; Eosinophils% 3.1 % (0-5); Hematocrit 42.3 % (40-54); Hemoglobin 13.6 g/dL (13.0-16.5); Lymphocyte # 1.41 X10^3/ul (4.0); Lymphocyte % 16.6 % (19-41); Mean Corp Hgb Conc 32.2 g/dL (32-36); Mean Corpuscular Volume 105.8 fL (80-94); Mean Platelet Vol. 8.6 fl (6.2-12.0); Monocyte# 0.71 X10^3/uL; Monocyte% 8.3 % (0-10); NRBC Flagged by Analyzer 0 % (0-5); Neutrophil # 6.07 X10^3/uL (2.7-7.7); Neutrophil % 71.3 % (47-70); Platelet Count 134 K/mm3 (150-450); RBC Distribution Width CV 14.2 % (11.6-14.6); RBC Distribution Width SD 56.3 fl (35.1-43.9); White Blood Count 8.5 K/mm3 (4.4-11.0)
[2019-05-23 12:57] LABS: ALB/GLOB Ratio 0.6 RATIO (0.9-2.4); AST(SGOT) 17 U/L (15-37); Alanine Aminotransfer ALT/SGPT 16 U/L (16-61); Albumin, Serum 2.6 g/dL (3.2-5.0); Alkaline Phosphatase 108 U/L (45-117); Anion Gap 7 (5-15); BUN 43 mg/dL (7-18); BUN/Creat Ratio 25.4 RATIO (10-20); Calcium,Total 7.9 mg/dL (8.5-10.1); Chloride 111 mmol/L (98-107); Creatinine, Serum 1.69 mg/dL (0.70-1.30); EST Glomerular Filtration Rate 41 mL/min (>60); Est Glom Filt Rate - Afr Amer 50 mL/min (>60); Globulin 4.1 g/dL (2.2-4.2); Glucose 82 mg/dL (74-106); Potassium 4.3 mmol/L (3.5-5.1); Protein, Total 6.7 g/dL (6.4-8.2); Sodium Level 142 mmol/L (136-145); Thyroid Stim Hormone (TSH) 6.84 uIU/mL (0.358-3.74)
== END ==
PROVIDERS: PCP Family Medicine Geriatric Medicine; Visit Provider Family Medicine Geriatric Medicine
DX: R53.83 Other fatigue (principal)
CPT/HCPCS: 36415; 80053; 84443; 85025

== ENCOUNTER → 2019-07-12 11:07 | Outpatient (CLI) | payer MEDICARE, SELFPAY ==
[2019-01-06 11:35] VITALS: BMI 30.4
[2019-04-15 14:52] VITALS: BMI 30.4
[2019-06-28 13:23] VITALS: BMI 30.4
[2019-07-12 11:53] LABS: Hematocrit 41.6 % (40-54); Hemoglobin 13.9 g/dL (13.0-16.5); Mean Corp Hgb Conc 33.4 g/dL (32-36); Mean Corpuscular Hgb 36.1 pg (27.0-32.0); Mean Corpuscular Volume 108.1 fL (80-94); Mean Platelet Vol. 8.6 fl (6.2-12.0); Platelet Count 120 K/mm3 (150-450); RBC Distribution Width CV 13.6 % (11.6-14.6); RBC Distribution Width SD 54.1 fl (35.1-43.9); Red Blood Count 3.85 M/mm3 (4.6-6.2); White Blood Count 4.6 K/mm3 (4.4-11.0)
[2019-07-12 12:34] LABS: Albumin, Serum 2.9 g/dL (3.2-5.0); BUN 27 mg/dL (7-18); Calcium,Total 8.7 mg/dL (8.5-10.1); Chloride 106 mmol/L (98-107); EST Glomerular Filtration Rate 47 mL/min (>60); Est Glom Filt Rate - Afr Amer 57 mL/min (>60); Glucose 78 mg/dL (74-106); Phosphorus 3.4 mg/dL (2.5-4.9); Potassium 4.1 mmol/L (3.5-5.1); Sodium Level 140 mmol/L (136-145); Thyroid Stim Hormone (TSH) 2.71 uIU/mL (0.358-3.74)
== END ==
PROVIDERS: Family Provider Family Medicine Geriatric Medicine; PCP Family Medicine Geriatric Medicine; Referring Provider Internal Medicine Nephrology; Visit Provider Internal Medicine Nephrology
DX: N18.3 Chronic kidney disease, stage 3 (moderate) (principal); D64.9 Anemia, unspecified; E03.9 Hypothyroidism, unspecified
CPT/HCPCS: 36415; 80069; 84443; 85027

== ENCOUNTER → 2019-08-24 11:45 | Outpatient (CLI) | payer MEDICARE, SELFPAY ==
[2019-06-28 13:23] VITALS: BMI 30.4
[2019-08-24 12:39] LABS: Vitamin D,25 Hydroxy 45.4 ng/mL
[2019-08-24 12:44] LABS: Absolute Lymphocyte Count 1.51 X10^3/uL (0.83-4.51); Absolute Neutrophil Count 2.1 X10^3/uL (2.0-7.7); Basophil# 0.03 X10^3/uL; Basophil% 0.7 % (0-1); Eosinophil# 0.34 X10^3/uL; Eosinophils% 7.8 % (0-5); Hematocrit 39.8 % (40-54); Hemoglobin 12.8 g/dL (13.0-16.5); Lymphocyte # 1.51 X10^3/ul (4.0); Lymphocyte % 34.5 % (19-41); Mean Corp Hgb Conc 32.2 g/dL (32-36); Mean Corpuscular Hgb 34.1 pg (27.0-32.0); Mean Corpuscular Volume 106.1 fL (80-94); Monocyte# 0.41 X10^3/uL; Monocyte% 9.4 % (0-10); NRBC Flagged by Analyzer 0 % (0-5); Neutrophil # 2.08 X10^3/uL (2.7-7.7); Neutrophil % 47.4 % (47-70); Platelet Count 110 K/mm3 (150-450); RBC Distribution Width CV 13.2 % (11.6-14.6); RBC Distribution Width SD 52.3 fl (35.1-43.9); Red Blood Count 3.75 M/mm3 (4.6-6.2); White Blood Count 4.4 K/mm3 (4.4-11.0)
[2019-08-24 12:59] LABS: ALB/GLOB Ratio 0.7 RATIO (0.9-2.4); AST(SGOT) 23 U/L (15-37); Alanine Aminotransfer ALT/SGPT 18 U/L (16-61); Albumin, Serum 2.8 g/dL (3.2-5.0); Alkaline Phosphatase 88 U/L (45-117); Anion Gap 7 (5-15); BUN 31 mg/dL (7-18); Calcium,Total 8.6 mg/dL (8.5-10.1); Chloride 104 mmol/L (98-107); Creatinine, Serum 1.63 mg/dL (0.70-1.30); EST Glomerular Filtration Rate 43 mL/min (>60); Est Glom Filt Rate - Afr Amer 52 mL/min (>60); Globulin 4.1 g/dL (2.2-4.2); Glucose 110 mg/dL (74-106); Protein, Total 6.9 g/dL (6.4-8.2); Sodium Level 140 mmol/L (136-145); Thyroid Stim Hormone (TSH) 2.96 uIU/mL (0.358-3.74); Uric Acid 5.3 mg/dL (3.5-7.2)
== END ==
PROVIDERS: PCP Family Medicine Geriatric Medicine; Visit Provider Family Medicine Geriatric Medicine
DX: E55.9 Vitamin D deficiency, unspecified (principal); I10 Essential (primary) hypertension; M10.9 Gout, unspecified
CPT/HCPCS: 36415; 80053; 82306; 84443; 84550; 85025

== ENCOUNTER 2019-11-10 13:29 | Inpatient (IN) | payer MEDICARE, SELFPAY ==
[2019-10-19 10:26] VITALS: BMI 33.7
[2019-11-10] VITALS (10 sets, daily range): BP systolic 98–172; BP diastolic 52–122; PULSE 61–90; RESP 12–28; TEMP 37.2–38.7; O2SAT 93–97; BMI 35.0; BMI 33.5
--- NOTE | 2019-11-10 14:02 | EKG12_ITS ---
Test Reason : SOB Blood Pressure : / mmHG Vent. Rate : 094 BPM Atrial Rate : 094 BPM P-R Int : 248 ms QRS Dur : 150 ms QT Int : 448 ms P-R-T Axes : 094 -86 064 degrees QTc Int : 560 ms Sinus rhythm with 1st degree A-V block Right bundle branch block Left anterior fascicular block Bifascicular block Abnormal ECG Confirmed by EAGLE GARCIA, JUAN ([id number]), makeup editor PRASHANTH HER ([id number]) on 11/16/2019 10:23:40 AM Referred By: MUNDO Confirmed By:JUAN GUILLERMO MD
--- NOTE | 2019-11-10 14:25 | RAD_ITS ---
STUDY: X-RAY CHEST REASON FOR EXAM: Male, 83 years old. NOSE BLEED STARTED APPROX. 1 HOUR AGO AND THEN BECAME SOB AND COLD TECHNIQUE: Single AP portable view of the chest. COMPARISON: Comparison is made with prior study dated 05/05/2019. FINDINGS: EKG electrodes are seen. Mild degree of the vascular congestion. There is no demonstrated pleural abnormality. There is moderate cardiac enlargement. Normal mediastinum and lucero. Normal visualized pulmonary arteries. There is atherosclerotic calcification of the aortic arch with tortuosity. There are diffuse degenerative changes of the visualized thoracic spine. There is degenerative osteoarthritis of the bilateral shoulders. There is no demonstrated abnormality of the visualized soft tissue structures of the upper abdomen. RAD/Chest 1 View (Portable) IMPRESSION: Cardiomegaly. Mild degree of vascular congestion. Electronically Signed: Marcos Lewis, at 14:41 EDT , Service support ,
[2019-11-10 15:46] LABS: Absolute Lymphocyte Count 0.46 X10^3/uL (0.83-4.51); Absolute Neutrophil Count 8.8 X10^3/uL (2.0-7.7); Basophil# 0.01 X10^3/uL; Basophil% 0.1 % (0-1); Eosinophil# 0.01 X10^3/uL; Eosinophils% 0.1 % (0-5); Hematocrit 38.3 % (40-54); Hemoglobin 12.7 g/dL (13.0-16.5); Lymphocyte # 0.46 X10^3/ul (4.0); Lymphocyte % 4.6 % (19-41); Mean Corp Hgb Conc 33.2 g/dL (32-36); Mean Corpuscular Volume 102.7 fL (80-94); Mean Platelet Vol. 8.5 fl (6.2-12.0); Monocyte# 0.67 X10^3/uL; Monocyte% 6.7 % (0-10); NRBC Flagged by Analyzer 0 % (0-5); Neutrophil # 8.76 X10^3/uL (2.7-7.7); Neutrophil % 88.1 % (47-70); POSITIVE COUNT YES; POSITIVE DIFFERENTIAL YES; Platelet Count 76 K/mm3 (150-450); RBC Distribution Width CV 13.4 % (11.6-14.6); RBC Distribution Width SD 50.7 fl (35.1-43.9); Red Blood Count 3.73 M/mm3 (4.6-6.2)
[2019-11-10 16:02] LABS: Differential Indicated SCAN CRITERIA MET
[2019-11-10 16:12] LABS: Anion Gap 2 (5-15); BUN 31 mg/dL (7-18); BUN/Creat Ratio 19.1 RATIO (10-20); Calcium,Total 8.7 mg/dL (8.5-10.1); Chloride 105 mmol/L (98-107); Creatinine, Serum 1.62 mg/dL (0.70-1.30); EST Glomerular Filtration Rate 43 mL/min (>60); Est Glom Filt Rate - Afr Amer 52 mL/min (>60); Estimated Creatinine Clearance 30.63 ml/min; Glucose 96 mg/dL (74-106); Potassium 4.2 mmol/L (3.5-5.1); Sodium Level 137 mmol/L (136-145)
[2019-11-10 16:18] LABS: Bacteria 0 SEEN /hpf (None Seen); Mucous, Urine 0 SEEN /hpf (<or=2+); Squamous Epithelial Cells - UA 0 SEEN /hpf (0-5)
[2019-11-10 16:18] LABS: Differential Comment SCANNED
[2019-11-10 16:27] LABS: Color, Urine Yellow (Yellow); Glucose, Dipstick Normal (Normal); Ketone-Dipstick Negative (Negative); Leukocyte Esterase-Dipstick Negative /ul (Negative); Nitrite-Dipstick Negative (Negative); Occult Blood-Urine 50 /ul (Negative); Protein-Dipstick 500 mg/dl (Negative); Specific Gravity, Urine 1.015 (1.002-1.030); Urine Bilirubin Dipstick Negative (Negative); Urine Clarity Clear (Clear); Urine Urobilinogen 1 mg/dl (Normal)
[2019-11-10 16:36] LABS: Red Blood Cells-Urine 0-5 SEEN /hpf (0-5); White Blood Cells 0-5 SEEN /hpf (0-5)
--- NOTE | 2019-11-10 17:37 | ED.DCSUM_ITS ---
- ER Visit Summary Date of Service: 11/10/19 Chief Complaint: Epistaxis and shortness of breath History of Present Illness: The patient is a 83 M who presents with epistaxis and shortness of breath began today. Patient states he started with the epistaxis earlier today. Patient states that soon after that he became short of breath. Patient states most of the bleeding is from the right nares. Patient states nothing makes it better or worse. Patient states he developed chills and shortness of breath shortly after he started having bleeding from his nose. Patient admits to a cough but is unsure if he is coughing up bloody postnasal drainage or if he is truly having a cough. states patient does have a history of cardiac dysrhythmia whenever he has a urinary tract infection. Physical Examination: Vital signs are stable. Patient is afebrile. Patient is in no acute distress. Oral mucosa is pink and moist. There is bloody postnasal drainage. Nasal mucosa is pink and moist. There is dried blood noted in the right nares. Neck is supple. Trachea is midline. There is no JVD. Heart was regular rate and rhythm. Lungs are clear and equal bilaterally. Abdomen is soft. Bowel sounds are normal. There is no tenderness. Cranial nerves II through XII are intact. There are no focal motor or sensory deficits. Test Results: EKG showed a normal sinus rhythm with a rate of 102. There is a right bundle branch block and a left anterior fascicular block. This is unchanged compared to previous EKG dated 10/19/2019. CBC shows a hemoglobin of 12.7 and hematocrit 38.3. There is a thrombocytopenia of 76. BUN and creatinine were 31 and 1.6. These are consistent with prior results. Urinalysis does not show any evidence of urinary tract obstruction. Troponin was indeterminate at 0.052. Portable chest x-ray shows cardiomegaly but no a cute cardiopulmonary process. Emergency Department Course and Treatment: Patient started having bleeding from his right nares again. Tawanda solution was applied to the right nares using cotton balls. Bleeding improved. The right nares was packed with a 5.5 cm anterior rapid Rhino pack. Patient tolerated procedure well. Patient states his breathing is improving. Patient and his were informed of these results. Given his indeterminate troponin, I recommended admission to the hospital. Case was discussed with the hospitalist, Dr. Jimenez. He will admit the patient to PCU for observation. Disposition: Admit to hospital for observation Impression: 1. Elevated troponin 2. Epistaxis This note was generated with [employer] dictation software. It may contain incorrect words, spelling, and punctuation that were not noted in review of the chart prior to signing ED Disposition - Plan for ED Patient: Disposition: Acute Care Hospital [facility] Diagnosis: Elevated troponin, Epistaxis Referrals: Laith Lai Chi, MD [Primary Care Provider] -
[2019-11-10] MEDS: Aspirin 81 MG TAB.CHEW 324 MG PO (18:14)
[2019-11-10] MEDS: Mixture 30 ML Bottle 5 ML TOPICAL (18:14)
--- NOTE | 2019-11-10 18:23 | HP.PCM_ITS ---
Problem List (1) CHF (congestive heart failure) Status: Acute (2) Multiple rib fractures Status: Chronic (3) Debility Status: Acute (4) Hypothyroidism Status: Chronic (5) Insomnia Status: Chronic (6) Coronary artery disease Status: Chronic (7) Atrial fibrillation Status: Chronic (8) Depression Status: Chronic (9) Iron deficiency anemia Status: Chronic (10) Elevated troponin Status: Acute (11) Epistaxis Status: Acute (12) History of esophagogastroduodenoscopy (EGD) Status: Resolved Comment: 07/22/18 (13) Hx of colonoscopy Status: Resolved Comment: 07/22/18 (14) Anemia Status: Acute (15) COPD (chronic obstructive pulmonary disease) Status: Chronic Qualifiers: (16) GERD (gastroesophageal reflux disease) Status: Chronic Qualifiers: (17) Obstructive sleep apnea Status: Chronic (18) Pancreatitis Status: Chronic (19) Alzheimer disease Status: Chronic Qualifiers: (20) Hx of cholecystectomy Status: Chronic (21) H/O bilateral hip replacements Status: Chronic (22) excision of subglottic mass Status: Chronic (23) tricep surgery Status: Chronic (24) CKD (chronic kidney disease) Status: Chronic (25) Thrombocytopenia Status: Chronic (26) Cystitis Status: Resolved (27) Bacteremia Status: Resolved Comment: Bld Cx w/ preliminary Klebsiella Oxytoca and Morganella Morganii sp morgani. (28) Old myocardial infarction Status: Chronic (29) Right bundle branch block Status: Chronic (30) Hypertension Status: Chronic Qualifiers: (31) Paroxysmal SVT (supraventricular tachycardia) Status: Chronic (32) Nonsustained ventricular tachycardia Status: Chronic (33) Paroxysmal atrial fibrillation Status: Chronic (34) Stage III chronic kidney disease Status: Chronic (35) Obesity (BMI 30-39.9) Status: Chronic History of Present Illness Date of Admission: 11/10/19 Chief Complaint: epistaxis The patient is a 83 year old M presents with epistaxis that began today. Is coming out of his right naris. Patient presents to the emergency room and received a cocktail and then had a Rhino Rocket placed. Epistaxis subsequently resolved. Patient has intermittent epistaxis and the only medication he takes at home that would contribute to that would be aspirin. Shortly before this, patient was having some general fatigue and malaise. Denied any chest pain nor any shortness of breath. In the emergency room, patient had a chest x-ray that showed a pulmonary vascular congestion and a troponin was slightly elevated at 0.05. Given these abnormalities in his cardiac evaluation, patient being admitted for further evaluation. Patient does have edema in his lower extremities but that is chronic and unchanged. But no recent change to his weight. [] Past Medical History Past Medical History (Chronic Problems): Chronic Problems (Last Reviewed 06/28/19 @ 12:00 by Kiki Ponce PA, PA) Multiple rib fractures (Chronic) Hypothyroidism (Chronic) Insomnia (Chronic) Coronary artery disease (Chronic) Atrial fibrillation (Chronic) Depression (Chronic) Iron deficiency anemia (Chronic) COPD (chronic obstructive pulmonary disease) (Chronic) GERD (gastroesophageal reflux disease) (Chronic) Obstructive sleep apnea (Chronic) Pancreatitis (Chronic) Alzheimer disease (Chronic) Hx of cholecystectomy (Chronic) 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) tricep surgery (Chronic) CKD (chronic kidney disease) (Chronic) Thrombocytopenia (Chronic) Old myocardial infarction (Chronic) Right bundle branch block (Chronic) Hypertension (Chronic) Paroxysmal SVT (supraventricular tachycardia) (Chronic) Nonsustained ventricular tachycardia (Chronic) Paroxysmal atrial fibrillation (Chronic) Stage III chronic kidney disease (Chronic) Obesity (BMI 30-39.9) (Chronic) Medical History: Medical History (Last Reviewed 11/10/19 @ 18:[address] Timothy Jimenez, DO) Anemia (Acute) D64.9 COPD (chronic obstructive pulmonary disease) (Chronic) J44.9 GERD (gastroesophageal reflux disease) (Chronic) K21.9 Obstructive sleep apnea (Chronic) G47.33 Pancreatitis (Chronic) K85.90 Alzheimer disease (Chronic) G30.9, F02.80 CKD (chronic kidney disease) (Chronic) N18.9 Thrombocytopenia (Chronic) D69.6 Cystitis (Resolved) N30.90 Bacteremia (Resolved) R78.81 Bld Cx w/ preliminary Klebsiella Oxytoca and Morganella Morganii sp morgani. Old myocardial infarction (Chronic) I25.2 Right bundle branch block (Chronic) I45.10 Hypertension (Chronic) I10 Paroxysmal SVT (supraventricular tachycardia) (Chronic) I47.1 Nonsustained ventricular tachycardia (Chronic) I47.2 Paroxysmal atrial fibrillation (Chronic) I48.0 Stage III chronic kidney disease (Chronic) Obesity (BMI 30-39.9) (Chronic) E66.9 Acute UTI (Resolved) N39.0 UCx not obtained, UA not severe appearing, given bacteremia, Klebsiella Oxytoca and Morganella Morganii sp morgani (final pending, thus suspect to speciate to the same) suspected secondary to UTI, complicated Fever and chills (Resolved) R50.9 Allergies morphine Adverse Reaction (Severe, Verified 11/10/19 13:30) hostility,disoriented hostility, disoriented Home Medications: Ambulatory Orders Medication Instructions Recorded Donepezil HCl 10 mg PO QHS 03/07/15 Escitalopram Oxalate 10 mg PO DAILY 11/24/18 Aspirin [Aspirin, Baby] 81 mg PO DAILY@0800 04/13/19 isosorbide mononitrate 30 mg 30 mg PO DAILY #90 tab 06/28/19 tablet,extended release 24 hr amiodarone 200 mg tablet 100 mg PO QODAY #90 tab 10/05/19 furosemide 20 mg tablet 20 mg PO QODAY tab 10/05/19 Levothyroxine Sodium [Synthroid] 125 mcg PO DAILY 11/10/19 Melatonin 5 mg PO QHS 11/10/19 Surgical History: Surgical History (Last Reviewed 11/10/19 @ 18:[address] Timothy Jimenez, ) History of esophagogastroduodenoscopy (EGD) (Resolved) Z98.890 07/22/18 Hx of colonoscopy (Resolved) Z98.890 07/22/18 Hx of cholecystectomy (Chronic) Z90.49 H/O bilateral hip replacements (Chronic) Z96.643 excision of subglottic mass (Chronic) tricep surgery (Chronic) Surgical History: cholecystectomy, total hip arthroplasty - right 05/16/14 Dr Powell, Left 5 years ago, - - Right bicep repair 1994, excision subglottic mass. Psychiatric History: Depression Smoking Status: Current every day smoker Tobacco Use: Cigarettes, Chew - *Family History Sibling Family History: Family History (Last Reviewed 11/10/19 @ 18:[address] Timothy Jimenez, DO) Sister CAD (coronary artery disease) Sister Cancer Brother Cancer History Items: Cancer, Heart Disease Maternal Family History: Family History (Last Reviewed 11/10/19 @ 18:[address] iTmothy Jimenez DO) Sister CAD (coronary artery disease) Sister Cancer Brother Cancer History Items: No pertinent history Paternal Family History: Family History (Last Reviewed 11/10/19 @ 18:[address] Timothy Jimenez DO) Sister CAD (coronary artery disease) Sister Cancer Brother Cancer History Items: No pertinent history Offspring Family History: Family History (Last Reviewed 11/10/19 @ 18:[address] Timothy Jimenez DO) Sister CAD (coronary artery disease) Sister Cancer Brother Cancer History Items: No pertinent history Review of Systems Constitutional: Reports: Malaise, Weakness. Denies: Anorexia, Chills, Fever, Night Sweats Eyes: Denies: Blurred vision, Double vision HEENT: Reports: - - epistaxis. Denies: Head Aches, Sinus Congestion, Sinus Drainage Cardiovascular: Reports: Edema. Denies: Chest Pain, Palpitations Respiratory: Denies: Cough, Shortness of breath at rest, Sputum production Gastrointestinal: Denies: Abdominal Pain, Nausea, Vomiting Genitourinary: Denies: Dysuria Musculoskeletal: Denies: Joint Pain, Joint Tenderness Skin: Denies: Rash, Wounds Neurological: Denies: Numbness, Tingling, Focal weakness Endocrine: Denies: Change in Body Habitus Hematologic/ Lymphatic: Reports: Easy Bleeding. Denies: Easy Bruising, Hx of blood clot Comment: All review of systems were negative except as mentioned above in the history of present illness and the other review of systems. VTE Information - Inpt Only VTE Present on Admission: No VTE Mechan Device Prophylaxis: SCD's, None VTE Pharm Prophylaxis ordered?: No Reason prophylaxis not ordered:: Medical Contraindication Patient Problems: Active and Suspected Problems (Last Reviewed 06/28/19 @ 12:00 by Kiki CANSECO, PA) Elevated troponin (Acute) Epistaxis (Acute) CHF (congestive heart failure) (Acute) - Physical Exam Vitals/I&O's: Vital Signs Temp Pulse Resp BP Pulse Ox 37.8 C H 72 18 132/105 H 94 11/10/19 18:15 11/10/19 18:15 11/10/19 18:15 11/10/19 18:15 11/10/19 18:15 Oxygen Delivery Method Room Air Weight: 98.5 kg Body Mass Index (BMI) 35.0 Finger Stick Blood Glucose 85 General: Alert, No apparent distress HEENT: Atraumatic, Normocephalic, - - Rhino Rocket in the right nares. Oral: Moist Mucosa, No Gingival or Mucosal Lesions/ Ulcerations Neck: No JVD, No Nodes, Trachea Midline Lungs: Clear to auscultation, Normal air movement, No rhonchi, No wheeze, No rales Cardiovascular: Regular rate, Regular Rhythm, Normal S1, Normal S2, No murmurs Abdomen: Bowel Sounds Present, Soft, Non Tender, Non-Distended, No Hepato- splenomegaly, Obese Extremities: No Calf Tenderness, Edema - Taut in the lower extremities Skin: - - Venous stasis changes in lower extremities Musculoskeletal: No Tenderness to Palpation of Joints or Extremities, No Muscle Wasting Neurological: Muscle tone normal, - - No clonus Psych/Mental Status: Normal Affect, Appropriate Laboratory Results 11/10/19 14:10: WBC Cancelled, Corrected WBC Cancelled, RBC Cancelled, Hgb Cancelled, Hct Cancelled, MCV Cancelled, MCH Cancelled, MCHC Cancelled, RDW Std Deviation Cancelled, RDW Coeff of Germaine Cancelled, Plt Count Cancelled, MPV Cancelled, Immature Gran % (Auto) Cancelled, Neut % (Auto) Cancelled, Lymph % (Auto) Cancelled, Nicholas % (Auto) Cancelled, Eos % (Auto) Cancelled, Baso % (Auto) Cancelled, Absolute Neuts (auto) Cancelled, Absolute Lymphs (auto) Cancelled, Total Counted Cancelled, Neutrophils % (Manual) Cancelled, Band Neutrophils % Cancelled, Lymphocytes % (Manual) Cancelled, Monocytes % (Manual) Cancelled, Eosinophils % (Manual) Cancelled, Basophils % (Manual) Cancelled, Metamyelocytes % Cancelled, Myelocytes % Cancelled, Promyelocytes % Cancelled, Blast Cells % Cancelled, Plasma Cell % (Manual) Cancelled, Other Cells % Cancelled, Nucleated RBC % Cancelled, Nucleated RBCs/100 WBC Cancelled, Differential Comment Cancelled, Diff Path Review Cancelled, Hypersegmented Neuts Cancelled, Atypical Lymphocytes Cancelled, Reactive Lymphocytes Cancelled, Smudge Cells Cancelled, Toxic Granulation Cancelled, Toxic Vacuolation Cancelled, Dohle Bodies Cancelled, Max Rods Cancelled, Platelet Estimate Cancelled, Plt Morphology Comment Cancelled, RBC Morphology Cancelled, Polychromasia Cancelled, Hypochromasia Cancelled, Poikilocytosis Cancelled, Basophilic Stippling Cancelled, Anisocytosis Cancelled, Microcytosis Cancelled, Macrocytosis Cancelled, Spherocytes Cancelled, Sickle Cells Cancelled, Target Cells Cancelled, Tear Drop Cells Cancelled, Ovalocytes Cancelled, Stomatocytes Cancelled, Espinoza[place] Bodies Cancelled, Chandler Cells Cancelled, Bite Cells Cancelled, Crenated Cell Cancelled, Acanthocytes (Spur) Cancelled, Rouleaux Cancelled, Schistocytes Cancelled 11/10/19 14:10: Sodium Cancelled, Potassium Cancelled, Chloride Cancelled, Carbon Dioxide Cancelled, Anion Gap Cancelled, BUN Cancelled, Creatinine Cancelled, Estim Creat Clear Calc Cancelled, Est GFR (MDRD) Af Amer Cancelled, Est GFR (MDRD) Non-Af Cancelled, BUN/Creatinine Ratio Cancelled, Glucose Cancelled, Calcium Cancelled, Troponin I Cancelled 11/10/19 15:30: WBC 10.0, RBC 3.73 L, Hgb 12.7 L, Hct 38.3 L, MCV 102.7 H, MCH 34.0 H, MCHC 33.2, RDW Std Deviation 50.7 H, RDW Coeff of Germaine 13.4, Plt Count 76 L, MPV 8.5, Immature Gran % (Auto) 0.400, Neut % (Auto) 88.1 H, Lymph % (Auto) 4.6 L, Nicholas % (Auto) 6.7, Eos % (Auto) 0.1, Baso % (Auto) 0.1, Absolute Neuts (auto) 8.8 H, Absolute Lymphs (auto) 0.46 L, Nucleated RBC % 0, Differential Comment SCANNED 11/10/19 15:30: Sodium 137, Potassium 4.2, Chloride 105, Carbon Dioxide 30.0, Anion Gap 2 L, BUN 31 H, Creatinine 1.62 H, Estim Creat Clear Calc 30.63, Est GFR (MDRD) Af Amer 52 L, Est GFR (MDRD) Non-Af 43 L, BUN/Creatinine Ratio 19.1, Glucose 96, Calcium 8.7, Troponin I 0.052 H 11/10/19 16:00: Urine Color Yellow, Urine Clarity Clear, Urine pH 6.0, Ur Specific [place] 1.015, Urine Protein 500 H, Urine Glucose (UA) Normal, Urine Ketones Negative, Urine Occult Blood 50 H, Urine Nitrite Negative, Urine Bilirubin Negative, Urine Urobilinogen 1 H, Ur Leukocyte Esterase Negative, Urine RBC 0-5 SEEN, Urine WBC 0-5 SEEN, Ur Squamous Epith Cells 0 SEEN, Urine Bacteria 0 SEEN, Urine Mucus 0 SEEN EKG reviewed and showed normal sinus rhythm with a right bundle branch block. Chest x-ray reviewed and showed poor inspiratory effort but also pulmonary vascular congestion. Current Medications Sodium Chloride () 10 - 40 ml IV UD PRN PRN Reason: SALINE FLUSH Assessment/Plan All Active Problems (Last Reviewed 06/28/19 @ 12:00 by Kiki CANSECO, PA) Debility (Acute) Elevated troponin (Acute) Epistaxis (Acute) CHF (congestive heart failure) (Acute) History of esophagogastroduodenoscopy (EGD) (Resolved) Hx of colonoscopy (Resolved) Anemia (Acute) Cystitis (Resolved) Bacteremia (Resolved) Acute UTI (Resolved) Fever and chills (Resolved) Generalized weakness (Ruled-out) 1. Epistaxis: * Right-sided * Has Rhino Rocket in place * Consider removing Rhino Rocket the next day or 2 or have patient follow-up with ENT in short period of time upon discharge. * Hold aspirin for now 2. Acute heart failure with preserved ejection fraction * EF of 65% from echocardiogram on March 17, 2019 * Will hold the patient's oral Lasix and change more to 40 mg twice daily * Recheck an echocardiogram to see if there is been any change. 3. Elevated troponin * Slight elevation and unclear significance at this time * We will cycle troponins * Consult cardiology * Aspirin held given the epistaxis 4. Chronic kidney disease stage III * Creatinine appears to be at baseline. * Monitor closely while the patient is on furosemide 5. Chronic conditions: Overall complicate care and patient management but c urrently stable at this time * Paroxysmal atrial fibrillation: Continue with amiodarone * Right bundle branch block * COPD * Alzheimer disease: Continue with donezepil * Hypothyroidism: Continue with levothyroxine 6. VTE prophylaxis: Chemical prophylaxis contraindicated given the epistaxis. SCDs 7. Advanced care planning: Discussed with the patient. He wishes to be full CODE STATUS at this time. Case mable with the patient's at bedside. Inpatient E&M: [id number] Init Hosp L3
--- NOTE | 2019-11-10 19:45 | ED.RN ---
MD notified of troponin level. states no repeat needed at this time.
[2019-11-10 21:05] LABS: Probe Check PASS; Specimen Processing Control PASS
--- NOTE | 2019-11-10 21:34 | ECHOCS_ITS ---
Reason For Study: CHF Procedure This was a 2D Doppler, Color Flow transthoracic echocardiogram. The study was technically difficult. Exam performed portable in patient room. Left Ventricle Normal LV size. The estimated ejection fraction is 65 %. Normal diastology for age. No regional wall motion abnormalities noted. Right Ventricle Normal RV size. Normal systolic function. Atria Normal left atrium. Normal right atrium. No doppler evidence for ASD. Mitral Valve There is no mitral valve stenosis. No mitral valve insufficiency. Tricuspid Valve There is no tricuspid stenosis. No tricuspid valve insufficiency. Unable to estimate RV systolic pressure due to insufficient tricuspid regurgitant envelope. Aortic Valve The aortic valve is not well visualized. Mild aortic stenosis. No aortic valve insufficiency. Pulmonic Valve There is no pulmonic valvular stenosis. No pulmonic valve insufficiency. Great Vessels Normal aortic root. Pericardium/Pleural No pericardial effusion. Medication Diluted definity 3ml given slow IV push to enhance endocardial definition. MMode/2D Measurements & Calculations LVIDd: 5.0 cm IVSd: 1.4 cm LVOT diam: 2.1 cm LVIDs: 3.6 cm LVPWd: 1.4 cm FS: 28.9 % LVOT area: 3.6 cm2 Ao root diam: 3.7 cm LAV(MOD-bp): 92.5 ml LVAd ap4: 35.5 cm2 LAV(MOD-bp) Indexed: 45.7 ml/m2 EDV(MOD-sp4): 129.9 ml LAV(MOD-sp2): 103.6 ml EDV(sp4-el): 135.1 ml LAV(MOD-sp4): 78.9 ml LVAs ap4: 21.7 cm2 ESV(MOD-sp4): 57.6 ml ESV(sp4-el): 58.7 ml EF(MOD-sp4): 55.6 % EF(sp4-el): 56.6 % SV(MOD-sp4): 72.3 ml SV(sp4-el): 76.4 ml LA A4 area: 25.7 cm2 LA dimension(2D): 4.6 cm RA A4 area: 23.5 cm2 Time Measurements MV dec time: 0.29 sec Doppler Measurements & Calculations MV E max edmundo: 49.0 cm/sec Lat Peak E' Edmundo: 8.3 cm/sec Med Peak E' Edmundo: 7.4 cm/sec MV A max edmundo: 51.0 cm/sec E/E' lat: 5.9 E/E' med: 6.6 MV E/A: 0.96 Ao V2 max: 272.7 cm/sec LV V1 max: 67.3 cm/sec SV(LVOT): 61.2 ml Ao max P.7 mmHg LV V1 max P.8 mmHg Ao V2 mean: 206.1 cm/sec LV V1 mean P.0 mmHg Ao mean P.6 mmHg LV V1 mean: 48.1 cm/sec Ao V2 VTI: 69.9 cm LV V1 VTI: 16.9 cm JIM(I,D): 0.88 cm2 JIM(V,D): 0.89 cm2 PA V2 max: 68.9 cm/sec Interpretation Summary The estimated ejection fraction is 65 %. Mild aortic stenosis. The study was technically difficult. Contrast injection was performed. Ordering Physician: Timothy Jimenez Referring Physician: LILLIAM RAMIREZ Performed By: Louisa Howard RDCS
--- NOTE | 2019-11-10 22:01 | EKG12_ITS ---
Test Reason : CP ADMISSION Blood Pressure : / mmHG Vent. Rate : 064 BPM Atrial Rate : 064 BPM P-R Int : 222 ms QRS Dur : 138 ms QT Int : 504 ms P-R-T Axes : 028 -89 055 degrees QTc Int : 519 ms Sinus rhythm with 1st degree A-V block with Premature atrial complexes Left axis deviation Right bundle branch block T wave abnormality, consider lateral ischemia Abnormal ECG Confirmed by EAGLE GARCIA, JUAN ([id number]), videotape editor PRASHANTH HER ([id number]) on 11/17/2019 9:56:14 AM Referred By: WILFRIDO WRIGHT Confirmed By:JUAN GUILLERMO MD
[2019-11-10] MEDS: Furosemide 40 MG/4 ML Vial IV (22:45)
[2019-11-10] MEDS: Donepezil HCl 10 MG Tablet PO (22:46)
[2019-11-10] MEDS: MELATONIN 10 MG TABLET 5 MG PO (22:46)
[2019-11-10] MEDS: Ondansetron 4 MG/2 ML Vial IV (22:50)
[2019-11-11 03:00] VITALS: PULSE 67
[2019-11-11 03:09] VITALS: BP 116/50; PULSE 62; RESP 16; TEMP 37.3; O2SAT 96
[2019-11-11 03:31] LABS: Absolute Lymphocyte Count 1.09 X10^3/uL (0.83-4.51); Basophil# 0.02 X10^3/uL; Basophil% 0.3 % (0-1); Eosinophil# 0.01 X10^3/uL; Eosinophils% 0.1 % (0-5); Hematocrit 33.8 % (40-54); Lymphocyte # 1.09 X10^3/ul (4.0); Lymphocyte % 16.3 % (19-41); Mean Corp Hgb Conc 32.5 g/dL (32-36); Mean Corpuscular Hgb 33.5 pg (27.0-32.0); Mean Platelet Vol. 8.6 fl (6.2-12.0); Monocyte# 0.57 X10^3/uL; Monocyte% 8.5 % (0-10); NRBC Flagged by Analyzer 0 % (0-5); Neutrophil # 4.98 X10^3/uL (2.7-7.7); Neutrophil % 74.5 % (47-70); POSITIVE COUNT YES; Platelet Count 70 K/mm3 (150-450); RBC Distribution Width CV 13.7 % (11.6-14.6); RBC Distribution Width SD 52.1 fl (35.1-43.9); Red Blood Count 3.28 M/mm3 (4.6-6.2); White Blood Count 6.7 K/mm3 (4.4-11.0)
[2019-11-11 03:48] LABS: Anion Gap 3 (5-15); BUN 38 mg/dL (7-18); BUN/Creat Ratio 22.5 RATIO (10-20); Chloride 103 mmol/L (98-107); Creatinine, Serum 1.69 mg/dL (0.70-1.30); EST Glomerular Filtration Rate 41 mL/min (>60); Est Glom Filt Rate - Afr Amer 50 mL/min (>60); Estimated Creatinine Clearance 29.36 ml/min; Glucose 96 mg/dL (74-106); Potassium 4.1 mmol/L (3.5-5.1); Sodium Level 137 mmol/L (136-145)
[2019-11-11] MEDS: Levothyroxine 125 MCG Tablet PO (06:02)
[2019-11-11 06:46] VITALS: PULSE 54
[2019-11-11 09:21] VITALS: BP 124/52; PULSE 64; RESP 16; TEMP 36.8; O2SAT 93
[2019-11-11] MEDS: Isosorbide Mononitrate 30 MG Tablet PO (09:30)
[2019-11-11] MEDS: Escitalopram Oxalate 10 MG Tablet PO (09:30)
[2019-11-11] MEDS: Furosemide 40 MG/4 ML Vial IV (09:30)
--- NOTE | 2019-11-11 12:15 | CASEMGMT ---
LUIZA MATHIS assessment: Face to Face with patient for initial transition planning/care coordination assessment. LUIZA MATHIS introduced self and role at [facility], pt/son voice understanding and consent to assessment at this time. Pt is sitting up in bed in no distress but falls asleep when not stimulated. Son, Debbie Hinojosa Jr, at bedside during assessment and answers most questions for pt at this time. Care providers, pharmacy, and demographics verified/updated at this time. Presentation: Nosebleed started approx 1 hr previous, SOB Admitting dx: Epistaxis, elev trop PCP: [facility] Specialists: [facility] Pharmacy: [facility] Insurance: [employer] Prescription Benefit: [employer] Living Will/HPOA: Pt has LW/HPOA and pt/son are aware that they are on file at [facility] at this time. Pt's son, Debbie Hinojosa Jr, is HPOA. LNOK: Debbie Hinojosa Jr, son/HPOA; Tabitha Marinelli, ex- Living Arrangements: Pt lives alone in 1 story home with ramp but son/ex- assist with care and are constantly in and out of home. Son/ex- assist with ADL's. Son works with pt on therapy and ex- assists with all other needs/meals. Transportation: Family drives and son states no transportation concerns at this time. DME/HHC: Pt has a walker, grab bars by toilet, and walk-in shower. Son states no need for any further DME at this time. Pt has not hx of HHC but has been to [facility] and TCU in the past. Son declines need for HHC at discharge at this time and states they plan to take pt home at discharge. Son states no concerns with taking pt home at discharge at this time. Son was interested in TCU at one point but then found out about the 14 day quarantine where family could not see pt and then declined TCU. Pt is retired. Pt does not smoke cigarettes or drink ETOH. CM to follow for any further discharge planning/needs. Advised pt to ask for CM if any further questions/concerns/needs arise, voices understanding. Pt Goal: Home Plan[place] LUIZA MATHIS
--- NOTE | 2019-11-11 13:09 | PN_ITS ---
<Hayder Eid - Last Filed: 11/11/19 13:09> Patient Problems: Active and Suspected Problems (Last Reviewed 11/10/19 @ 18:[address] Timothy Jimenez, DO) Elevated troponin (Acute) Epistaxis (Acute) CHF (congestive heart failure) (Acute) Reason for Visit: Epistaxis, indeterminate troponin Subjective: Pt developed spontaneous atraumatic nosebleed yesterday while son was visiting (witnessed).. Bleeding is controlled. Pt also admitted with mild CHF exacerbation and indeterminate trop. Pt reports some chronic SOB ongoing. No increased O2 demand. Pt has been much weaker than normal lately per the son, and is not safe to go home in his current state. They are reluctant to consider SNF however. The patient has dementia and his son helps him physically at home every day and the ex manages his medications. Today no CP/pressure/tightness/heaviness. Pt was recently seen in the cardiology office and had his amiodarone dose decreased. Vitals/I&O's: Vital Signs Temp Pulse Resp BP Pulse Ox 98.2 F 64 16 124/52 H 93 11/11/19 09:21 11/11/19 09:21 11/11/19 09:21 11/11/19 09:21 11/11/19 09:21 Oxygen Delivery Method Room Air Weight: 206 lb 2.115 oz Body Mass Index (BMI) 33.5 Finger Stick Blood Glucose 85 Intake and Output for Last 24 Hours 11/09/19 11/10/19 11/11/19 23:59 23:59 23:59 Intake Total 660 / 660 Output Total 425 / 425 Balance 235 / 235 General: Alert, Oriented x3, Cooperative HEENT: Atraumatic, PERRLA, EOMI, Normocephalic Neck: Supple, No JVD, Negative Carotid Bruits Lungs: Clear to auscultation, Normal air movement Cardiovascular: Regular rate, No murmurs Abdomen: Bowel Sounds Present, Soft, Non Tender Extremities: Capillary Refill Less than 3 Seconds, Edema - 2+ pitting edema BLE Skin: No rashes, No breakdown Musculoskeletal: No Tenderness to Palpation of Joints or Extremities Neurological: Cranial nerves II-XII grossly intact Psych/Mental Status: Normal Affect, Appropriate, Alert and oriented to time, place, person, mood and affect Laboratory Results 11/10/19 14:10: WBC Cancelled, Corrected WBC Cancelled, RBC Cancelled, Hgb Cancelled, Hct Cancelled, MCV Cancelled, MCH Cancelled, MCHC Cancelled, RDW Std Deviation Cancelled, RDW Coeff of Germaine Cancelled, Plt Count Cancelled, MPV Cancelled, Immature Gran % (Auto) Cancelled, Neut % (Auto) Cancelled, Lymph % (Auto) Cancelled, [place] % (Auto) Cancelled, Eos % (Auto) Cancelled, Baso % (Auto) Cancelled, Absolute Neuts (auto) Cancelled, Absolute Lymphs (auto) Cancelled, Total Counted Cancelled, Neutrophils % (Manual) Cancelled, Band Neutrophils % Cancelled, Lymphocytes % (Manual) Cancelled, Monocytes % (Manual) Cancelled, Eosinophils % (Manual) Cancelled, Basophils % (Manual) Cancelled, Metamyelocytes % Cancelled, Myelocytes % Cancelled, Promyelocytes % Cancelled, Blast Cells % Cancelled, Plasma Cell % (Manual) Cancelled, Other Cells % Cancelled, Nucleated RBC % Cancelled, Nucleated RBCs/100 WBC Cancelled, Differential Comment Cancelled, Diff Path Review Cancelled, Hypersegmented Neuts Cancelled, Atypical Lymphocytes Cancelled, Reactive Lymphocytes Cancelled, Smudge Cells Cancelled, Toxic Granulation Cancelled, Toxic Vacuolation Cancelled, Dohle Bodies Cancelled, Max Rods Cancelled, Platelet Estimate Cancelled, Plt Morphology Comment Cancelled, RBC Morphology Cancelled, Polychromasia Cancelled, Hypochromasia Cancelled, Poikilocytosis Cancelled, Basophilic Stippling Cancelled, Anisocytosis Cancelled, Microcytosis Cancelled, Macrocytosis Cancelled, Spherocytes Cancelled, Sickle Cells Cancelled, Target Cells Cancelled, Tear Drop Cells Cancelled, Ovalocytes Cancelled, Stomatocytes Cancelled, Espinoza-Sentinel Bodies Cancelled, [place]iter[place] Cells Cancelled, Bite Cells Cancelled, Crenated Cell Cancelled, Acanthocytes (Spur) Cancelled, Rouleaux Cancelled, Schistocytes Cancelled 11/10/19 14:10: Sodium Cancelled, Potassium Cancelled, Chloride Cancelled, Carbon Dioxide Cancelled, Anion Gap Cancelled, BUN Cancelled, Creatinine Cancelled, Estim Creat Clear Calc Cancelled, Est GFR (MDRD) Af Amer Cancelled, Est GFR (MDRD) Non-Af Cancelled, BUN/Creatinine Ratio Cancelled, Glucose Cancelled, Calcium Cancelled, Troponin I Cancelled 11/10/19 15:30: WBC 10.0, RBC 3.73 L, Hgb 12.7 L, Hct 38.3 L, MCV 102.7 H, MCH 34.0 H, MCHC 33.2, RDW Std Deviation 50.7 H, RDW Coeff of Germaine 13.4, Plt Count 76 L, MPV 8.5, Immature Gran % (Auto) 0.400, Neut % (Auto) 88.1 H, Lymph % (Auto) 4.6 L, [place] % (Auto) 6.7, Eos % (Auto) 0.1, Baso % (Auto) 0.1, Absolute Neuts (auto) 8.8 H, Absolute Lymphs (auto) 0.46 L, Nucleated RBC % 0, Differential Comment SCANNED 11/10/19 15:30: Sodium 137, Potassium 4.2, Chloride 105, Carbon Dioxide 30.0, Anion Gap 2 L, BUN 31 H, Creatinine 1.62 H, Estim Creat Clear Calc 30.63, Est GFR (MDRD) Af Amer 52 L, Est GFR (MDRD) Non-Af 43 L, BUN/Creatinine Ratio 19.1, Glucose 96, Calcium 8.7, Troponin I 0.052 H 11/10/19 16:00: Urine Color Yellow, Urine Clarity Clear, Urine pH 6.0, Ur Specific Rolette 1.015, Urine Protein 500 H, Urine Glucose (UA) Normal, Urine Ketones Negative, Urine Occult Blood 50 H, Urine Nitrite Negative, Urine Bilirubin Negative, Urine Urobilinogen 1 H, Ur Leukocyte Esterase Negative, Urine RBC 0-5 SEEN, Urine WBC 0-5 SEEN, Ur Squamous Epith Cells 0 SEEN, Urine Bacteria 0 SEEN, Urine Mucus 0 SEEN 11/10/19 18:45: COVID-19 (PAUL) Negative 11/10/19 22:00: Troponin I 0.106 H 11/11/19 00:15: Troponin I 0.092 H 11/11/19 03:24: WBC 6.7, RBC 3.28 L, Hgb 11.0 L, Hct 33.8 L, MCV 103.0 H, MCH 33.5 H, MCHC 32.5, RDW Std Deviation 52.1 H, RDW Coeff of Germaine 13.7, Plt Count 70 L, MPV 8.6, Immature Gran % (Auto) 0.300, Neut % (Auto) 74.5 H, Lymph % (Auto) 16.3 L, [place] % (Auto) 8.5, Eos % (Auto) 0.1, Baso % (Auto) 0.3, Absolute Neuts (auto) 5.0, Absolute Lymphs (auto) 1.09, Nucleated RBC % 0 11/11/19 03:24: Sodium 137, Potassium 4.1, Chloride 103, Carbon Dioxide 31.0, Anion Gap 3 L, BUN 38 H, Creatinine 1.69 H, Estim Creat Clear Calc 29.36, Est GFR (MDRD) Af Amer 50 L, Est GFR (MDRD) Non-Af 41 L, BUN/Creatinine Ratio 22.5 H , Glucose 96, Calcium 8.0 L, Troponin I 0.086 H Current Medications Acetaminophen (Tylenol) 650 mg PO Q6H PRN PRN PRN Reason: Pain Score 1-10/Temp > 100.7 F Amiodarone HCl (Cordarone) 100 mg PO QODAY@0800 [facility] Donepezil HCl (Aricept) 10 mg PO QHS [facility] Last Admin: 11/10/19 22:46 Dose: 10 mg Documented by: Escitalopram Oxalate (Lexapro) 10 mg PO DAILY [facility] Last Admin: 11/11/19 09:30 Dose: 10 mg Documented by: Furosemide (Lasix) 40 mg PO X1 ONE Stop: 11/12/19 10:01 Isosorbide Mononitrate (Imdur) 30 mg PO DAILY [facility] Last Admin: 11/11/19 09:30 Dose: 30 mg Documented by: Levothyroxine Sodium (Synthroid) 125 mcg PO DAILY@0600 [facility] Last Admin: 11/11/19 06:02 Dose: 125 mcg Documented by: Melatonin (Melatonin) 5 mg PO QHS [facility] Last Admin: 11/10/19 22:46 Dose: 5 mg Documented by: Ondansetron HCl (Zofran) 4 mg IV Q8H PRN PRN PRN Reason: NAUSEA/VOMITING Last Admin: 11/10/19 22:50 Dose: 4 mg Documented by: STROKE Vital Signs/Narrative: Vital Signs Temp Pulse Resp BP Pulse Ox 11/11/19 09:21 98.2 F 64 16 124/52 H 93 Medical Necessity - Tobacco Use Smoking Status: Current every day smoker Tobacco Use: Cigarettes, Chew Assessment/Plan All Active Problems (Last Reviewed 11/10/19 @ 18:[address] Timothy Jimenez, DO) Debility (Acute) Elevated troponin (Acute) Epistaxis (Acute) CHF (congestive heart failure) (Acute) History of esophagogastroduodenoscopy (EGD) (Resolved) Hx of colonoscopy (Resolved) Anemia (Acute) Cystitis (Resolved) Bacteremia (Resolved) Acute UTI (Resolved) Fever and chills (Resolved) Generalized weakness (Ruled-out) 1. Epistaxis - controlled with rhino rocket. complicated by aspirin use and thrombocytopenia. Pt reports he has had spontaneous epistaxis his whole life. 2. indeterminate trop - cardiology consulted. No CP. 0.052-->0.106-->0.086. Echo cardiogram 03/28 EF 65% st 2 diastolic dysfunction no wall abnormalities, RVSP 32, mild to mod . 3. Acute on chronic diastolic CHF - mild. improved. lasix to 40 mg po daily. 4. dementia with worsening generalized debility - PTOT evals. Son states pt not safe to return home with physical debility but is also reluctant to consider SNF. The patient was involved in home therapy prior to this admission. Continue aricept. 5. pAfib - rate stable. not on OAC. recently amio decreased. 6. CKDIII - stable 7. COPD - no exacerbation - prn aerosols DVT ppx: SCDs DC planning: SNF vs C. This patient was seen by Hayder Eid PA-C under the supervision of Doctor Delacruz. <Poonam Delacruz - Last Filed: 11/11/19 16:21> Vitals/I&O's: Vital Signs Temp Pulse Resp BP Pulse Ox 98.2 F 64 16 124/52 H 93 11/11/19 09:21 11/11/19 09:21 11/11/19 09:21 11/11/19 09:21 11/11/19 09:21 Oxygen Delivery Method Room Air Weight: 93.5 kg Body Mass Index (BMI) 33.5 Finger Stick Blood Glucose 85 Intake and Output for Last 24 Hours 11/09/19 11/10/19 11/11/19 23:59 23:59 23:59 Intake Total 660 / 660 Output Total 425 / 425 Balance 235 / 235 Laboratory Results 11/10/19 15:30: WBC 10.0, RBC 3.73 L, Hgb 12.7 L, Hct 38.3 L, MCV 102.7 H, MCH 34.0 H, MCHC 33.2, RDW Std Deviation 50.7 H, RDW Coeff of Germaine 13.4, Plt Count 76 L, MPV 8.5, Immature Gran % (Auto) 0.400, Neut % (Auto) 88.1 H, Lymph % (Auto) 4.6 L, [place] % (Auto) 6.7, Eos % (Auto) 0.1, Baso % (Auto) 0.1, Absolute Neuts (auto) 8.8 H, Absolute Lymphs (auto) 0.46 L, Nucleated RBC % 0, Differential Comment SCANNED 11/10/19 15:30: Sodium 137, Potassium 4.2, Chloride 105, Carbon Dioxide 30.0, Anion Gap 2 L, BUN 31 H, Creatinine 1.62 H, Estim Creat Clear Calc 30.63, Est GFR (MDRD) Af Amer 52 L, Est GFR (MDRD) Non-Af 43 L, BUN/Creatinine Ratio 19.1, Glucose 96, Calcium 8.7, Troponin I 0.052 H 11/10/19 16:00: Urine Color Yellow, Urine Clarity Clear, Urine pH 6.0, Ur Specific Rolette 1.015, Urine Protein 500 H, Urine Glucose (UA) Normal, Urine Ketones Negative, Urine Occult Blood 50 H, Urine Nitrite Negative, Urine Bilirubin Negative, Urine Urobilinogen 1 H, Ur Leukocyte Esterase Negative, Urine RBC 0-5 SEEN, Urine WBC 0-5 SEEN, Ur Squamous Epith Cells 0 SEEN, Urine Bacteria 0 SEEN, Urine Mucus 0 SEEN 11/10/19 18:45: COVID-19 (PAUL) Negative 11/10/19 22:00: Troponin I 0.106 H 11/11/19 00:15: Troponin I 0.092 H 11/11/19 03:24: WBC 6.7, RBC 3.28 L, Hgb 11.0 L, Hct 33.8 L, MCV 103.0 H, MCH 33.5 H, MCHC 32.5, RDW Std Deviation 52.1 H, RDW Coeff of Germaine 13.7, Plt Count 70 L, MPV 8.6, Immature Gran % (Auto) 0.300, Neut % (Auto) 74.5 H, Lymph % (Auto) 16.3 L, [place] % (Auto) 8.5, Eos % (Auto) 0.1, Baso % (Auto) 0.3, Absolute Neuts (auto) 5.0, Absolute Lymphs (auto) 1.09, Nucleated RBC % 0 11/11/19 03:24: Sodium 137, Potassium 4.1, Chloride 103, Carbon Dioxide 31.0, Anion Gap 3 L, BUN 38 H, Creatinine 1.69 H, Estim Creat Clear Calc 29.36, Est GFR (MDRD) Af Amer 50 L, Est GFR (MDRD) Non-Af 41 L, BUN/Creatinine Ratio 22.5 H , Glucose 96, Calcium 8.0 L, Troponin I 0.086 H Current Medications Acetaminophen (Tylenol) 650 mg PO Q6H PRN PRN PRN Reason: Pain Score 1-10/Temp > 100.7 F Amiodarone HCl (Cordarone) 100 mg PO QODAY@0800 [facility] Donepezil HCl (Aricept) 10 mg PO QHS [facility] Last Admin: 11/10/19 22:46 Dose: 10 mg Documented by: Escitalopram Oxalate (Lexapro) 10 mg PO DAILY [facility] Last Admin: 11/11/19 09:30 Dose: 10 mg Documented by: Furosemide (Lasix) 40 mg PO DAILY [facility] Last Admin: 11/11/19 13:52 Dose: Not Given Documented by: Isosorbide Mononitrate (Imdur) 30 mg PO DAILY [facility] Last Admin: 11/11/19 09:30 Dose: 30 mg Documented by: Levothyroxine Sodium (Synthroid) 125 mcg PO DAILY@0600 [facility] Last Admin: 11/11/19 06:02 Dose: 125 mcg Documented by: Melatonin (Melatonin) 5 mg PO QHS [facility] Last Admin: 11/10/19 22:46 Dose: 5 mg Documented by: Ondansetron HCl (Zofran) 4 mg IV Q8H PRN PRN PRN Reason: NAUSEA/VOMITING Last Admin: 11/10/19 22:50 Dose: 4 mg Documented by: Assessment/Plan This patient was seen in conjunction with AJITH Escobedo. I have independently interviewed and examined the patient and reviewed pertinent historical, laboratory, and other data. Please refer to AJITH Escobedo note for his patient's presentation, findings, and recommendations. I have reviewed and his note and concur with his documentation Patient was seen and examined. His right naris Rhino pack is soaked. He denied any chest pain or dizziness. Physical Exam: Gen: Looks in some discomfort, not pale, not jaundiced, chronically unwell CVS:HS I +II, regular, no murmurs RESP: Diminished at lung bases GI: BS present and normal, soft, nontender, no palpable organs EXT:No edema ASSESSMENT: 1. Epistaxis 2. Indeterminant troponin 3. Acute on chronic diastolic CHF 4. Debility 5. Chronic thrombocytopenia 6. Dementia 7. Chronic atrial fibrillation 8. CKD stage III 9. COPD Plan: Continue to monitor for bleeding Follow-up with cardiology for recommendations Continue Lasix PT/OT to eval and treat Repeat blood work in a.m. Inpatient E&M: [id number] Subs Hosp L2
--- NOTE | 2019-11-11 14:39 | CHAPLAIN ---
Type of Pastoral Visit _x__ Initial Visit ___ Follow-up Visit ___ On-call Visit ___ General Patient Visit ___ Spiritual Assessment ___ Family Conference ___ Bereavement ___ Rapid Response ___ Code Blue ___ Other (describe below) Pastoral Care Referral From _x__ Patient ___ Family ___ Nurse ___ Physician ___ Rotor Assembler ___ Presales Senior Specialist ___ Other (describe below) Sacrament/Intervention _x__ Active listening ___ Anointing ___ Protestant ___ Bereavement ___ Communion _x__ Esperanza exploration ___ ___ Life review _x__ Prayer ___ Reconciliation ___ Sacrament of Sick _x__ Supportive presence ___ Wedding ___ Other (describe below) Pastoral Comment patient and son in room; pt says he is doing better; son says pt had bad day yesterday with some confusion but doing better as well; pt says he is of Christianity esperanza and would like prayer; pt talks about getting older and that he lives alone unless grandson comes to stay with him from time to time; son talks as well and gives more life story of pt; support well received
[2019-11-11 14:55] VITALS: PULSE 66
[2019-11-11 15:21] VITALS: BP 124/53; PULSE 59; RESP 16; TEMP 37.2; O2SAT 92
[2019-11-11] MEDS: Acetaminophen 325 MG Tablet 650 MG PO (15:44)
--- NOTE | 2019-11-11 15:52 | PCM.DC ---
- Discharge Diagnoses Current Active Problems: Current Active and Chronic Problems (Last Reviewed 11/10/19 @ 18:[address] Timothy Jimenez, DO) Elevated troponin (Acute) Epistaxis (Acute) CHF (congestive heart failure) (Acute) You will use the following diet at home:: Cardiac Your food should be the consistency of: Regular Your liquids should be the consistency of: Regular/Thin Discharge Activity: Return to Normal Activity Allergies/Adverse Reactions: Allergies morphine Adverse Reaction (Severe, Verified 11/10/19 13:30) hostility,disoriented hostility, disoriented Medications to take at Discharge Donepezil HCl 10 mg PO QHS 03/07/15 Escitalopram Oxalate 10 mg PO DAILY 11/24/18 isosorbide mononitrate 30 mg tablet,extended release 24 hr 30 mg PO DAILY #90 tab 06/28/19 amiodarone 200 mg tablet 100 mg PO QODAY #90 tab 10/05/19 Levothyroxine Sodium [Synthroid] 125 mcg PO DAILY 11/10/19 Melatonin 5 mg PO QHS 11/10/19 Furosemide [Lasix] 40 mg PO DAILY #30 tab 11/11/19 The following prescriptions were given: Furosemide [Lasix] 40 mg PO DAILY #30 tab Transmission Status: Pending to [id number] Primary Care Physician: Laith Lai Chi, MD [Primary Care Provider] - Please follow up with your Primary Care Physician in: 2 weeks Test Results: Test results from this visit will be discussed in further detail at your follow-up appointment, if applicable. Please Follow Up With: Alonso Peraza MD When: 1-2 weeks Please Follow Up With: Guillermo Barker MD - Ear, nose, and throat. You have an appointment to remove your nasal packing. You need to be at your appointment at 8:45 in the AM. When: Thursday at 8:45AM Proposed Discharge Date: 11/11/19
--- NOTE | 2019-11-11 15:54 | DS.PCM_ITS ---
<Hayder Eid - Last Filed: 11/11/19 15:54> Discharge Date and Diagnosis Date of Admission: 11/10/19 Date of Discharge: 11/11/19 - Primary Discharge Diagnosis Acute Problems: Active Problems (Last Reviewed 11/10/19 @ 18:[address] Timothy Jimenez DO) Debility 2/2 progressive decline due to Alzheimers dementia Indeterminate troponin Mild acute on chronic diastolic CHF exacerbation CKDIII pAfib - Secondary Discharge Diagnosis Chronic Problems: Chronic Problems (Last Reviewed 11/10/19 @ 18:[address] Timothy Jimenez DO) Multiple rib fractures (Chronic) Hypothyroidism (Chronic) Insomnia (Chronic) Coronary artery disease (Chronic) Atrial fibrillation (Chronic) Depression (Chronic) Iron deficiency anemia (Chronic) COPD (chronic obstructive pulmonary disease) (Chronic) GERD (gastroesophageal reflux disease) (Chronic) Obstructive sleep apnea (Chronic) Pancreatitis (Chronic) Alzheimer disease (Chronic) Hx of cholecystectomy (Chronic) 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) tricep surgery (Chronic) CKD (chronic kidney disease) (Chronic) Thrombocytopenia (Chronic) Old myocardial infarction (Chronic) Right bundle branch block (Chronic) Hypertension (Chronic) Paroxysmal SVT (supraventricular tachycardia) (Chronic) Nonsustained ventricular tachycardia (Chronic) Paroxysmal atrial fibrillation (Chronic) Stage III chronic kidney disease (Chronic) Obesity (BMI 30-39.9) (Chronic) Hospital Course and Treatment Imaging Results: RAD/Chest 1 View (Portable) IMPRESSION: Cardiomegaly. Mild degree of vascular congestion. Operations: None Procedures: None Summary of Care Provided: Hospital Course: The patient is a 83 year old M with pmhx of frequent nosebleeds, pAfib, diastolic CHF, Alzheimers dementia, who presented to the ER from home with nosebleed which started spontaneously at home with no trauma. He had a hx of frequent nosebleeds throughout his life. He had bleeding from the right nare which was packed in the ER and successfully controlled. Hgb was 12.7, platelets were decreased at 76. He complained of some dyspnea and fatigue as well. CXR showed some congestion and trop was indeterminate. He was felt to have mild acute diastolic CHF exacerbation. He was admitted to PCU and had his home lasix increased. aspirin was stopped due to nosebleed. trop increased from 0.052 to 0.106 then declined to 0.086. We discussed the case with Dr. Castro who did not feel further inpatient workup was warranted and recommended discontinuation of aspirin and follow up with Dr. Peraza in 1-2 weeks. I also arranged for the patient to see Dr. Barker on Thursday to have the nasal packing removed. He should also follow up with his PCP in 1-2 weeks. He was discharged home in stable condition. Family was not interested in correction at this time. His son does physical therapy with him at the patients home and the patients ex organizes the patients medications for him. The patient was seen by Hayder Eid PA-C under the supervision of Dr. Delacruz. [] - Physical Exam Vitals/I&O's: Vital Signs Temp Pulse Resp BP Pulse Ox 98.9 F 59 L 16 124/53 H 92 11/11/19 15:21 11/11/19 15:21 11/11/19 15:21 11/11/19 15:21 11/11/19 15:21 Oxygen Delivery Method Room Air Weight: 206 lb 2.115 oz Body Mass Index (BMI) 33.5 Finger Stick Blood Glucose 85 Intake and Output for Last 24 Hours 11/09/19 11/10/19 11/11/19 23:59 23:59 23:59 Intake Total 660 / 660 Output Total 425 / 425 Balance 235 / 235 General: Alert, Oriented x3, Cooperative HEENT: Atraumatic, PERRLA, EOMI, Normocephalic Neck: Supple, No JVD, Negative Carotid Bruits Lungs: Clear to auscultation, Normal air movement Cardiovascular: Regular rate, No murmurs Abdomen: Bowel Sounds Present, Soft, Non Tender Extremities: No edema, Capillary Refill Less than 3 Seconds Skin: No rashes, No breakdown Musculoskeletal: No Tenderness to Palpation of Joints or Extremities Neurological: Cranial nerves II-XII grossly intact Psych/Mental Status: Normal Affect, Appropriate Laboratory Results 11/10/19 15:30: WBC 10.0, RBC 3.73 L, Hgb 12.7 L, Hct 38.3 L, MCV 102.7 H, MCH 34.0 H, MCHC 33.2, RDW Std Deviation 50.7 H, RDW Coeff of Germaine 13.4, Plt Count 76 L, MPV 8.5, Immature Gran % (Auto) 0.400, Neut % (Auto) 88.1 H, Lymph % (Auto) 4.6 L, Mcdonald % (Auto) 6.7, Eos % (Auto) 0.1, Baso % (Auto) 0.1, Absolute Neuts (auto) 8.8 H, Absolute Lymphs (auto) 0.46 L, Nucleated RBC % 0, Differential Comment SCANNED 11/10/19 15:30: Sodium 137, Potassium 4.2, Chloride 105, Carbon Dioxide 30.0, Anion Gap 2 L, BUN 31 H, Creatinine 1.62 H, Estim Creat Clear Calc 30.63, Est GFR (MDRD) Af Amer 52 L, Est GFR (MDRD) Non-Af 43 L, BUN/Creatinine Ratio 19.1, Glucose 96, Calcium 8.7, Troponin I 0.052 H 11/10/19 16:00: Urine Color Yellow, Urine Clarity Clear, Urine pH 6.0, Ur Specific Hulbert 1.015, Urine Protein 500 H, Urine Glucose (UA) Normal, Urine Ketones Negative, Urine Occult Blood 50 H, Urine Nitrite Negative, Urine Bilirubin Negative, Urine Urobilinogen 1 H, Ur Leukocyte Esterase Negative, Urine RBC 0-5 SEEN, Urine WBC 0-5 SEEN, Ur Squamous Epith Cells 0 SEEN, Urine Bacteria 0 SEEN, Urine Mucus 0 SEEN 11/10/19 18:45: COVID-19 (PAUL) Negative 11/10/19 22:00: Troponin I 0.106 H 11/11/19 00:15: Troponin I 0.092 H 11/11/19 03:24: WBC 6.7, RBC 3.28 L, Hgb 11.0 L, Hct 33.8 L, MCV 103.0 H, MCH 33.5 H, MCHC 32.5, RDW Std Deviation 52.1 H, RDW Coeff of Germaine 13.7, Plt Count 70 L, MPV 8.6, Immature Gran % (Auto) 0.300, Neut % (Auto) 74.5 H, Lymph % (Auto) 16.3 L, Mcdonald % (Auto) 8.5, Eos % (Auto) 0.1, Baso % (Auto) 0.3, Absolute Neuts (auto) 5.0, Absolute Lymphs (auto) 1.09, Nucleated RBC % 0 11/11/19 03:24: Sodium 137, Potassium 4.1, Chloride 103, Carbon Dioxide 31.0, Anion Gap 3 L, BUN 38 H, Creatinine 1.69 H, Estim Creat Clear Calc 29.36, Est GFR (MDRD) Af Amer 50 L, Est GFR (MDRD) Non-Af 41 L, BUN/Creatinine Ratio 22.5 H , Glucose 96, Calcium 8.0 L, Troponin I 0.086 H Current Medications Acetaminophen (Tylenol) 650 mg PO Q6H PRN PRN PRN Reason: Pain Score 1-10/Temp > 100.7 F Last Admin: 11/11/19 15:44 Dose: 650 mg Documented by: Amiodarone HCl (Cordarone) 100 mg PO QODAY@0800 [facility] Donepezil HCl (Aricept) 10 mg PO QHS [facility] Last Admin: 11/10/19 22:46 Dose: 10 mg Documented by: Escitalopram Oxalate (Lexapro) 10 mg PO DAILY [facility] Last Admin: 11/11/19 09:30 Dose: 10 mg Documented by: Furosemide (Lasix) 40 mg PO DAILY [facility] Last Admin: 11/11/19 13:52 Dose: Not Given Documented by: Isosorbide Mononitrate (Imdur) 30 mg PO DAILY [facility] Last Admin: 11/11/19 09:30 Dose: 30 mg Documented by: Levothyroxine Sodium (Synthroid) 125 mcg PO DAILY@0600 [facility] Last Admin: 11/11/19 06:02 Dose: 125 mcg Documented by: Melatonin (Melatonin) 5 mg PO QHS [facility] Last Admin: 11/10/19 22:46 Dose: 5 mg Documented by: Ondansetron HCl (Zofran) 4 mg IV Q8H PRN PRN PRN Reason: NAUSEA/VOMITING Last Admin: 11/10/19 22:50 Dose: 4 mg Documented by: Discharge Diet: Low fat/ Low Cholesterol, 2000 mg Sodium Diet Discharge Activity: Return to Normal Activity Home Medications: Medications to take at Discharge Donepezil HCl 10 mg PO QHS 03/07/15 Escitalopram Oxalate 10 mg PO DAILY 11/24/18 isosorbide mononitrate 30 mg tablet,extended release 24 hr 30 mg PO DAILY #90 tab 06/28/19 amiodarone 200 mg tablet 100 mg PO QODAY #90 tab 10/05/19 Levothyroxine Sodium [Synthroid] 125 mcg PO DAILY 11/10/19 Melatonin 5 mg PO QHS 11/10/19 Furosemide [Lasix] 40 mg PO DAILY #30 tab 11/11/19 Following Prescriptions Were Given to Patient: Furosemide [Lasix] 40 mg PO DAILY #30 tab Transmission Status: Received by [id number] Primary Care Physician: Laith Lai Chi, MD [Primary Care Provider] - Please follow up with your Primary Care Physician in: 2 weeks Please Follow Up With: Alonso Peraza MD When: 1-2 weeks Please Follow Up With: Guillermo Barker MD - Ear, nose, and throat. You have an appointment to remove your nasal packing. You need to be at your appointment at 8:45 in the AM. When: Thursday at 8:45AM Disposition: Home Minutes spent on discharge:: 40 Patient Condition:: Stable Medical Necessity - Tobacco Use Smoking Status: Current every day smoker Tobacco Use: Cigarettes, Chew Meaningful Use Info Meaningful Use Diagnoses (Choose all that apply): CHF - CHF TIMO/ARB ordered at discharge?: No Reason TIMO/ARB not ordered?: Worsening renal disease Documented LVEF (%): 65 <Poonam Delacruz - Last Filed: 11/12/19 11:33> Discharge Date and Diagnosis - Secondary Discharge Diagnosis Chronic Problems: Chronic Problems (Last Reviewed 11/10/19 @ 18:[address] Timothy Jimenez, DO) Multiple rib fractures (Chronic) Hypothyroidism (Chronic) Insomnia (Chronic) Coronary artery disease (Chronic) Atrial fibrillation (Chronic) Depression (Chronic) Iron deficiency anemia (Chronic) COPD (chronic obstructive pulmonary disease) (Chronic) GERD (gastroesophageal reflux disease) (Chronic) Obstructive sleep apnea (Chronic) Pancreatitis (Chronic) Alzheimer disease (Chronic) Hx of cholecystectomy (Chronic) 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) tricep surgery (Chronic) CKD (chronic kidney disease) (Chronic) Thrombocytopenia (Chronic) Old myocardial infarction (Chronic) Right bundle branch block (Chronic) Hypertension (Chronic) Paroxysmal SVT (supraventricular tachycardia) (Chronic) Nonsustained ventricular tachycardia (Chronic) Paroxysmal atrial fibrillation (Chronic) Stage III chronic kidney disease (Chronic) Obesity (BMI 30-39.9) (Chronic) Hospital Course and Treatment Summary of Care Provided: This patient was seen in conjunction with AJITH Escobedo. I have independently interviewed and examined the patient and reviewed pertinent historical, laboratory, and other data. Please refer to AJITH Escobedo note for his patient's presentation, findings, and recommendations. I have reviewed and his note and concur with his documentation The patient is a 83 year old M with past medical history of dementia, chronic diastolic CHF who comes in with a right nosebleed started spontaneously at home. He has history of chronic thrombocytopenia. His right nose was packed with a Rhino pack in the ED. he has some slight elevation in his troponin. He was monitored overnight with no acute events. Discussed with cardiology, patient will be followed up in the outpatient. Off anticoagulants or aspirin. He will be followed by ENT in 3-5 days. On the day of discharge, patient was seen and examined. No acute events overnight. Physical Exam: Gen: Looks in some discomfort, not pale, not jaundiced, chronically unwell, right rhino rocket in, soaked CVS:HS I +II, regular, no murmurs RESP: Diminished at lung bases GI: BS present and normal, soft, nontender, no palpable organs EXT:Bilateral leg edema +2 - Physical Exam Vitals/I&O's: Vital Signs Temp Pulse Resp BP Pulse Ox 98.9 F 59 L 16 124/53 H 92 11/11/19 15:21 11/11/19 15:21 11/11/19 15:21 11/11/19 15:21 11/11/19 15:21 Oxygen Delivery Method Room Air Weight: 93.5 kg Body Mass Index (BMI) 33.5 Finger Stick Blood Glucose 85 Intake and Output for Last 24 Hours 11/10/19 11/11/19 11/12/19 23:59 23:59 23:59 Intake Total 660 / 660 Output Total 425 / 425 Balance 235 / 235 Inpatient E&M: 29988 Disch Hosp
--- NOTE | 2019-11-11 18:15 | NURSING ---
Dr. Jimenez came to floor to access rhino rocket. Pt okay to leave with it as is at this time.
== END 2019-11-11 18:37 | disposition home or self-care (01) | DRG 150 ==
LOC: ED 17:49 → PCU 18:16
PROVIDERS: Emergency Provider Emergency Medicine; PCP Family Medicine Geriatric Medicine; Visit Provider Internal Medicine
DX: R04.0 Epistaxis (principal); I50.33 Acute on chronic diastolic (congestive) heart failure; I13.0 Hypertensive heart and chronic kidney disease with heart failure and stage 1 through stage 4 chronic kidney disease, or unspecified chronic kidney disease; I47.1 Supraventricular tachycardia; K86.1 Other chronic pancreatitis; I47.2 Ventricular tachycardia; N18.3 Chronic kidney disease, stage 3 (moderate); F02.80 Dementia in other diseases classified elsewhere, unspecified severity, without behavioral disturbance, psychotic disturbance, mood disturbance, and anxiety; G30.9 Alzheimer's disease, unspecified; I48.0 Paroxysmal atrial fibrillation; J44.9 Chronic obstructive pulmonary disease, unspecified; D69.6 Thrombocytopenia, unspecified; E03.9 Hypothyroidism, unspecified; I25.10 Atherosclerotic heart disease of native coronary artery without angina pectoris; G47.00 Insomnia, unspecified; F17.210 Nicotine dependence, cigarettes, uncomplicated; I45.10 Unspecified right bundle-branch block; I44.4 Left anterior fascicular block; K21.9 Gastro-esophageal reflux disease without esophagitis; E66.9 Obesity, unspecified; G47.33 Obstructive sleep apnea (adult) (pediatric); F32.9 Major depressive disorder, single episode, unspecified; D50.9 Iron deficiency anemia, unspecified; I25.2 Old myocardial infarction; Z90.49 Acquired absence of other specified parts of digestive tract; Z82.49 Family history of ischemic heart disease and other diseases of the circulatory system; Z68.35 Body mass index [BMI] 35.0-35.9, adult; Z96.643 Presence of artificial hip joint, bilateral; Z79.890 Hormone replacement therapy
CPT/HCPCS: 36415; 71045; 80048; 81001; 84484; 85025; 87040; 87635; 93005; 93306; 97162; 97166; 97802; 99285; 99406; C9803; P9612; Q9957; A4216; C8929; J1940; J2405; U0003

== ENCOUNTER → 2019-11-23 10:59 | Outpatient (CLI) | payer MEDICARE, SELFPAY ==
[2019-11-10 18:12] VITALS: BMI 33.5
[2019-11-23 12:27] LABS: Absolute Lymphocyte Count 1.42 X10^3/uL (0.83-4.51); Absolute Neutrophil Count 3.5 X10^3/uL (2.0-7.7); Basophil# 0.03 X10^3/uL; Basophil% 0.5 % (0-1); Eosinophil# 0.27 X10^3/uL; Eosinophils% 4.8 % (0-5); Hematocrit 39.6 % (40-54); Hemoglobin 12.8 g/dL (13.0-16.5); Lymphocyte # 1.42 X10^3/ul (4.0); Lymphocyte % 25.4 % (19-41); Mean Corp Hgb Conc 32.3 g/dL (32-36); Mean Corpuscular Hgb 33.8 pg (27.0-32.0); Mean Corpuscular Volume 104.5 fL (80-94); Mean Platelet Vol. 8.8 fl (6.2-12.0); Monocyte# 0.39 X10^3/uL; NRBC Flagged by Analyzer 0 % (0-5); Neutrophil # 3.48 X10^3/uL (2.7-7.7); Neutrophil % 62.1 % (47-70); Platelet Count 119 K/mm3 (150-450); RBC Distribution Width CV 13.1 % (11.6-14.6); RBC Distribution Width SD 50.5 fl (35.1-43.9); Red Blood Count 3.79 M/mm3 (4.6-6.2); White Blood Count 5.6 K/mm3 (4.4-11.0)
[2019-11-23 12:44] LABS: Vitamin D,25 Hydroxy 42.6 ng/mL
[2019-11-23 12:54] LABS: ALB/GLOB Ratio 0.6 RATIO (0.9-2.4); AST(SGOT) 21 U/L (15-37); Alanine Aminotransfer ALT/SGPT 15 U/L (16-61); Albumin, Serum 2.8 g/dL (3.2-5.0); Alkaline Phosphatase 89 U/L (45-117); Anion Gap 6 (5-15); BUN 32 mg/dL (7-18); BUN/Creat Ratio 18.6 RATIO (10-20); Calcium,Total 8.7 mg/dL (8.5-10.1); Chloride 102 mmol/L (98-107); Creatinine, Serum 1.72 mg/dL (0.70-1.30); EST Glomerular Filtration Rate 40 mL/min (>60); Est Glom Filt Rate - Afr Amer 49 mL/min (>60); Globulin 4.5 g/dL (2.2-4.2); Glucose 109 mg/dL (74-106); Potassium 4.3 mmol/L (3.5-5.1); Protein, Total 7.3 g/dL (6.4-8.2); Sodium Level 139 mmol/L (136-145); Thyroid Stim Hormone (TSH) 3.07 uIU/mL (0.358-3.74)
== END ==
PROVIDERS: PCP Family Medicine Geriatric Medicine; Visit Provider Family Medicine Geriatric Medicine
DX: I10 Essential (primary) hypertension (principal); E55.9 Vitamin D deficiency, unspecified
CPT/HCPCS: 36415; 80053; 82306; 84443; 85025

== ENCOUNTER → 2020-01-23 10:49 | Outpatient (CLI) | payer MEDICARE, SELFPAY ==
[2019-11-23 11:25] VITALS: BMI 33.0
[2020-01-23 11:22] LABS: Hematocrit 42.3 % (40-54); Hemoglobin 13.4 g/dL (13.0-16.5); Mean Corp Hgb Conc 31.7 g/dL (32-36); Mean Corpuscular Hgb 33.3 pg (27.0-32.0); Mean Platelet Vol. 8.4 fl (6.2-12.0); Platelet Count 105 K/mm3 (150-450); RBC Distribution Width CV 13.1 % (11.6-14.6); RBC Distribution Width SD 50.8 fl (35.1-43.9); Red Blood Count 4.03 M/mm3 (4.6-6.2)
[2020-01-23 12:02] LABS: PTHIN 42.3 pg/mL (18.4-80.1)
[2020-01-23 12:08] LABS: BUN 35 mg/dL (7-18); Calcium,Total 8.9 mg/dL (8.5-10.1); Chloride 105 mmol/L (98-107); Creatinine, Serum 1.84 mg/dL (0.70-1.30); EST Glomerular Filtration Rate 37 mL/min (>60); Est Glom Filt Rate - Afr Amer 45 mL/min (>60); Glucose 119 mg/dL (74-106); Phosphorus 3.9 mg/dL (2.5-4.9); Potassium 4.2 mmol/L (3.5-5.1); Sodium Level 142 mmol/L (136-145)
== END ==
PROVIDERS: PCP Family Medicine Geriatric Medicine; Referring Provider Internal Medicine Nephrology; Visit Provider Internal Medicine Nephrology
DX: R60.0 Localized edema (principal); N18.30 Chronic kidney disease, stage 3 unspecified; D64.9 Anemia, unspecified
CPT/HCPCS: 36415; 80069; 83970; 85027

== ENCOUNTER → 2020-02-22 11:28 | Outpatient (CLI) | payer MEDICARE, SELFPAY ==
[2019-11-23 11:25] VITALS: BMI 33.0
[2020-02-22 12:40] LABS: Absolute Lymphocyte Count 1.52 X10^3/uL (0.83-4.51); Absolute Neutrophil Count 2.9 X10^3/uL (2.0-7.7); Basophil# 0.02 X10^3/uL; Basophil% 0.4 % (0-1); Eosinophil# 0.35 X10^3/uL; Eosinophils% 6.9 % (0-5); Hematocrit 41.2 % (40-54); Hemoglobin 13.6 g/dL (13.0-16.5); Lymphocyte # 1.52 X10^3/ul (4.0); Lymphocyte % 30.1 % (19-41); Mean Corpuscular Hgb 34.3 pg (27.0-32.0); Mean Corpuscular Volume 103.8 fL (80-94); Mean Platelet Vol. 9.1 fl (6.2-12.0); Monocyte# 0.29 X10^3/uL; Monocyte% 5.7 % (0-10); NRBC Flagged by Analyzer 0 % (0-5); Neutrophil # 2.85 X10^3/uL (2.7-7.7); Neutrophil % 56.5 % (47-70); Platelet Count 102 K/mm3 (150-450); RBC Distribution Width SD 49.7 fl (35.1-43.9); Red Blood Count 3.97 M/mm3 (4.6-6.2); White Blood Count 5.1 K/mm3 (4.4-11.0)
[2020-02-22 12:58] LABS: ALB/GLOB Ratio 0.7 RATIO (0.9-2.4); AST(SGOT) 22 U/L (15-37); Alanine Aminotransfer ALT/SGPT 19 U/L (16-61); Albumin, Serum 2.9 g/dL (3.2-5.0); Alkaline Phosphatase 97 U/L (45-117); Anion Gap 5 (5-15); BUN 32 mg/dL (7-18); BUN/Creat Ratio 19.2 RATIO (10-20); Calcium,Total 8.7 mg/dL (8.5-10.1); Chloride 106 mmol/L (98-107); Creatinine, Serum 1.67 mg/dL (0.70-1.30); EST Glomerular Filtration Rate 42 mL/min (>60); Est Glom Filt Rate - Afr Amer 51 mL/min (>60); Glucose 108 mg/dL (74-106); Phosphorus 3.4 mg/dL (2.5-4.9); Potassium 4.1 mmol/L (3.5-5.1); Protein, Total 6.9 g/dL (6.4-8.2); Sodium Level 141 mmol/L (136-145); Thyroid Stim Hormone (TSH) 0.72 uIU/mL (0.358-3.74); Uric Acid 5.9 mg/dL (3.5-7.2)
[2020-02-22 13:16] LABS: Vitamin D,25 Hydroxy 37.8 ng/mL
== END ==
PROVIDERS: PCP Family Medicine Geriatric Medicine; Visit Provider Internal Medicine Nephrology
DX: N17.9 Acute kidney failure, unspecified (principal); E55.9 Vitamin D deficiency, unspecified; I10 Essential (primary) hypertension; M10.9 Gout, unspecified
CPT/HCPCS: 36415; 80053; 82306; 84100; 84443; 84550; 85025

== ENCOUNTER 2020-04-20 16:44 | Outpatient (RCR) | payer MEDICARE, SELFPAY ==
[2020-03-28 13:29] VITALS: BMI 33.7
== END 2020-04-20 23:59 ==
LOC: IMMUN 16:44
PROVIDERS: PCP Family Medicine Geriatric Medicine; Referring Provider Family Medicine; Visit Provider Family Medicine
DX: Z23 Encounter for immunization (principal)
CPT/HCPCS: 0011A; 0012A

== ENCOUNTER → 2020-05-24 11:02 | Outpatient (CLI) | payer MEDICARE, SELFPAY ==
[2020-03-28 13:29] VITALS: BMI 33.7
[2020-05-24 12:18] LABS: Absolute Lymphocyte Count 1.84 X10^3/uL (0.83-4.51); Absolute Neutrophil Count 2.6 X10^3/uL (2.0-7.7); Basophil# 0.05 X10^3/uL; Eosinophil# 0.39 X10^3/uL; Eosinophils% 7.4 % (0-5); Hematocrit 41.5 % (40-54); Hemoglobin 13.4 g/dL (13.0-16.5); Lymphocyte # 1.84 X10^3/ul (4.0); Mean Corp Hgb Conc 32.3 g/dL (32-36); Mean Corpuscular Hgb 33.8 pg (27.0-32.0); Mean Corpuscular Volume 104.5 fL (80-94); Mean Platelet Vol. 9.1 fl (6.2-12.0); Monocyte# 0.39 X10^3/uL; Monocyte% 7.4 % (0-10); NRBC Flagged by Analyzer 0 % (0-5); Neutrophil # 2.58 X10^3/uL (2.7-7.7); Platelet Count 112 K/mm3 (150-450); RBC Distribution Width SD 49.9 fl (35.1-43.9); Red Blood Count 3.97 M/mm3 (4.6-6.2); White Blood Count 5.3 K/mm3 (4.4-11.0)
[2020-05-24 12:38] LABS: Vitamin D,25 Hydroxy 34.2 ng/mL
[2020-05-24 12:42] LABS: ALB/GLOB Ratio 0.8 RATIO (0.9-2.4); AST(SGOT) 21 U/L (15-37); Alanine Aminotransfer ALT/SGPT 15 U/L (16-61); Albumin, Serum 3.1 g/dL (3.2-5.0); Alkaline Phosphatase 93 U/L (45-117); Anion Gap 4 (5-15); BUN 34 mg/dL (7-18); BUN/Creat Ratio 18.7 RATIO (10-20); Calcium,Total 8.9 mg/dL (8.5-10.1); Chloride 106 mmol/L (98-107); Creatinine, Serum 1.82 mg/dL (0.70-1.30); EST Glomerular Filtration Rate 38 mL/min (>60); Est Glom Filt Rate - Afr Amer 46 mL/min (>60); Glucose 91 mg/dL (74-106); Potassium 4.5 mmol/L (3.5-5.1); Protein, Total 7.1 g/dL (6.4-8.2); Sodium Level 141 mmol/L (136-145); Thyroid Stim Hormone (TSH) 2.24 uIU/mL (0.358-3.74); Uric Acid 6.2 mg/dL (3.5-7.2)
== END ==
PROVIDERS: PCP Family Medicine Geriatric Medicine; Visit Provider Family Medicine Geriatric Medicine
DX: I10 Essential (primary) hypertension (principal); E55.9 Vitamin D deficiency, unspecified; M10.9 Gout, unspecified
CPT/HCPCS: 36415; 80053; 82306; 84443; 84550; 85025

== ENCOUNTER → 2020-06-21 11:05 | Outpatient (CLI) | payer MEDICARE, SELFPAY ==
[2019-11-23 11:25] VITALS: BMI 33.0
[2020-03-28 13:29] VITALS: BMI 33.7
[2020-06-21 11:32] LABS: Hematocrit 38.9 % (40-54); Hemoglobin 12.5 g/dL (13.0-16.5); Mean Corp Hgb Conc 32.1 g/dL (32-36); Mean Corpuscular Hgb 33.8 pg (27.0-32.0); Mean Corpuscular Volume 105.1 fL (80-94); Mean Platelet Vol. 8.7 fl (6.2-12.0); Platelet Count 109 K/mm3 (150-450); RBC Distribution Width CV 13.1 % (11.6-14.6); RBC Distribution Width SD 50.6 fl (35.1-43.9); White Blood Count 5.3 K/mm3 (4.4-11.0)
[2020-06-21 12:10] LABS: Albumin, Serum 2.9 g/dL (3.2-5.0); BUN 30 mg/dL (7-18); BUN/Creat Ratio 18.1 RATIO (10-20); Calcium,Total 8.5 mg/dL (8.5-10.1); Chloride 106 mmol/L (98-107); Creatinine, Serum 1.66 mg/dL (0.70-1.30); EST Glomerular Filtration Rate 42 mL/min (>60); Est Glom Filt Rate - Afr Amer 51 mL/min (>60); Glucose 103 mg/dL (74-106); Phosphorus 3.8 mg/dL (2.5-4.9); Potassium 4.2 mmol/L (3.5-5.1); Sodium Level 139 mmol/L (136-145)
== END ==
PROVIDERS: PCP Family Medicine Geriatric Medicine; Referring Provider Internal Medicine Nephrology; Visit Provider Internal Medicine Nephrology
DX: N17.9 Acute kidney failure, unspecified (principal)
CPT/HCPCS: 36415; 80069; 85027

== ENCOUNTER → 2020-07-25 09:02 | Outpatient (CLI) | payer MEDICARE, SELFPAY ==
[2020-07-11 10:07] VITALS: BMI 35.0
--- NOTE | 2020-07-25 09:07 | CDU_ITS ---
Reason For Study: BILATERAL BRUITS Rt. Velocities/BP Lt. Velocities/BP Prox CCA 64.7/7.3 cm/sec. Prox CCA 102.1/8.9 cm/sec. Mid CCA 69.0/9.0 cm/sec. Mid CCA 91.1/12.6 cm/sec. Dist CCA 65.1/6.4 cm/sec. Dist CCA 58.8/10.9 cm/sec. Prox ICA 64.7/16.4 cm/sec. Prox ICA 72.3/17.1 cm/sec. Mid ICA 120.5/26.1 cm/sec. Mid ICA 90.8/17.1 cm/sec. Dist ICA 122.7/26.1 cm/sec. Dist ICA 65.0/14.6 cm/sec. Rt. ICA/CCA = 122.7/69.0=1.8. Lt. ICA/CCA = 90.8/102.1=0.9. Prox ECA 83.3/6.4 cm/sec. Prox ECA 72.3/8.5 cm/sec. Rt. Vert. 35.4/11.2 cm/sec. Lt. Vert. 50.2/9.7 cm/sec. Right Extracranial There is intimal thickening but no significant atherosclerotic plaque noted in the right common carotid artery. There is homogeneous, smooth atherosclerotic plaque noted in the right internal carotid artery. The tortuous nature of the right internal carotid artery may result in flow velocities overestimating the degree of stenosis. There is intimal thickening but no significant atherosclerotic plaque noted in the right external carotid artery. Antegrade flow is noted in the right vertebral artery. Left Extracranial There is homogeneous, smooth atherosclerotic plaque noted in the left common carotid artery. There is heterogeneous, irregular atherosclerotic plaque noted in the left internal carotid artery. There is no significant atherosclerotic plaque noted in the left external carotid artery. Procedure Carotid Duplex 52561. The exam was diagnostic. Exam performed in department. VL/Carotid Duplex Ultrasound Interpretation Summary Smooth plaque at the proximal right internal carotid artery with less than 50% stenosis. Tortuosity of the internal carotid artery noted. Less than 50% stenosis right external carotid artery Irregular plaque at the proximal left internal carotid artery with less than 50 % stenosis Less than 50% stenosis left external carotid artery Patent and antegrade vertebrals bilaterally Ordering Physician: Kiki Ponce Referring Physician: Laith Lai Chi Performed By: Dinora Duron, JESSICA, RVT
== END ==
PROVIDERS: PCP Family Medicine Geriatric Medicine; Referring Provider Physician Assistant Medical; Visit Provider Physician Assistant Medical
DX: R09.89 Other specified symptoms and signs involving the circulatory and respiratory systems (principal)
CPT/HCPCS: 93880

== ENCOUNTER → 2020-08-23 10:59 | Outpatient (CLI) | payer MEDICARE, SELFPAY ==
[2020-07-11 10:07] VITALS: BMI 35.0
[2020-08-23 11:57] LABS: Absolute Lymphocyte Count 1.39 X10^3/uL (0.83-4.51); Absolute Neutrophil Count 2.4 X10^3/uL (2.0-7.7); Basophil# 0.02 X10^3/uL; Basophil% 0.5 % (0-1); Eosinophil# 0.33 X10^3/uL; Eosinophils% 7.5 % (0-5); Hematocrit 41.7 % (40-54); Hemoglobin 13.3 g/dL (13.0-16.5); Lymphocyte # 1.39 X10^3/ul (0.83-4.51); Lymphocyte % 31.5 % (19-41); Mean Corp Hgb Conc 31.9 g/dL (32-36); Mean Corpuscular Hgb 33.7 pg (27.0-32.0); Mean Corpuscular Volume 105.6 fL (80-94); Mean Platelet Vol. 9.1 fl (6.2-12.0); Monocyte# 0.26 X10^3/uL; Monocyte% 5.9 % (0-10); NRBC Flagged by Analyzer 0 % (0-5); Neutrophil # 2.39 X10^3/uL (2.7-7.7); Neutrophil % 54.1 % (47-70); Platelet Count 108 K/mm3 (150-450); RBC Distribution Width CV 12.9 % (11.6-14.6); RBC Distribution Width SD 50.6 fl (35.1-43.9); Red Blood Count 3.95 M/mm3 (4.6-6.2); White Blood Count 4.4 K/mm3 (4.4-11.0)
[2020-08-23 12:28] LABS: ALB/GLOB Ratio 0.8 RATIO (0.9-2.4); AST(SGOT) 29 U/L (15-37); Alanine Aminotransfer ALT/SGPT 16 U/L (16-61); Alkaline Phosphatase 90 U/L (45-117); Anion Gap 6 (5-15); BUN 32 mg/dL (7-18); BUN/Creat Ratio 17.4 RATIO (10-20); Calcium,Total 8.7 mg/dL (8.5-10.1); Chloride 106 mmol/L (98-107); Creatinine, Serum 1.84 mg/dL (0.70-1.30); EST Glomerular Filtration Rate 37 mL/min (>60); Est Glom Filt Rate - Afr Amer 45 mL/min (>60); Glucose 113 mg/dL (74-106); Potassium 4.4 mmol/L (3.5-5.1); Sodium Level 142 mmol/L (136-145); Thyroid Stim Hormone (TSH) 1.51 uIU/mL (0.358-3.74); Uric Acid 6.2 mg/dL (3.5-7.2)
[2020-08-23 12:49] LABS: Vitamin D,25 Hydroxy 46.9 ng/mL
== END ==
PROVIDERS: PCP Family Medicine Geriatric Medicine; Visit Provider Family Medicine Geriatric Medicine
DX: I10 Essential (primary) hypertension (principal); E55.9 Vitamin D deficiency, unspecified; M10.9 Gout, unspecified
CPT/HCPCS: 36415; 80053; 82306; 84443; 84550; 85025

== ENCOUNTER → 2020-10-10 14:12 | Outpatient (CLI) | payer MEDICARE, SELFPAY ==
[2020-07-11 10:07] VITALS: BMI 35.0
[2020-10-10 14:46] LABS: Absolute Lymphocyte Count 0.94 X10^3/uL (0.83-4.51); Absolute Neutrophil Count 4.5 X10^3/uL (2.0-7.7); Basophil# 0.03 X10^3/uL; Basophil% 0.5 % (0-1); Eosinophils% 3.2 % (0-5); Hematocrit 38.6 % (40-54); Hemoglobin 12.6 g/dL (13.0-16.5); Lymphocyte # 0.94 X10^3/ul (0.83-4.51); Lymphocyte % 14.9 % (19-41); Mean Corp Hgb Conc 32.6 g/dL (32-36); Mean Corpuscular Hgb 34.1 pg (27.0-32.0); Mean Corpuscular Volume 104.3 fL (80-94); Monocyte# 0.58 X10^3/uL; Monocyte% 9.2 % (0-10); NRBC Flagged by Analyzer 0 % (0-5); Neutrophil # 4.51 X10^3/uL (2.7-7.7); Neutrophil % 71.4 % (47-70); POSITIVE COUNT YES; Platelet Count 78 K/mm3 (150-450); RBC Distribution Width CV 13.4 % (11.6-14.6); RBC Distribution Width SD 51.6 fl (35.1-43.9); White Blood Count 6.3 K/mm3 (4.4-11.0)
[2020-10-10 14:48] LABS: Anion Gap 6 (5-15); BUN 33 mg/dL (7-18); BUN/Creat Ratio 17.5 RATIO (10-20); Calcium,Total 8.3 mg/dL (8.5-10.1); Chloride 103 mmol/L (98-107); Creatinine, Serum 1.89 mg/dL (0.70-1.30); EST Glomerular Filtration Rate 36 mL/min (>60); Est Glom Filt Rate - Afr Amer 44 mL/min (>60); Glucose 95 mg/dL (74-106); Potassium 4.2 mmol/L (3.5-5.1); Sodium Level 137 mmol/L (136-145)
[2020-10-10 15:07] LABS: BNP,B-Type NATRIURETIC PEPTIDE 387.1 pg/mL (0-100)
[2020-10-10 15:12] LABS: Differential Indicated SCAN CRITERIA MET
[2020-10-10 15:13] LABS: Platelet Estimate MOD DEC (ADEQ)
--- NOTE | 2020-10-10 16:40 | RAD_ITS ---
EXAM DESCRIPTION: AP upright and lateral CHEST CLINICAL HISTORY: 84 years Male, SOB SOB COMPARISON: Previous chest obtained on 11/10/2019 FINDINGS: The thorax is intact. The heart and mediastinum appear to be within normal limits. The lungs appear to be well areated without evidence of pneumonic consolidation or pleural effusion. Curvilinear subsegmental atelectasis is seen in the left lung base, and there is mild eventration of both hemidiaphragms. RAD/Chest PA and Lateral IMPRESSION: No acute pathology Electronically Signed: Brendon Aguilar DO at 10:32 EDT Tel , Service support ,
== END ==
PROVIDERS: PCP Family Medicine Geriatric Medicine; Referring Provider Family Medicine Geriatric Medicine; Visit Provider Family Medicine Geriatric Medicine
DX: I50.33 Acute on chronic diastolic (congestive) heart failure (principal); R31.9 Hematuria, unspecified; R06.89 Other abnormalities of breathing
CPT/HCPCS: 36415; 71046; 80048; 83880; 85025; 87086; 87088

== ENCOUNTER → 2020-10-11 09:12 | Outpatient (CLI) | payer MEDICARE, SELFPAY ==
[2020-07-11 10:07] VITALS: BMI 35.0
== END ==
PROVIDERS: PCP Family Medicine Geriatric Medicine; Referring Provider Family Medicine Geriatric Medicine; Visit Provider Family Medicine Geriatric Medicine
DX: R06.89 Other abnormalities of breathing (principal)
CPT/HCPCS: 87635; 87804; 87807; C9803; U0005; U0003

== ENCOUNTER → 2020-10-17 10:57 | Outpatient (CLI) | payer MEDICARE, SELFPAY ==
[2020-07-11 10:07] VITALS: BMI 35.0
[2020-10-17 13:01] LABS: Anion Gap 4 (5-15); BUN 42 mg/dL (7-18); BUN/Creat Ratio 23.3 RATIO (10-20); Calcium,Total 8.4 mg/dL (8.5-10.1); Chloride 103 mmol/L (98-107); EST Glomerular Filtration Rate 38 mL/min (>60); Est Glom Filt Rate - Afr Amer 46 mL/min (>60); Glucose 89 mg/dL (74-106); Potassium 4.1 mmol/L (3.5-5.1); Sodium Level 140 mmol/L (136-145)
== END ==
PROVIDERS: PCP Family Medicine Geriatric Medicine; Visit Provider Family Medicine Geriatric Medicine
DX: I50.32 Chronic diastolic (congestive) heart failure (principal)
CPT/HCPCS: 36415; 80048

== ENCOUNTER → 2020-10-25 11:00 | Outpatient (CLI) | payer MEDICARE, SELFPAY ==
[2020-07-11 10:07] VITALS: BMI 35.0
[2020-10-25 12:43] LABS: Anion Gap 2 (5-15); BUN 39 mg/dL (7-18); BUN/Creat Ratio 21.8 RATIO (10-20); Calcium,Total 8.5 mg/dL (8.5-10.1); Chloride 106 mmol/L (98-107); Creatinine, Serum 1.79 mg/dL (0.70-1.30); EST Glomerular Filtration Rate 39 mL/min (>60); Est Glom Filt Rate - Afr Amer 47 mL/min (>60); Glucose 97 mg/dL (74-106); Potassium 4.2 mmol/L (3.5-5.1); Sodium Level 140 mmol/L (136-145)
== END ==
PROVIDERS: PCP Family Medicine Geriatric Medicine; Visit Provider Family Medicine Geriatric Medicine
DX: R94.4 Abnormal results of kidney function studies (principal)
CPT/HCPCS: 36415; 80048

== ENCOUNTER → 2020-10-30 15:50 | Outpatient (CLI) | payer MEDICARE, SELFPAY ==
[2020-10-30 17:27] LABS: Absolute Lymphocyte Count 1.03 X10^3/uL (0.83-4.51); Absolute Neutrophil Count 2.5 X10^3/uL (2.0-7.7); Basophil# 0.01 X10^3/uL; Basophil% 0.2 % (0-1); Eosinophil# 0.06 X10^3/uL; Eosinophils% 1.4 % (0-5); Hematocrit 38.6 % (40-54); Hemoglobin 12.5 g/dL (13.0-16.5); Lymphocyte # 1.03 X10^3/ul (0.83-4.51); Lymphocyte % 24.8 % (19-41); Mean Corp Hgb Conc 32.4 g/dL (32-36); Mean Corpuscular Hgb 34.2 pg (27.0-32.0); Mean Corpuscular Volume 105.5 fL (80-94); Mean Platelet Vol. 9.6 fl (6.2-12.0); Monocyte# 0.52 X10^3/uL; Monocyte% 12.5 % (0-10); NRBC Flagged by Analyzer 0 % (0-5); Neutrophil # 2.51 X10^3/uL (2.7-7.7); Neutrophil % 60.6 % (47-70); POSITIVE COUNT YES; Platelet Count 60 K/mm3 (150-450); RBC Distribution Width CV 13.8 % (11.6-14.6); RBC Distribution Width SD 54.7 fl (35.1-43.9); Red Blood Count 3.66 M/mm3 (4.6-6.2); White Blood Count 4.2 K/mm3 (4.4-11.0)
[2020-10-30 17:32] LABS: Anion Gap 5 (5-15); BUN 34 mg/dL (7-18); BUN/Creat Ratio 19.3 RATIO (10-20); Calcium,Total 7.7 mg/dL (8.5-10.1); Chloride 102 mmol/L (98-107); Creatinine, Serum 1.76 mg/dL (0.70-1.30); EST Glomerular Filtration Rate 39 mL/min (>60); Est Glom Filt Rate - Afr Amer 48 mL/min (>60); Glucose 89 mg/dL (74-106); Potassium 4.8 mmol/L (3.5-5.1); Sodium Level 135 mmol/L (136-145)
[2020-10-30 17:41] LABS: BNP,B-Type NATRIURETIC PEPTIDE 278.7 pg/mL (0-100)
[2020-10-30 18:06] LABS: Differential Indicated SCAN CRITERIA MET
[2020-10-30 18:07] LABS: Platelet Estimate MOD DEC (ADEQ); Red Cell Morphology N CHROM NORMAL (NORM C&C)
[2020-10-30 18:08] LABS: Anisocytosis 1+; Macrocytosis 1+
--- NOTE | 2020-10-30 18:15 | RAD_ITS ---
STUDY: X-RAY CHEST REASON FOR EXAM: Male, 84 years old. CHEST PAIN TECHNIQUE: Single AP portable view of the chest. COMPARISON: 10/10/2020. FINDINGS: The lungs are underexpanded with mild bilateral basilar atelectasis, otherwise clear. There is no demonstrated pleural abnormality. There is borderline cardiomegaly. Normal mediastinum and lucero. Normal visualized pulmonary arteries. There is atherosclerotic calcification of the aortic arch with tortuosity. There is demineralization of the osseous structures. There is degenerative osteoarthritis of the bilateral shoulders and spine. There is no demonstrated abnormality of the visualized soft tissue structures of the upper abdomen. RAD/Chest PA and Lateral IMPRESSION: Mild bilateral basilar atelectasis. Otherwise no acute cardiac pulmonary disease. Electronically Signed: Luma León MD at 0:24 EDT , Service support ,
== END ==
PROVIDERS: PCP Family Medicine Geriatric Medicine; Visit Provider Family Medicine Geriatric Medicine
DX: I50.33 Acute on chronic diastolic (congestive) heart failure (principal); J18.9 Pneumonia, unspecified organism; R07.9 Chest pain, unspecified
CPT/HCPCS: 36415; 71046; 80048; 83880; 85025

== ENCOUNTER → 2020-10-31 10:10 | Outpatient (CLI) | payer MEDICARE, SELFPAY ==
[2020-10-31 12:52] LABS: Probe Check PASS; Specimen Processing Control PASS
== END ==
PROVIDERS: PCP Family Medicine Geriatric Medicine; Referring Provider Family Medicine Geriatric Medicine; Visit Provider Family Medicine Geriatric Medicine
DX: U07.1 COVID-19 (principal)
CPT/HCPCS: 87635; 87804; C9803; U0005; U0003

== ENCOUNTER → 2020-11-26 10:36 | Outpatient (CLI) | payer MEDICARE, SELFPAY ==
[2020-11-26 12:02] LABS: Absolute Lymphocyte Count 1.29 X10^3/uL (0.83-4.51); Absolute Neutrophil Count 4.6 X10^3/uL (2.0-7.7); Basophil# 0.02 X10^3/uL; Basophil% 0.3 % (0-1); Eosinophil# 0.15 X10^3/uL; Eosinophils% 2.3 % (0-5); Hematocrit 45.3 % (40-54); Hemoglobin 14.7 g/dL (13.0-16.5); Lymphocyte # 1.29 X10^3/ul (0.83-4.51); Lymphocyte % 19.7 % (19-41); Mean Corp Hgb Conc 32.5 g/dL (32-36); Mean Corpuscular Hgb 33.9 pg (27.0-32.0); Mean Corpuscular Volume 104.6 fL (80-94); Mean Platelet Vol. 8.8 fl (6.2-12.0); Monocyte# 0.41 X10^3/uL; Monocyte% 6.3 % (0-10); NRBC Flagged by Analyzer 0 % (0-5); Neutrophil # 4.64 X10^3/uL (2.7-7.7); Neutrophil % 70.9 % (47-70); Platelet Count 128 K/mm3 (150-450); RBC Distribution Width CV 14.7 % (11.6-14.6); RBC Distribution Width SD 57.5 fl (35.1-43.9); Red Blood Count 4.33 M/mm3 (4.6-6.2); White Blood Count 6.5 K/mm3 (4.4-11.0)
--- NOTE | 2020-11-26 12:05 | RAD_ITS ---
STUDY: X-RAY CHEST REASON FOR EXAM: Male, 84 years old. CONGESTION . Chronic cough. TECHNIQUE: PA and lateral views of the chest. COMPARISON: Comparison is made with prior study 10/30/2020. FINDINGS: There now is evidence of focal infiltrate in the superior segment of the right lower lobe as well as at both lung bases. Radiographic follow-up is recommended. There is no demonstrated pleural abnormality. There is borderline cardiomegaly. Normal mediastinum and lucero. Normal visualized pulmonary arteries. There is atherosclerotic calcification of the aortic arch with tortuosity. There are diffuse degenerative changes of the visualized thoracic spine. Increased kyphosis. There is degenerative osteoarthritis of the bilateral shoulders. There is no demonstrated abnormality of the visualized soft tissue structures of the upper abdomen. RAD/Chest PA and Lateral IMPRESSION: New infiltrates in the superior segment of the right lower lobe as well as at both lung bases. Radiographic follow-up is recommended. Electronically Signed: Marcos Lewis MD at 12:44 EDT , Service support ,
[2020-11-26 12:28] LABS: ALB/GLOB Ratio 0.4 RATIO (0.9-2.4); AST(SGOT) 34 U/L (15-37); Alanine Aminotransfer ALT/SGPT 24 U/L (16-61); Albumin, Serum 1.7 g/dL (3.2-5.0); Alkaline Phosphatase 79 U/L (45-117); Anion Gap 8 (5-15); BUN 36 mg/dL (7-18); BUN/Creat Ratio 23.7 RATIO (10-20); Calcium,Total 7.7 mg/dL (8.5-10.1); Chloride 108 mmol/L (98-107); Creatinine, Serum 1.52 mg/dL (0.70-1.30); EST Glomerular Filtration Rate 46 mL/min (>60); Est Glom Filt Rate - Afr Amer 56 mL/min (>60); Globulin 4.6 g/dL (2.2-4.2); Glucose 91 mg/dL (74-106); Potassium 4.4 mmol/L (3.5-5.1); Protein, Total 6.3 g/dL (6.4-8.2); Sodium Level 141 mmol/L (136-145); Thyroid Stim Hormone (TSH) 3.36 uIU/mL (0.358-3.74); Uric Acid 5.7 mg/dL (3.5-7.2)
[2020-11-26 12:36] LABS: Vitamin D,25 Hydroxy 54.6 ng/mL
== END ==
PROVIDERS: PCP Family Medicine Geriatric Medicine; Visit Provider Family Medicine Geriatric Medicine
DX: E55.9 Vitamin D deficiency, unspecified (principal); I10 Essential (primary) hypertension; M10.9 Gout, unspecified; R09.81 Nasal congestion
CPT/HCPCS: 36415; 71046; 80053; 82306; 84443; 84550; 85025

== ENCOUNTER 2020-12-16 14:09 | Observation (INO) | payer MEDICARE, SELFPAY ==
[2020-12-16] VITALS (7 sets, daily range): BP systolic 124–155; BP diastolic 79–99; PULSE 87–99; RESP 14–20; TEMP 36.4–36.8; O2SAT 94–98; BMI 34.0; BMI 33.4
--- NOTE | 2020-12-16 14:49 | CT_ITS ---
HISTORY: confusion TECHNIQUE: Multiple axial images were obtained of the brain without intravenous contrast. A radiation dose optimization technique was used for this scan. IV Contrast dosage and agent: None. COMPARISON: 11/24/18 FINDINGS: # of images incl. paperwork: [id number] PARANASAL SINUSES AND MASTOID AIR CELLS: Clear. INTRACRANIAL HEMORRHAGE: None. BRAIN PARENCHYMA: No CT evidence of stroke. No intracranial masses. There is preservation of the bermeo/white matter interface. Posterior fossa structures are unremarkable. There is hypoattenuation of the periventricular white matter. Chronic involutional changes are noted. CSF SPACES: Appropriate for age. There is no hydrocephalus. MASS EFFECT: None. CALVARIUM: No acute fracture. CT/Brain/Head without Contrast IMPRESSION: Chronic involutional and white matter changes. No acute intracranial process. Individualized dose optimization techniques were used for this CT. at 1630 Reported and signed by: Ed Lovelace MD Electronically Signed: Ed Lovelace MD at 16:29 EDT Tel , Service support ,
--- NOTE | 2020-12-16 14:49 | EKG12_ITS ---
Test Reason : Blood Pressure : / mmHG Vent. Rate : 073 BPM Atrial Rate : 292 BPM P-R Int : 000 ms QRS Dur : 160 ms QT Int : 446 ms P-R-T Axes : 000 -88 082 degrees QTc Int : 491 ms Atrial flutter with variable A-V block with premature ventricular or aberrantly conducted complexes Right bundle branch block Left anterior fascicular block Bifascicular block Abnormal ECG Confirmed by HAI GARCIA, JOSE LUIS ([id number]), editor sound JADE MCKENZIE ([id number]) on 12/17/2020 1:04:02 PM Referred By: RAJESH Confirmed By:JOSE LUIS VALLES MD
--- NOTE | 2020-12-16 14:49 | RAD_ITS ---
HISTORY: weakness EXAMINATION/TECHNIQUE: XR Chest 1 View: Portable upright AP chest x-ray COMPARISON: 11/26/20 FINDINGS: LINES/DEVICES: None. LUNGS: Residual patchy airspace opacities in the bilateral lower lung leslie. No consolidation or pleural effusion. MEDIASTINUM AND CARDIOVASCULAR STRUCTURES: Cardiac silhouette not enlarged. BONES AND SOFT TISSUES: No acute bony abnormalities. RAD/Chest 1 View (Portable) IMPRESSION: Residual bilateral patchy airspace disease consistent with pneumonia. Recommend further follow-up to complete resolution. at 1649 Reported and signed by: Ed Lovelace MD Electronically Signed: Ed Lovelace MD at 16:48 EDT Tel , Service support ,
--- NOTE | 2020-12-16 14:53 | RAD_ITS ---
HISTORY: pain EXAMINATION/TECHNIQUE: XR Foot Min 3 Views: COMPARISON: None FINDINGS: BONES/JOINTS: Possible fracture of the medial malleolus versus artifact of projection. Diffuse osteopenia. Diffuse degenerative changes. No sclerotic or destructive changes observed. SOFT TISSUES: Mild forefoot swelling without gas formation. No radiopaque foreign body. RAD/Foot min 3 Views IMPRESSION: Artifact of projection versus fracture of the medial malleolus. Recommend dedicated ankle series. at 1647 Reported and signed by: Ed Lovelace MD Electronically Signed: Ed Lovelace MD at 16:46 EDT Tel , Service support ,
--- NOTE | 2020-12-16 14:58 | RAD_ITS ---
HISTORY: PAIN EXAMINATION/TECHNIQUE: XR Foot Min 3 Views: COMPARISON: 10/31/13 FINDINGS: BONES/JOINTS: AP view shows possible mildly displaced fracture of the medial malleolus. Mild degenerative changes. Diffuse osteopenia without sclerotic or destructive changes observed. SOFT TISSUES: Forefoot soft tissue swelling without gas formation. No radiopaque foreign body. RAD/Foot min 3 Views IMPRESSION: Possible fracture of the medial malleolus. Recommend right ankle series for further evaluation. Degenerative changes without cortical destructive lesion. at 1644 Reported and signed by: Ed Lovelace MD Electronically Signed: Ed Lovelace MD at 16:43 EDT Tel , Service support ,
[2020-12-16 15:44] LABS: Absolute Lymphocyte Count 1.46 X10^3/uL (0.83-4.51); Absolute Neutrophil Count 4.5 X10^3/uL (2.0-7.7); Basophil# 0.04 X10^3/uL; Basophil% 0.6 % (0-1); Eosinophil# 0.07 X10^3/uL; Hematocrit 49.6 % (40-54); Hemoglobin 15.9 g/dL (13.0-16.5); Lymphocyte # 1.46 X10^3/ul (0.83-4.51); Lymphocyte % 21.8 % (19-41); Mean Corp Hgb Conc 32.1 g/dL (32-36); Mean Corpuscular Hgb 34.2 pg (27.0-32.0); Mean Corpuscular Volume 106.7 fL (80-94); Mean Platelet Vol. 8.8 fl (6.2-12.0); Monocyte# 0.58 X10^3/uL; Monocyte% 8.6 % (0-10); NRBC Flagged by Analyzer 0 % (0-5); Neutrophil # 4.54 X10^3/uL (2.7-7.7); Neutrophil % 67.7 % (47-70); Platelet Count 115 K/mm3 (150-450); RBC Distribution Width CV 15.9 % (11.6-14.6); RBC Distribution Width SD 62.2 fl (35.1-43.9); Red Blood Count 4.65 M/mm3 (4.6-6.2); White Blood Count 6.7 K/mm3 (4.4-11.0)
[2020-12-16 15:55] LABS: Erythrocyte Sedimentation Rate 19 mm/hr (0-20)
[2020-12-16 15:59] LABS: BNP,B-Type NATRIURETIC PEPTIDE 253.1 pg/mL (0-100)
[2020-12-16 16:21] LABS: Bacteria 0 SEEN /hpf (None Seen); Mucous, Urine 0 SEEN /hpf (<or=2+); Red Blood Cells-Urine 0 SEEN /hpf (0-5); Squamous Epithelial Cells - UA 0 SEEN /hpf (0-5); White Blood Cells 0 SEEN /hpf (0-5)
--- NOTE | 2020-12-16 16:21 | EDS_ITS ---
HPI History of Present Illness Chief Complaint: Weakness Narrative Narrative: 85-year-old male with generalized weakness and confusion per his presenting with recent history of inability to ambulate. Patient's states that she cannot care for him at home. She does have help when her son is home but when he is gone patient cannot get up and use his walker as he used to. There is no reported falls. Patient has not had a fever. He does have a slight cough. Patient's does state that he has lower extremity swelling and she is concerned for the dry scaling on the bottom of his feet. She states he does have a junior financial analyst who he sees however due to recently having COVID-19 he could not go to the office to get evaluated. Patient's also states that he has history of UTIs in the past which caused the symptoms. [facility] Medical History Acute UTI Alzheimer disease Anemia Atherosclerotic heart disease of [place] coronary artery without angina pectoris Bacteremia Chronic diastolic (congestive) heart failure CKD (chronic kidney disease) COPD (chronic obstructive pulmonary disease) Coronary artery disease Cystitis Debility Depression Elevated troponin (11/10/19) Epistaxis Essential (primary) hypertension Fever and chills GERD (gastroesophageal reflux disease) History of non-ST elevation myocardial infarction (NSTEMI) (11/10/19) Hypothyroidism Insomnia Iron deficiency anemia Multiple rib fractures Nonrheumatic aortic (valve) stenosis Nonsustained ventricular tachycardia Obesity (BMI 30-39.9) Obstructive sleep apnea Old inferior wall myocardial infarction Pancreatitis Paroxysmal atrial fibrillation Paroxysmal SVT (supraventricular tachycardia) Right bundle branch block Stage III chronic kidney disease Thrombocytopenia Home Medications donepezil 10 mg PO QHS 03/07/15 [History Last Taken 11/09/19] escitalopram oxalate 10 mg PO DAILY 11/24/18 [History Last Taken 11/10/19] isosorbide mononitrate 30 mg tablet,extended release 24 hr 30 mg PO DAILY #90 tab 06/28/19 [Rx Last Taken 11/10/19] levothyroxine 125 mcg PO DAILY 11/10/19 [History Last Taken 11/10/19] melatonin 5 mg PO QHS 11/10/19 [History Last Taken 11/09/19] aspirin 81 mg tablet,delayed release 81 mg PO DAILY 11/23/19 [History Last Taken Unknown] amiodarone 200 mg tablet 100 mg PO QODAY #45 tab 03/28/20 [Rx Last Taken Unknown] furosemide 40 mg tablet 20 mg PO .COMPLEX tab 07/11/20 [History Last Taken Unknown] furosemide 40 mg tablet 40 mg PO .COMPLEX tab 07/11/20 [History Last Taken Unknown] Allergy/AdvReac Type Severity Reaction Status Date / Time morphine AdvReac Severe hostility,d Verified 12/16/20 14:16 isoriented Family History Sister CAD (coronary artery disease) Sister Cancer Brother Cancer leukemia Surgical History excision of subglottic mass H/O bilateral hip replacements History of electrophysiologic study (04/28/13) History of esophagogastroduodenoscopy (EGD) History of left heart catheterization (08/2002) Hx of cholecystectomy Hx of colonoscopy tricep surgery Social History Smoking Status: Former smoker quit date: 03/09/00 pack-years: 80 Smokeless tobacco user: chewing tobacco how long ago did patient quit smokin years ago alcohol intake: never substance use type: does not use caffeine: Yes Type: coffee Number of servings: 2 ROS ROS ED Review of Systems ROS Unobtainable: due to mental status EXAM Physical Exam Const Vital Signs: 12/16/20 14:10 12/16/20 14:16 12/16/20 15:16 Temperature 97.5 F L 97.5 F L 97.5 F L Temperature Source Temporal Temporal Temporal Pulse Rate 99 99 99 Respiratory Rate 20 H 20 H 20 H Blood Pressure 124/79 H 124/79 H 124/79 H Blood Pressure Mean 94 94 94 Pulse Ox 95 95 95 Oxygen Delivery Method Room Air Room Air Room Air 12/16/20 15:27 12/16/20 16:47 12/16/20 17:21 Temperature Temperature Source Pulse Rate 90 87 Respiratory Rate 14 16 Blood Pressure 138/82 H 138/94 H Blood Pressure Mean 100 108 Pulse Ox 94 Oxygen Delivery Method Room Air Room Air Room Air Positive well nourished General Appearance ED: NAD; Negative for pallor HEENT Reports dry mucous membranes Negative for trauma Mouth ED: Yes dry mucous membranes Mouth: dry mucous membranes Eyes PERRL and EOMs intact bilaterally Resp normal respiratory effort and clear to auscultation bilaterally Cardio regular rate and regular rhythm Extremity General Extremety ED: Yes edema General Extremity: edema Neuro CN's II-XII intact bilaterally Sensorium / Orientation: alert Psych Psych Narrative: Appears confused Skin Skin Narrative: Dry skin and scaling on the bottom of the bilateral feet. General Skin Exam: Negative for jaundice or pallor MDM MDM MDM Narrative Medical decision making narrative: Presenting with generalized weakness and his is unable to care for him at home given that he cannot walk without the assistance of her son. Patient's specifically has concerns about his feet which are dry and scaling. There is no erythema on his feet. He did not appear to be tender. I did obtain bilateral foot x-rays which on my interpretation showed no fracture or subluxation. The radiologist did have a concern about the right foot x-ray possibly showing a right lateral malleoli fracture. I did obtain a dedicated right ankle which on my interpretation shows no acute fracture or subluxation and the radiologist does agree. Patient's blood work today shows he has no leukocytosis and his hemoglobin hematocrit are stable. Platelets are slightly low at 115. BNP is 253 and this is near his baseline. He is not hypoxic or short of breath. There is been no complaint of chest pain. He does not appear to be dyspneic. Patient's EKG on my interpretation is looks to be possibly atrial flutter with ventricular rate of 73 bpm. Chest x-ray does show bilateral pulmonary infiltrates however the patient is recovering from COVID-19. He again he is not hypoxic, tachypneic, tachycardic. This is likely resolving pulmonary infiltrate. CT of the brain is interpreted by the radiologist as negative for acute intracranial findings. After having discussion with his family they want him admitted for rehabilitation. Impression: 1. Generalized weakness Lab Data Labs: Laboratory Results - last 24 hr 12/16/20 12/16/20 12/16/20 15:20 15:20 15:20 WBC 6.7 RBC 4.65 Hgb 15.9 Hct 49.6 MCV 106.7 H MCH 34.2 H MCHC 32.1 RDW Std Deviation 62.2 H RDW Coeff of Germaine 15.9 H Plt Count 115 L MPV 8.8 Immature Gran % (Auto) 0.300 Neut % (Auto) 67.7 Lymph % (Auto) 21.8 [place] % (Auto) 8.6 Eos % (Auto) 1.0 Baso % (Auto) 0.6 Absolute Neuts (auto) 4.5 Absolute Lymphs (auto) 1.46 Nucleated RBC % 0 ESR 19 Sodium Cancelled Potassium Cancelled Chloride Cancelled Carbon Dioxide Cancelled Anion Gap Cancelled BUN Cancelled Creatinine Cancelled Estim Creat Clear Calc Cancelled Est GFR (MDRD) Af Amer Cancelled Est GFR (MDRD) Non-Af Cancelled BUN/Creatinine Ratio Cancelled Glucose Cancelled Calcium Cancelled Troponin I High Sens Cancelled C-React Prot Ext Range Cancelled B-Natriuretic Peptide 253.1 H Urine Color Urine Clarity Urine pH Ur Specific [place] Urine Protein Urine Glucose (UA) Urine Ketones Urine Occult Blood Urine Nitrite Urine Bilirubin Urine Urobilinogen Ur Leukocyte Esterase Urine RBC Urine WBC Ur Squamous Epith Cells Urine Bacteria Urine Mucus 12/16/20 12/16/20 16:07 16:15 WBC RBC Hgb Hct MCV MCH MCHC RDW Std Deviation RDW Coeff of Germaine Plt Count MPV Immature Gran % (Auto) Neut % (Auto) Lymph % (Auto) [place] % (Auto) Eos % (Auto) Baso % (Auto) Absolute Neuts (auto) Absolute Lymphs (auto) Nucleated RBC % ESR Sodium 145 Potassium 3.6 Chloride 106 Carbon Dioxide 33.0 H Anion Gap 6 BUN 33 H Creatinine 1.78 H Estim Creat Clear Calc 28.82 Est GFR (MDRD) Af Amer 47 L Est GFR (MDRD) Non-Af 39 L BUN/Creatinine Ratio 18.5 Glucose 98 Calcium 8.5 Troponin I High Sens 32 C-React Prot Ext Range < 2.90 B-Natriuretic Peptide Urine Color Yellow Urine Clarity Clear Urine pH 5.0 Ur Specific [place] 1.030 Urine Protein Negative Urine Glucose (UA) Normal Urine Ketones Negative Urine Occult Blood Negative Urine Nitrite Negative Urine Bilirubin Negative Urine Urobilinogen 1 H Ur Leukocyte Esterase Negative Urine RBC 0 SEEN Urine WBC 0 SEEN Ur Squamous Epith Cells 0 SEEN Urine Bacteria 0 SEEN Urine Mucus 0 SEEN Radiography Diagnostic Testing: Clinical Impression(s) from Imaging Studies Brain CT 12/16/20 14:49 IMPRESSION: Chronic involutional and white matter changes. No acute intracranial process. Individualized dose optimization techniques were used for this CT. at 1630 Reported and signed by: Ed Lovelace MD Electronically Signed: Ed Lovelace MD at 16:29 EDT Tel , Service support , Chest X-Ray 12/16/20 14:49 IMPRESSION: Residual bilateral patchy airspace disease consistent with pneumonia. Recommend further follow-up to complete resolution. at 1649 Reported and signed by: Ed Lovelace MD Electronically Signed: Ed Lovelace MD at 16:48 EDT Tel , Service support , Foot X-Ray 12/16/20 14:53 IMPRESSION: Artifact of projection versus fracture of the medial malleolus. Recommend dedicated ankle series. at 1647 Reported and signed by: Ed Lovelace MD Electronically Signed: Ed Lovelace MD at 16:46 EDT Tel , Service support , Foot X-Ray 12/16/20 14:58 IMPRESSION: Possible fracture of the medial malleolus. Recommend right ankle series for further evaluation. Degenerative changes without cortical destructive lesion. at 1644 Reported and signed by: Ed Lovelace MD Electronically Signed: Ed Lovelace MD at 16:43 EDT Tel , Service support , Ankle X-Ray 12/16/20 17:00 IMPRESSION: No acute bony abnormality. at 1909 Reported and signed by: Ed Lovelace MD Electronically Signed: Ed Lovelace MD at 19:08 EDT Tel , Service support , Discharge Plan Triage Chief Complaint: Weakness ED Provider: Kevin Ferraro Dx/Rx/DC Orders Prescriptions: No Action isosorbide mononitrate 30 mg tablet extended release 24 hr 30 mg PO DAILY Qty: 90 RF: 3 furosemide 40 mg tablet 40 mg PO .COMPLEX RF: 0 furosemide 40 mg tablet 20 mg PO .COMPLEX RF: 0 aspirin [Adult Aspirin Regimen] 81 mg tablet,delayed release (DR/EC) 81 mg PO DAILY RF: 0 amiodarone 200 mg tablet 100 mg PO QODAY Qty: 45 RF: 3 donepezil 10 MG tablet 10 mg PO QHS RF: 0 escitalopram oxalate 10 MG tablet 10 mg PO DAILY RF: 0 levothyroxine 125 MCG tablet 125 mcg PO DAILY RF: 0 melatonin 5 MG capsule 5 mg PO QHS RF: 0 Primary Care Provider: Laith Lai Chi
[2020-12-16 16:32] LABS: Color, Urine Yellow (Yellow); Glucose, Dipstick Normal (Normal); Ketone-Dipstick Negative (Negative); Leukocyte Esterase-Dipstick Negative /ul (Negative); Nitrite-Dipstick Negative (Negative); Occult Blood-Urine Negative /ul (Negative); Protein-Dipstick Negative (Negative); Urine Bilirubin Dipstick Negative (Negative); Urine Clarity Clear (Clear); Urine Urobilinogen 1 mg/dl (Normal)
[2020-12-16 16:35] LABS: Anion Gap 6 (5-15); BUN 33 mg/dL (7-18); BUN/Creat Ratio 18.5 RATIO (10-20); CRP < 2.90 mg/L (0.0-3.0); Calcium,Total 8.5 mg/dL (8.5-10.1); Chloride 106 mmol/L (98-107); Creatinine, Serum 1.78 mg/dL (0.70-1.30); EST Glomerular Filtration Rate 39 mL/min (>60); Est Glom Filt Rate - Afr Amer 47 mL/min (>60); Estimated Creatinine Clearance 28.82 ml/min; Glucose 98 mg/dL (74-106); Potassium 3.6 mmol/L (3.5-5.1); Sodium Level 145 mmol/L (136-145); Troponin-I HS 32 pg/mL (3.0-78.0)
--- NOTE | 2020-12-16 17:00 | RAD_ITS ---
HISTORY: ankle pain EXAMINATION/TECHNIQUE: XR Ankle Min 3 Views: COMPARISON: Right foot series same date FINDINGS: BONES/JOINTS: No acute fracture or dislocation. Preservation of the joint spaces. No sclerotic or destructive changes observed. SOFT TISSUES: No soft tissue swelling or gas. No radiopaque foreign body. RAD/Ankle min 3 Views IMPRESSION: No acute bony abnormality. at 1909 Reported and signed by: Ed Lovelace MD Electronically Signed: Ed Lovelace MD at 19:08 EDT Tel , Service support ,
--- NOTE | 2020-12-16 19:40 | PCM.HP.STD ---
HPI - General General Date of Admission: 12/16/20 HPI Narrative SUZI VANG, is a 85 M with a significant history of chronic diastolic heart failure and dementia who presents to the emergency department with 4-5 days history of progressively worsening weakness. Patient is too weak and frail that family is hesitant in transferring him using his walker into a chair. Associated with his symptoms is a productive cough. Patient had covid-19 infection about 2 months ago and afterwards he was treated for pneumonia. He was weak at that time but recovered. Now his weakness has recurred and is progressively worsening. His family thought that because of a scaly rash on his foot he might have had a fracture. However x-rays of his foot and ankle at the ED was negative. [facility] Medical History Acute UTI Alzheimer disease Anemia Atherosclerotic heart disease of [place] coronary artery without angina pectoris Bacteremia Chronic diastolic (congestive) heart failure CKD (chronic kidney disease) COPD (chronic obstructive pulmonary disease) Coronary artery disease Cystitis Debility Depression Elevated troponin (11/10/19) Epistaxis Essential (primary) hypertension Fever and chills GERD (gastroesophageal reflux disease) History of non-ST elevation myocardial infarction (NSTEMI) (11/10/19) Hypothyroidism Insomnia Iron deficiency anemia Multiple rib fractures Nonrheumatic aortic (valve) stenosis Nonsustained ventricular tachycardia Obesity (BMI 30-39.9) Obstructive sleep apnea Old inferior wall myocardial infarction Pancreatitis Paroxysmal atrial fibrillation Paroxysmal SVT (supraventricular tachycardia) Right bundle branch block Stage III chronic kidney disease Thrombocytopenia Home Medications donepezil 10 mg PO QHS 03/07/15 [History Last Taken 12/15/20] escitalopram oxalate 10 mg PO DAILY 11/24/18 [History Last Taken 12/16/20] isosorbide mononitrate 30 mg tablet,extended release 24 hr 30 mg PO DAILY #90 tab 06/28/19 [Rx Last Taken 12/16/20] levothyroxine 125 mcg PO DAILY 11/10/19 [History Last Taken 12/16/20] melatonin 5 mg PO QHS 11/10/19 [History Last Taken 12/15/20] aspirin 81 mg tablet,delayed release 81 mg PO DAILY 11/23/19 [History Last Taken 12/16/20] furosemide 40 mg tablet 20 mg PO SUTUTHSA tab 07/11/20 [History Last Taken 12/16/20] furosemide 40 mg tablet 40 mg PO MOWEFR tab 07/11/20 [History Last Taken 12/14/20] albuterol sulfate 2.5 mg INHALATION Q4H PRN PRN 12/16/20 [History Last Taken Unknown] amiodarone 100 mg PO QODAY 12/16/20 [History Last Taken 12/16/20] Allergy/AdvReac Type Severity Reaction Status Date / Time morphine AdvReac Severe hostility,d Verified 12/16/20 14:16 isoriented Family History Sister CAD (coronary artery disease) Sister Cancer Brother Cancer leukemia Surgical History excision of subglottic mass H/O bilateral hip replacements History of electrophysiologic study (04/28/13) History of esophagogastroduodenoscopy (EGD) History of left heart catheterization (08/2002) Hx of cholecystectomy Hx of colonoscopy tricep surgery Social History Smoking Status: Former smoker quit date: 03/09/00 pack-years: 80 Smokeless tobacco user: chewing tobacco how long ago did patient quit smokin years ago alcohol intake: never substance use type: does not use caffeine: Yes Type: coffee Number of servings: 2 ROS ROS Narrative Constitutional: Reports weakness and anorexia. Denies fever, chills, fatigue, and change in weight Eyes: Denies blurry vision, change in eye color, change in vision, discharge from eye(s), double vision, erythema, eye pain, loss of vision or other HEENT: Denies abnormal hearing, dysphagia, ear pain, epistaxis, headache(s), hearing loss, nasal congestion, nasal discharge, post nasal drip, sinus pressure, sore throat or other Cardiovascular: Denies chest pain or palpitations. Denies dyspnea on exertion, orthopnea and paroxysmal nocturnal dyspnea Respiratory/Chest: Reports productive cough . Gastrointestinal: Denies abdominal pain, coffee ground emesis, constipation, diarrhea, dyspepsia, hematemesis, hematochezia, loose stools, melena, nausea, vomiting or other Genitourinary: Denies burning urination, difficulty urinating, dysuria, hematuria, nocturia, urinary frequency, urinary hesitancy, urinary incontinence, urinary urgency or other Musculoskeletal: Denies arthralgias, back pain, joint pain, joint stiffness, joint swelling, myalgias, neck pain or other Neurologic: Denies abnormal gait, abnormal speech, dizziness, focal weakness, headache(s), numbness, paresthesias, seizure-like activity, seizures, syncope, tingling, tremor(s) or other Psychiatric: Denies anxiety, depression, homicidal ideation, suicidal ideation or other Endocrinology: Denies change in body appearance, cold intolerance, excessive sweating, heat intolerance, polydipsia, polyuria or other Hematologic/Lymphatic: Denies anemia, easy bleeding, easy bruising, lymphadenopathy or other Integumentary: Reports rashes. Allergic/Immunologic: Denies rhinitis, hives, eczema, asthma or other Vital Signs Vital Signs Vital Signs: 12/16/20 14:10 12/16/20 14:16 12/16/20 15:16 Temperature 97.5 F L 97.5 F L 97.5 F L Temperature Source Temporal Temporal Temporal Pulse Rate 99 99 99 Respiratory Rate 20 H 20 H 20 H Blood Pressure 124/79 H 124/79 H 124/79 H Blood Pressure Mean 94 94 94 Pulse Ox 95 95 95 Oxygen Delivery Method Room Air Room Air Room Air 12/16/20 15:27 12/16/20 16:47 12/16/20 17:21 Temperature Temperature Source Pulse Rate 90 87 Respiratory Rate 14 16 Blood Pressure 138/82 H 138/94 H Blood Pressure Mean 100 108 Pulse Ox 94 Oxygen Delivery Method Room Air Room Air Room Air Weight Weight: 101.4 kg Body Mass Index (BMI) 34.0 Physical Exam Narrative Physical exam: General: Well-nourished, well-developed. Head: Normocephalic, atraumatic, no tenderness Eyes: PERRLA, EOMI ENT, no trauma, moist mucous membranes, no rhinorrhea Neck: Nontender, full range of motion, no spinal tenderness, deformities, step-off CVS: Regular rate and rhythm. S1-S2 present. No murmur, gallop or rub. Respiratory : clear to auscultation bilaterally, chest wall nontender, no wheezing Abdomen: Soft, nontender, nondistended, normal bowel sounds, no masses : Deferred Back: Nontender, no CVA tenderness, no midline spinal tenderness, deformities, step-offs Extremities: Edema of bilateral leg and feet 4+; no trauma Skin: Scaly rash throughout entire body. Neuro: Alert, oriented, cranial nerves II through XII grossly intact. Psychiatry: Normal mood. Normal affect. Not depressed. Not anxious. Results Lab / Micro Data Result Diagrams: 12/16/20 15:20 12/16/20 16:07 Labs: Laboratory Results - last 24 hr 12/16/20 15:20: WBC 6.7, RBC 4.65, Hgb 15.9, Hct 49.6, MCV 106.7 H, MCH 34.2 H, MCHC 32.1, RDW Std Deviation 62.2 H, RDW Coeff of Germaine 15.9 H, Plt Count 115 L, MPV 8.8, Immature Gran % (Auto) 0.300, Neut % (Auto) 67.7, Lymph % (Auto) 21.8, [place] % (Auto) 8.6, Eos % (Auto) 1.0, Baso % (Auto) 0.6, Absolute Neuts (auto) 4.5, Absolute Lymphs (auto) 1.46, Nucleated RBC % 0, ESR 19 12/16/20 15:20: Sodium Cancelled, Potassium Cancelled, Chloride Cancelled, Carbon Dioxide Cancelled, Anion Gap Cancelled, BUN Cancelled, Creatinine Cancelled, Estim Creat Clear Calc Cancelled, Est GFR (MDRD) Af Amer Cancelled, Est GFR (MDRD) Non-Af Cancelled, BUN/Creatinine Ratio Cancelled, Glucose Cancelled, Calcium Cancelled, Troponin I High Sens Cancelled, C-React Prot Ext Range Cancelled 12/16/20 15:20: B-Natriuretic Peptide 253.1 H 12/16/20 16:07: Sodium 145, Potassium 3.6, Chloride 106, Carbon Dioxide 33.0 H, Anion Gap 6, BUN 33 H, Creatinine 1.78 H, Estim Creat Clear Calc 28.82, Est GFR (MDRD) Af Amer 47 L, Est GFR (MDRD) Non-Af 39 L, BUN/Creatinine Ratio 18.5, Glucose 98, Calcium 8.5, Troponin I High Sens 32, C-React Prot Ext Range < 2.90 12/16/20 16:15: Urine Color Yellow, Urine Clarity Clear, Urine pH 5.0, Ur Specific [place] 1.030, Urine Protein Negative, Urine Glucose (UA) Normal, Urine Ketones Negative, Urine Occult Blood Negative, Urine Nitrite Negative, Urine Bilirubin Negative, Urine Urobilinogen 1 H, Ur Leukocyte Esterase Negative, Urine RBC 0 SEEN, Urine WBC 0 SEEN, Ur Squamous Epith Cells 0 SEEN, Urine Bacteria 0 SEEN, Urine Mucus 0 SEEN Radiology Impression Brain CT 12/16/20 14:49 IMPRESSION: Chronic involutional and white matter changes. No acute intracranial process. Individualized dose optimization techniques were used for this CT. at 1630 Reported and signed by: Ed Lovelace MD Electronically Signed: Ed Lovelace MD at 16:29 EDT Tel , Service support , Chest X-Ray 12/16/20 14:49 IMPRESSION: Residual bilateral patchy airspace disease consistent with pneumonia. Recommend further follow-up to complete resolution. at 1647 Reported and signed by: Ed Lovelace MD Electronically Signed: Ed Lovelace MD at 16:48 EDT Tel , Service support , Foot X-Ray 12/16/20 14:53 IMPRESSION: Artifact of projection versus fracture of the medial malleolus. Recommend dedicated ankle series. at 1647 Reported and signed by: Ed Lovelace MD Electronically Signed: Ed Lovelace MD at 16:46 EDT Tel , Service support , Foot X-Ray 12/16/20 14:58 IMPRESSION: Possible fracture of the medial malleolus. Recommend right ankle series for further evaluation. Degenerative changes without cortical destructive lesion. at 1644 Reported and signed by: Ed Lovelace MD Electronically Signed: Ed Lovelace MD at 16:43 EDT Tel , Service support , Ankle X-Ray 12/16/20 17:00 IMPRESSION: No acute bony abnormality. at 1909 Reported and signed by: Ed Lovelace MD Electronically Signed: Ed Lovelace MD at 19:08 EDT Tel , Service support , Assessment & Plan Assessment/Plan (1) Debility: (2) Chronic diastolic (congestive) heart failure: (3) Paroxysmal atrial fibrillation: PLAN: Debility PT and OT work with patient for strengthening balance training and ADLs. Check TSH and vitamin D. Case management consult for disposition. Current diastolic heart failure Stable bilateral leg edema Lasix continued TIMO wraps to bilateral lower extremity. Proximal A. fib Stable Amiodarone continued. Hypertension Blood pressure is not within goal Imdur continued. Trend blood pressure and adjust blood pressure medications. Alzheimer's dementia/depression/anxiety Donepezil continued Lexapro continued. Hypothyroidism: Synthroid continued. TSH ordered. Post Covid symptoms: Patient is out of isolation.. Albuterol continued. Guaifenesin Scaly rashes: Eucerin cream ordered. DVT prophylaxis: Subcutaneous Lovenox ordered. Charges/Coding Visit Charges OBSV E&M: 90407 Initial observation care L3
--- NOTE | 2020-12-16 22:08 | PCS.PANDOC ---
PANDEMIC DOCUMENTATION INITIATED: Date: 10/22/2020 Time: 190
[2020-12-16] MEDS: Heparin Injection (Vial) 5,000 UNIT/ML VIAL 5000 UNIT SC (22:49)
[2020-12-16] MEDS: guaiFENesin 600 MG Tablet PO (22:49)
[2020-12-17 00:24] VITALS: O2SAT 95
[2020-12-17 03:30] VITALS: BP 135/87; PULSE 93; RESP 18; TEMP 36.1; O2SAT 92
[2020-12-17] MEDS: Levothyroxine 125 MCG Tablet PO (05:32)
[2020-12-17 06:52] LABS: Thyroid Stim Hormone (TSH) 3.95 uIU/mL (0.358-3.74)
[2020-12-17 08:05] LABS: Vitamin D,25 Hydroxy 40.8 ng/mL
[2020-12-17] MEDS: Menthol/Lanolin/Calamine/Znox 113 GM Tube 1 APPLIC TOPICAL (08:46)
[2020-12-17] MEDS: Aspirin E.C. 81 MG Tablet PO (08:47)
[2020-12-17] MEDS: Isosorbide Mononitrate 30 MG Tablet PO (08:47)
[2020-12-17] MEDS: Furosemide 40 MG Tablet PO (08:47)
[2020-12-17] MEDS: Escitalopram Oxalate 10 MG Tablet PO (08:47)
[2020-12-17] MEDS: Heparin Injection (Vial) 5,000 UNIT/ML VIAL 5000 UNIT SC (08:48)
[2020-12-17] MEDS: guaiFENesin 600 MG Tablet PO (08:48)
[2020-12-17] MEDS: Nystatin Powder 15gm Bottle 1 APPLIC TOPICAL (08:48)
[2020-12-17 09:10] VITALS: BP 143/91; PULSE 97; RESP 16; TEMP 36.8; O2SAT 95
--- NOTE | 2020-12-17 10:30 | CASEMGMT ---
LUIZA MATHIS Assessment: Face to Face with pt for initial transition planning/care coordination assessment. LUIZA MATHIS introduced self and role at [facility], pt voices understanding and consents to assessment. Pt is A/O x2, and answers all questions at this time. Pt gave permission to call his son. Pt unaware of year or president. Pt lying in bed in no distress. Care providers, pharmacy, and demographics verified/updated. Admitting Dx: debility PCP:Ming Specialists: Pt denies. Preferred Pharmacy: [facility] Retail Insurance: [employer] Prescription Benefit: yes LW/HPOA: Pt son is his DPOA, Debbie Hinojosa Jr. Pt DPOA and LW are on file at [facility]. LNOK: Debbie Hinojosa Jr, son; merced Terry Living Arrangements: Pt lives alone in a single story house with 1 step to enter. Pt needs assistance with ADL's. Pt son states we do the best we can. Currently they are washing patient up at the sink. Transportation: Pt requires assistance of son and ex for transportation as he cannot negotiate stairs or stand greater than 14-15 seconds. DME/HHC/SNF: Pt has a walk in tub, walker, cane and grab bars in the bathroom. Pt has had [facility] in the past and been to [facility] and [facility]. Pt reports he is retired and denies cigarette, alcohol, street drug or illegal drug use. Pt states he is agreeable to having therapy at time of dc. TC to pt son, parts of assessment corrected per son's report. Pt son states they cannot manage patient at home and would like him to receive short term therapy for strength prior to coming home. Son and pt exwife check on pt twice daily and provide him with meals. Pt does not have a bed, states he sleeps in the recliner but now cannot get out of the recliner. Pt son to come visit. He will ask for the casework manager or social media developer. He reports he would like pt to return to [facility]. Notified Jorge of this. CM to follow. Advised pt to ask CM if any further question/concerns/needs arise, voices understanding. Son Goal: SNF Plan: SNF
--- NOTE | 2020-12-17 11:08 | CASEMGMT ---
Social Work Note Per admissions manager rn questions, pt has completed HCPOA and LW and provided documents to [facility]. SW reviewed chart, both HCPOA and LW are on file at [facility]. SW printed off documents and placed on pt's chart. Shira Johns MSW, [employer]
--- NOTE | 2020-12-17 11:28 | CASEMGMT ---
Addendum entered by Shira Johns 12/17/20 11:57: STEFANIE received call from Sara at [facility] stating pt is approved for SNF. STEFANIE updated Sara that pt will discharge to TCU today. STEFANIE placed a call to Siomara with TCU and updated her. SW updated PA. SW updated pt and pt's son Debbie on approval to TCU and discharge to TCU today. Debbie states understanding. Plan: TCU today Original Note: Social Work Note STEFANIE updated that pt's son Debbie, DAIN, is requesting SNF placement at discharge. Debbie is currently at [facility]. SW in to speak with Elmandeep and pt. SW introduced self and role at [facility]. SW discussed SNF placement with Debbie. Patient/Elmus was provided a list of SNF providers including quality and resource use data and consistent with the patient?s preferred geographic region, medical needs, and insurance network. Debbie and pt's ex- Tabitha are agreeable to [facility] TCU for short term placement. Pt is currently confused. STEFANIE explained insurance approval will be needed. Debbie states understanding. STEFANIE placed a call to Siomara with TCU and provided referral. TCU is able to accept pt. Pt is medically ready for discharge today. STEFANIE faxed referral to [facility]. STEFANIE placed a call to [facility] and spoke with Tata and provided referral. Plan: TCU pending pre-cert Shira Johns LAB TECHNOLOGIST, AGRICULTURAL CHEMIST
--- NOTE | 2020-12-17 11:54 | TREXTCAR_ITS ---
Documented by User: Vi Arriaga NP, ANALYTICS CONSULTANT-C 12/17/20 12:03 Diet 12/16/20 21:30 Diet: Cardiac - Heart Healthy Food consistency:: Regular Liquid Consistency:: Regular/Thin Routine Orders/Code Status Enema Type: Fleetz Enema Frequency: Daily PRN Suppository Type: Dulcolax 10mg Suppository Frequency: Daily PRN Routine Lab Work: - (Weekly CBC, BMP) Code Status: Full Code Suggestions for Active Care Change Position every (hours): 2 Times a day to sit in chair: 3 Therapies Physical Therapy: Eval and Treat Occupational Therapy: Eval and Treat Problem/Diagnosis (1) Debility: Status: Chronic (2) Chronic diastolic (congestive) heart failure: Status: Chronic (3) Paroxysmal atrial fibrillation: Status: Chronic Allergies/Procedures Done in Hospital Allergies morphine Adverse Reaction (Severe, Verified 12/16/20 14:16) hostility,disoriented hostility, disoriented Procedures: None Type of Care/Length of Stay Estimated LOS: Convalescent Care Less Than 30 days Type of Care Needed: Skilled Rehab Potential: Fair Prognosis: Fair Additional Orders/Day of Discharge H&P will serve as current which was dated: 12/16/20 Day of Discharge: 12/17/20 Discharge Plan Admission Admit Date/Time: 12/16/20 19:36 Primary Reason for Your Visit: Debility Attending Provider: Joel Law Primary Care Provider: Laith Lai Chi Discharge Orders/Prescriptions Prescriptions: Continued isosorbide mononitrate 30 mg tablet extended release 24 hr 30 mg PO DAILY Qty: 90 RF: 3 furosemide 40 mg tablet 40 mg PO MOWE RF: 0 furosemide 40 mg tablet 20 mg PO SUTUTH RF: 0 aspirin [Adult Aspirin Regimen] 81 mg tablet,delayed release (DR/EC) 81 mg PO DAILY RF: 0 donepezil 10 MG tablet 10 mg PO QHS RF: 0 escitalopram oxalate 10 MG tablet 10 mg PO DAILY RF: 0 levothyroxine 125 MCG tablet 125 mcg PO DAILY RF: 0 melatonin 5 MG capsule 5 mg PO QHS RF: 0 albuterol sulfate 2.5 mg /3 mL (0.083 %) solution for nebulization 2.5 mg inhalation Q4H PRN PRN (Reason: SOB) RF: 0 amiodarone 200 mg tablet 100 mg PO QODAY RF: 0 Referrals / Follow Up: Alonso Peraza MD [STAFF PHYSICIAN] - See Referral Note (As scheduled) Laith Lai Chi, MD [Primary Care Provider] - In 1 Week Disposition Disposition (needs filled in before D/C Order can be placed): Group Home Facility Documented by User: Dr. Joel Law MD 12/17/20 16:31 Allergies/Procedures Done in Hospital Allergies morphine Adverse Reaction (Severe, Verified 12/16/20 14:16) hostility,disoriented hostility, disoriented Discharge Plan Admission Admit Date/Time: 12/16/20 19:36 Primary Reason for Your Visit: Debility Attending Provider: Joel Law Primary Care Provider: Laith Lai Chi Discharge Orders/Prescriptions Prescriptions: Continued isosorbide mononitrate 30 mg tablet extended release 24 hr 30 mg PO DAILY Qty: 90 RF: 3 furosemide 40 mg tablet 40 mg PO MOWEFR RF: 0 furosemide 40 mg tablet 20 mg PO SUTUTHSA RF: 0 aspirin [Adult Aspirin Regimen] 81 mg tablet,delayed release (DR/EC) 81 mg PO DAILY RF: 0 donepezil 10 MG tablet 10 mg PO QHS RF: 0 escitalopram oxalate 10 MG tablet 10 mg PO DAILY RF: 0 levothyroxine 125 MCG tablet 125 mcg PO DAILY RF: 0 melatonin 5 MG capsule 5 mg PO QHS RF: 0 albuterol sulfate 2.5 mg /3 mL (0.083 %) solution for nebulization 2.5 mg inhalation Q4H PRN PRN (Reason: SOB) RF: 0 amiodarone 200 mg tablet 100 mg PO QODAY RF: 0 Referrals / Follow Up: Alonso Peraza MD [STAFF PHYSICIAN] - See Referral Note (As scheduled) Laith Lai Chi, MD [Primary Care Provider] - In 1 Week Disposition Disposition (needs filled in before D/C Order can be placed): Group Home Facility
--- NOTE | 2020-12-17 12:04 | DS.PCM_ITS ---
Documented by User: Vi Arriaga NP, ATTIC FANS MECHANIC-C 12/17/20 12:12 Providers Date of Admission: 12/16/20 Date of Discharge: 12/17/20 Primary Care Physician: Dr. Laith Lai MD Reason For Visit: DEBILITY Diagnosis Discharge Diagnosis (1) Debility: Status: Chronic Code(s): R53.81 - Other malaise (2) Chronic diastolic (congestive) heart failure: Status: Chronic Code(s): I50.32 - Chronic diastolic (congestive) heart failure (3) Paroxysmal atrial fibrillation: Status: Chronic Code(s): I48.0 - Paroxysmal atrial fibrillation Medications at Discharge Home Medications donepezil 10 mg PO QHS 03/07/15 escitalopram oxalate 10 mg PO DAILY 11/24/18 isosorbide mononitrate 30 mg tablet,extended release 24 hr 30 mg PO DAILY #90 tab 06/28/19 levothyroxine 125 mcg PO DAILY 11/10/19 melatonin 5 mg PO QHS 11/10/19 aspirin 81 mg tablet,delayed release 81 mg PO DAILY 11/23/19 furosemide 40 mg tablet 20 mg PO SUTUTHSA tab 07/11/20 furosemide 40 mg tablet 40 mg PO MOWEFR tab 07/11/20 albuterol sulfate 2.5 mg INHALATION Q4H PRN PRN 12/16/20 amiodarone 100 mg PO QODAY 12/16/20 Hospital Course Operations None Procedures None Summary of Care Provided Minutes Spent on Discharge: 35 Hospital Course: Patient is a 85-year-old male admitted 12/16/2020 due to progressive weakness/debility. 1. Debility, weakness-no evidence of metabolic or infectious etiology contributing. PT/OT. TCU at discharge for rehab. 2. History of [id number]-63-sjsaolof test date 10/31/2020, out of precautions. 3. Alzheimer's dementia, unknown behavioral disturbance history- anxiety/depression. On donepezil, escitalopram. 4. Paroxysmal atrial fibrillation-on amiodarone. Not on anticoagulation. 5. Hypertension-stable, continue home medication regimen. 6. Chronic heart failure with preserved ejection fraction-no exacerbation. Continue home Lasix regimen. 7. Hypothyroidism-continue Synthroid regimen. Patient seen and examined prior to discharge. Physical assessment as noted below. Patient is stable for discharge with follow up recommendations as noted above. This patient was seen by MEGAN Woodson under the supervision of Dr. Kenneth lema. Physical Exam Const alert and no apparent distress Orientation / Consciousness: awake and oriented to person HEENT normocephalic and moist oral mucous membranes Eyes PERRL, EOMs intact bilaterally and conjunctivae normal Neck no lymphadenopathy Resp normal respiratory effort and clear to auscultation bilaterally Cardio regular rate, regular rhythm and no murmurs Peripheral Pulses: pulses 2+ throughout GI normal to inspection, nondistended, normoactive bowel sounds, non-tender and non-distended Extremity normal to inspection Skin no rashes or lesions noted Skin Narrative: Dry, scaling skin. Lesions: no lesions Rashes: no rashes Trauma: no lacerations or abrasions Neuro CN's II-XII intact bilaterally, no focal motor deficits, no sensory deficits noted and deep tendon reflexes 2+ bilaterally Psych mental status grossly normal and affect normal Weight / BMI Weight Weight: 213 lb 6.519 oz Body Mass Index (BMI) 33.4 ABG / Lab / Microbiology Data Result Diagrams: 12/16/20 15:20 12/16/20 16:07 Laboratory: Laboratory Results - last 24 hr 12/16/20 15:20: WBC 6.7, RBC 4.65, Hgb 15.9, Hct 49.6, MCV 106.7 H, MCH 34.2 H, MCHC 32.1, RDW Std Deviation 62.2 H, RDW Coeff of Germaine 15.9 H, Plt Count 115 L, MPV 8.8, Immature Gran % (Auto) 0.300, Neut % (Auto) 67.7, Lymph % (Auto) 21.8, [place] % (Auto) 8.6, Eos % (Auto) 1.0, Baso % (Auto) 0.6, Absolute Neuts (auto) 4.5, Absolute Lymphs (auto) 1.46, Nucleated RBC % 0, ESR 19 12/16/20 15:20: Sodium Cancelled, Potassium Cancelled, Chloride Cancelled, Carbon Dioxide Cancelled, Anion Gap Cancelled, BUN Cancelled, Creatinine Cancelled, Estim Creat Clear Calc Cancelled, Est GFR (MDRD) Af Amer Cancelled, Est GFR (MDRD) Non-Af Cancelled, BUN/Creatinine Ratio Cancelled, Glucose Cancelled, Calcium Cancelled, Troponin I High Sens Cancelled, C-React Prot Ext Range Cancelled 12/16/20 15:20: B-Natriuretic Peptide 253.1 H 12/16/20 16:07: Sodium 145, Potassium 3.6, Chloride 106, Carbon Dioxide 33.0 H, Anion Gap 6, BUN 33 H, Creatinine 1.78 H, Estim Creat Clear Calc 28.82, Est GFR (MDRD) Af Amer 47 L, Est GFR (MDRD) Non-Af 39 L, BUN/Creatinine Ratio 18.5, Glucose 98, Calcium 8.5, Troponin I High Sens 32, C-React Prot Ext Range < 2.90 12/16/20 16:15: Urine Color Yellow, Urine Clarity Clear, Urine pH 5.0, Ur Specific [place] 1.030, Urine Protein Negative, Urine Glucose (UA) Normal, Urine Ketones Negative, Urine Occult Blood Negative, Urine Nitrite Negative, Urine Bilirubin Negative, Urine Urobilinogen 1 H, Ur Leukocyte Esterase Negative, Urine RBC 0 SEEN, Urine WBC 0 SEEN, Ur Squamous Epith Cells 0 SEEN, Urine Bacteria 0 SEEN, Urine Mucus 0 SEEN 12/17/20 06:00: TSH 3.95 H 12/17/20 06:00: Vitamin D 25-Hydroxy 40.8 Radiography Diagnostic Testing: Radiology Impression Brain CT 12/16/20 14:49 IMPRESSION: Chronic involutional and white matter changes. No acute intracranial process. Individualized dose optimization techniques were used for this CT. at 1630 Reported and signed by: Ed Lovelace MD Electronically Signed: Ed Lovelace MD at 16:29 EDT Tel , Service support , Chest X-Ray 12/16/20 14:49 IMPRESSION: Residual bilateral patchy airspace disease consistent with pneumonia. Recommend further follow-up to complete resolution. at 1649 Reported and signed by: Ed Lovelace MD Electronically Signed: Ed Lovelace MD at 16:48 EDT Tel , Service support , Foot X-Ray 12/16/20 14:53 IMPRESSION: Artifact of projection versus fracture of the medial malleolus. Recommend dedicated ankle series. at 1647 Reported and signed by: Ed Lovelace MD Electronically Signed: Ed Lovelace MD at 16:46 EDT Tel , Service support , Foot X-Ray 12/16/20 14:58 IMPRESSION: Possible fracture of the medial malleolus. Recommend right ankle series for further evaluation. Degenerative changes without cortical destructive lesion. at 1644 Reported and signed by: Ed Lovelace MD Electronically Signed: Ed Lovelace MD at 16:43 EDT Tel , Service support , Ankle X-Ray 12/16/20 17:00 IMPRESSION: No acute bony abnormality. at 1909 Reported and signed by: Ed Lovelace MD Electronically Signed: Ed Lovelace MD at 19:08 EDT Tel , Service support , Meaningful Use Info Meaningful Use Diagnoses (Choose all that apply): None applicable Discharge Plan Admission Admit Date/Time: 12/16/20 19:36 Primary Reason for Your Visit: Debility Attending Provider: Joel Law Primary Care Provider: Laith Lai Chi Discharge Orders/Prescriptions Prescriptions: Continued isosorbide mononitrate 30 mg tablet extended release 24 hr 30 mg PO DAILY Qty: 90 RF: 3 furosemide 40 mg tablet 40 mg PO MOWEFR RF: 0 furosemide 40 mg tablet 20 mg PO SUTUTHSA RF: 0 aspirin [Adult Aspirin Regimen] 81 mg tablet,delayed release (DR/EC) 81 mg PO DAILY RF: 0 donepezil 10 MG tablet 10 mg PO QHS RF: 0 escitalopram oxalate 10 MG tablet 10 mg PO DAILY RF: 0 levothyroxine 125 MCG tablet 125 mcg PO DAILY RF: 0 melatonin 5 MG capsule 5 mg PO QHS RF: 0 albuterol sulfate 2.5 mg /3 mL (0.083 %) solution for nebulization 2.5 mg inhalation Q4H PRN PRN (Reason: SOB) RF: 0 amiodarone 200 mg tablet 100 mg PO QODAY RF: 0 Referrals / Follow Up: Alonso Peraza MD [STAFF PHYSICIAN] - See Referral Note (As scheduled) Laith Lai Chi, MD [Primary Care Provider] - In 1 Week Disposition Disposition (needs filled in before D/C Order can be placed): [facility] Facility Documented by User: Dr. Joel Law MD 12/17/20 16:34 Providers Date of Admission: 12/16/20 Reason For Visit: DEBILITY Medications at Discharge Home Medications donepezil 10 mg PO QHS 03/07/15 escitalopram oxalate 10 mg PO DAILY 11/24/18 isosorbide mononitrate 30 mg tablet,extended release 24 hr 30 mg PO DAILY #90 tab 06/28/19 levothyroxine 125 mcg PO DAILY 11/10/19 melatonin 5 mg PO QHS 11/10/19 aspirin 81 mg tablet,delayed release 81 mg PO DAILY 11/23/19 furosemide 40 mg tablet 20 mg PO SUTUTHSA tab 07/11/20 furosemide 40 mg tablet 40 mg PO MOWEFR tab 07/11/20 albuterol sulfate 2.5 mg INHALATION Q4H PRN PRN 12/16/20 amiodarone 100 mg PO QODAY 12/16/20 ABG / Lab / Microbiology Data Result Diagrams: 12/16/20 15:20 12/16/20 16:07 Discharge Plan Admission Admit Date/Time: 12/16/20 19:36 Primary Reason for Your Visit: Debility Attending Provider: Joel Law Primary Care Provider: Laith Lai Chi Discharge Orders/Prescriptions Prescriptions: Continued isosorbide mononitrate 30 mg tablet extended release 24 hr 30 mg PO DAILY Qty: 90 RF: 3 furosemide 40 mg tablet 40 mg PO MOWEFR RF: 0 furosemide 40 mg tablet 20 mg PO SUTUTHSA RF: 0 aspirin [Adult Aspirin Regimen] 81 mg tablet,delayed release (DR/EC) 81 mg PO DAILY RF: 0 donepezil 10 MG tablet 10 mg PO QHS RF: 0 escitalopram oxalate 10 MG tablet 10 mg PO DAILY RF: 0 levothyroxine 125 MCG tablet 125 mcg PO DAILY RF: 0 melatonin 5 MG capsule 5 mg PO QHS RF: 0 albuterol sulfate 2.5 mg /3 mL (0.083 %) solution for nebulization 2.5 mg inhalation Q4H PRN PRN (Reason: SOB) RF: 0 amiodarone 200 mg tablet 100 mg PO QODAY RF: 0 Referrals / Follow Up: Alonso Peraza MD [STAFF PHYSICIAN] - See Referral Note (As scheduled) Laith Lai Chi, MD [Primary Care Provider] - In 1 Week Disposition Disposition (needs filled in before D/C Order can be placed): [facility] Facility Charges/Coding Addendum Addendum: Dr. Law: I personally reviewed the chart and examined the patient, and agree with the above findings. 85-year-old male presented from home with worsening weakness and debility. He recently tested positive for Covid at the end of October and he is out of precautions. No other signs of infectious etiologies for his weakness and debility. He was evaluated by PT/OT and SNF placement was recommended. He does have a history of Alzheimer's dementia and his home medications were continued. Given his instability, he is a bit of a fall risk and so he is not on anticoagulation for his paroxysmal A. fib. We will plan for discharge today to the transitional care unit to start him on rehab. Visit Charges OBSV E&M: [id number] Observation care discharge
== END 2020-12-17 13:45 ==
LOC: ED 19:34 → MS3 19:48
PROVIDERS: Admitting Provider Hospitalist; Emergency Provider Student in an Organized Health Care Education/Training Program; PCP Family Medicine Geriatric Medicine; Visit Provider Family Medicine
DX: R53.1 Weakness (principal); I50.32 Chronic diastolic (congestive) heart failure; I48.0 Paroxysmal atrial fibrillation; F02.80 Dementia in other diseases classified elsewhere, unspecified severity, without behavioral disturbance, psychotic disturbance, mood disturbance, and anxiety; G30.9 Alzheimer's disease, unspecified; I13.0 Hypertensive heart and chronic kidney disease with heart failure and stage 1 through stage 4 chronic kidney disease, or unspecified chronic kidney disease; J44.9 Chronic obstructive pulmonary disease, unspecified; I25.10 Atherosclerotic heart disease of native coronary artery without angina pectoris; N18.32 Chronic kidney disease, stage 3b; F32.A Depression, unspecified; R21 Rash and other nonspecific skin eruption; E03.9 Hypothyroidism, unspecified; I25.2 Old myocardial infarction; G47.33 Obstructive sleep apnea (adult) (pediatric); E66.9 Obesity, unspecified; Z68.33 Body mass index [BMI] 33.0-33.9, adult; F17.220 Nicotine dependence, chewing tobacco, uncomplicated; K21.9 Gastro-esophageal reflux disease without esophagitis; Z86.16 Personal history of COVID-19; Z79.899 Other long term (current) drug therapy; Z79.82 Long term (current) use of aspirin
CPT/HCPCS: 36415; 70450; 71045; 73610; 73630; 80048; 81001; 82306; 83880; 84443; 84484; 85025; 85652; 86140; 87426; 93005; 96372; 97162; 97166; 99218; 99285; A4216; G0378

== ENCOUNTER 2020-12-17 14:05 | Inpatient (IN) | payer MEDICARE, SELFPAY ==
[2020-12-17 14:25] VITALS: BP 118/73; PULSE 92; RESP 18; TEMP 36.8; O2SAT 94
[2020-12-17] MEDS: Nystatin Powder 15gm Bottle 1 APPLIC TOPICAL (17:36)
[2020-12-17] MEDS: Menthol/Lanolin/Calamine/Znox 113 GM Tube 1 APPLIC TOPICAL (17:37)
[2020-12-17] MEDS: Doxycycline 100 MG CAPSULE PO (18:12)
--- NOTE | 2020-12-17 19:58 | HP.PCM_ITS ---
HPI - General General Date of Admission: 12/17/20 HPI Narrative 12/16/2020 SUZI VANG, is a 85 Male who presents to [facility] Emergency Department for weakness. Unable to walk, slight cough. Unable to care for self at home. Admit to rehabilitation. 12/16/2020 Admit to Hospital. PT/OT for debility. TIMO wraps to bilateral lower extremity for edema. Medically stable. 12/17/2020 Admit to TCU with debility, here for rehabilitation, strengthening, prior to discharge home. Resident has dysphagia, modified barium swallow tomorrow, Doxycycline ordered for possible aspiration pneumonitis. Of note, I referred patient to hospice 2 days prior to admission, [facility], resident family tomorrow. [facility] Medical History Acute UTI Alzheimer disease Anemia Atherosclerotic heart disease of [place] coronary artery without angina pectoris Bacteremia Chronic diastolic (congestive) heart failure CKD (chronic kidney disease) COPD (chronic obstructive pulmonary disease) Coronary artery disease Cystitis Debility Depression Elevated troponin (11/10/19) Epistaxis Essential (primary) hypertension Fever and chills GERD (gastroesophageal reflux disease) History of non-ST elevation myocardial infarction (NSTEMI) (11/10/19) Hypothyroidism Insomnia Iron deficiency anemia Multiple rib fractures Nonrheumatic aortic (valve) stenosis Nonsustained ventricular tachycardia Obesity (BMI 30-39.9) Obstructive sleep apnea Old inferior wall myocardial infarction Pancreatitis Paroxysmal atrial fibrillation Paroxysmal SVT (supraventricular tachycardia) Right bundle branch block Stage III chronic kidney disease Thrombocytopenia Home Medications donepezil 10 mg PO QHS 03/07/15 [History Last Taken 12/15/20] escitalopram oxalate 10 mg PO DAILY 11/24/18 [History Last Taken 12/16/20] isosorbide mononitrate 30 mg tablet,extended release 24 hr 30 mg PO DAILY #90 tab 06/28/19 [Rx Last Taken 12/16/20] levothyroxine 125 mcg PO DAILY 11/10/19 [History Last Taken 12/16/20] melatonin 5 mg PO QHS 11/10/19 [History Last Taken 12/15/20] aspirin 81 mg tablet,delayed release 81 mg PO DAILY 11/23/19 [History Last Taken 12/16/20] furosemide 40 mg tablet 20 mg PO SUTUTHSA tab 07/11/20 [History Last Taken 12/16/20] furosemide 40 mg tablet 40 mg PO MOWEFR tab 07/11/20 [History Last Taken 12/14/20] albuterol sulfate 2.5 mg INHALATION Q4H PRN PRN 12/16/20 [History Last Taken Unknown] amiodarone 100 mg PO QODAY 12/16/20 [History Last Taken 12/16/20] Allergy/AdvReac Type Severity Reaction Status Date / Time morphine AdvReac Severe hostility,d Verified 12/16/20 14:16 isoriented Family History Sister CAD (coronary artery disease) Sister Cancer Brother Cancer leukemia Surgical History excision of subglottic mass H/O bilateral hip replacements History of electrophysiologic study (04/28/13) History of esophagogastroduodenoscopy (EGD) History of left heart catheterization (08/2002) Hx of cholecystectomy Hx of colonoscopy tricep surgery Social History (Updated 12/17/20 @ 20:[address] Laith Lai MD) household members: family Smoking Status: Former smoker quit date: 03/09/00 pack-years: 80 Smokeless tobacco user: chewing tobacco how long ago did patient quit smokin years ago alcohol intake: never substance use type: does not use caffeine: Yes Type: coffee Number of servings: 2 ROS Constitutional Constitutional: Denies chills, fever(s) or weight gain ENT HEENT: Denies headache(s), nasal congestion or nasal discharge Cardiovascular Cardiovascular: Denies chest pain or palpitations Respiratory/Chest Respiratory/Chest: Denies cough, excessive phlegm production or shortness of breath with exertion Gastrointestinal Gastrointestinal: Denies abdominal pain, nausea or vomiting Genitourinary Genitourinary: Denies dysuria Musculoskeletal Musculoskeletal: Denies joint pain or joint swelling Integumentary Integumentary: Denies rash or wounds Neurologic Neurologic: Denies focal weakness, numbness or tingling Psychiatric Psychiatric: Reports auditory hallucinations; Denies anxiety, depression, homicidal ideation or suicidal ideation Vital Signs Vital Signs Vital Signs: 12/17/20 14:25 Temperature 98.3 F Temperature Source Temporal Pulse Rate 92 Pulse Rhythm Regular Pulse Strength Normal (2+) Respiratory Rate 18 Respiratory Effort Normal Non-Labored Respiratory Depth Normal Respiratory Pattern Normal Blood Pressure 118/73 Blood Pressure Mean 88 Blood Pressure Source Monitor Blood Pressure Position Supine Blood Pressure Location Left Arm Pulse Ox 94 Oxygen Delivery Method Room Air Weight Weight: 97.069 kg Physical Exam Const alert and oriented x3 General Appearance: cooperative HEENT normocephalic Eyes PERRL and EOMs intact bilaterally Neck supple, no JVD and no carotid bruits Resp normal respiratory effort, normal air movement and clear to auscultation bilaterally Cardio regular rate and regular rhythm GI normal to inspection, nondistended, normoactive bowel sounds, non-tender and non-distended Extremity normal capillary refill General Extremity: Negative for edema Skin no rashes or lesions noted General Skin Exam: no breakdown Psych affect normal Appearance: appropriate Assessment & Plan Assessment/Plan (1) Debility: (2) Alzheimer disease: (3) Depression: (4) Atrial fibrillation: (5) Coronary artery disease: (6) Hypothyroidism: (7) Insomnia: (8) Chronic diastolic congestive heart failure: PLAN: 85 year old male with below past medical history hospitalized for weakness, admitted to TCU with debility, here for rehabilitation, strengthening, prior to discharge home with hospice. * Debility - PT/OT. * Dysphagia - ST, MBS in AM. * Pain - Tylenol 1000mg Q6H prn pain (1-10). * Bowel - Miralax 17gm daily, Senna/colace 1 tablet twice daily, Dulcolax 10mg [place] daily PRN. * Adult immunization - Administer prevnar 13, pneumovax 23, fluzone, covid19 vaccine as appropriate. * DVT prophylaxis - Lovenox 30mg sc daily. * Shortness of breath - Albuterol 2.5mg nebulized Q4H PRN. * Atrial fibrillation - Amiodarone 100mg every other day. * Coronary Artery Disease - Imdur 30mg daily, Aspirin 81mg daily. * Alzheimer Disease - Donepezil 10mg QHS. * Aspiration pneumonitis - Doxycycline 100mg bid x 7 days. * Skin irritation - Eucerin topical 4x/day prn, Calmoseptine topical twice daily. * Depression - Lexapro 10mg daily. * Chronic diastolic heart failure - Imdur 30mg daily, Lasix 20mg/40mg alternating. * Hypothyroidism - Levothyroxine 125mcg daily. * Insomnia - Melatonin 5mg QHS. * Tinea Corporis - Nystatin powder topical twice daily.
[2020-12-17] MEDS: MELATONIN 10 MG TABLET 5 MG PO (20:57)
[2020-12-17] MEDS: Donepezil HCl 10 MG Tablet PO (20:58)
[2020-12-17] MEDS: Senna/Docusate Sodium 1 Tablet PO (21:02)
--- NOTE | 2020-12-17 22:48 | PCA ---
Me and Marisa was putting pt. to bed and he refused to stand and yelled and was cussing at us the whole time.
[2020-12-18 07:19] LABS: Absolute Lymphocyte Count 1.72 X10^3/uL (0.83-4.51); Absolute Neutrophil Count 3.5 X10^3/uL (2.0-7.7); Basophil# 0.04 X10^3/uL; Basophil% 0.7 % (0-1); Eosinophil# 0.09 X10^3/uL; Eosinophils% 1.6 % (0-5); Hematocrit 42.4 % (40-54); Lymphocyte # 1.72 X10^3/ul (0.83-4.51); Lymphocyte % 29.7 % (19-41); Mean Corpuscular Hgb 34.5 pg (27.0-32.0); Mean Corpuscular Volume 104.4 fL (80-94); Mean Platelet Vol. 8.7 fl (6.2-12.0); Monocyte# 0.43 X10^3/uL; Monocyte% 7.4 % (0-10); NRBC Flagged by Analyzer 0 % (0-5); Neutrophil % 60.4 % (47-70); Platelet Count 114 K/mm3 (150-450); RBC Distribution Width CV 15.2 % (11.6-14.6); RBC Distribution Width SD 58.8 fl (35.1-43.9); Red Blood Count 4.06 M/mm3 (4.6-6.2); White Blood Count 5.8 K/mm3 (4.4-11.0)
[2020-12-18] MEDS: Menthol/Lanolin/Calamine/Znox 113 GM Tube 1 APPLIC TOPICAL ×2 (07:31→17:08)
[2020-12-18] MEDS: Doxycycline 100 MG CAPSULE PO ×2 (07:32→17:07)
[2020-12-18] MEDS: Nystatin Powder 15gm Bottle 1 APPLIC TOPICAL ×2 (07:32→17:08)
[2020-12-18] MEDS: Polyethylene Glycol 3350 17 GM PACKET PO (07:32)
[2020-12-18] MEDS: Levothyroxine 125 MCG Tablet PO (07:32)
[2020-12-18] MEDS: Isosorbide Mononitrate 30 MG Tablet PO (07:32)
[2020-12-18] MEDS: Senna/Docusate Sodium 1 Tablet PO ×2 (07:32→17:07)
[2020-12-18] MEDS: Escitalopram Oxalate 10 MG Tablet PO (07:32)
[2020-12-18] MEDS: Enoxaparin 30 MG/0.3 ML Syringe SC (07:33)
[2020-12-18 07:47] LABS: Anion Gap 6 (5-15); BUN 35 mg/dL (7-18); BUN/Creat Ratio 20.3 RATIO (10-20); Calcium,Total 8.4 mg/dL (8.5-10.1); Chloride 108 mmol/L (98-107); Creatinine, Serum 1.72 mg/dL (0.70-1.30); EST Glomerular Filtration Rate 40 mL/min (>60); Est Glom Filt Rate - Afr Amer 49 mL/min (>60); Estimated Creatinine Clearance 28.82 ml/min; Glucose 96 mg/dL (74-106); Potassium 3.6 mmol/L (3.5-5.1); Sodium Level 144 mmol/L (136-145)
[2020-12-18] MEDS: Furosemide 20 MG Tablet PO (08:08)
[2020-12-18] MEDS: Amiodarone 200 MG Tablet 100 MG PO (08:08)
[2020-12-18] MEDS: Aspirin E.C. 81 MG Tablet PO (08:09)
--- NOTE | 2020-12-18 09:30 | SP.MBSS_ITS ---
Modified Barium Swallow - Patient Information Study Date: 12/18/20 Study Time: 09:30 Direct Billable Minutes: 235 Total Minutes procedure & reportin Diagnosis: dysphagia Referring Physician: Laith Lai Chi Reason for Referral: Objective assessment of swallow function under fluoroscopy was recommended following assessment at bedside d/t suspected oropharyngeal and pharyngoesophageal dysphagia to further elucidate diet texture/liquid consistency/compensatory strategy recommendations and improve specificity of dysphagia interventions selected. Medical History: Debbie Hinojosa is a 85 y/o M who presented to the [facility] ED on 12/16/20 with 4-5 days history of progressively worsening weakness. Associated with his symptoms is a productive cough. Patient had covid-19 infection about 2 months ago and afterwards he was treated for pneumonia. Pt was admitted to [facility] TCU on 12/17/20. Past Medical History: Acute UTI, Alzheimer disease, Anemia, Atherosclerotic heart disease of [place] coronary artery without angina pectoris, Bacteremia, Chronic diastolic (congestive) heart failure, CKD (chronic kidney disease), COPD (chronic obstructive pulmonary disease), Coronary artery disease, Cystitis, Debility, Depression, Elevated troponin (11/10/19), Epistaxis, Essential (primary) hypertension, Fever and chills, GERD (gastroesophageal reflux disease), History of non-ST elevation myocardial infarction (NSTEMI) (11/10/19), Hypothyroidism, Insomnia, Iron deficiency anemia, Multiple rib fractures, Nonrheumatic aortic (valve) stenosis, Nonsustained ventricular tachycardia, Obesity (BMI 30-39.9), Obstructive sleep apnea, Old inferior wall myocardial infarction, Pancreatitis, Paroxysmal atrial fibrillation, Paroxysmal SVT (supraventricular tachycardia), Right bundle branch block, Stage III chronic kidney disease, Thrombocytopenia Dentition: Upper Dentures, Lower Dentures - poorly fitting Mental Status: WNL - cognition was sufficient to follow commands for participation in MBS Respiratory Status: Oxygenating on Room Air - Penetration-Aspiration Scale Penetration-Aspiration Scale: OBJECTIVE ASSESSMENT OF SWALLOW FUNCTION (QUANTITATIVE ? PER TRIAL): PENETRATION / ASPIRATION SCALE (TRIPP): 1 = does not enter airway 2 = enters airway/above vocal folds/ejected 3 = enters airway/above vocal folds/not ejected 4 = enters airway/contacts vocal folds/ejected 5 = enters airway/contacts vocal folds/not ejected 6 = enters airway/below vocal folds/ejected 7 = enters airway/below vocal folds/not ejected despite effort 8 = enters airway/below vocal folds/no effort - Penetration-Aspiration Scale Score Thin Liquid via teaspoon Result: 3= enters airways/above vocal folds/not ejected Thin Liquid via teaspoon Trial 2 Result: 8= enters airway/below vocal folds/no effort Comment: premature pharyngeal bolus entry w/ penetration/aspiration before swallow onset; SILENT ASPIRATION Thin Liquid via small single sip from cup Result: 5= enters airways/contacts vocal folds/not ejected Thin Liquid via small single sip from cup Effortful swallow Result: 3= enters airways/above vocal folds/not ejected Comment: PAS 8: penetrated contrast that was not ejected during this trial was visible below the vocal folds/trachea SILENT ASPIRATION during next PO trial Thin Liquid via single sip from straw Result: 3= enters airways/above vocal folds/not ejected Comment: PAS 5: penetration above the folds which was not ejected during this trial was visible atop the vocal folds during next PO trial [employer] Thick Liquid via teaspoon Result: 3= enters airways/above vocal folds/not ejected [employer] Thick Liquid via HALF teaspoon with Chin Tuck Result: 1= does not enter airway [place] Thick Liquid via teaspoon with Chin tuck Result: 3= enters airways/above vocal folds/not ejected [place] Thick Liquid via small single sip from cup Result: 5= enters airways/contacts vocal folds/not ejected Comment: PAS 8: SILENT ASPIRATION of penetrated contrast visible during next PO trial Honey Thick Liquid via teaspoon Result: 3= enters airways/above vocal folds/not ejected Comment: Delayed cough post deglutition d/t accumulated aspiration of penetrated contrast across several trials - cough partially ejected penetration/aspiration, but patient was unable to expectorate or swallow w/ repeat penetration/aspiration of previously aspirated contrast Honey Thick Liquid via teaspoon Effortful swallow Result: 1= does not enter airway Honey Thick Liquid via teaspoon Effortful swallow Trial 2 Result: 1= does not enter airway Comment: PAS 5: no penetration during trial, but contrast visible lining the anterior wall of the laryngeal vestibule contacting the vocal folds at start of next PO trial Pudding Result: 1= does not enter airway Cookie Result: 1= does not enter airway Honey Thick Liquid via teaspoon Trial 2 Result: 2= enter airway/above vocal folds/ejected Honey Thick Liquid via small single sip from cup Result: 2= enter airway/above vocal folds/ejected Honey Thick Liquid via small single sip from cup Trial 2 Result: 3= enters airways/above vocal folds/not ejected - Oral Phase Labial Seal: Escape beyond interlabial space; no extension beyond darling border Tongue Control During Bolus Hold: Cohesive bolus between tongue to palatal seal Bolus Preparation/Mastication: Disorganized chewing/mashing with solid pieces of bolus unchewed Bolus Transport/Lingual Motion: Delayed initiation of tongue motion Oral Residue: Residue collection on oral structures - Pharyngeal Phase Initiation of Pharyngeal Swallow: Bolus head in pyriforms Soft Palate Elevation: No bolus between soft palate and pharyngeal wall Laryngeal Elevation: Partial superior movement thyroid cart/partial apprx aryt- epig petiole Anterior Hyoid Excursion: Partial anterior movement Epiglottic Movement: Complete inversion Laryngeal Vestibule Closure at Height of Swallow: Incomplete; narrow column of air/contrast in laryngeal vestibule Pharyngeal Stripping Wave: Present - complete Pharyngoesophageal Segment Opening: Parital distension and partial duration; parital obstruction of flow Tongue Base Retraction: Trace column of contrast between tongue base & post. pharyngeal wall Pharyngeal Residue: Trace residue within or on pharyngeal structures - Esophageal Phase Esophageal Clearance: Esophageal retention w/ retrograde flow through pharyngoesophageal seg - SEVERE IMPAIRMENT, tertiary contractions, flow through PES into pyriform sinuses - Diagnosis/Impression Diagnosis: moderate oropharyngeal dysphagia; severe esophageal phase dysphagia Impression: The oral phase is primarily marked by: * mastication inefficiency * oral phase swallow onset delay resulting in premature bolus loss * poor oral clearance of solids The pharyngeal phase is characterized by: * delayed pharyngeal swallow onset timing resulting in suboptimal bolus location upon swallow onset contributing to pre-prandial penetration/aspiration of thin liquid and prandial penetration w/ mildly and moderately thick liquids * reduced laryngeal elevation and reduced anterior hyoid excursion resulting in poor laryngeal vestibule closure / pressure contributing to penetration during the swallow w/out ejection, contrast which was not ejected consistently resulted in further post prandial penetration/aspiration * reduced pharyngoesophageal segment duration resulted in pharyngeal retention within the pyriforms The esophageal phase is characterized by: * significant esophageal retention w/ tertiary contractions, retrograde bolus fl ow through the PES into pyriform sinuses w/ corkscrew appearance of lower esophagus Diet Recommended: Soft and Bite-Sized (IDDSI:6) / Moderately Thick Liquid (IDDSI:3) * initially recommended NPO pending discussion w/ son/POA to determine patient/family wishes re: desired aggressiveness of treatment * Son requesting to trial the above diet w/ the below listed strategies to see how it is tolerated by the patient w/ plans to modify or discontinue pending tolerance Compensatory Strategies Recommended: 1:1 supervision, liquids by teaspoon only with EFFORTFUL SWALLOW, small bites, slow rate of intake, seated upright at 90 degrees during PO intake, remain upright for 30-60 minutes post meal (GERD precaution) Need for Repeat MBS: TBD - patient noted to silently aspirate, unable to rely upon presence/absence of cough to gauge diet tolerance and/or appropriateness for upgrade Additional Speech Therapy Services Recommended to Address: * patient and family education re: findings * education re: risks/benefits associated w/ NPO/alternative means of nutrition/hydration vs. diet texture/liquid consistency modification vs. PO intake for comfort/pleasure * implementation of compensatory strategies and GERD precautions to reduce aspiration risk * skilled meal analysis to assess tolerance w/ use of compensatory strategies * oropharyngeal strengthening exercise program to improve swallow onset timing and laryngeal vestibule closure/pressure Education Completed: Images were reviewed w/ the patient following MBS conclusion. Education provided re: findings and recommendations. Pt expressed that he does not wish to pursue alterative means of nutrition/hydration or to modify diet texture/liquid consistency, but requested that this be discussed w/ his family prior to making any decisions. Met w/ patient, son and Raisa WATTS at patient's bedside to further discuss findings, options (NPO/alternative means of nutrition/hydration vs. diet texture/liquid consistency modification vs. PO intake for comfort/pleasure) and risks/benefits of each. Patient/son request to resume PO intake w/ diet texture/liquid consistency modifications/compensatory strategies/supervision to see how it is tolerated by the patient - with plans to modify or discontinue pending tolerance. Son requesting this APRICOT WASHER to provide further education and discussion w/ his sister and mother as able. Referrals Recommended: * Retail Store Manager - poor denture fit * GI - severe esophageal retention w/ tertiary contractions, retrograde bolus flow through the PES into pyriform sinuses w/ corkscrew appearance of lower esophagus - Status Active ST Patient: Active - Contact Information [facility] Speech Therapy:: Ami Calderón M.A., CCC-APRICOT WASHER [address] [place] [address] [phone] [email or web address] 12/18/20 17:03
[2020-12-18] MEDS: Tuberculin,Purif.prot.deriv. 50 TU/ML Vial 0.1 ML ID (11:21)
--- NOTE | 2020-12-18 11:21 | CASEMGMT ---
Social Work SW received a call from Vera at [facility], she met w/pt's two children and this morning and gave information in regard to hospice. Family did not sign yet w/hospice, from what they indicated wants pt to complete time in TCU then go home w/hospice. As per Vera, family has is organized to be w/pt while at home. Pt failed his swallow evaluation today. SW will follow up with son in regard to this, DUPLICATOR PUNCH SET UP OPERATOR planned to call family, SW to follow up after. REFUGIO Clarke
--- NOTE | 2020-12-18 12:27 | NURSING ---
SON HERE AND NOTED NPO SIGN ON DOOR, EXPLAINED PT FAILED COOKIE SWALLOW. NOTIFIED ST CESAR TO PLEASE SPEAK WITH SON REGARDING RESULTS.
--- NOTE | 2020-12-18 14:10 | CASEMGMT ---
Social Work SW met w/pt and son for initial assessment. SCOUT LEASER Ami met w/pt and son also while SW in the room; she reviewed pt's swallow evaluation results, and made recommendations for what to try next. We talked about hospice, son and family met w/hospice earlier. At this time, son would like to try the diet recommendations and see how things go. Ultimately though he plans to have pt home with family assist. Family already had been going in multiple times per day to assist pt. SW did provide lists of both home health care skilled agencies, complete with quality and resource use data, and a list of private hire agencies as well. Son and family are deciding between family going home with home health vs home with hospice. SW did explain to son that pt's next review date will be on 12/24/20 and at time we can go back to insurance to ask for additional time but it is not guaranteed. MOLST form and code status not completed with pt at this time due to the Alzheimer's diagnosis. SW did call hospice back and let Vera know that at this time we are not going forward with a hospice referral, but that this may change and we will call should family decide to pursue hospice. SW will continue to follow for discharge needs and referral back to hospice if appropriate. REFUGIO Clarke
[2020-12-18 14:25] VITALS: BP 135/83; PULSE 81; RESP 19; TEMP 36.8; O2SAT 95
--- NOTE | 2020-12-18 15:09 | PCM.PN.RX ---
Progress Note - Pharmacy Subjective: TCU Admission Objective: Allergies morphine Adverse Reaction (Severe, Verified 12/16/20 14:16) hostility,disoriented hostility, disoriented Current Medications Generic Name Dose Route Start Last Admin Trade Name Freq PRN Reason Stop Dose Admin Acetaminophen 1,000 mg 12/17/20 20:12 Acetaminophen 500 Mg Tablet PO Q6H PRN PRN Pain Score 1-10 Albuterol Sulfate 2.5 mg 12/17/20 14:37 Albuterol 2.5 Mg/3 Ml Vial.Neb. INHALATION Q4H PRN PRN SHORTNESS OF BREATH Amiodarone HCl 100 mg 12/18/20 10:00 12/18/20 08:08 Amiodarone 200 Mg Tablet PO 100 mg QODAY ABAD Administration Aspirin 81 mg 12/18/20 08:00 12/18/20 08:09 Aspirin E.C. 81 Mg Tablet PO 81 mg 0800 ABAD Administration Bisacodyl 10 mg 12/17/20 14:39 Bisacodyl 10 Mg Suppository RC DAILY PRN Constipation Calamine/Phenol 1 applic 12/17/20 18:00 12/18/20 07:31 Menthol/Lanolin/Calamine/Znox 113 Gm Tube TOPICAL 1 applic BID ABAD Administration Protocol Donepezil HCl 10 mg 12/17/20 22:00 12/17/20 20:58 Donepezil Hcl 10 Mg Tablet PO 10 mg QHS ABAD Administration Doxycycline Monohydrate 100 mg 12/17/20 18:00 12/18/20 07:32 Doxycycline 100 Mg Capsule PO 12/24/20 18:01 100 mg BID ABAD Administration Emollient Ointment 1 applic 12/17/20 15:39 Emollient Combination No.72 500 Ml Lotion TOPICAL 4X/DAY PRN PRN DRY SKIN Protocol Enoxaparin Sodium 30 mg 12/18/20 06:00 12/18/20 07:33 Enoxaparin 30 Mg/0.3 Ml Syringe SC 30 mg DAILY@0600 ABAD Administration Escitalopram Oxalate 10 mg 12/18/20 06:00 12/18/20 07:32 Escitalopram Oxalate 10 Mg Tablet PO 10 mg DAILY ABAD Administration Furosemide 20 mg 12/18/20 10:00 12/18/20 08:08 Furosemide 20 Mg Tablet PO 20 mg SUTUTHSA ABAD Administration Furosemide 40 mg 12/17/20 10:00 12/17/20 15:22 Furosemide 40 Mg Tablet PO Not Given MOWEFR ABAD Isosorbide Mononitrate 30 mg 12/18/20 06:00 12/18/20 07:32 Isosorbide Mononitrate 30 Mg Tablet PO 30 mg DAILY ABAD Administration Levothyroxine Sodium 125 mcg 12/18/20 06:00 12/18/20 07:32 Levothyroxine 125 Mcg Tablet PO 125 mcg 0600 ABAD Administration Melatonin 5 mg 12/17/20 22:00 12/17/20 20:57 Melatonin 10 Mg Tablet PO 5 mg QHS ABAD Administration Nystatin 1 applic 12/17/20 18:00 12/18/20 07:32 Nystatin Powder 15gm Bottle TOPICAL 1 applic BID ABAD Administration Protocol Polyethylene Glycol 17 gm 12/18/20 06:00 12/18/20 07:32 Polyethylene Glycol 3350 17 Gm Packet PO 17 gm DAILY ABAD Administration Senna/Docusate Sodium 1 tablet 12/17/20 20:15 12/18/20 07:32 Senna/Docusate Sodium 1 Tablet PO 1 tablet BID ABAD Administration Sodium Chloride 10 - 40 ml 12/17/20 14:49 0.9% Saline Lock 10 Ml Syringe IV UD PRN SALINE FLUSH Tuberculin PPD 0.1 ml 12/25/20 10:00 Tuberculin,Purif.Prot.Deriv. 50 Tu/Ml Vial ID 12/25/20 10:01 X1 ONE Problem List (Last Reviewed 12/17/20 @ 20:[address] Laith Lai MD) Chronic diastolic congestive heart failure (Chronic) Insomnia (Acute) Hypothyroidism (Acute) Coronary artery disease (Acute) Atrial fibrillation (Acute) Depression (Acute) Alzheimer disease (Acute) Debility (Acute) Vital Signs Temp Pulse Resp BP Pulse Ox 98.2 F 81 19 H 135/83 H 95 12/18/20 14:25 12/18/20 14:25 12/18/20 14:25 12/18/20 14:25 12/18/20 14:25 Oxygen Delivery Method Room Air Weight: 97.069 kg Sodium 144 mmol/L (136-145) 12/18/20 07:10 Potassium 3.6 mmol/L (3.5-5.1) 12/18/20 07:10 Chloride 108 mmol/L (98-107) H 12/18/20 07:10 Carbon Dioxide 30.0 mmol/L (21.0-32.0) 12/18/20 07:10 Anion Gap 6 (5-15) 12/18/20 07:10 BUN 35 mg/dL (7-18) H 12/18/20 07:10 Creatinine 1.72 mg/dL (0.70-1.30) H 12/18/20 07:10 Est GFR (MDRD) Af Amer 49 mL/min (>60) L 12/18/20 07:10 Est GFR (MDRD) Non-Af 40 mL/min (>60) L 12/18/20 07:10 BUN/Creatinine Ratio 20.3 RATIO (10-20) H 12/18/20 07:10 Glucose 96 mg/dL (74-106) 12/18/20 07:10 Assessment/Plan: 1. Pain: acetaminophen 1000mg PO Q6H PRN pain 1-10. Please continue to monitor for increased pain and PRN usage. 2. DVT prophylaxis: enoxaparin 30mg SC daily. Please continue to monitor for S/S of bleeding, hemoglobin (last 14g/dL), platelets (last 114,000) and renal function. 3. Atrial fibrillation/CAD/CHF: amiodarone 100mg PO every other day, isosorbide mononitrate 30mg PO daily, aspirin 81mg PO DAILYCM, and furosemide 40mg PO MWF/20mg all other days. Please continue to monitor potassium (last 3.6mmol/L), sodium (last 144mmol/L), BP (last 135/83), HR (last 81), S/S of bleeding, edema and renal function. 4. Aspiration pneumonitis: doxycycline 100mg PO BID thru 12/24. Please continue to monitor for S/S of infection and diarrhea. 5. Shortness of breath: albuterol nebulized solution 2.5mg inhalation Q4H PRN SOB. Please continue to monitor for S/S of SOB and PRN usage. 6. Hypothyroidism: levothyroxine 125mcg PO daily. Please continue to monitor TSH (last 12/17/20) and S/S of hypo/hyperthyroidism. 7. Alzheimer disease: donepezil 10mg PO QHS. Please continue to monitor for GI side effects and S/S of Alzheimer disease. 8. Insomnia: melatonin 5mg PO QHS. Please continue to monitor for excessive drowsiness. Psychotropic Medications: *1. Depression: escitalopram 10mg PO daily. Please consider GDR by 06/2021 if clinically appropriate. Thanks. Unnecessary Medications: None Bowel Regimen: Miralax 17gm PO daily, senna/docusate 1T PO BID and bisacodyl 10mg RC daily PRN constipation. Please continue to monitor for constipation and PRN usage. Date of Note:: 12/18/20
[2020-12-18] MEDS: MELATONIN 10 MG TABLET 5 MG PO (19:40)
[2020-12-18] MEDS: Donepezil HCl 10 MG Tablet PO (19:40)
[2020-12-19] MEDS: Menthol/Lanolin/Calamine/Znox 113 GM Tube 1 APPLIC TOPICAL ×2 (05:14→17:26)
[2020-12-19] MEDS: Levothyroxine 125 MCG Tablet PO (05:15)
[2020-12-19] MEDS: Polyethylene Glycol 3350 17 GM PACKET PO (05:15)
[2020-12-19] MEDS: Doxycycline 100 MG CAPSULE PO ×2 (05:15→18:56)
[2020-12-19] MEDS: Escitalopram Oxalate 10 MG Tablet PO (05:15)
[2020-12-19] MEDS: Nystatin Powder 15gm Bottle 1 APPLIC TOPICAL ×2 (05:15→17:26)
[2020-12-19] MEDS: Enoxaparin 30 MG/0.3 ML Syringe SC (05:15)
[2020-12-19] MEDS: Senna/Docusate Sodium 1 Tablet PO ×2 (05:15→17:24)
[2020-12-19] MEDS: Isosorbide Mononitrate 30 MG Tablet PO (05:15)
[2020-12-19] MEDS: Aspirin E.C. 81 MG Tablet PO (09:11)
[2020-12-19] MEDS: Furosemide 40 MG Tablet PO (09:11)
[2020-12-19 10:00] VITALS: BP 124/80; PULSE 80; RESP 18; TEMP 36.7; O2SAT 96
--- NOTE | 2020-12-19 16:18 | CASEMGMT ---
Social Work SW spoke with Vera from [facility]. Vera met with pt and son again today. Pt has decided to remain in TCU for course of treatment and to get as strong as possible, will then return home with hospice services. SW to update hospice when d/c date is set. OVI Hernandez
[2020-12-19] MEDS: MELATONIN 10 MG TABLET 5 MG PO (20:21)
[2020-12-19] MEDS: Donepezil HCl 10 MG Tablet PO (20:21)
[2020-12-19 21:39] VITALS: PULSE 91; RESP 18; O2SAT 92
[2020-12-20] MEDS: Levothyroxine 125 MCG Tablet PO (04:55)
[2020-12-20] MEDS: Enoxaparin 30 MG/0.3 ML Syringe SC (04:55)
[2020-12-20] MEDS: Senna/Docusate Sodium 1 Tablet PO ×2 (04:56→17:31)
[2020-12-20] MEDS: Nystatin Powder 15gm Bottle 1 APPLIC TOPICAL ×2 (04:56→17:36)
[2020-12-20] MEDS: Isosorbide Mononitrate 30 MG Tablet PO (04:58)
[2020-12-20] MEDS: Escitalopram Oxalate 10 MG Tablet PO (04:58)
[2020-12-20] MEDS: Doxycycline 100 MG CAPSULE PO ×2 (04:58→21:56)
[2020-12-20] MEDS: Menthol/Lanolin/Calamine/Znox 113 GM Tube 1 APPLIC TOPICAL ×2 (04:59→17:35)
[2020-12-20] MEDS: Aspirin E.C. 81 MG Tablet PO (08:33)
[2020-12-20 10:00] VITALS: O2SAT 98
[2020-12-20] MEDS: Furosemide 20 MG Tablet PO (10:38)
[2020-12-20] MEDS: Amiodarone 200 MG Tablet 100 MG PO (10:38)
[2020-12-20 10:42] VITALS: BP 117/78; PULSE 99
--- NOTE | 2020-12-20 12:12 | NURSING ---
Called pt's son to confirm code status of Full Code. Son stated that pt wants to be a full code with no intubation.
[2020-12-20 13:36] VITALS: BP 121/75; PULSE 79; RESP 18; TEMP 36.7; O2SAT 92
[2020-12-20] MEDS: Donepezil HCl 10 MG Tablet PO (20:50)
[2020-12-20] MEDS: MELATONIN 10 MG TABLET 5 MG PO (20:50)
--- NOTE | 2020-12-20 23:41 | PCA ---
we went in and asked him a couple different times if he was ready to get washed up and get in bed but he refused and said he was not changing his clothes or getting in bed he is fine just like he was.He will do it in the morning.
[2020-12-21] MEDS: Enoxaparin 30 MG/0.3 ML Syringe SC (05:53)
[2020-12-21] MEDS: Levothyroxine 125 MCG Tablet PO (05:54)
[2020-12-21] MEDS: Isosorbide Mononitrate 30 MG Tablet PO (05:54)
[2020-12-21] MEDS: Nystatin Powder 15gm Bottle 1 APPLIC TOPICAL ×2 (05:54→16:41)
[2020-12-21] MEDS: Menthol/Lanolin/Calamine/Znox 113 GM Tube 1 APPLIC TOPICAL ×2 (05:54→16:41)
[2020-12-21] MEDS: Escitalopram Oxalate 10 MG Tablet PO (05:54)
[2020-12-21] MEDS: Senna/Docusate Sodium 1 Tablet PO ×2 (05:54→16:41)
[2020-12-21] MEDS: Doxycycline 100 MG CAPSULE PO ×2 (05:54→16:41)
[2020-12-21 06:21] VITALS: BP 133/88; PULSE 91
[2020-12-21] MEDS: Aspirin E.C. 81 MG Tablet PO (08:47)
[2020-12-21] MEDS: Furosemide 40 MG Tablet PO (08:51)
[2020-12-21 15:46] VITALS: BP 119/77; PULSE 100; RESP 18; TEMP 37.2; O2SAT 96
--- NOTE | 2020-12-21 18:55 | NURSING ---
pt called out and stated pt needed changed & ready for bed. Staff went in to assist pt via fercho, placed green fercho pad behind pt in recliner chair, went to hook pt up to fercho and pt stated no, I dont sleep in the bed pt refused to go to bed, pt refused to go to BR so staff could change his attends, pt incont urine on floor and in attends. pt wanted staff to let him stand up using walker so we could change his attends. pt too weak to stand safely. did not attempt. so talked pt into going into BR and standing at bar, pt stood briefly d/t being too tired. incont care provided, clean attends placed. pt verbally abusive and stating that he can do this himself and threatened to sew staff. pt assisted back to recliner chair per his request and legs elevated. call light in reach.
[2020-12-21 20:00] VITALS: PULSE 107; RESP 18; O2SAT 97
[2020-12-21] MEDS: MELATONIN 10 MG TABLET 5 MG PO (20:10)
[2020-12-21] MEDS: Donepezil HCl 10 MG Tablet PO (20:11)
--- NOTE | 2020-12-22 04:45 | NURSING ---
This nurse and FERRULER, Cadence, went into pt's room in attempt to check and change. Brief soiled- lines turned blue. Pt becomes belligerent and refuses to allow this nurse and FERRULER to take pt to bathroom to perfomr care. Explained risk of skin breakdown, infection, and pain if care not completed. Pt continues to refuse and tone remains belligerent.
[2020-12-22] MEDS: Enoxaparin 30 MG/0.3 ML Syringe SC (06:12)
[2020-12-22] MEDS: Polyethylene Glycol 3350 17 GM PACKET PO (06:12)
[2020-12-22] MEDS: Isosorbide Mononitrate 30 MG Tablet PO (06:14)
[2020-12-22] MEDS: Levothyroxine 125 MCG Tablet PO (06:14)
[2020-12-22] MEDS: Senna/Docusate Sodium 1 Tablet PO ×2 (06:15→17:30)
[2020-12-22] MEDS: Escitalopram Oxalate 10 MG Tablet PO (06:15)
[2020-12-22] MEDS: Doxycycline 100 MG CAPSULE PO ×2 (06:15→17:30)
[2020-12-22 06:24] VITALS: BP 137/83; PULSE 94
[2020-12-22] MEDS: Amiodarone 200 MG Tablet 100 MG PO (09:41)
[2020-12-22] MEDS: Aspirin E.C. 81 MG Tablet PO (09:43)
[2020-12-22] MEDS: Furosemide 20 MG Tablet PO (09:43)
[2020-12-22 10:00] VITALS: BP 131/96; PULSE 96; RESP 16; RESP 18; TEMP 36.4; O2SAT 96
[2020-12-22] MEDS: Menthol/Lanolin/Calamine/Znox 113 GM Tube 1 APPLIC TOPICAL (17:37)
[2020-12-22] MEDS: Nystatin Powder 15gm Bottle 1 APPLIC TOPICAL (17:37)
--- NOTE | 2020-12-22 21:21 | PCA ---
This APPELLATE CONFEREE along with APPELLATE CONFEREE Coleen approached patient and offered to help get washed up and changed, as patient is very incontinent. Patient was no compliant and did not allow APPELLATE CONFEREE to get him washed up. Refused to get out of chair or change into night clothes. When asked patient started to get upset and raised his voice telling us to leave him alone. RN was made aware. told patient to call if they needed anything else. call light was within reach.
--- NOTE | 2020-12-22 22:30 | NURSING ---
Pt starts to become agitated w/ attempt to administer hs meds. Informed of names of medications and their use. Pt did take medications crushed and mixed in applesauce.
[2020-12-22] MEDS: MELATONIN 10 MG TABLET 5 MG PO (22:33)
[2020-12-22] MEDS: Donepezil HCl 10 MG Tablet PO (22:34)
[2020-12-23 05:16] VITALS: BP 138/92; PULSE 97; RESP 16; TEMP 36.3; O2SAT 95
[2020-12-23] MEDS: Enoxaparin 30 MG/0.3 ML Syringe SC (05:19)
[2020-12-23] MEDS: Escitalopram Oxalate 10 MG Tablet PO (05:19)
[2020-12-23] MEDS: Levothyroxine 125 MCG Tablet PO (05:19)
[2020-12-23] MEDS: Doxycycline 100 MG CAPSULE PO ×2 (05:20→17:14)
[2020-12-23] MEDS: Isosorbide Mononitrate 30 MG Tablet PO (05:20)
[2020-12-23] MEDS: Nystatin Powder 15gm Bottle 1 APPLIC TOPICAL ×2 (05:32→17:14)
[2020-12-23] MEDS: Menthol/Lanolin/Calamine/Znox 113 GM Tube 1 APPLIC TOPICAL ×2 (05:32→17:14)
[2020-12-23] MEDS: Aspirin E.C. 81 MG Tablet PO (08:19)
[2020-12-23] MEDS: Furosemide 20 MG Tablet PO (11:30)
[2020-12-23 15:00] VITALS: BP 114/72; PULSE 96; RESP 18; TEMP 36.6; O2SAT 93
[2020-12-23] MEDS: Senna/Docusate Sodium 1 Tablet PO (17:14)
[2020-12-23 20:16] VITALS: PULSE 106; RESP 18; O2SAT 95
[2020-12-23] MEDS: Donepezil HCl 10 MG Tablet PO (20:29)
[2020-12-23] MEDS: MELATONIN 10 MG TABLET 5 MG PO (20:29)
[2020-12-24] MEDS: Isosorbide Mononitrate 30 MG Tablet PO (06:01)
[2020-12-24] MEDS: Doxycycline 100 MG CAPSULE PO ×2 (06:01→19:31)
[2020-12-24] MEDS: Levothyroxine 125 MCG Tablet PO (06:01)
[2020-12-24] MEDS: Escitalopram Oxalate 10 MG Tablet PO (06:01)
[2020-12-24] MEDS: Enoxaparin 30 MG/0.3 ML Syringe SC (06:01)
[2020-12-24] MEDS: Menthol/Lanolin/Calamine/Znox 113 GM Tube 1 APPLIC TOPICAL (06:01)
[2020-12-24] MEDS: Nystatin Powder 15gm Bottle 1 APPLIC TOPICAL ×2 (06:03→17:56)
[2020-12-24 06:10] VITALS: BP 117/79; PULSE 98
[2020-12-24] MEDS: Aspirin E.C. 81 MG Tablet PO (08:14)
[2020-12-24 10:00] VITALS: PULSE 102
[2020-12-24] MEDS: Amiodarone 200 MG Tablet 100 MG PO (10:47)
[2020-12-24] MEDS: Furosemide 40 MG Tablet PO (10:50)
[2020-12-24 10:51] VITALS: BP 127/71; PULSE 102
[2020-12-24 12:48] VITALS: BP 136/80; PULSE 90; RESP 18; TEMP 36.1; O2SAT 95
--- NOTE | 2020-12-24 16:55 | NURSING ---
Encouraged pt multiple times this shift to get into bed so we can get him off his bilateral buttocks. Pt refused. Educated pt on importance of getting off buttocks d/t shearing.
[2020-12-24] MEDS: MELATONIN 10 MG TABLET 5 MG PO (20:52)
[2020-12-24] MEDS: Donepezil HCl 10 MG Tablet PO (20:54)
[2020-12-25] MEDS: Nystatin Powder 15gm Bottle 1 APPLIC TOPICAL ×2 (05:40→17:54)
[2020-12-25] MEDS: Enoxaparin 30 MG/0.3 ML Syringe SC (05:41)
[2020-12-25] MEDS: Senna/Docusate Sodium 1 Tablet PO ×2 (05:41→17:54)
[2020-12-25] MEDS: Isosorbide Mononitrate 30 MG Tablet PO (05:42)
[2020-12-25] MEDS: Levothyroxine 125 MCG Tablet PO (05:42)
[2020-12-25] MEDS: Escitalopram Oxalate 10 MG Tablet PO (05:42)
[2020-12-25 06:04] LABS: Absolute Lymphocyte Count 1.39 X10^3/uL (0.83-4.51); Absolute Neutrophil Count 2.6 X10^3/uL (2.0-7.7); Basophil# 0.04 X10^3/uL; Basophil% 0.9 % (0-1); Eosinophil# 0.15 X10^3/uL; Eosinophils% 3.2 % (0-5); Hemoglobin 13.3 g/dL (13.0-16.5); Lymphocyte # 1.39 X10^3/ul (0.83-4.51); Mean Corp Hgb Conc 32.4 g/dL (32-36); Mean Corpuscular Hgb 34.2 pg (27.0-32.0); Mean Corpuscular Volume 105.4 fL (80-94); Mean Platelet Vol. 9.2 fl (6.2-12.0); Monocyte# 0.41 X10^3/uL; Monocyte% 8.8 % (0-10); NRBC Flagged by Analyzer 0 % (0-5); Neutrophil # 2.63 X10^3/uL (2.7-7.7); Neutrophil % 56.7 % (47-70); POSITIVE COUNT YES; Platelet Count 98 K/mm3 (150-450); RBC Distribution Width CV 15.1 % (11.6-14.6); RBC Distribution Width SD 59.3 fl (35.1-43.9); Red Blood Count 3.89 M/mm3 (4.6-6.2); White Blood Count 4.6 K/mm3 (4.4-11.0)
[2020-12-25 06:35] LABS: Anion Gap 4 (5-15); BUN 38 mg/dL (7-18); BUN/Creat Ratio 24.7 RATIO (10-20); Calcium,Total 8.3 mg/dL (8.5-10.1); Chloride 112 mmol/L (98-107); Creatinine, Serum 1.54 mg/dL (0.70-1.30); EST Glomerular Filtration Rate 46 mL/min (>60); Est Glom Filt Rate - Afr Amer 55 mL/min (>60); Estimated Creatinine Clearance 32.19 ml/min; Glucose 90 mg/dL (74-106); Potassium 3.8 mmol/L (3.5-5.1); Sodium Level 146 mmol/L (136-145)
[2020-12-25] MEDS: Aspirin E.C. 81 MG Tablet PO (08:07)
[2020-12-25] MEDS: Furosemide 20 MG Tablet PO (11:24)
[2020-12-25] MEDS: Tuberculin,Purif.prot.deriv. 50 TU/ML Vial 0.1 ML ID (11:25)
[2020-12-25 11:30] VITALS: BP 119/64; PULSE 107
[2020-12-25 14:07] VITALS: BP 122/77; PULSE 100; RESP 18; TEMP 36; O2SAT 98
[2020-12-25] MEDS: Donepezil HCl 10 MG Tablet PO (21:11)
[2020-12-25] MEDS: MELATONIN 10 MG TABLET 5 MG PO (21:11)
[2020-12-25 21:40] VITALS: PULSE 94; O2SAT 94
[2020-12-26] MEDS: Enoxaparin 30 MG/0.3 ML Syringe SC (05:41)
[2020-12-26] MEDS: Levothyroxine 125 MCG Tablet PO (05:44)
[2020-12-26] MEDS: Escitalopram Oxalate 10 MG Tablet PO (05:44)
[2020-12-26] MEDS: Isosorbide Mononitrate 30 MG Tablet PO (05:44)
[2020-12-26] MEDS: Nystatin Powder 15gm Bottle 1 APPLIC TOPICAL ×2 (05:44→21:25)
[2020-12-26] MEDS: Aspirin E.C. 81 MG Tablet PO (08:01)
[2020-12-26] MEDS: Amiodarone 200 MG Tablet 100 MG PO (10:33)
[2020-12-26] MEDS: Furosemide 40 MG Tablet PO (10:33)
[2020-12-26 10:35] VITALS: BP 106/68; PULSE 102; RESP 18; TEMP 36.7; O2SAT 93
[2020-12-26 10:43] VITALS: PULSE 108; RESP 18; O2SAT 93
--- NOTE | 2020-12-26 13:01 | CASEMGMT ---
Social Work IDT met with patient, , son and DIL for care plan meeting. Discussed patient's progress in therapy and nursing. The goal is for pt to return home with [facility] once insurance issues DC. Explained [employer] insurance with [employer] 01/03 and continued stay is not guaranteed. Ensured family would be able to assist pt at home when hospice staff is not there since they will not be there 29/09. Encouraged to schedule therapy family training. SW to continue to follow. CIERRA AcevedoW
[2020-12-26 16:03] VITALS: BP 126/82; PULSE 108; RESP 19; TEMP 36.8; O2SAT 95
[2020-12-26 16:06] VITALS: O2SAT 95
[2020-12-26] MEDS: MELATONIN 10 MG TABLET 5 MG PO (21:24)
[2020-12-26] MEDS: Donepezil HCl 10 MG Tablet PO (21:24)
[2020-12-27 05:16] VITALS: BP 135/76; PULSE 98
[2020-12-27] MEDS: Levothyroxine 125 MCG Tablet PO (05:17)
[2020-12-27] MEDS: Isosorbide Mononitrate 30 MG Tablet PO (05:18)
[2020-12-27] MEDS: Enoxaparin 30 MG/0.3 ML Syringe SC (05:18)
[2020-12-27] MEDS: Escitalopram Oxalate 10 MG Tablet PO (05:18)
[2020-12-27] MEDS: Nystatin Powder 15gm Bottle 1 APPLIC TOPICAL ×2 (05:20→17:42)
[2020-12-27] MEDS: Aspirin E.C. 81 MG Tablet PO (08:40)
[2020-12-27 10:00] VITALS: BP 142/83; PULSE 110; RESP 20; TEMP 37; O2SAT 96
[2020-12-27] MEDS: Furosemide 20 MG Tablet PO (10:35)
--- NOTE | 2020-12-27 16:34 | NURSING ---
Attempted multiple times to have pt leave room and go into the hallway, for safety, pt refused, blinds pulled, pt moved away from window. [place] provided.
[2020-12-27] MEDS: Senna/Docusate Sodium 1 Tablet PO (17:42)
[2020-12-27] MEDS: MELATONIN 10 MG TABLET 5 MG PO (20:32)
[2020-12-27] MEDS: Donepezil HCl 10 MG Tablet PO (20:33)
[2020-12-27 23:15] VITALS: PULSE 54; O2SAT 92
[2020-12-28] MEDS: Isosorbide Mononitrate 30 MG Tablet PO (05:02)
[2020-12-28] MEDS: Senna/Docusate Sodium 1 Tablet PO ×2 (05:02→17:16)
[2020-12-28] MEDS: Enoxaparin 30 MG/0.3 ML Syringe SC (05:02)
[2020-12-28] MEDS: Levothyroxine 125 MCG Tablet PO (05:02)
[2020-12-28] MEDS: Escitalopram Oxalate 10 MG Tablet PO (05:02)
[2020-12-28] MEDS: Nystatin Powder 15gm Bottle 1 APPLIC TOPICAL ×2 (05:03→17:16)
[2020-12-28] MEDS: Aspirin E.C. 81 MG Tablet PO (08:42)
[2020-12-28 10:00] VITALS: PULSE 95; O2SAT 95
[2020-12-28] MEDS: Furosemide 40 MG Tablet PO (10:21)
[2020-12-28] MEDS: Amiodarone 200 MG Tablet 100 MG PO (10:21)
--- NOTE | 2020-12-28 13:08 | MDS.RN ---
Information for the mds was obtained from review of the clinical record, interview of resident, staff, and direct observation of resident's care.
[2020-12-28 15:36] VITALS: BP 123/80; PULSE 102; RESP 18; TEMP 36.5; O2SAT 93
[2020-12-28] MEDS: Donepezil HCl 10 MG Tablet PO (19:54)
[2020-12-28] MEDS: MELATONIN 10 MG TABLET 5 MG PO (19:55)
[2020-12-29] MEDS: Enoxaparin 30 MG/0.3 ML Syringe SC (05:33)
[2020-12-29] MEDS: Senna/Docusate Sodium 1 Tablet PO (05:33)
[2020-12-29] MEDS: Levothyroxine 125 MCG Tablet PO (05:33)
[2020-12-29] MEDS: Nystatin Powder 15gm Bottle 1 APPLIC TOPICAL ×2 (05:33→20:40)
[2020-12-29] MEDS: Polyethylene Glycol 3350 17 GM PACKET PO (05:33)
[2020-12-29] MEDS: Isosorbide Mononitrate 30 MG Tablet PO (05:33)
[2020-12-29] MEDS: Escitalopram Oxalate 10 MG Tablet PO (05:33)
[2020-12-29] MEDS: Aspirin E.C. 81 MG Tablet PO (08:19)
[2020-12-29] MEDS: Furosemide 20 MG Tablet PO (09:56)
[2020-12-29 16:00] VITALS: BP 142/88; PULSE 100; RESP 16; TEMP 36.6; O2SAT 97
[2020-12-29] MEDS: Donepezil HCl 10 MG Tablet PO (20:43)
[2020-12-29] MEDS: MELATONIN 10 MG TABLET 5 MG PO (20:43)
[2020-12-30 05:40] VITALS: BP 140/85; PULSE 85
[2020-12-30] MEDS: Polyethylene Glycol 3350 17 GM PACKET PO (05:43)
[2020-12-30] MEDS: Isosorbide Mononitrate 30 MG Tablet PO (05:43)
[2020-12-30] MEDS: Nystatin Powder 15gm Bottle 1 APPLIC TOPICAL ×2 (05:43→20:17)
[2020-12-30] MEDS: Levothyroxine 125 MCG Tablet PO (05:43)
[2020-12-30] MEDS: Escitalopram Oxalate 10 MG Tablet PO (05:43)
[2020-12-30] MEDS: Enoxaparin 30 MG/0.3 ML Syringe SC (05:44)
[2020-12-30] MEDS: Senna/Docusate Sodium 1 Tablet PO (05:44)
[2020-12-30] MEDS: Aspirin E.C. 81 MG Tablet PO (08:50)
[2020-12-30] MEDS: Furosemide 20 MG Tablet PO (10:26)
[2020-12-30] MEDS: Amiodarone 200 MG Tablet 100 MG PO (10:27)
[2020-12-30 10:29] VITALS: PULSE 100; RESP 18; O2SAT 99
[2020-12-30 16:00] VITALS: BP 140/91; PULSE 51; RESP 18; TEMP 36.2; O2SAT 93
[2020-12-30] MEDS: Donepezil HCl 10 MG Tablet PO (20:18)
[2020-12-30] MEDS: MELATONIN 10 MG TABLET 5 MG PO (20:18)
--- NOTE | 2020-12-30 21:19 | NURSING ---
Dr. Lai notified via telephone regarding patient c/o loose stools, request for RTN Senna-S to be changed to PRN. New order d/c RTN Senna-S and change to PRN, repeated back.
[2020-12-31 05:10] VITALS: BP 135/85; PULSE 96
[2020-12-31] MEDS: Isosorbide Mononitrate 30 MG Tablet PO (05:12)
[2020-12-31] MEDS: Enoxaparin 30 MG/0.3 ML Syringe SC (05:12)
[2020-12-31] MEDS: Escitalopram Oxalate 10 MG Tablet PO (05:12)
[2020-12-31] MEDS: Levothyroxine 125 MCG Tablet PO (05:12)
[2020-12-31] MEDS: Nystatin Powder 15gm Bottle 1 APPLIC TOPICAL ×2 (05:15→17:15)
[2020-12-31] MEDS: Aspirin E.C. 81 MG Tablet PO (08:02)
[2020-12-31] MEDS: Furosemide 40 MG Tablet PO (10:52)
[2020-12-31 14:27] VITALS: BP 132/78; PULSE 88; RESP 16; TEMP 35.9; O2SAT 96
--- NOTE | 2020-12-31 18:57 | NURSING ---
patient's spouse reported pt bumped his hand against the table and cut it. Small skin tear noted. cleaned and applied with bandage.
[2020-12-31] MEDS: MELATONIN 10 MG TABLET 5 MG PO (20:25)
[2020-12-31] MEDS: Donepezil HCl 10 MG Tablet PO (20:26)
[2020-12-31 21:45] VITALS: PULSE 103; RESP 18; O2SAT 94
[2021-01-01] MEDS: Escitalopram Oxalate 10 MG Tablet PO (05:06)
[2021-01-01] MEDS: Isosorbide Mononitrate 30 MG Tablet PO (05:06)
[2021-01-01] MEDS: Levothyroxine 125 MCG Tablet PO (05:06)
[2021-01-01] MEDS: Enoxaparin 30 MG/0.3 ML Syringe SC (05:06)
[2021-01-01] MEDS: Nystatin Powder 15gm Bottle 1 APPLIC TOPICAL ×2 (05:07→17:23)
[2021-01-01 05:36] LABS: Absolute Lymphocyte Count 1.32 X10^3/uL (0.83-4.51); Absolute Neutrophil Count 2.5 X10^3/uL (2.0-7.7); Basophil# 0.03 X10^3/uL; Basophil% 0.7 % (0-1); Eosinophil# 0.18 X10^3/uL; Eosinophils% 4.1 % (0-5); Hematocrit 39.7 % (40-54); Hemoglobin 13.2 g/dL (13.0-16.5); Lymphocyte # 1.32 X10^3/ul (0.83-4.51); Mean Corp Hgb Conc 33.2 g/dL (32-36); Mean Corpuscular Hgb 34.6 pg (27.0-32.0); Mean Corpuscular Volume 104.2 fL (80-94); Mean Platelet Vol. 9.2 fl (6.2-12.0); Monocyte# 0.36 X10^3/uL; Monocyte% 8.2 % (0-10); NRBC Flagged by Analyzer 0 % (0-5); Neutrophil % 56.8 % (47-70); POSITIVE COUNT YES; Platelet Count 95 K/mm3 (150-450); RBC Distribution Width CV 14.7 % (11.6-14.6); RBC Distribution Width SD 57.7 fl (35.1-43.9); Red Blood Count 3.81 M/mm3 (4.6-6.2); White Blood Count 4.4 K/mm3 (4.4-11.0)
[2021-01-01 06:15] LABS: Anion Gap 5 (5-15); BUN 27 mg/dL (7-18); BUN/Creat Ratio 19.9 RATIO (10-20); Calcium,Total 8.2 mg/dL (8.5-10.1); Chloride 112 mmol/L (98-107); Creatinine, Serum 1.36 mg/dL (0.70-1.30); EST Glomerular Filtration Rate 53 mL/min (>60); Est Glom Filt Rate - Afr Amer 64 mL/min (>60); Estimated Creatinine Clearance 36.45 ml/min; Glucose 89 mg/dL (74-106); Potassium 3.9 mmol/L (3.5-5.1); Sodium Level 145 mmol/L (136-145)
[2021-01-01 07:05] VITALS: BP 131/77; PULSE 85
--- NOTE | 2021-01-01 07:06 | PCA ---
I went into Debbie's room to get him ready for the day. Things were fine to start. As I was washing him, he yelled @ me to not scrub so hard, I told him, I was just washing him up. I put the light on to get assistance. A few minutes later help arrived. He asked me for my name & I told him it was Ana Maria Roxy & that he was going to report me. I told him to go ahead. When we got him to stand up, I had my arm on his Right upper arm guiding him to the chair & he yelled again. We finally got him into the chair. I finished him up & brought him out to the solarium.
[2021-01-01] MEDS: Aspirin E.C. 81 MG Tablet PO (07:44)
[2021-01-01] MEDS: Furosemide 20 MG Tablet PO (10:33)
[2021-01-01] MEDS: Amiodarone 200 MG Tablet 100 MG PO (10:33)
[2021-01-01 10:36] VITALS: BP 125/71; PULSE 78
--- NOTE | 2021-01-01 13:31 | CASEMGMT ---
Addendum entered by Gabriela Land 01/02/21 16:37: Contacted son - explained HHC denial and reasoning. Offered to contact other agencies. Son denied, but appreciative and will have mom call nonskilled HHC agencies. Mentioned pt to possibly transfer to another SNF first to provide time to get needed help in the home. He will have mom call this worker. Encouraged if that is the alternate plan, to discuss SNF choices and have his mother provide that information to this worker as well. Son agreed. Expressed appreication for assistance. Original Note: Social Work Son visiting pt. Spoke with son to confirm DC plans for pt - home with hospice in preparation for insurance update 01/03. In conversation, son/family was under the impression pt could continue being treated while on hospice, i.e. for aspiration PNA, etc. Explained hospice's goal is to keep the pt comfortable and provide quality of life for their remaining time, and not to provide any type of life sustaining treatment; pt would not return to the hospital under hospice care. Son began questioning if that is the route pt/family want to pursue. He is also concerned if pt would need x2 assist, if there is enough help from family at home. Son stated he would talk with his mom and contact SW. Son appreciative of information and follow up. Son contacted SW and they would not like to pursue hospice at this time. Inquired if SW can look into skilled [facility] HHC and insurance benefits. Agreed to do so, but explained HHC is short term, typically 3-5 hrs/wk for 2-4 wks depending on insurance approval. Son uncertain if that would be enough, but stated he still has the nonskilled HHC list and would have his mom begin contacting agencies for additional assistance. Spoke with Yesenia at [facility] - they reviewed case and denied pt as they feel pt requires too much assistance and HHC is not appropriate. Will update son. Gabriela Land, CIERRA JUARESW
[2021-01-01 15:01] VITALS: BP 130/76; PULSE 95; RESP 22; TEMP 36.7; O2SAT 93
[2021-01-01] MEDS: MELATONIN 10 MG TABLET 5 MG PO (20:14)
[2021-01-01] MEDS: Donepezil HCl 10 MG Tablet PO (20:14)
[2021-01-02] MEDS: Levothyroxine 125 MCG Tablet PO (04:57)
[2021-01-02] MEDS: Enoxaparin 30 MG/0.3 ML Syringe SC (04:58)
[2021-01-02] MEDS: Escitalopram Oxalate 10 MG Tablet PO (04:58)
[2021-01-02] MEDS: Isosorbide Mononitrate 30 MG Tablet PO (04:58)
[2021-01-02] MEDS: Nystatin Powder 15gm Bottle 1 APPLIC TOPICAL ×2 (05:03→17:29)
[2021-01-02 05:05] VITALS: BP 142/93; PULSE 101; RESP 18; TEMP 36.8; O2SAT 96
[2021-01-02] MEDS: Aspirin E.C. 81 MG Tablet PO (08:42)
[2021-01-02] MEDS: Furosemide 40 MG Tablet PO (11:32)
[2021-01-02 14:08] VITALS: BP 135/73; PULSE 65; RESP 16; TEMP 36.7; O2SAT 95
[2021-01-02] MEDS: MELATONIN 10 MG TABLET 5 MG PO (20:25)
[2021-01-02] MEDS: Donepezil HCl 10 MG Tablet PO (20:26)
[2021-01-02 21:27] VITALS: PULSE 100; RESP 18; O2SAT 94
[2021-01-03] MEDS: Nystatin Powder 15gm Bottle 1 APPLIC TOPICAL ×2 (05:47→21:01)
[2021-01-03] MEDS: Escitalopram Oxalate 10 MG Tablet PO (05:47)
[2021-01-03] MEDS: Enoxaparin 30 MG/0.3 ML Syringe SC (05:47)
[2021-01-03] MEDS: Levothyroxine 125 MCG Tablet PO (05:47)
[2021-01-03] MEDS: Isosorbide Mononitrate 30 MG Tablet PO (05:47)
[2021-01-03 06:54] VITALS: BP 123/74; PULSE 99
[2021-01-03] MEDS: Aspirin E.C. 81 MG Tablet PO (08:00)
[2021-01-03] MEDS: Amiodarone 200 MG Tablet 100 MG PO (10:18)
[2021-01-03] MEDS: Furosemide 20 MG Tablet PO (10:19)
[2021-01-03 10:31] VITALS: PULSE 87; RESP 16; O2SAT 96
[2021-01-03 13:40] VITALS: BP 118/73; PULSE 103; RESP 18; TEMP 36.3; O2SAT 95
--- NOTE | 2021-01-03 16:01 | CASEMGMT ---
Social Work Received call from ex-. She confirmed she will be calling private pay aides, but agreed pt to tx to SNF prior. Requested [facility] and [address] [facility]. Discussed private pay in SNF - confirmed they can pay. Referrals to be made. Explained insurance approved with [employer]D 01/10 and continued stay is not guaranteed. Gabriela Land, GIS CONSULTANT GUARD MANAGER
[2021-01-03] MEDS: Donepezil HCl 10 MG Tablet PO (21:00)
[2021-01-03] MEDS: MELATONIN 10 MG TABLET 5 MG PO (21:00)
[2021-01-04] MEDS: Enoxaparin 30 MG/0.3 ML Syringe SC (06:08)
[2021-01-04] MEDS: Escitalopram Oxalate 10 MG Tablet PO (06:08)
[2021-01-04] MEDS: Levothyroxine 125 MCG Tablet PO (06:08)
[2021-01-04] MEDS: Isosorbide Mononitrate 30 MG Tablet PO (06:08)
[2021-01-04] MEDS: Nystatin Powder 15gm Bottle 1 APPLIC TOPICAL ×2 (06:15→16:50)
[2021-01-04 06:20] VITALS: BP 131/86; PULSE 98
[2021-01-04] MEDS: Aspirin E.C. 81 MG Tablet PO (07:47)
[2021-01-04] MEDS: Furosemide 40 MG Tablet PO (11:23)
[2021-01-04 13:41] VITALS: BP 162/79; PULSE 102; RESP 20; TEMP 36.4; O2SAT 97
[2021-01-04] MEDS: MELATONIN 10 MG TABLET 5 MG PO (20:52)
[2021-01-04] MEDS: Donepezil HCl 10 MG Tablet PO (20:55)
[2021-01-04 21:09] VITALS: PULSE 96; RESP 18; O2SAT 96
[2021-01-05] MEDS: Levothyroxine 125 MCG Tablet PO (05:01)
[2021-01-05] MEDS: Escitalopram Oxalate 10 MG Tablet PO (05:01)
[2021-01-05] MEDS: Polyethylene Glycol 3350 17 GM PACKET PO (05:01)
[2021-01-05] MEDS: Isosorbide Mononitrate 30 MG Tablet PO (05:01)
[2021-01-05] MEDS: Enoxaparin 30 MG/0.3 ML Syringe SC (05:02)
[2021-01-05] MEDS: Nystatin Powder 15gm Bottle 1 APPLIC TOPICAL ×2 (05:02→20:35)
[2021-01-05] MEDS: Amiodarone 200 MG Tablet 100 MG PO (08:59)
[2021-01-05] MEDS: Aspirin E.C. 81 MG Tablet PO (08:59)
[2021-01-05] MEDS: Furosemide 20 MG Tablet PO (08:59)
[2021-01-05 10:00] VITALS: PULSE 99; RESP 16; O2SAT 99
[2021-01-05 13:49] VITALS: BP 131/75; PULSE 76; RESP 18; TEMP 35.8; O2SAT 94
[2021-01-05] MEDS: MELATONIN 10 MG TABLET 5 MG PO (20:36)
[2021-01-05] MEDS: Donepezil HCl 10 MG Tablet PO (20:36)
[2021-01-06] MEDS: Levothyroxine 125 MCG Tablet PO (05:28)
[2021-01-06] MEDS: Escitalopram Oxalate 10 MG Tablet PO (05:28)
[2021-01-06] MEDS: Polyethylene Glycol 3350 17 GM PACKET PO (05:28)
[2021-01-06] MEDS: Isosorbide Mononitrate 30 MG Tablet PO (05:28)
[2021-01-06] MEDS: Enoxaparin 30 MG/0.3 ML Syringe SC (05:28)
[2021-01-06] MEDS: Nystatin Powder 15gm Bottle 1 APPLIC TOPICAL ×2 (05:29→19:56)
[2021-01-06] MEDS: Aspirin E.C. 81 MG Tablet PO (09:23)
[2021-01-06] MEDS: Furosemide 20 MG Tablet PO (09:23)
[2021-01-06 13:20] VITALS: BP 126/74; PULSE 76; RESP 16; TEMP 36.6; O2SAT 97
[2021-01-06 19:48] VITALS: PULSE 95; RESP 16; O2SAT 95
[2021-01-06] MEDS: Donepezil HCl 10 MG Tablet PO (19:56)
[2021-01-06] MEDS: MELATONIN 10 MG TABLET 5 MG PO (19:57)
[2021-01-07] MEDS: Enoxaparin 30 MG/0.3 ML Syringe SC (05:26)
[2021-01-07] MEDS: Polyethylene Glycol 3350 17 GM PACKET PO (05:27)
[2021-01-07] MEDS: Levothyroxine 125 MCG Tablet PO (05:27)
[2021-01-07] MEDS: Isosorbide Mononitrate 30 MG Tablet PO (05:27)
[2021-01-07] MEDS: Escitalopram Oxalate 10 MG Tablet PO (05:27)
[2021-01-07] MEDS: Nystatin Powder 15gm Bottle 1 APPLIC TOPICAL ×2 (05:27→17:11)
[2021-01-07 05:29] VITALS: BP 138/86; PULSE 78
[2021-01-07] MEDS: Aspirin E.C. 81 MG Tablet PO (08:00)
[2021-01-07 10:00] VITALS: PULSE 75; RESP 18; O2SAT 98
[2021-01-07] MEDS: Furosemide 40 MG Tablet PO (10:53)
[2021-01-07] MEDS: Amiodarone 200 MG Tablet 100 MG PO (10:53)
--- NOTE | 2021-01-07 14:15 | NURSING ---
Debbie Small, updated on current COVID status on the unit.
--- NOTE | 2021-01-07 14:22 | WOUNDNOTE ---
Pt is currently with therapy. was asked to evaluate bilateral feet. will attempt to see later. the redness could possibly be from the TIMO wraps.
[2021-01-07 16:00] VITALS: BP 127/80; PULSE 103; RESP 20; TEMP 36.2; O2SAT 96
--- NOTE | 2021-01-07 17:02 | NURSING ---
Bruise noted to coccyx, pt denies mishandling from staff. TCU golf sales manager aware.
[2021-01-07] MEDS: Donepezil HCl 10 MG Tablet PO (21:26)
[2021-01-07] MEDS: MELATONIN 10 MG TABLET 5 MG PO (21:26)
[2021-01-08 04:48] VITALS: BP 145/87; PULSE 74; RESP 20; TEMP 36.7; O2SAT 95
[2021-01-08] MEDS: Polyethylene Glycol 3350 17 GM PACKET PO (04:49)
[2021-01-08] MEDS: Escitalopram Oxalate 10 MG Tablet PO (04:50)
[2021-01-08] MEDS: Enoxaparin 30 MG/0.3 ML Syringe SC (04:50)
[2021-01-08] MEDS: Nystatin Powder 15gm Bottle 1 APPLIC TOPICAL ×2 (04:51→20:26)
[2021-01-08] MEDS: Levothyroxine 125 MCG Tablet PO (04:51)
[2021-01-08] MEDS: Isosorbide Mononitrate 30 MG Tablet PO (04:51)
[2021-01-08 06:03] LABS: Absolute Lymphocyte Count 1.83 X10^3/uL (0.83-4.51); Absolute Neutrophil Count 2.5 X10^3/uL (2.0-7.7); Basophil# 0.04 X10^3/uL; Basophil% 0.8 % (0-1); Eosinophil# 0.32 X10^3/uL; Eosinophils% 6.3 % (0-5); Hematocrit 40.2 % (40-54); Hemoglobin 13.2 g/dL (13.0-16.5); Lymphocyte # 1.83 X10^3/ul (0.83-4.51); Lymphocyte % 36.2 % (19-41); Mean Corp Hgb Conc 32.8 g/dL (32-36); Mean Corpuscular Hgb 34.3 pg (27.0-32.0); Mean Corpuscular Volume 104.4 fL (80-94); Mean Platelet Vol. 8.9 fl (6.2-12.0); Monocyte# 0.37 X10^3/uL; Monocyte% 7.3 % (0-10); NRBC Flagged by Analyzer 0 % (0-5); Neutrophil % 49.4 % (47-70); Platelet Count 106 K/mm3 (150-450); RBC Distribution Width CV 14.8 % (11.6-14.6); RBC Distribution Width SD 57.7 fl (35.1-43.9); Red Blood Count 3.85 M/mm3 (4.6-6.2); White Blood Count 5.1 K/mm3 (4.4-11.0)
[2021-01-08 06:41] LABS: Anion Gap 6 (5-15); BUN 31 mg/dL (7-18); BUN/Creat Ratio 24.4 RATIO (10-20); Calcium,Total 8.4 mg/dL (8.5-10.1); Chloride 111 mmol/L (98-107); Creatinine, Serum 1.27 mg/dL (0.70-1.30); EST Glomerular Filtration Rate 57 mL/min (>60); Est Glom Filt Rate - Afr Amer 69 mL/min (>60); Estimated Creatinine Clearance 39.04 ml/min; Glucose 85 mg/dL (74-106); Potassium 3.8 mmol/L (3.5-5.1); Sodium Level 143 mmol/L (136-145)
[2021-01-08] MEDS: Aspirin E.C. 81 MG Tablet PO (07:49)
[2021-01-08] MEDS: Furosemide 20 MG Tablet PO (10:35)
--- NOTE | 2021-01-08 10:36 | CASEMGMT ---
Addendum entered by Gabriela Land 01/08/21 12:17: Son spoke with mother and would like [facility] to be FOC. Left message with [facility]. Original Note: Social Work Followed up with [facility] and [facility]. [facility] can accept but does not have any beds available, but would keep on waitlist. [facility] accepted. Spoke with son and updated above. Will determine FOC once DC date issued. Will continue to follow. Gabriela Land, CIERRA JUARESW
[2021-01-08 14:26] VITALS: BP 121/62; PULSE 77; RESP 20; TEMP 36.6; O2SAT 94
[2021-01-08] MEDS: Donepezil HCl 10 MG Tablet PO (20:27)
[2021-01-08] MEDS: MELATONIN 10 MG TABLET 5 MG PO (20:27)
[2021-01-08 20:39] VITALS: PULSE 87; RESP 18; O2SAT 95
[2021-01-09 05:56] VITALS: BP 140/76; PULSE 91
[2021-01-09] MEDS: Polyethylene Glycol 3350 17 GM PACKET PO (05:57)
[2021-01-09] MEDS: Enoxaparin 30 MG/0.3 ML Syringe SC (05:57)
[2021-01-09] MEDS: Nystatin Powder 15gm Bottle 1 APPLIC TOPICAL ×2 (05:58→20:32)
[2021-01-09] MEDS: Isosorbide Mononitrate 30 MG Tablet PO (05:58)
[2021-01-09] MEDS: Escitalopram Oxalate 10 MG Tablet PO (05:58)
[2021-01-09] MEDS: Levothyroxine 125 MCG Tablet PO (05:58)
[2021-01-09] MEDS: Aspirin E.C. 81 MG Tablet PO (08:14)
[2021-01-09] MEDS: Amiodarone 200 MG Tablet 100 MG PO (11:04)
[2021-01-09] MEDS: Furosemide 40 MG Tablet PO (11:04)
--- NOTE | 2021-01-09 14:39 | WOUNDNOTE ---
In to reassess buttocks. the shearing is much improved. patient does have a large bruise noted to the right upper buttock/ cleft region. plan to continue Triad cream. overall, very much improved.
[2021-01-09 15:08] VITALS: BP 132/75; PULSE 72; RESP 18; TEMP 36.6; O2SAT 98
[2021-01-09] MEDS: MELATONIN 10 MG TABLET 5 MG PO (20:33)
[2021-01-09] MEDS: Donepezil HCl 10 MG Tablet PO (20:33)
[2021-01-10 05:04] VITALS: BP 140/95; PULSE 82; RESP 20; TEMP 35.8; O2SAT 96
[2021-01-10] MEDS: Escitalopram Oxalate 10 MG Tablet PO (05:06)
[2021-01-10] MEDS: Polyethylene Glycol 3350 17 GM PACKET PO (05:06)
[2021-01-10] MEDS: Enoxaparin 30 MG/0.3 ML Syringe SC (05:06)
[2021-01-10] MEDS: Isosorbide Mononitrate 30 MG Tablet PO (05:06)
[2021-01-10] MEDS: Nystatin Powder 15gm Bottle 1 APPLIC TOPICAL ×2 (05:07→17:20)
[2021-01-10] MEDS: Levothyroxine 125 MCG Tablet PO (05:07)
[2021-01-10] MEDS: Aspirin E.C. 81 MG Tablet PO (07:55)
[2021-01-10] MEDS: Furosemide 20 MG Tablet PO (11:39)
[2021-01-10 16:19] VITALS: BP 128/73; PULSE 94; RESP 18; TEMP 36.9; O2SAT 95
[2021-01-10] MEDS: Donepezil HCl 10 MG Tablet PO (20:31)
[2021-01-10] MEDS: MELATONIN 10 MG TABLET 5 MG PO (20:31)
[2021-01-10 20:38] VITALS: PULSE 60; RESP 14; O2SAT 96
[2021-01-11] MEDS: Levothyroxine 125 MCG Tablet PO (05:22)
[2021-01-11] MEDS: Nystatin Powder 15gm Bottle 1 APPLIC TOPICAL ×2 (05:22→16:16)
[2021-01-11] MEDS: Escitalopram Oxalate 10 MG Tablet PO (05:22)
[2021-01-11] MEDS: Isosorbide Mononitrate 30 MG Tablet PO (05:22)
[2021-01-11] MEDS: Polyethylene Glycol 3350 17 GM PACKET PO (05:22)
[2021-01-11] MEDS: Enoxaparin 30 MG/0.3 ML Syringe SC (05:22)
[2021-01-11] MEDS: Aspirin E.C. 81 MG Tablet PO (08:09)
[2021-01-11] MEDS: Amiodarone 200 MG Tablet 100 MG PO (09:34)
[2021-01-11] MEDS: Furosemide 40 MG Tablet PO (09:35)
--- NOTE | 2021-01-11 10:36 | CASEMGMT ---
Social Work Updated son that insurance approved more time with [employer]D 01/18 and continued stay is not guaranteed. Son and ex continuing to find additional care for pt to DC home vs transferring to [facility]. Will continue to follow. Gabriela Land, HEALTH INFORMATION MANAGEMENT DIRECTOR FIELD ARTILLERY OPERATIONS SPECIALIST
[2021-01-11 15:25] VITALS: BP 146/80; PULSE 95; RESP 20; TEMP 36.3; O2SAT 96
[2021-01-11] MEDS: MELATONIN 10 MG TABLET 5 MG PO (20:35)
[2021-01-11] MEDS: Donepezil HCl 10 MG Tablet PO (20:36)
[2021-01-12] MEDS: Enoxaparin 30 MG/0.3 ML Syringe SC (05:23)
[2021-01-12] MEDS: Isosorbide Mononitrate 30 MG Tablet PO (05:23)
[2021-01-12] MEDS: Nystatin Powder 15gm Bottle 1 APPLIC TOPICAL ×2 (05:24→17:02)
[2021-01-12] MEDS: Escitalopram Oxalate 10 MG Tablet PO (05:24)
[2021-01-12] MEDS: Levothyroxine 125 MCG Tablet PO (05:24)
[2021-01-12] MEDS: Polyethylene Glycol 3350 17 GM PACKET PO (05:24)
[2021-01-12] MEDS: Aspirin E.C. 81 MG Tablet PO (08:06)
[2021-01-12] MEDS: Furosemide 20 MG Tablet PO (11:16)
[2021-01-12 15:13] VITALS: BP 142/74; PULSE 95; RESP 18; TEMP 36.3; O2SAT 97
[2021-01-12] MEDS: Donepezil HCl 10 MG Tablet PO (21:32)
[2021-01-12] MEDS: MELATONIN 10 MG TABLET 5 MG PO (21:32)
[2021-01-12 21:37] VITALS: PULSE 92; RESP 14; O2SAT 94
[2021-01-13] MEDS: Polyethylene Glycol 3350 17 GM PACKET PO (05:10)
[2021-01-13] MEDS: Levothyroxine 125 MCG Tablet PO (05:11)
[2021-01-13] MEDS: Enoxaparin 30 MG/0.3 ML Syringe SC (05:11)
[2021-01-13] MEDS: Isosorbide Mononitrate 30 MG Tablet PO (05:11)
[2021-01-13] MEDS: Nystatin Powder 15gm Bottle 1 APPLIC TOPICAL ×2 (05:11→17:07)
[2021-01-13] MEDS: Escitalopram Oxalate 10 MG Tablet PO (05:11)
[2021-01-13] MEDS: Aspirin E.C. 81 MG Tablet PO (07:56)
[2021-01-13] MEDS: Amiodarone 200 MG Tablet 100 MG PO (09:18)
[2021-01-13] MEDS: Furosemide 20 MG Tablet PO (09:18)
[2021-01-13 10:00] VITALS: PULSE 87; RESP 18; O2SAT 92
[2021-01-13 15:07] VITALS: BP 138/80; PULSE 81; RESP 18; TEMP 36.3; O2SAT 98
[2021-01-13] MEDS: MELATONIN 10 MG TABLET 5 MG PO (20:09)
[2021-01-13] MEDS: Donepezil HCl 10 MG Tablet PO (20:10)
[2021-01-14] MEDS: Enoxaparin 30 MG/0.3 ML Syringe SC (05:08)
[2021-01-14] MEDS: Escitalopram Oxalate 10 MG Tablet PO (05:08)
[2021-01-14] MEDS: Isosorbide Mononitrate 30 MG Tablet PO (05:08)
[2021-01-14] MEDS: Levothyroxine 125 MCG Tablet PO (05:08)
[2021-01-14] MEDS: Polyethylene Glycol 3350 17 GM PACKET PO (05:09)
[2021-01-14] MEDS: Nystatin Powder 15gm Bottle 1 APPLIC TOPICAL ×2 (05:09→21:38)
[2021-01-14] MEDS: Furosemide 40 MG Tablet PO (09:09)
[2021-01-14] MEDS: Aspirin E.C. 81 MG Tablet PO (09:09)
[2021-01-14 10:00] VITALS: PULSE 79; O2SAT 94
[2021-01-14 16:00] VITALS: BP 116/81; PULSE 82; RESP 18; TEMP 36.6; O2SAT 97
[2021-01-14] MEDS: MELATONIN 10 MG TABLET 5 MG PO (21:38)
[2021-01-14] MEDS: Donepezil HCl 10 MG Tablet PO (21:39)
[2021-01-15] MEDS: Escitalopram Oxalate 10 MG Tablet PO (04:53)
[2021-01-15] MEDS: Isosorbide Mononitrate 30 MG Tablet PO (04:53)
[2021-01-15] MEDS: Polyethylene Glycol 3350 17 GM PACKET PO (04:53)
[2021-01-15] MEDS: Nystatin Powder 15gm Bottle 1 APPLIC TOPICAL ×2 (04:54→18:13)
[2021-01-15] MEDS: Levothyroxine 125 MCG Tablet PO (04:54)
[2021-01-15] MEDS: Enoxaparin 30 MG/0.3 ML Syringe SC (05:07)
[2021-01-15 05:48] LABS: Absolute Neutrophil Count 2.7 X10^3/uL (2.0-7.7); Basophil# 0.04 X10^3/uL; Basophil% 0.8 % (0-1); Eosinophil# 0.23 X10^3/uL; Eosinophils% 4.6 % (0-5); Hematocrit 42.5 % (40-54); Hemoglobin 13.9 g/dL (13.0-16.5); Lymphocyte % 31.7 % (19-41); Mean Corp Hgb Conc 32.7 g/dL (32-36); Mean Corpuscular Hgb 34.2 pg (27.0-32.0); Mean Corpuscular Volume 104.7 fL (80-94); Monocyte# 0.43 X10^3/uL; Monocyte% 8.5 % (0-10); NRBC Flagged by Analyzer 0 % (0-5); Neutrophil # 2.73 X10^3/uL (2.7-7.7); Neutrophil % 54.2 % (47-70); Platelet Count 105 K/mm3 (150-450); RBC Distribution Width CV 14.7 % (11.6-14.6); RBC Distribution Width SD 57.2 fl (35.1-43.9); Red Blood Count 4.06 M/mm3 (4.6-6.2)
[2021-01-15 06:01] LABS: Anion Gap 3 (5-15); BUN 26 mg/dL (7-18); BUN/Creat Ratio 19.3 RATIO (10-20); Calcium,Total 8.3 mg/dL (8.5-10.1); Chloride 112 mmol/L (98-107); Creatinine, Serum 1.35 mg/dL (0.70-1.30); EST Glomerular Filtration Rate 53 mL/min (>60); Est Glom Filt Rate - Afr Amer 64 mL/min (>60); Estimated Creatinine Clearance 36.72 ml/min; Glucose 95 mg/dL (74-106); Potassium 3.8 mmol/L (3.5-5.1); Sodium Level 144 mmol/L (136-145)
[2021-01-15] MEDS: Aspirin E.C. 81 MG Tablet PO (07:59)
--- NOTE | 2021-01-15 09:35 | PN.TCU_ITS ---
Subjective Subjective REsIdEnT SeEn, ExAmInEd fOr rEgUlAtOrY ViSiT. HE HaS No nEw pRoBlEmS, cOnCeRnS, iSsUeS, cOmPlAiNtS. Objective Data Objective Data Vital Signs: Vital Signs Temp Pulse Resp BP Pulse Ox 97.9 F 82 18 116/81 H 97 01/14/21 16:00 01/14/21 16:00 01/14/21 16:00 01/14/21 16:00 01/14/21 16:00 Oxygen Delivery Method Room Air Weight: 95.254 kg Intake & Output: Intake and Output for Last 24 Hours 01/13/21 01/14/21 01/15/21 23:59 23:59 23:59 Intake Total 360 / 360 120 / 120 Balance 360 / 360 120 / 120 Lab / Micro Data Result Diagrams: 01/15/21 05:38 01/15/21 05:38 Labs: Laboratory Results - last 24 hr 01/15/21 05:38: WBC 5.0, RBC 4.06 L, Hgb 13.9, Hct 42.5, MCV 104.7 H, MCH 34.2 H , MCHC 32.7, RDW Std Deviation 57.2 H, RDW Coeff of Germaine 14.7 H, Plt Count 105 L, MPV 9.0, Immature Gran % (Auto) 0.200, Neut % (Auto) 54.2, Lymph % (Auto) 31.7, Jessamine % (Auto) 8.5, Eos % (Auto) 4.6, Baso % (Auto) 0.8, Absolute Neuts (auto) 2.7, Absolute Lymphs (auto) 1.60, Nucleated RBC % 0 01/15/21 05:38: Sodium 144, Potassium 3.8, Chloride 112 H, Carbon Dioxide 29.0, Anion Gap 3 L, BUN 26 H, Creatinine 1.35 H, Estim Creat Clear Calc 36.72, Est GFR (MDRD) Af Amer 64, Est GFR (MDRD) Non-Af 53 L, BUN/Creatinine Ratio 19.3, Glucose 95, Calcium 8.3 L Micro: Microbiology 01/14/21 15:10 Nasal Secretion SARS-CoV-2 Antigen (Rapid) - Final 01/08/21 12:14 Nasal Secretion SARS-CoV-2 Antigen (Rapid) - Final Physical Exam Const alert and oriented x3 General Appearance: cooperative HEENT normocephalic Eyes PERRL and EOMs intact bilaterally Neck supple, no JVD and no carotid bruits Resp normal respiratory effort, normal air movement and clear to auscultation bilaterally Cardio regular rate and regular rhythm GI normal to inspection, nondistended, normoactive bowel sounds, non-tender and non-distended Extremity normal capillary refill General Extremity: Negative for edema Skin no rashes or lesions noted General Skin Exam: no breakdown Psych affect normal Appearance: appropriate Assessment & Plan Assessment/Plan (1) Debility: (2) Alzheimer disease: (3) Depression: (4) Atrial fibrillation: (5) Coronary artery disease: (6) Hypothyroidism: (7) Insomnia: (8) Chronic diastolic congestive heart failure: PLAN: 85 year old male with below past medical history hospitalized for weakness, admitted to TCU with debility, here for rehabilitation, strengthening, prior to discharge home with hospice. * Debility - PT/OT. * Dysphagia - ST * Pain - Tylenol 1000mg Q6H prn pain (1-10). * Bowel - Miralax 17gm daily, Senna/colace 1 tablet twice daily pRn, Dulcolax 10mg AK daily PRN. * Adult immunization - Administer prevnar 13, pneumovax 23, fluzone, covid19 vaccine as appropriate. * DVT prophylaxis - Lovenox 30mg sc daily. * Shortness of breath - Albuterol 2.5mg nebulized Q4H PRN. * Atrial fibrillation - Amiodarone 100mg every other day. * Coronary Artery Disease - Imdur 30mg daily, Aspirin 81mg daily. * Alzheimer Disease - Donepezil 10mg QHS. * Aspiration pneumonitis - Doxycycline 100mg bid x 7 days. * Skin irritation - Eucerin topical 4x/day prn * Depression - Lexapro 10mg daily. * Chronic diastolic heart failure - Imdur 30mg daily, Lasix 20mg/40mg alternating. * Hypothyroidism - Levothyroxine 125mcg daily. * Insomnia - Melatonin 5mg QHS. * Tinea Corporis - Nystatin powder topical twice daily. Capacity Capacity Assessment Tool Can the patient make a choice & communicate that choice?: Yes Can the patient understand benefits, risks and alternatives?: Yes Can the patient make a logical, rational choice?: Yes Is the choice the patient makes consistent w/ their values?: Yes Is there an impending, emergent risk to the patient?: No Does the patient have an Advance Directive?: No Is there a Surrogate Available?: Yes i.e. HCPOA: Yes i.e. close relative (spouse, child, parent, sibling)?: Yes
[2021-01-15] MEDS: Amiodarone 200 MG Tablet 100 MG PO (11:25)
[2021-01-15] MEDS: Furosemide 20 MG Tablet PO (11:25)
[2021-01-15 11:30] VITALS: BP 123/82; PULSE 94
[2021-01-15 14:33] VITALS: BP 119/71; PULSE 95; RESP 22; TEMP 36; O2SAT 93
[2021-01-15 20:00] VITALS: PULSE 92; RESP 16; O2SAT 95
[2021-01-15] MEDS: Donepezil HCl 10 MG Tablet PO (22:03)
[2021-01-15] MEDS: MELATONIN 10 MG TABLET 5 MG PO (22:03)
[2021-01-16] MEDS: Polyethylene Glycol 3350 17 GM PACKET PO (04:49)
[2021-01-16] MEDS: Enoxaparin 30 MG/0.3 ML Syringe SC (04:50)
[2021-01-16] MEDS: Isosorbide Mononitrate 30 MG Tablet PO (04:54)
[2021-01-16] MEDS: Levothyroxine 125 MCG Tablet PO (04:54)
[2021-01-16] MEDS: Escitalopram Oxalate 10 MG Tablet PO (04:54)
[2021-01-16] MEDS: Nystatin Powder 15gm Bottle 1 APPLIC TOPICAL ×2 (04:54→21:41)
[2021-01-16 05:04] VITALS: BP 148/75; PULSE 93; RESP 16
[2021-01-16] MEDS: Aspirin E.C. 81 MG Tablet PO (08:09)
[2021-01-16] MEDS: Furosemide 40 MG Tablet PO (11:02)
[2021-01-16 11:06] VITALS: BP 113/75; PULSE 98
[2021-01-16 16:04] VITALS: BP 112/70; PULSE 95; RESP 24; TEMP 36.1; O2SAT 96
[2021-01-16 20:00] VITALS: PULSE 78; RESP 14; O2SAT 97
[2021-01-16] MEDS: MELATONIN 10 MG TABLET 5 MG PO (21:39)
[2021-01-16] MEDS: Donepezil HCl 10 MG Tablet PO (21:39)
[2021-01-17] MEDS: Polyethylene Glycol 3350 17 GM PACKET PO (05:17)
[2021-01-17] MEDS: Levothyroxine 125 MCG Tablet PO (05:17)
[2021-01-17] MEDS: Isosorbide Mononitrate 30 MG Tablet PO (05:18)
[2021-01-17] MEDS: Nystatin Powder 15gm Bottle 1 APPLIC TOPICAL ×2 (05:18→21:26)
[2021-01-17] MEDS: Enoxaparin 30 MG/0.3 ML Syringe SC (05:18)
[2021-01-17] MEDS: Escitalopram Oxalate 10 MG Tablet PO (05:18)
[2021-01-17 05:26] VITALS: BP 146/87; PULSE 76; RESP 16
[2021-01-17] MEDS: Furosemide 20 MG Tablet PO (09:00)
[2021-01-17] MEDS: Amiodarone 200 MG Tablet 100 MG PO (09:00)
[2021-01-17] MEDS: Aspirin E.C. 81 MG Tablet PO (09:00)
[2021-01-17 14:37] VITALS: BP 134/83; PULSE 76; RESP 18; TEMP 35.8; O2SAT 97
[2021-01-17 15:00] VITALS: RESP 14
[2021-01-17] MEDS: Donepezil HCl 10 MG Tablet PO (21:25)
[2021-01-17] MEDS: MELATONIN 10 MG TABLET 5 MG PO (21:25)
[2021-01-18] MEDS: Enoxaparin 30 MG/0.3 ML Syringe SC (06:18)
[2021-01-18] MEDS: Escitalopram Oxalate 10 MG Tablet PO (06:18)
[2021-01-18] MEDS: Isosorbide Mononitrate 30 MG Tablet PO (06:18)
[2021-01-18] MEDS: Levothyroxine 125 MCG Tablet PO (06:18)
[2021-01-18] MEDS: Polyethylene Glycol 3350 17 GM PACKET PO (06:18)
[2021-01-18] MEDS: Nystatin Powder 15gm Bottle 1 APPLIC TOPICAL ×2 (06:30→17:04)
[2021-01-18] MEDS: Aspirin E.C. 81 MG Tablet PO (08:00)
[2021-01-18] MEDS: Furosemide 40 MG Tablet PO (11:20)
--- NOTE | 2021-01-18 13:43 | CASEMGMT ---
Social Work Received insurance approval for [facility] 01/23. However, IDT state pt is no longer making progress and would like to set DC 01/23. Spoke with son and updated him. Son understood the time was coming and in agreement with DC 01/23. Inquired about home or [facility]. Son would like to discuss with family either home with hospice or [facility]. Will he notify this worker of outcome. Left message with [facility] to confirm acceptance and bed for 01/23. Will continue to follow. CIERRA AcevedoW
[2021-01-18 13:55] VITALS: BP 131/72; PULSE 96; RESP 18; TEMP 36.4; O2SAT 96
[2021-01-18] MEDS: MELATONIN 10 MG TABLET 5 MG PO (20:01)
[2021-01-18] MEDS: Donepezil HCl 10 MG Tablet PO (20:02)
[2021-01-18 22:32] VITALS: PULSE 86; RESP 14; O2SAT 96
[2021-01-19] MEDS: Isosorbide Mononitrate 30 MG Tablet PO (05:54)
[2021-01-19] MEDS: Polyethylene Glycol 3350 17 GM PACKET PO (05:54)
[2021-01-19] MEDS: Enoxaparin 30 MG/0.3 ML Syringe SC (05:54)
[2021-01-19] MEDS: Escitalopram Oxalate 10 MG Tablet PO (05:55)
[2021-01-19] MEDS: Levothyroxine 125 MCG Tablet PO (05:55)
[2021-01-19] MEDS: Nystatin Powder 15gm Bottle 1 APPLIC TOPICAL ×2 (05:55→22:05)
[2021-01-19] MEDS: Aspirin E.C. 81 MG Tablet PO (08:09)
[2021-01-19] MEDS: Furosemide 20 MG Tablet PO (08:48)
[2021-01-19] MEDS: Amiodarone 200 MG Tablet 100 MG PO (08:48)
[2021-01-19 14:39] VITALS: PULSE 100; RESP 18; O2SAT 95
[2021-01-19 16:00] VITALS: BP 125/72; PULSE 75; RESP 20; TEMP 36.8; O2SAT 98
[2021-01-19] MEDS: Donepezil HCl 10 MG Tablet PO (22:05)
[2021-01-19] MEDS: MELATONIN 10 MG TABLET 5 MG PO (22:06)
[2021-01-20] MEDS: Polyethylene Glycol 3350 17 GM PACKET PO (05:16)
[2021-01-20] MEDS: Levothyroxine 125 MCG Tablet PO (05:16)
[2021-01-20] MEDS: Isosorbide Mononitrate 30 MG Tablet PO (05:16)
[2021-01-20] MEDS: Escitalopram Oxalate 10 MG Tablet PO (05:16)
[2021-01-20] MEDS: Enoxaparin 30 MG/0.3 ML Syringe SC (05:16)
[2021-01-20] MEDS: Nystatin Powder 15gm Bottle 1 APPLIC TOPICAL ×2 (05:16→21:35)
[2021-01-20] MEDS: Aspirin E.C. 81 MG Tablet PO (08:08)
[2021-01-20] MEDS: Furosemide 20 MG Tablet PO (08:45)
[2021-01-20 15:50] VITALS: BP 125/75; PULSE 65; RESP 19; TEMP 36.6; O2SAT 97
[2021-01-20 19:34] VITALS: PULSE 75; RESP 16; O2SAT 95
[2021-01-20] MEDS: MELATONIN 10 MG TABLET 5 MG PO (21:29)
[2021-01-20] MEDS: Donepezil HCl 10 MG Tablet PO (21:29)
[2021-01-21] MEDS: Polyethylene Glycol 3350 17 GM PACKET PO (05:45)
[2021-01-21] MEDS: Levothyroxine 125 MCG Tablet PO (05:46)
[2021-01-21] MEDS: Escitalopram Oxalate 10 MG Tablet PO (05:46)
[2021-01-21] MEDS: Isosorbide Mononitrate 30 MG Tablet PO (05:46)
[2021-01-21] MEDS: Enoxaparin 30 MG/0.3 ML Syringe SC (05:46)
[2021-01-21] MEDS: Nystatin Powder 15gm Bottle 1 APPLIC TOPICAL ×2 (05:52→16:39)
--- NOTE | 2021-01-21 08:12 | DS.PCM_ITS ---
Providers Date of Admission: 12/17/20 Primary Care Physician: Dr. Laith Lai MD Consultations 01/04/21 21:17 Consult: Onc/Wound/electromagnet crane operator Routine Comment: Reason for Consult:: pressure areas to 1st metatarsal joints bilaterally, blanchable. Comments:: may be shoes? Reason For Visit: DEBILITY Diagnosis Discharge Diagnosis (1) Debility: Status: Acute Code(s): R53.81 - Other malaise (2) Alzheimer disease: Status: Acute Code(s): G30.9 - Alzheimer's disease, unspecified; F02.80 - Dementia in other diseases classified elsewhere without behavioral disturbance (3) Depression: Status: Acute Code(s): F32.A - Depression, unspecified (4) Atrial fibrillation: Status: Acute Code(s): I48.91 - Unspecified atrial fibrillation (5) Coronary artery disease: Status: Acute Code(s): I25.10 - Atherosclerotic heart disease of [place] coronary artery without angina pectoris (6) Hypothyroidism: Status: Acute Code(s): E03.9 - Hypothyroidism, unspecified (7) Insomnia: Status: Acute Code(s): G47.00 - Insomnia, unspecified (8) Chronic diastolic congestive heart failure: Status: Chronic Code(s): I50.32 - Chronic diastolic (congestive) heart failure Medications at Discharge Home Medications donepezil 10 mg PO QHS 03/07/15 escitalopram oxalate 10 mg PO DAILY 11/24/18 isosorbide mononitrate 30 mg tablet,extended release 24 hr 30 mg PO DAILY #90 tab 06/28/19 levothyroxine 125 mcg PO DAILY 11/10/19 melatonin 5 mg PO QHS 11/10/19 aspirin 81 mg tablet,delayed release 81 mg PO DAILY 11/23/19 furosemide 40 mg tablet 20 mg PO SUTUTHSA tab 07/11/20 furosemide 40 mg tablet 40 mg PO MOWEFR tab 07/11/20 amiodarone 100 mg PO QODAY 12/16/20 Hospital Course Operations None Procedures None Summary of Care Provided Minutes Spent on Discharge: 35 Hospital Course: 85 year old male with below past medical history hospitalized for weakness, admitted to TCU with debility, here for rehabilitation, strengthening, prior to discharge home with hospice. Discharge to [facility] 01/23/2021, intermediate care. Physical Exam Const alert and oriented x3 General Appearance: cooperative HEENT normocephalic Eyes PERRL and EOMs intact bilaterally Neck supple, no JVD and no carotid bruits Resp normal respiratory effort, normal air movement and clear to auscultation bilaterally Cardio regular rate and regular rhythm GI normal to inspection, nondistended, normoactive bowel sounds, non-tender and non-distended Extremity normal capillary refill General Extremity: Negative for edema Skin no rashes or lesions noted General Skin Exam: no breakdown Psych affect normal Appearance: appropriate Weight / BMI Weight Weight: 95.254 kg ABG / Lab / Microbiology Data Result Diagrams: 01/15/21 05:38 01/15/21 05:38 Microbiology: Microbiology 01/14/21 15:10 Nasal Secretion SARS-CoV-2 Antigen (Rapid) - Final 01/08/21 12:14 Nasal Secretion SARS-CoV-2 Antigen (Rapid) - Final D/C Instructions Discharge Diet: No restrictions Discharge Activity: Return to Normal Activity, May Shower and Use Walker Weight Bearing Status: Weight bearing as tolerated Call your doctor if you observe: Fever of 101 or Higher, Inability to urinate, Inability to have a bowel movement, Shortness of breath, Dizziness, Fainting spells, Swelling in the ankles, Chest pain and Uncontrolled pain Additional Instructions: Discharge to [facility] 01/23/2021, intermediate care. Please Follow Up With: Alonso Peraza MD When: As scheduled. Meaningful Use Info Meaningful Use Diagnoses (Choose all that apply): None applicable Discharge Plan Admission Admit Date/Time: 12/17/20 14:05 Primary Reason for Your Visit: Debility. Attending Provider: Laith Lai Chi Primary Care Provider: Laith Lai Chi Instructions Additional Instructions / Restrictions: Discharge to [facility] 01/23/2021, intermediate care. Discharge Orders/Prescriptions Prescriptions: Continued isosorbide mononitrate 30 mg tablet extended release 24 hr 30 mg PO DAILY Qty: 90 RF: 3 furosemide 40 mg tablet 40 mg PO MOWEFR RF: 0 furosemide 40 mg tablet 20 mg PO SUTUTHSA RF: 0 aspirin [Adult Aspirin Regimen] 81 mg tablet,delayed release (DR/EC) 81 mg PO DAILY RF: 0 donepezil 10 MG tablet 10 mg PO QHS RF: 0 escitalopram oxalate 10 MG tablet 10 mg PO DAILY RF: 0 levothyroxine 125 MCG tablet 125 mcg PO DAILY RF: 0 melatonin 5 MG capsule 5 mg PO QHS RF: 0 amiodarone 200 mg tablet 100 mg PO QODAY RF: 0 Discontinued albuterol sulfate 2.5 mg /3 mL (0.083 %) solution for nebulization 2.5 mg inhalation Q4H PRN PRN (Reason: SOB) RF: 0 Referrals / Follow Up: Laith Lai Chi, MD [Primary Care Provider] - Disposition Disposition (needs filled in before D/C Order can be placed): NonSkilled NH/Intermed Care
[2021-01-21] MEDS: Aspirin E.C. 81 MG Tablet PO (08:13)
--- NOTE | 2021-01-21 08:16 | TREXTCAR_ITS ---
Diet 12/19/20 13:06 Diet: Regular - General Food consistency:: Soft & Bite Sized Liquid Consistency:: Honey/Moderately Thick Is pt able to select menu?: Yes Diet Comments: 1:1 supervision, liquid by tsp, hard swallow, seated 90, EP or MC w/ meals Routine Orders/Code Status Code Status: Full Code Wound(s) coccyx: Wound Type: Shearing Dressing Change: Triad abdomen: Wound Type: redness BLE: Wound Type: scattered abrasions BUE: Wound Type: scattered abrasions right hand: Wound Type: bruised/small scab Dressing Change: Dry Sterile Dressing bilat 1st metatarsal phalangeal heads: Wound Type: reddened rt saez: Wound Type: Abrasion Dressing Change: Dry Sterile Dressing Therapies Weight Bearing: Weight bearing as tolerated Extremity Affected:: Bilateral Lower Problem/Diagnosis (1) Debility: Status: Acute (2) Alzheimer disease: Status: Acute (3) Depression: Status: Acute (4) Atrial fibrillation: Status: Acute (5) Coronary artery disease: Status: Acute (6) Hypothyroidism: Status: Acute (7) Insomnia: Status: Acute (8) Chronic diastolic congestive heart failure: Status: Chronic Allergies/Procedures Done in Hospital Allergies morphine Adverse Reaction (Severe, Verified 12/16/20 14:16) hostility,disoriented hostility, disoriented Procedures: None Type of Care/Length of Stay Estimated LOS: More Than 30 Days Type of Care Needed: Intermediate Rehab Potential: Poor Prognosis: Poor Additional Orders/Day of Discharge Day of Discharge: 01/23/21 Dietary and Speech Recommendations Dietitian Recommendations/Changes: Will continue liberal Regular diet w/ consistency per RECORDS TECHNICIAN Will continue to provide ensure pudding or magic cup w/ meals for increased nutrition if consumed Asked for res to have weight measured at least weekly Follow Up Care Please follow up with your Primary Care Physician in: Laith Lai Chi Please Follow Up With: Alonso Peraza MD Discharge Plan Admission Admit Date/Time: 12/17/20 14:05 Primary Reason for Your Visit: Debility. Attending Provider: Laith Lai Chi Primary Care Provider: Laith Lai Chi Instructions Additional Instructions / Restrictions: Discharge to [facility] 01/23/2021, intermediate care. Discharge Orders/Prescriptions Prescriptions: Continued isosorbide mononitrate 30 mg tablet extended release 24 hr 30 mg PO DAILY Qty: 90 RF: 3 furosemide 40 mg tablet 40 mg PO MO RF: 0 furosemide 40 mg tablet 20 mg PO SUTUTH RF: 0 aspirin [Adult Aspirin Regimen] 81 mg tablet,delayed release (DR/EC) 81 mg PO DAILY RF: 0 donepezil 10 MG tablet 10 mg PO QHS RF: 0 escitalopram oxalate 10 MG tablet 10 mg PO DAILY RF: 0 levothyroxine 125 MCG tablet 125 mcg PO DAILY RF: 0 melatonin 5 MG capsule 5 mg PO QHS RF: 0 amiodarone 200 mg tablet 100 mg PO QODAY RF: 0 Discontinued albuterol sulfate 2.5 mg /3 mL (0.083 %) solution for nebulization 2.5 mg inhalation Q4H PRN PRN (Reason: SOB) RF: 0 Referrals / Follow Up: Laith Lai Chi, MD [Primary Care Provider] - Disposition Disposition (needs filled in before D/C Order can be placed): NonSkilled NH/Intermed Care
[2021-01-21] MEDS: Furosemide 40 MG Tablet PO (09:04)
[2021-01-21] MEDS: Amiodarone 200 MG Tablet 100 MG PO (09:04)
[2021-01-21 11:07] VITALS: PULSE 78; RESP 18; O2SAT 96
[2021-01-21 13:25] VITALS: BP 114/76; PULSE 85; RESP 20; TEMP 36.1; O2SAT 95
--- NOTE | 2021-01-21 15:37 | CASEMGMT ---
Addendum entered by Gabriela Land 01/21/21 15:42: Scheduled cot transport through [facility] for 11 am 01/23. Faxed SHALA LOGAN info to [facility]. Original Note: Social Work Met with patient's son to get final DC plan for pt. Son chose for pt to tx to [facility], private pay, without hospice at this time. Son has spoken to [facility] and Hospice to get questions answered. Son requesting transport. Son expressed great appreciation for time and assistance. Son asked to be the one to tell the pt about the tx. SW agreed. Spoke with [facility] who can accept pt 01/23. Plan: DC to [facility], [facility], 01/23 CIERRA Acevedo
[2021-01-21] MEDS: MELATONIN 10 MG TABLET 5 MG PO (20:03)
[2021-01-21] MEDS: Menthol/Lanolin/Calamine/Znox 113 GM Tube 1 APPLIC TOPICAL (20:04)
[2021-01-21] MEDS: Donepezil HCl 10 MG Tablet PO (20:04)
[2021-01-22] MEDS: Polyethylene Glycol 3350 17 GM PACKET PO (05:16)
[2021-01-22] MEDS: Enoxaparin 30 MG/0.3 ML Syringe SC (05:16)
[2021-01-22] MEDS: Escitalopram Oxalate 10 MG Tablet PO (05:17)
[2021-01-22] MEDS: Levothyroxine 125 MCG Tablet PO (05:17)
[2021-01-22] MEDS: Isosorbide Mononitrate 30 MG Tablet PO (05:17)
[2021-01-22] MEDS: Nystatin Powder 15gm Bottle 1 APPLIC TOPICAL ×2 (05:29→21:57)
[2021-01-22] MEDS: Menthol/Lanolin/Calamine/Znox 113 GM Tube 1 APPLIC TOPICAL ×2 (05:29→21:58)
[2021-01-22 05:50] LABS: Absolute Lymphocyte Count 1.66 X10^3/uL (0.83-4.51); Absolute Neutrophil Count 2.2 X10^3/uL (2.0-7.7); Basophil# 0.03 X10^3/uL; Basophil% 0.7 % (0-1); Eosinophil# 0.21 X10^3/uL; Eosinophils% 4.6 % (0-5); Hematocrit 40.7 % (40-54); Hemoglobin 13.4 g/dL (13.0-16.5); Lymphocyte # 1.66 X10^3/ul (0.83-4.51); Lymphocyte % 36.5 % (19-41); Mean Corp Hgb Conc 32.9 g/dL (32-36); Mean Corpuscular Hgb 34.3 pg (27.0-32.0); Mean Corpuscular Volume 104.1 fL (80-94); Monocyte# 0.45 X10^3/uL; Monocyte% 9.9 % (0-10); NRBC Flagged by Analyzer 0 % (0-5); Neutrophil # 2.19 X10^3/uL (2.7-7.7); Neutrophil % 48.1 % (47-70); Platelet Count 101 K/mm3 (150-450); RBC Distribution Width CV 14.7 % (11.6-14.6); RBC Distribution Width SD 56.5 fl (35.1-43.9); Red Blood Count 3.91 M/mm3 (4.6-6.2); White Blood Count 4.6 K/mm3 (4.4-11.0)
[2021-01-22 06:12] LABS: Anion Gap 5 (5-15); BUN 24 mg/dL (7-18); BUN/Creat Ratio 18.3 RATIO (10-20); Calcium,Total 8.2 mg/dL (8.5-10.1); Chloride 112 mmol/L (98-107); Creatinine, Serum 1.31 mg/dL (0.70-1.30); EST Glomerular Filtration Rate 55 mL/min (>60); Est Glom Filt Rate - Afr Amer 67 mL/min (>60); Estimated Creatinine Clearance 37.84 ml/min; Glucose 88 mg/dL (74-106); Potassium 3.6 mmol/L (3.5-5.1); Sodium Level 145 mmol/L (136-145)
[2021-01-22 06:37] VITALS: BP 134/83; PULSE 97
[2021-01-22] MEDS: Furosemide 20 MG Tablet PO (08:51)
[2021-01-22] MEDS: Aspirin E.C. 81 MG Tablet PO (08:51)
[2021-01-22 15:46] VITALS: BP 110/80; PULSE 79; RESP 20; TEMP 36.1; O2SAT 96
[2021-01-22 22:00] VITALS: PULSE 96; RESP 18; O2SAT 94
[2021-01-22] MEDS: MELATONIN 10 MG TABLET 5 MG PO (22:01)
[2021-01-22] MEDS: Donepezil HCl 10 MG Tablet PO (22:01)
[2021-01-23 05:56] VITALS: BP 132/81; PULSE 96
[2021-01-23] MEDS: Menthol/Lanolin/Calamine/Znox 113 GM Tube 1 APPLIC TOPICAL (05:59)
[2021-01-23] MEDS: Nystatin Powder 15gm Bottle 1 APPLIC TOPICAL (05:59)
[2021-01-23] MEDS: Escitalopram Oxalate 10 MG Tablet PO (06:00)
[2021-01-23] MEDS: Enoxaparin 30 MG/0.3 ML Syringe SC (06:00)
[2021-01-23] MEDS: Isosorbide Mononitrate 30 MG Tablet PO (06:00)
[2021-01-23] MEDS: Polyethylene Glycol 3350 17 GM PACKET PO (06:02)
[2021-01-23] MEDS: Levothyroxine 125 MCG Tablet PO (06:02)
[2021-01-23 06:04] VITALS: PULSE 81; O2SAT 94
[2021-01-23] MEDS: Aspirin E.C. 81 MG Tablet PO (07:52)
[2021-01-23 09:34] VITALS: PULSE 96; RESP 18; O2SAT 98
[2021-01-23] MEDS: Furosemide 40 MG Tablet PO (10:16)
[2021-01-23] MEDS: Amiodarone 200 MG Tablet 100 MG PO (10:16)
[2021-01-23 10:21] VITALS: BP 120/61; PULSE 82; RESP 18; TEMP 36.4; O2SAT 93
== END 2021-01-23 11:15 | disposition intermediate care facility (04) | DRG 178 ==
PROVIDERS: Admitting Provider Family Medicine Geriatric Medicine; PCP Family Medicine Geriatric Medicine; Visit Provider Family Medicine Geriatric Medicine
DX: J69.0 Pneumonitis due to inhalation of food and vomit (principal); I50.32 Chronic diastolic (congestive) heart failure; I13.0 Hypertensive heart and chronic kidney disease with heart failure and stage 1 through stage 4 chronic kidney disease, or unspecified chronic kidney disease; G30.9 Alzheimer's disease, unspecified; F02.80 Dementia in other diseases classified elsewhere, unspecified severity, without behavioral disturbance, psychotic disturbance, mood disturbance, and anxiety; I25.10 Atherosclerotic heart disease of native coronary artery without angina pectoris; I48.91 Unspecified atrial fibrillation; Z23 Encounter for immunization; B35.4 Tinea corporis; F32.A Depression, unspecified; E03.9 Hypothyroidism, unspecified; J44.9 Chronic obstructive pulmonary disease, unspecified; K21.9 Gastro-esophageal reflux disease without esophagitis; I25.2 Old myocardial infarction; G47.33 Obstructive sleep apnea (adult) (pediatric); E66.9 Obesity, unspecified; N18.32 Chronic kidney disease, stage 3b; F17.220 Nicotine dependence, chewing tobacco, uncomplicated; Z68.33 Body mass index [BMI] 33.0-33.9, adult; Z79.899 Other long term (current) drug therapy; Z79.82 Long term (current) use of aspirin; Z79.890 Hormone replacement therapy
CPT/HCPCS: 0064A; 36415; 74230; 80048; 85025; 87426; 90732; 91301; 92507; 92526; 92610; 92611; 97110; 97116; 97162; 97166; 97530; 97535; 97802; 99406; G0009

== ENCOUNTER → 2021-01-24 05:00 | Outpatient (REF) | payer MEDICARE, SELFPAY ==
[2021-01-24 08:02] LABS: Absolute Lymphocyte Count 1.73 X10^3/uL (0.83-4.51); Absolute Neutrophil Count 2.3 X10^3/uL (2.0-7.7); Basophil# 0.04 X10^3/uL; Basophil% 0.8 % (0-1); Eosinophil# 0.23 X10^3/uL; Eosinophils% 4.9 % (0-5); Hematocrit 38.1 % (40-54); Hemoglobin 12.7 g/dL (13.0-16.5); Lymphocyte # 1.73 X10^3/ul (0.83-4.51); Lymphocyte % 36.6 % (19-41); Mean Corp Hgb Conc 33.3 g/dL (32-36); Mean Corpuscular Hgb 34.6 pg (27.0-32.0); Mean Corpuscular Volume 103.8 fL (80-94); Mean Platelet Vol. 9.3 fl (6.2-12.0); Monocyte# 0.41 X10^3/uL; Monocyte% 8.7 % (0-10); NRBC Flagged by Analyzer 0 % (0-5); Neutrophil # 2.31 X10^3/uL (2.7-7.7); Neutrophil % 48.8 % (47-70); POSITIVE COUNT YES; Platelet Count 92 K/mm3 (150-450); RBC Distribution Width CV 14.5 % (11.6-14.6); RBC Distribution Width SD 55.8 fl (35.1-43.9); Red Blood Count 3.67 M/mm3 (4.6-6.2); White Blood Count 4.7 K/mm3 (4.4-11.0)
[2021-01-24 08:26] LABS: Anion Gap 6 (5-15); BUN 27 mg/dL (7-18); BUN/Creat Ratio 20.5 RATIO (10-20); Calcium,Total 8.3 mg/dL (8.5-10.1); Chloride 110 mmol/L (98-107); Creatinine, Serum 1.32 mg/dL (0.70-1.30); EST Glomerular Filtration Rate 55 mL/min (>60); Est Glom Filt Rate - Afr Amer 66 mL/min (>60); Glucose 83 mg/dL (74-106); Potassium 3.8 mmol/L (3.5-5.1); Sodium Level 145 mmol/L (136-145)
== END ==
LOC: OLS.SW300 05:00
PROVIDERS: PCP Family Medicine Geriatric Medicine; Visit Provider Family Medicine
DX: I10 Essential (primary) hypertension (principal); R53.83 Other fatigue
CPT/HCPCS: 36415; 80048; 85025

== ENCOUNTER → 2021-01-25 05:00 | Outpatient (REF) | payer MEDICARE, SELFPAY ==
[2021-01-25 08:04] LABS: Prealbumin 14.3 mg/dL (20.0-40.0)
== END ==
LOC: OLS.SW300 05:00
PROVIDERS: PCP Family Medicine Geriatric Medicine; Visit Provider Family Medicine
DX: L08.9 Local infection of the skin and subcutaneous tissue, unspecified (principal)
CPT/HCPCS: 36415; 84134